=== PATIENT | female | born 1950 | race African-American/Black ===

== ENCOUNTER 2021-03-22 19:12 | Emergency (ER) | payer MEDICARE, OTHER ==
[~2021-03-22] VITALS: Ht 167.6 cm; Wt 95.3 kg
[2021-03-22 20:05] VITALS: BP 152/88
[2021-03-22] MEDS ORDERED: GELATIN SPONGE,ABSORBABLE 1 SPONGE SPONGE TP ONE ×2 (21:03→21:30)
--- NOTE | 2021-03-22 21:13 | NUR ---
[facility] CALLED FOR TRANSPORT. ETA 15 MINUTES.
--- NOTE | 2021-03-22 21:23 | NUR ---
REPORT GIVEN TO ISABELLE FROM [facility]
--- NOTE | 2021-03-22 21:39 | NUR ---
PATIENT BEING TRANSFFERED TO [facility] VIA AMBULANCE IN STABLE CONDITION WITH DISCHARGE PAPERS.
== END 2021-03-22 21:40 ==
LOC: ER 19:14
DX: L76.22 Postprocedural hemorrhage of skin and subcutaneous tissue following other procedure (principal); N18.6 End stage renal disease; E11.22 Type 2 diabetes mellitus with diabetic chronic kidney disease; E11.39 Type 2 diabetes mellitus with other diabetic ophthalmic complication; H42 Glaucoma in diseases classified elsewhere; I50.9 Heart failure, unspecified; Z99.2 Dependence on renal dialysis; Z83.511 Family history of glaucoma; Z86.79 Personal history of other diseases of the circulatory system; Z87.81 Personal history of (healed) traumatic fracture; Z86.2 Personal history of diseases of the blood and blood-forming organs and certain disorders involving the immune mechanism; Z88.0 Allergy status to penicillin; Z91.012 Allergy to eggs
CPT/HCPCS: 99283; A6253 ×2; A6403

== ENCOUNTER 2021-04-20 16:35 | Inpatient (IN) | payer MEDICARE, OTHER ==
[~2021-04-20] VITALS: Ht 167.6 cm; Wt 83.5 kg
[2021-04-20] MEDS ORDERED: LATA2.5D15 EACHEYE (17:22)
[2021-04-20] MEDS ORDERED: APIX2.5T PO (17:22)
[2021-04-20] MEDS ORDERED: METO25TA20 PO (17:22)
[2021-04-20] MEDS ORDERED: ASCO-352 PO (17:22)
[2021-04-20] MEDS ORDERED: LOSA25TA27 PO (17:22)
[2021-04-20] MEDS ORDERED: INSU100V11 SQ (17:22)
[2021-04-20] MEDS ORDERED: MIDO10TA PO (17:22)
[2021-04-20] MEDS ORDERED: ROSU10TA2 PO (17:22)
[2021-04-20] MEDS ORDERED: CHOL100043 PO (17:22)
[2021-04-20] MEDS ORDERED: FOLI0.8T23 PO (17:22)
[2021-04-20] MEDS ORDERED: TRAM50TA2 PO (17:22)
[2021-04-20] MEDS ORDERED: DOCU-141 PO (17:22)
[2021-04-20] MEDS ORDERED: ONDA-97 PO (17:22)
[2021-04-20] MEDS ORDERED: FERR210T PO (17:22)
[2021-04-20] MEDS ORDERED: GABA-532 PO (17:22)
[2021-04-20] MEDS ORDERED: ACET-2605 PO (17:22)
[2021-04-20] MEDS ORDERED: POLY17PO4 PO (17:22)
[2021-04-20] MEDS ORDERED: INSU100V36 SQ (17:22)
[2021-04-20] MEDS ORDERED: SITA50TA PO (17:22)
[2021-04-20] MEDS ORDERED: ASPI-1420 PO (17:22)
[2021-04-20] MEDS ORDERED: BISA10SU11 RC (17:22)
[2021-04-20] MEDS ORDERED: ACET-868 PO (17:22)
[2021-04-20] MEDS ORDERED: NA P133E RC (17:22)
[2021-04-20] MEDS ORDERED: HYDR-3980 PO (17:22)
[2021-04-20] MEDS ORDERED: DORZ10DR10 EACHEYE (17:22)
--- NOTE | 2021-04-20 17:31 | NUR ---
PATIENT ACCESS DIRECTOR AT BEDSIDE.
--- NOTE | 2021-04-20 18:01 | NUR ---
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
--- NOTE | 2021-04-20 19:08 | NUR ---
PT REQUESTED SLING FOR RIGHT ARM TO REST INSIDE, MD APPROVED, FORM SIGNED AND AUTHORIZED, SLING PROVIDED, MIDLINE IN LEFT ARM IS INTACT FLUSHING AND WORKING PROPERLY, PE NOTED EXAM TESTS, ORDERS TO TREAT PT WILL BE PERFORMED BY MD , AWAITING ANY NEW ORDERS AT THIS TIME.
--- NOTE | 2021-04-20 20:00 | NUR ---
COVID TEST SWABBED AND SENT TO LAB
[2021-04-20 20:08] LABS: BASOPHILS % (AUTO) 0.6 % (0.0-2.0); EOSINOPHILS % (AUTO) 1.8 % (0.0-6.0); HEMATOCRIT 31 % (33-45); LYMPHOCYTES # (AUTO) 1.4 K/uL (0.8-4.8); LYMPHOCYTES % (AUTO) 16.9 % (20.0-44.0); MEAN CORPUSCULAR HGB CONC 32 g/dl (31.0-36.0); MEAN CORPUSCULAR VOLUME 109 fL (82-100); MONOCYTES # (AUTO) 0.8 K/uL (0.1-1.30); MONOCYTES % (AUTO) 9.2 % (2.0-12.0); NEUTROPHILS # (AUTO) 5.8 K/uL (1.8-8.9); NEUTROPHILS % (AUTO) 71.5 % (43.0-81.0); PLATELET COUNT (AUTO) 169 K/uL (150-450); RED BLOOD CELL COUNT(AUTO) 2.89 MIL/uL (4.0-5.2); WHITE BLOOD COUNT (AUTO) 8.1 K/uL (4.3-11.0)
[2021-04-20 20:30] LABS: EOSINOPHILS % (MANUAL) 3 % (0-4); LYMPHOCYTES % (MANUAL) 20 % (16-48); MONOCYTES % (MANUAL) 7 % (0-11.0); NEUTROPHILS % (MANUAL) 70 (42-76)
[2021-04-20 20:34] LABS: ALANINE AMINOTRANSFERASE 9 U/L (12-78); ALBUMIN 3.8 g/dL (3.4-5.0); ALKALINE PHOSPHATASE 110 U/L (46-116); ASPARTATE AMINOTRANSFERASE 17 U/L (15-37); BILIRUBIN,TOTAL 0.2 mg/dL (0.2-1.0); CARBON DIOXIDE 23 mmol/L (21-32); CHLORIDE 100 mmol/L (98-107); CREATININE 2.8 mg/dL (0.6-1.3); GLUCOSE 160 mg/dL (74-106); POTASSIUM 3.5 mmol/L (3.5-5.1); SODIUM SERUM 135 mmol/L (136-145); TOTAL PROTEIN, SERUM 8.7 g/dL (6.4-8.2); UREA NITROGEN, BLOOD 13 mg/dL (7-18)
[2021-04-20] MEDS ORDERED: ZOLPIDEM TARTRATE 5 MG TABLET PO PRN (22:00)
[2021-04-20] MEDS ORDERED: GABAPENTIN 100 MG CAPSULE PO SCH (22:00)
[2021-04-20] MEDS ORDERED: VANCOMYCIN 1 GM in IV D5W 250 ML IV SCH (22:00)
[2021-04-20] MEDS ORDERED: MAG HYDROX/AL HYDROX/SIMETH 30 ML UDC PO PRN (22:00)
[2021-04-20] MEDS ORDERED: ACETAMINOPHEN 325 MG TABLET PO PRN (22:00)
[2021-04-20] MEDS ORDERED: DEXTROSE 50%-WATER 50 ML DISP.SYRIN IV PRN (22:00)
[2021-04-20] MEDS ORDERED: Z GUARD REMEDY 4 OZ OINT TP PRN (22:00)
--- NOTE | 2021-04-20 22:00 | NUR ---
PT PROVIDED WITH WARM BLANKET FOR COMFORT.
[2021-04-20] MEDS: BLOOD SUGAR DIAGNOSTIC 1 EACH STRIP IN SCH (22:05)
[2021-04-20] MEDS ORDERED: CEFTRIAXONE 1GM BAG (ER ONLY) 50 ML IV ONE (22:09)
[2021-04-20] MEDS: HYDROCODONE/APAP 10/325MG TABLET PO PRN (22:09)
[2021-04-20] MEDS: CEFTRIAXONE 1 G in IV D5W 50 ML IV SCH (22:10)
[2021-04-20] MEDS: ATORVASTATIN 10 MG TABLET PO SCH (22:15)
[2021-04-20] MEDS ORDERED: ATORVASTATIN 10 MG TABLET ONE (22:20)
[2021-04-20] MEDS ORDERED: VANCOMYCIN 1.75 GM in IV D5W 500 ML IV ONE (22:30)
[2021-04-20] MEDS ORDERED: VANCOMYCIN 500 MG VIAL ONE (23:01)
[2021-04-20] MEDS ORDERED: WATER FOR INJECTION,STERILE 20 ML ONE (23:01)
[2021-04-20] MEDS ORDERED: VANCOMYCIN 1 GM VIAL ONE (23:01)
--- NOTE | 2021-04-21 02:10 | NUR ---
PT SLEEPING COMOFORTABLY. BREATHING EVEN AND UNLABORED ALL V/S STABLE. ALL PT NEEDS MET.
[2021-04-21] MEDS ORDERED: HYDROCODONE/APAP 10/325MG TABLET ONE ×2 (03:29→07:56)
[2021-04-21] MEDS: HYDROCODONE/APAP 10/325MG TABLET PO PRN ×3 (03:32→19:43)
--- NOTE | 2021-04-21 03:33 | NUR ---
PT REPOSITIONED AND PROVIDED PAIN MEDICATION WELL WARM BLANKET PROVIDED FOR COMFORT. ALL NEEDS CURRENTLY MET AND V/S REMAIN STABLE. WILL CONTINUE TO MONITOR.
[2021-04-21] MEDS: IV 1/2NS 1000 ML 1,000 ML IV PRN ×2 (04:27→19:45)
[2021-04-21 04:42] LABS: BASOPHILS # (AUTO) 0.1 K/uL (0.0-0.2); EOSINOPHILS % (AUTO) 2.5 % (0.0-6.0); HEMATOCRIT 30 % (33-45); HEMOGLOBIN 9.3 g/dL (11.5-14.8); LYMPHOCYTES # (AUTO) 1.6 K/uL (0.8-4.8); LYMPHOCYTES % (AUTO) 20.6 % (20.0-44.0); MEAN CORPUSCULAR HGB CONC 32 g/dl (31.0-36.0); MEAN CORPUSCULAR VOLUME 107 fL (82-100); MONOCYTES # (AUTO) 0.9 K/uL (0.1-1.30); MONOCYTES % (AUTO) 11.7 % (2.0-12.0); NEUTROPHILS # (AUTO) 4.9 K/uL (1.8-8.9); NEUTROPHILS % (AUTO) 64.2 % (43.0-81.0); PLATELET COUNT (AUTO) 192 K/uL (150-450); RED BLOOD CELL COUNT(AUTO) 2.78 MIL/uL (4.0-5.2); WHITE BLOOD COUNT (AUTO) 7.6 K/uL (4.3-11.0)
--- NOTE | 2021-04-21 04:43 | NUR ---
bed assignment: 304-2 after shift change
[2021-04-21 04:58] LABS: CALCIUM, SERUM 8.9 mg/dL (8.5-10.1); CREATININE 3.4 mg/dL (0.6-1.3); MAGNESIUM 2.6 mg/dL (1.8-2.4); PHOSPHORUS 4.4 mg/dL (2.5-4.9); POTASSIUM 4.2 mmol/L (3.5-5.1)
[2021-04-21] MEDS ORDERED: PANTOPRAZOLE 40 MG TABLET.DR PO ONE (07:31)
[2021-04-21] MEDS: PANTOPRAZOLE 40 MG TABLET.DR PO SCH (07:32)
[2021-04-21] MEDS: BLOOD SUGAR DIAGNOSTIC 1 EACH STRIP IN SCH ×4 (07:54→22:00)
--- NOTE | 2021-04-21 07:54 | NUR ---
REPORT GIVEN TO ÓSCAR EWING FOR TANMAY
[2021-04-21 09:00] VITALS: BP 113/62
[2021-04-21] MEDS: LINAGLIPTIN 5 MG TABLET PO SCH (09:52)
[2021-04-21] MEDS: ASCORBIC ACID 500 MG TABLET PO SCH (09:52)
[2021-04-21] MEDS: ASPIRIN EC 81 MG TABLET.DR PO SCH (09:53)
[2021-04-21] MEDS: APIXABAN 2.5 MG TABLET PO SCH ×2 (09:54→16:58)
--- NOTE | 2021-04-21 10:00 | NUR ---
RN OPENING NOTES RECEIVED Pt FROM ED. SHE IS A/Ox4. Pt IS ON NC 2L AND TOLERATING WELL AT THIS TIME. NO COMPLAINTS OF PAIN AND NO SIGNS OF DISTRESS. AZAR CONTINUE TO MONITOR.
[2021-04-21] MEDS: LOSARTAN POTASSIUM 25 MG TABLET PO SCH (10:32)
[2021-04-21] MEDS: METOPROLOL TARTRATE 25 MG TABLET PO SCH ×2 (10:32→16:56)
[2021-04-21 12:00] VITALS: BP 109/57
[2021-04-21] MEDS: DORZOLAMIDE OPTH 2% 10 ML BOTTLE EACHEYE SCH ×3 (12:41→16:55)
[2021-04-21 13:18] LABS: EOSINOPHILS % (MANUAL) 2 % (0-4); LYMPHOCYTES % (MANUAL) 22 % (16-48); MONOCYTES % (MANUAL) 10 % (0-11.0); NEUTROPHILS % (MANUAL) 66 (42-76)
[2021-04-21 16:00] VITALS: BP 111/62
--- NOTE | 2021-04-21 18:52 | NUR ---
QUALITY REP OPENING NOTES Pt IS RESTING IN BED, Pt IS AWAKE AND IS A/Ox4. Pt IS ON NC 2L AND TOLERATING WELL AT THIS TIME. NO COMPLAINTS OF PAIN OR SIGNS OF DISTRESS NOTICED. SAFETY MEASURES ARE IN PLACE: BED IS LOCKED AND IN LOWEST POSITION, SIDE RAILS UPx2. CALL LIGHT AND BED SIDE TABLE ARE WITHIN REACH. WILL ENDORSE TO ONCOMING SHIFT. Addendum: 04/21/21 at 1854 by ÓSCAR NGUYỄN RN CLOSING NOTES
--- NOTE | 2021-04-21 19:15 | NUR ---
DEAN OF BOYS OPENING NOTES: RECEIVED PATIENT IN BED, AWAKE, A/O X4. NO S/S OF DISTRESS NOTED. CALL LIGHT WITHIN REACH. BED ALARM ON. BED IN LOWEST AND LOCKED POSITION. HOB ELEVATED. WITH RIGHT ARM SLING ON. ON O2 AT 2L/MIN NASAL CANNULA. WITH LEFT ARM AV FISTULA WITH SIGN ON THE WALL FOR RESTRICTION. PER REPORTS FROM KAYLIN CANTRELL, PATIENT REFUSED TO SIGN THE CONSENT FOR HD.
[2021-04-21 20:00] VITALS: BP 154/61
--- NOTE | 2021-04-21 20:03 | NUR ---
PATIENT ON TELE MONITOR, WITH SINUS 65.
[2021-04-21] MEDS: CEFTRIAXONE 1 G in IV D5W 50 ML IV SCH (21:32)
[2021-04-21] MEDS: ATORVASTATIN 10 MG TABLET PO SCH (21:33)
[2021-04-21] MEDS: LATANOPROST EYE DROP 0.005% 2.5 ML BOTTLE EACHEYE SCH (21:33)
[2021-04-21] MEDS: MAGNESIUM HYDROXIDE 30 ML UDC PO PRN (22:08)
[2021-04-21] MEDS: INSULIN REGULAR, HUMAN 100 UNIT/ML 3 ML VIAL SQ PRN (22:20)
[2021-04-22] MEDS: HYDROCODONE/APAP 10/325MG TABLET PO PRN ×4 (01:24→21:35)
[2021-04-22] MEDS: BLOOD SUGAR DIAGNOSTIC 1 EACH STRIP IN SCH ×4 (06:52→21:22)
[2021-04-22] MEDS: INSULIN REGULAR, HUMAN 100 UNIT/ML 3 ML VIAL SQ PRN ×2 (06:53→11:30)
--- NOTE | 2021-04-22 06:53 | NUR ---
blood sugar checked=91 no insulin needed.
--- NOTE | 2021-04-22 07:10 | NUR ---
BROADCAST PROGRAM DIRECTOR OPENING NOTES RECEIVED PATIENT IN BED, AWAKE, NO SIGNS OF ACUTE DISTRESS NOTED. ON O2 @2LPM VIA N/C, SATURATION @100%, NO SOB NOTED. NO C/O PAIN OR DISCOMFORT AT THIS TIME. IV ACCESS ON BRANDON PICC LINE, INTACT AND PATENT, SL. RIGHT SUBCLAVIAN HD CATHETER INTACT. F/C INTACT. SAFETY MEASURE IN PLACE, BED LOCKED AND IN LOWEST POSITION, SR UP X2, CALL LIGHT PLACED WITHIN EASY REACH. WILL CONTINUE TO MONITOR. Addendum: 04/22/21 at 1102 by ROLANDA BOYKIN RN *WRONG CHART*
--- NOTE | 2021-04-22 07:15 | NUR ---
RN OPENING MNOTES RECEIVED PATIENT IN BED, AWAKW, A/O X4. NO SIGNS OF ACUTE DISTRESS NOTED. ON O2 @2LPM VIA N/C, SATURATION @99%, BREATHING EVEN AND UNLABORED. WITH IV ACCESS ON KATE MIDLINE, INTACT AND PATENT, NS @75 ML/HR RUNNING. WITH RIGHT CHESTWALL PERMACATH INTACT AND BRANDON AV FISTULA WITH (+) BRUITS AND THRILLS. SAFETY MEASURE IN PLACE, BED LOCKED AND IN LOWEST POSITION, SR UP, CALL LIGHT PLACED WITHIN EASY REACH. WILL CONTINUE TO MONITOR.
[2021-04-22 08:00] VITALS: BP 107/46
--- NOTE | 2021-04-22 08:25 | NUR ---
WOUND CARE CONSULT: PT PRESENTS WITH RT ARM SLING, RT BREAST FIRMNESS/SWELLING, LEFT BREAST AND LEFT ABDOMEN PURULENT DRAINAGE AND SACRAL SCARRING WITH SOME BLEEDING NOTED, ALL PRESENT ON ADMISSION. RECOMMEND SURGICAL CONSULT. DEFER TO PMD FOR POSSIBLE SURGICAL CONSULT. RECOMMENDATIONS MADE FOR SKIN PROTRECTION AND WOUND CARE. DISCUSSED WITH NURSING STAFF. PT IS ON ERICA ISOFLEX LOW AIRLOSS BED. MD IN AGREEMENT WITH PLAN OF CARE.
[2021-04-22] MEDS: ASPIRIN EC 81 MG TABLET.DR PO SCH (08:44)
[2021-04-22] MEDS: PANTOPRAZOLE 40 MG TABLET.DR PO SCH (08:44)
[2021-04-22] MEDS: GABAPENTIN 300 MG CAPSULE PO SCH (08:44)
[2021-04-22] MEDS: ASCORBIC ACID 500 MG TABLET PO SCH (08:44)
[2021-04-22] MEDS: LINAGLIPTIN 5 MG TABLET PO SCH (08:44)
[2021-04-22] MEDS: APIXABAN 2.5 MG TABLET PO SCH ×2 (08:45→17:28)
[2021-04-22] MEDS: METOPROLOL TARTRATE 25 MG TABLET PO SCH ×2 (08:46→17:00)
[2021-04-22] MEDS: LOSARTAN POTASSIUM 25 MG TABLET PO SCH (08:47)
[2021-04-22] MEDS: DORZOLAMIDE OPTH 2% 10 ML BOTTLE EACHEYE SCH ×3 (08:54→17:26)
--- NOTE | 2021-04-22 10:08 | NUR ---
RN NOTES PATIENT SPOKE WITH DIETITIAN UMANG, PER PATIENT SHE IS NOT ALLERGIC TO EGGS. ALLERGY PROFILE UPDATED.
--- NOTE | 2021-04-22 10:56 | NUR ---
WOUND CARE: SURGICAL CONSULT CALLED TO DR REINIER SIMMONS. DISCUSSED WITH NURSING STAFF. IN AGREEMENT WITH PLAN OF CARE.
[2021-04-22 16:00] VITALS: BP 112/55
--- NOTE | 2021-04-22 17:50 | NUR ---
RN NOTES HD STARTED BY HD NURSE CON.
[2021-04-22] MEDS: LATANOPROST EYE DROP 0.005% 2.5 ML BOTTLE EACHEYE SCH (18:18)
--- NOTE | 2021-04-22 18:56 | NUR ---
RN CLOSING NOTES PATIENT IN BED, AWAKE, A/O X4, VERBALLY RESPONSIVE. NO SIGNS OF ACUTE DISTRESS NOTED. ON O2 @ 2LPM VIA N/C SATURATION @100%, NO SOB NOTED. HD ONGOING. ALL MEDS GIVEN, TOLERATED WELL. SAFETY PRECAUTIONS OBSERVED AND MAINTAINED. WILL ENDORSE TO NEXT SHIFT.
--- NOTE | 2021-04-22 19:30 | NUR ---
SECOND OPERATOR NOTES RECEIVED ON BED SLEEPING,WITH ON GOING HEMODIALYSIS TREATMENT,HD NURSE AT BEDSIDE.WITH KATE MIDLINE FOR MEDS,RIGHT CHEST WALL PERMA CATH FOR HD TREATMENT.NOTED RIGHT BREAST SWELLING,TENDER TO THE TOUCH.CALL LIGHT IN REACH,NEEDS ANTICIPATED.
[2021-04-22 20:00] VITALS: BP 96/57
[2021-04-22] MEDS: VANCOMYCIN 500 MG in IV D5W 100 ML IV PRN (20:17)
--- NOTE | 2021-04-22 20:17 | NUR ---
MS RN NOTES HEMODIALYSIS TREATMENT COMPLETED,3LITERS OUT,VANCOMYCIN 500MG IVPB HUNG WITH VANCO TROUGH OF 20,PER PHARMACY,OKAY TO GIVE POST HD TREATMENT.
[2021-04-22] MEDS: CEFTRIAXONE 1 G in IV D5W 50 ML IV SCH (21:22)
[2021-04-22] MEDS: ATORVASTATIN 10 MG TABLET PO SCH (21:23)
--- NOTE | 2021-04-22 21:35 | NUR ---
MS RN NOTES PAIN MANAGEMENT C/ PAIN ON BOTH LEGS 8/10 ON PAIN SCALE,NORCO 10/325MG,1 TAB PO GIVEN ORDERED.
--- NOTE | 2021-04-22 21:45 | NUR ---
MS RN NOTES ACCU-CHECK BLOOD SUGAR CHECK 115,NO INSULIN COVERAGE,SNACKS PROVIDED PER PATIENT REQUEST.
--- NOTE | 2021-04-23 05:30 | NUR ---
MS RN NOTES ACCU-CHECK BLOOD SUGAR CHECK 106,NO INSULIN COVERAGE.
--- NOTE | 2021-04-23 06:28 | NUR ---
MS RN NOTES FAIRLY RESTED AT NIGHT,HD TREATMENT TOLERATED WELL,AFEBRILE,RIGHT ARM SLING IN PLACE.IN NO ACUTE DISTRESSCALL LIGHT IN REACH,NEEDS ATTENDED.
[2021-04-23 07:19] LABS: ALBUMIN 3.5 g/dL (3.4-5.0); BILIRUBIN,TOTAL 0.2 mg/dL (0.2-1.0); CALCIUM, SERUM 8.5 mg/dL (8.5-10.1); CREATININE 3.7 mg/dL (0.6-1.3); MAGNESIUM 2.9 mg/dL (1.8-2.4); PHOSPHORUS 4.1 mg/dL (2.5-4.9); POTASSIUM 4.2 mmol/L (3.5-5.1); TOTAL PROTEIN, SERUM 8.3 g/dL (6.4-8.2)
[2021-04-23] MEDS: BLOOD SUGAR DIAGNOSTIC 1 EACH STRIP IN SCH ×4 (07:50→22:01)
[2021-04-23 08:00] VITALS: BP 105/59
[2021-04-23 08:09] LABS: BASOPHILS # (AUTO) 0.1 K/uL (0.0-0.2); BASOPHILS % (AUTO) 0.9 % (0.0-2.0); HEMATOCRIT 30 % (33-45); HEMOGLOBIN 9.2 g/dL (11.5-14.8); LYMPHOCYTES # (AUTO) 1.1 K/uL (0.8-4.8); LYMPHOCYTES % (AUTO) 14.5 % (20.0-44.0); MEAN CORPUSCULAR HGB CONC 31 g/dl (31.0-36.0); MEAN CORPUSCULAR VOLUME 108 fL (82-100); MONOCYTES % (AUTO) 13.3 % (2.0-12.0); NEUTROPHILS # (AUTO) 5.5 K/uL (1.8-8.9); NEUTROPHILS % (AUTO) 69.3 % (43.0-81.0); PLATELET COUNT (AUTO) 175 K/uL (150-450); RED BLOOD CELL COUNT(AUTO) 2.78 MIL/uL (4.0-5.2); WHITE BLOOD COUNT (AUTO) 7.9 K/uL (4.3-11.0)
[2021-04-23] MEDS: PANTOPRAZOLE 40 MG TABLET.DR PO SCH (08:22)
[2021-04-23] MEDS: DORZOLAMIDE OPTH 2% 10 ML BOTTLE EACHEYE SCH ×3 (08:22→17:16)
[2021-04-23] MEDS: ASPIRIN EC 81 MG TABLET.DR PO SCH (08:23)
[2021-04-23] MEDS: LINAGLIPTIN 5 MG TABLET PO SCH (08:23)
[2021-04-23] MEDS: ASCORBIC ACID 500 MG TABLET PO SCH (08:23)
[2021-04-23] MEDS: APIXABAN 2.5 MG TABLET PO SCH (08:24)
[2021-04-23] MEDS: LOSARTAN POTASSIUM 25 MG TABLET PO SCH (08:24)
[2021-04-23] MEDS: METOPROLOL TARTRATE 25 MG TABLET PO SCH ×2 (08:25→17:00)
--- NOTE | 2021-04-23 09:50 | NUR ---
RN Notes: Received pt. awake in bed, with oxygen via nasal cannula at 2L. Pt. on NPO except meds. BS is 107, BP meds not given for low BP and compliant on the rest of meds. Pt. is CT guided Thoracentesis and for body fluids analysis. No distress noted and will continue to monitor.
--- NOTE | 2021-04-23 11:37 | NUR ---
RN Martín miller. Per Radiologist Dr. Montgomery request to have Eliquis on hold for 48 hours starting today 04-23-21 after the morning dose, which was given today at 0824. CT Guided Thoracentesis will take place on Tuesday04-27-21.
--- NOTE | 2021-04-23 12:06 | NUR ---
Received a call from radiology Zaki that they will do the Guided thoracentesis in Tuesday for pt. is on Fausto. Will notify the MD. Addendum: 04/23/21 at 1449 by NAE HERRERA RN Zhen Jalloh NP made aware and ordered to ray Lambert
[2021-04-23] MEDS: HYDROCODONE/APAP 10/325MG TABLET PO PRN (12:40)
[2021-04-23 16:05] VITALS: BP 99/59
[2021-04-23] MEDS: LATANOPROST EYE DROP 0.005% 2.5 ML BOTTLE EACHEYE SCH (18:15)
--- NOTE | 2021-04-23 18:41 | NUR ---
Closing Notes: Pt. is back on her diet as ordered. Guided thoracentesis scheduled on Tuesday and Eliquis discontinued. BS is WNL and no coverage. Pt. is for CT on the breast with contrast and to do it before the hemodialysis. Pt. is complaining on pain and Benavides prn given, dressing done and needs attended.
--- NOTE | 2021-04-23 19:30 | NUR ---
MS RN NOTES RECEIVED ON BED A/O X4,BREATHING REGULAR,NOT IN ANY FORM OF DISTRESS,IV ACCESS INTACT AND PATENT ON RIGHT UPPER ARM MIDLINE,,WITH RIGHT CHEST WALL PERMA CATH FOR HD ACCESS.HAVING PAIN AT THE MOMENT ON ON RIGHT BREAST CELLULITIS,WILL MEDICATE.CALL LIGHT IN REACH,NEEDS ANTICIPATED.
[2021-04-23 20:00] VITALS: BP 111/53
[2021-04-23] MEDS: HYDROCODONE/APAP 5/325MG TABLET PO PRN (20:32)
--- NOTE | 2021-04-23 22:00 | NUR ---
MS RN NOTES ACCU-CHECK BLOOD SUGAR CHECK 101,NO INSULIN COVERAGE.SNACKS PROVIDED AT BEDSIDE.
--- NOTE | 2021-04-23 22:00 | NUR ---
MS RN NOTES DUE PO MEDS GIVEN SCHEDULED.
[2021-04-23] MEDS: ATORVASTATIN 10 MG TABLET PO SCH (22:01)
[2021-04-23] MEDS: CEFTRIAXONE 1 G in IV D5W 50 ML IV SCH (22:01)
[2021-04-24] MEDS: HYDROCODONE/APAP 5/325MG TABLET PO PRN ×3 (03:58→18:10)
--- NOTE | 2021-04-24 03:58 | NUR ---
MS RN NOTES PAIN MANAGEMENT C/O PAIN ON RIGHT ARM,NORCO 5/325MG,1TAB PO GIVEN ORDERED FOR MODERATE PAIN
--- NOTE | 2021-04-24 06:45 | NUR ---
MS RN NOTES FAIRLY RESTED AT NIGHT,NPO EXCEPT MEDS GOING FOR CT CHEST WITH CONTRAST TODAY,CONSENT ON CHART.PAIN MANAGEMENT EFFECTIVE,FOR HD TREATMENT TODAY WITH ORDER,IN NO ACUTE DISTRESS.
--- NOTE | 2021-04-24 07:10 | NUR ---
MS RN NOTES RECEIVED ON BED AWAKE,ALERT A/O X4,BREATHING REGULAR,NOT IN ANY FORM OF DISTRESS,IV ACCESS INTACT AND PATENT ON RIGHT UPPER ARM MIDLINE,,WITH RIGHT CHEST WALL PERMA CATH FOR HD ACCESS.DENIES ANY PAIN AT THIS THIS TIME. ALL NEEDS ATTENDED AND ANTICIPATED.GOOD SHANT CARE RENDERED. ENCOURAGED TO PARTICIPATES WITH REPOSITIONING. ORDERED.
[2021-04-24 07:19] LABS: BASOPHILS # (AUTO) 0.1 K/uL (0.0-0.2); BASOPHILS % (AUTO) 0.8 % (0.0-2.0); EOSINOPHILS % (AUTO) 2.8 % (0.0-6.0); HEMATOCRIT 27 % (33-45); HEMOGLOBIN 8.5 g/dL (11.5-14.8); LYMPHOCYTES # (AUTO) 1.3 K/uL (0.8-4.8); LYMPHOCYTES % (AUTO) 18.7 % (20.0-44.0); MEAN CORPUSCULAR HGB CONC 31 g/dl (31.0-36.0); MEAN CORPUSCULAR VOLUME 107 fL (82-100); MONOCYTES # (AUTO) 0.8 K/uL (0.1-1.30); MONOCYTES % (AUTO) 11.5 % (2.0-12.0); NEUTROPHILS # (AUTO) 4.4 K/uL (1.8-8.9); NEUTROPHILS % (AUTO) 66.2 % (43.0-81.0); PLATELET COUNT (AUTO) 200 K/uL (150-450); RED BLOOD CELL COUNT(AUTO) 2.55 MIL/uL (4.0-5.2); WHITE BLOOD COUNT (AUTO) 6.7 K/uL (4.3-11.0)
[2021-04-24 07:42] LABS: CREATININE 5.3 mg/dL (0.6-1.3); POTASSIUM 4.4 mmol/L (3.5-5.1)
[2021-04-24] MEDS: BLOOD SUGAR DIAGNOSTIC 1 EACH STRIP IN SCH ×4 (07:43→22:00)
[2021-04-24 07:55] LABS: CALCIUM, SERUM 8.9 mg/dL (8.5-10.1)
[2021-04-24] MEDS: PANTOPRAZOLE 40 MG TABLET.DR PO SCH (07:55)
[2021-04-24 08:29] VITALS: BP 91/62
[2021-04-24] MEDS: METOPROLOL TARTRATE 25 MG TABLET PO SCH ×2 (09:00→17:00)
[2021-04-24] MEDS: LOSARTAN POTASSIUM 25 MG TABLET PO SCH (09:00)
[2021-04-24] MEDS ORDERED: IOHEXOL-300 100 ML VIAL IV ONE (09:11)
[2021-04-24] MEDS ORDERED: IV NS 0.9% 250 ML IV ONE (09:12)
[2021-04-24] MEDS: ASPIRIN EC 81 MG TABLET.DR PO SCH (09:50)
[2021-04-24] MEDS: LINAGLIPTIN 5 MG TABLET PO SCH (09:50)
[2021-04-24] MEDS: ASCORBIC ACID 500 MG TABLET PO SCH (09:50)
[2021-04-24] MEDS: GABAPENTIN 300 MG CAPSULE PO SCH (09:52)
[2021-04-24] MEDS: DORZOLAMIDE OPTH 2% 10 ML BOTTLE EACHEYE SCH ×3 (10:16→17:26)
--- NOTE | 2021-04-24 12:05 | NUR ---
RN-NOTES BS WAS 159 MG/DL PATIENT REFUSED 2UNITS OF COVERAGE. STATED" THAT'S IS NOT HIGH AND I JUST ATE MY FOOD".
[2021-04-24 15:58] VITALS: BP 91/57
[2021-04-24] MEDS: INSULIN REGULAR, HUMAN 100 UNIT/ML 3 ML VIAL SQ PRN (18:00)
[2021-04-24] MEDS: LATANOPROST EYE DROP 0.005% 2.5 ML BOTTLE EACHEYE SCH (18:03)
--- NOTE | 2021-04-24 19:08 | NUR ---
RN -NOTES PATIENT ON BED AWAKE,ALERT A/O X4,BREATHING REGULAR,NOT IN ANY FORM OF DISTRESS,IV ACCESS INTACT AND PATENT ON RIGHT UPPER ARM MIDLINE,WITH RIGHT CHEST WALL PERMA CATH FOR HD ACCESS.C/O RIGTH HAND PAIN, PAIN MEDICATION GIVEN PRN ORDER. ALL NEEDS ATTENDED AND ANTICIPATED.GOOD SHANT CARE RENDERED. . ENCOURAGED TO PARTICIPATES WITH REPOSITIONING. ORDERED BUT PATIENT REFUSED TO REPOSITIONED ON HER LEFT SIDE.WILL ENDORSE TO INCOMING NURSE FOR CONTINUITY OF CARE.
--- NOTE | 2021-04-24 19:45 | NUR ---
MS RN OPENING NOTES: RECEIVED PATIENT AWAKE IN BED, BED IN LOW POSITION CALL LIGHTS WITHIN REACH, NO COMPLAIN OF PAIN AND DISCOMFORT AT THIS TIME, PATIENT IS A/O X4 ABLE TO MAKE NEEDS KNOWN, ON O2 INHALATION AT 2 LPM SATURATING WELL, PATIENT WITH BRANDON ML SALINE LOCK, WITH RT CHEST WALL HD DIALYSIS DONE TODAY WITH 3L OUTPUT, PATIENT KEPT CLEAN AND DRY, ALL NEEDS MET WILL CONTINUE TO MONITOR.
[2021-04-24 20:00] VITALS: BP 100/45
[2021-04-24] MEDS: CEFTRIAXONE 2 G in IV D5W 100 ML IV SCH (22:28)
[2021-04-24] MEDS: ATORVASTATIN 10 MG TABLET PO SCH (22:28)
--- NOTE | 2021-04-24 23:41 | NUR ---
RN NOTES: BS-99 NO INSULIN GIVEN,OUT OF PARAMETER PER SLIDING SCALE
[2021-04-25] MEDS: HYDROCODONE/APAP 5/325MG TABLET PO PRN ×2 (01:11→09:48)
--- NOTE | 2021-04-25 06:34 | NUR ---
MS RN CLOSING NOTE: PATIENT SLEEP IN BED COMFORTABLY, AROUSABLE TO VERBAL STIMULI BED IN LOW POSITION, CALL LIGHTS WITHIN REACH, NO COMPLAIN OF PAIN AND DISCOMFORT AT THIS TIME, ON O2 INHALATION AT 2LPM SATURATING WELL, PATIENT WITH KATE ML SL, AND RT CHEST WALL PERMA CATH FOR DIALYSIS, PATIENT HAS BRANDON DIALYSIS PORT CLEAN AND DRY, SKIN ISSUES AT SACRAL BRANDON, LEFT BREAST FOLD WERE CLEAN AND REPLACE WITH BANDAGE, PATIENT KEPT CLEAN AND DRY ALL NEEDS MET, ENDORSE TO INCOMING SHIFT.
[2021-04-25 07:41] LABS: BASOPHILS % (AUTO) 0.7 % (0.0-2.0); EOSINOPHILS % (AUTO) 2.3 % (0.0-6.0); HEMATOCRIT 29 % (33-45); HEMOGLOBIN 9.3 g/dL (11.5-14.8); LYMPHOCYTES % (AUTO) 13.8 % (20.0-44.0); MEAN CORPUSCULAR HGB CONC 32 g/dl (31.0-36.0); MEAN CORPUSCULAR VOLUME 106 fL (82-100); MONOCYTES # (AUTO) 0.8 K/uL (0.1-1.30); MONOCYTES % (AUTO) 10.5 % (2.0-12.0); NEUTROPHILS # (AUTO) 5.4 K/uL (1.8-8.9); NEUTROPHILS % (AUTO) 72.7 % (43.0-81.0); PLATELET COUNT (AUTO) 215 K/uL (150-450); RED BLOOD CELL COUNT(AUTO) 2.77 MIL/uL (4.0-5.2); WHITE BLOOD COUNT (AUTO) 7.4 K/uL (4.3-11.0)
--- NOTE | 2021-04-25 07:45 | NUR ---
MS RN OPENING NOTE Patient in bed, asleep. A/O x 4. On O2 at 2 LPM via NC, breathing evenly and unlabored. No SOB or s/s of distress noted. IV access on KATE midline SL, intact and patent. Safety precautions in place: bed in low, locked position; siderails up x 2; call light within reach. Will continue to monitor.
[2021-04-25 08:00] VITALS: BP 101/50
[2021-04-25 08:20] LABS: CALCIUM, SERUM 8.8 mg/dL (8.5-10.1); CREATININE 4.3 mg/dL (0.6-1.3); MAGNESIUM 2.8 mg/dL (1.8-2.4); PHOSPHORUS 4.3 mg/dL (2.5-4.9); POTASSIUM 4.4 mmol/L (3.5-5.1)
[2021-04-25] MEDS: ASPIRIN EC 81 MG TABLET.DR PO SCH (09:17)
[2021-04-25] MEDS: BLOOD SUGAR DIAGNOSTIC 1 EACH STRIP IN SCH ×4 (09:17→21:57)
[2021-04-25] MEDS: ASCORBIC ACID 500 MG TABLET PO SCH (09:17)
[2021-04-25] MEDS: LINAGLIPTIN 5 MG TABLET PO SCH (09:17)
[2021-04-25] MEDS: PANTOPRAZOLE 40 MG TABLET.DR PO SCH (09:17)
[2021-04-25] MEDS: METOPROLOL TARTRATE 25 MG TABLET PO SCH ×2 (09:18→17:00)
[2021-04-25] MEDS: LOSARTAN POTASSIUM 25 MG TABLET PO SCH (09:18)
[2021-04-25] MEDS: DORZOLAMIDE OPTH 2% 10 ML BOTTLE EACHEYE SCH ×3 (09:20→17:48)
--- NOTE | 2021-04-25 09:48 | NUR ---
RN NOTE Patient complained of pain on her upper extremities 09/20. PRN Gal[place] given. Will continue to monitor.
[2021-04-25] MEDS: INSULIN REGULAR, HUMAN 100 UNIT/ML 3 ML VIAL SQ PRN (12:18)
[2021-04-25] MEDS: HYDROCODONE/APAP 10/325MG TABLET PO PRN (14:23)
--- NOTE | 2021-04-25 14:23 | NUR ---
RN NOTE Patient complained of pain on her upper extremities 10/21. PRN [place]king given. Will continue to monitor.
--- NOTE | 2021-04-25 15:38 | NUR ---
DUE TO DR SAGASTUME'S BUSY SCHEDULE HE WAS NOT ABLE TO DO THORACENTESIS TODAY. HE REQUESTED FOR THE PROCEDURE TO BE DONE TOMORROW. KAYLIN/ JO WAS INFORMED. CONSENT IS SIGNED AND TIME OUT FORM IS PREPARED FOR TOMORROW.
[2021-04-25 16:00] VITALS: BP 90/46
--- NOTE | 2021-04-25 17:30 | NUR ---
RN NOTE Patient's BS is 83, no Insulin coverage needed per sliding scale.
[2021-04-25] MEDS: LATANOPROST EYE DROP 0.005% 2.5 ML BOTTLE EACHEYE SCH (17:48)
--- NOTE | 2021-04-25 18:52 | NUR ---
MS RN CLOSING NOTE Patient in bed, resting A/O x 4. On O2 at 2 LPM via NC, breathing evenly and unlabored. No SOB or s/s of distress noted. IV access on KATE midline SL, intact and patent. All needs attended to. Due meds given. Patient turned and repositioned every 2 hours. Safety precautions maintained: bed in low, locked position; siderails up x 2; call light within reach. Will endorse to night shift manager nurse for TANMAY.
--- NOTE | 2021-04-25 19:30 | NUR ---
RN OPENING NOTE PATIENT IN BED EYES CLOSED, EASILY AWAKENED. ABLE TO MAKE NEEDS KNOWN. PATIENT IS A/O X 4. PATIENT HAS KATE MIDLINE, SALINE LOCKED AT THIS TIME, PATENT AND INTACT. RCW PERMACATH AND BRADNON AV FISTULA PRESENT. PATIENT COMPLAINS OF MILD DISCOMFORT, NO PAIN. SAFETY MEASURES IN PLACE: BED LOCKED AND IN LOWEST POSITION. CALL LIGHT WITHIN REACH, SIDE RAILS UP. SLING PRESENT ON R ARM. WILL MONITOR PATIENT CLOSELY.
[2021-04-25 20:00] VITALS: BP 92/47
[2021-04-25] MEDS: CEFTRIAXONE 2 G in IV D5W 100 ML IV SCH (21:57)
[2021-04-25] MEDS: ATORVASTATIN 10 MG TABLET PO SCH (21:57)
--- NOTE | 2021-04-25 22:08 | NUR ---
RN NOTE BS 107MG/DL, NO COVERAGE GIVEN WILL MONITOR PATIENT FOR HYPO/HYPERGLYCEMIA
--- NOTE | 2021-04-26 06:01 | NUR ---
BS 106 MG/DL, NO COVERAGE GIVEN, WILL CONTINUE TO MONITOR FOR HYPO/HYPERGLYCEMIA
[2021-04-26] MEDS: BLOOD SUGAR DIAGNOSTIC 1 EACH STRIP IN SCH ×4 (06:44→21:25)
[2021-04-26] MEDS: HYDROCODONE/APAP 10/325MG TABLET PO PRN ×3 (06:44→21:05)
--- NOTE | 2021-04-26 06:50 | NUR ---
RN CLOSING NOTE PATIENT IN BED EYES CLOSED, EASILY AWAKENED. ABLE TO MAKE NEEDS KNOWN. PATIENT IS A/O X 4. PATIENT HAS KATE MIDLINE, SALINE LOCKED AT THIS TIME, PATENT AND INTACT. RCW PERMACATH AND BRANDON AV FISTULA PRESENT. PATIENT GIVEN NORCO 10-325 FOR 8/10 PAIN ON R SHOULDER. SAFETY MEASURES IN PLACE: BED LOCKED AND IN LOWEST POSITION. CALL LIGHT WITHIN REACH, SIDE RAILS UP. SLING PRESENT ON R ARM. ALL NEEDS MET AND ATTENDED. ALL ORDERS CARRIED OUT. WILL ENDORSE TO DAY SHIFT NURSE FOR TANMAY.
--- NOTE | 2021-04-26 07:14 | NUR ---
RN OPENING NOTE RECEIVED PATIENT IN BED EYES CLOSED, EASILY AWAKENED. ABLE TO MAKE NEEDS KNOWN. PATIENT IS A/O X 4. PATIENT IS BREATHING EVENLY AND NONLABORED ON ROOM AIR. NO SIGNS OF DISTRESS NOTED. PATIENT HAS KATE MIDLINE, SALINE LOCKED AT THIS TIME, PATENT AND INTACT. RCW PERMACATH AND BRANDON AV FISTULA PRESENT. PATIENT DENIES PAIN OR DISCOMFORT AT THIS TIME. SAFETY MEASURES IN PLACE: BED LOCKED AND IN LOWEST POSITION. CALL LIGHT WITHIN REACH, SIDE RAILS UP. SLING PRESENT ON R ARM. WILL CONTINUE TO MONITOR
[2021-04-26] MEDS: ASPIRIN EC 81 MG TABLET.DR PO SCH (08:03)
[2021-04-26] MEDS: LOSARTAN POTASSIUM 25 MG TABLET PO SCH (08:04)
[2021-04-26] MEDS: ASCORBIC ACID 500 MG TABLET PO SCH (08:04)
[2021-04-26] MEDS: PANTOPRAZOLE 40 MG TABLET.DR PO SCH (08:04)
[2021-04-26] MEDS: METOPROLOL TARTRATE 25 MG TABLET PO SCH ×2 (08:04→16:28)
[2021-04-26] MEDS: LINAGLIPTIN 5 MG TABLET PO SCH (08:04)
[2021-04-26] MEDS: DORZOLAMIDE OPTH 2% 10 ML BOTTLE EACHEYE SCH ×3 (08:05→16:08)
--- NOTE | 2021-04-26 09:41 | NUR ---
SPOKE W RN REGARDING THE PROCEDURE, PER RN PATIENT IS IN NO DISTRESS AT THIS [facility], INFORMED HER THAT THE PROCEDURE IS ROUTINE, AND NOT STAT, AND WILL BE DONE TOMORROW.
[2021-04-26] MEDS: INSULIN REGULAR, HUMAN 100 UNIT/ML 3 ML VIAL SQ PRN ×2 (11:35→16:32)
[2021-04-26 12:38] LABS: BASOPHILS % (AUTO) 0.4 % (0.0-2.0); EOSINOPHILS % (AUTO) 2.5 % (0.0-6.0); HEMATOCRIT 30 % (33-45); HEMOGLOBIN 9.3 g/dL (11.5-14.8); LYMPHOCYTES % (AUTO) 14.2 % (20.0-44.0); MEAN CORPUSCULAR HGB CONC 31 g/dl (31.0-36.0); MEAN CORPUSCULAR VOLUME 109 fL (82-100); MONOCYTES # (AUTO) 0.6 K/uL (0.1-1.30); MONOCYTES % (AUTO) 8.5 % (2.0-12.0); NEUTROPHILS # (AUTO) 5.5 K/uL (1.8-8.9); NEUTROPHILS % (AUTO) 74.4 % (43.0-81.0); PLATELET COUNT (AUTO) 211 K/uL (150-450); RED BLOOD CELL COUNT(AUTO) 2.78 MIL/uL (4.0-5.2); WHITE BLOOD COUNT (AUTO) 7.3 K/uL (4.3-11.0)
[2021-04-26 12:51] LABS: CREATININE 6.3 mg/dL (0.6-1.3); MAGNESIUM 2.9 mg/dL (1.8-2.4); PHOSPHORUS 6.1 mg/dL (2.5-4.9); POTASSIUM 5.6 mmol/L (3.5-5.1)
[2021-04-26] MEDS: LATANOPROST EYE DROP 0.005% 2.5 ML BOTTLE EACHEYE SCH (17:01)
[2021-04-26] MEDS: ONDANSETRON HCL/PF 4 MG/2 ML VIAL IVP PRN (18:20)
--- NOTE | 2021-04-26 18:22 | NUR ---
RN OPENING NOTE PATIENT IN BED AWAKE ABLE TO MAKE NEEDS KNOWN. PATIENT IS A/O X 4. PATIENT IS BREATHING EVENLY AND NONLABORED ON ROOM AIR. NO SIGNS OF DISTRESS NOTED. PATIENT HAS KATE MIDLINE, SALINE LOCKED AT THIS TIME, PATENT AND INTACT. RCW PERMACATH AND BRANDON AV FISTULA PRESENT. PATIENT DENIES PAIN OR DISCOMFORT AT THIS TIME. ALL MEDICATIONS GIVEN. PATIENT KEPT CLEAN AND DRY. SAFETY MEASURES IN PLACE: BED LOCKED AND IN LOWEST POSITION. CALL LIGHT WITHIN REACH, SIDE RAILS UP. SLING PRESENT ON R ARM. WILL ENDORSE TO ONCOMING SHIFT Addendum: 04/26/21 at 1823 by HENRY MAURICE RN CLOSING
[2021-04-26] MEDS ORDERED: SODIUM POLYSTYRENE SULF. PWD 15 GM UDC PO ONE (19:30)
[2021-04-26 20:00] VITALS: BP 92/49
[2021-04-26] MEDS: CEFTRIAXONE 2 G in IV D5W 100 ML IV SCH (21:04)
[2021-04-26] MEDS: ATORVASTATIN 10 MG TABLET PO SCH (21:04)
[2021-04-26] MEDS ORDERED: SODIUM POLYSTYRENE SULFONATE 15 G/60 ML BOTTLE ONE (21:29)
[2021-04-27] MEDS: HYDROCODONE/APAP 10/325MG TABLET PO PRN ×2 (04:25→17:31)
--- NOTE | 2021-04-27 06:19 | NUR ---
RN CLOSING NOTES Patient stable overnight. However, did c/o L arm pain relieved by repositioning and PRN Maramec. VS WNL. BS WNL. KATE midline flushedand patent. No adverse reactions from IV ABX. Currently resting in bed comfortable. no signs of distress. Denies needs at this time.
[2021-04-27] MEDS: BLOOD SUGAR DIAGNOSTIC 1 EACH STRIP IN SCH ×4 (06:44→22:26)
[2021-04-27 06:55] LABS: BASOPHILS % (AUTO) 0.5 % (0.0-2.0); EOSINOPHILS % (AUTO) 1.9 % (0.0-6.0); HEMATOCRIT 31 % (33-45); HEMOGLOBIN 9.4 g/dL (11.5-14.8); LYMPHOCYTES # (AUTO) 1.2 K/uL (0.8-4.8); LYMPHOCYTES % (AUTO) 14.9 % (20.0-44.0); MEAN CORPUSCULAR HGB CONC 30 g/dl (31.0-36.0); MEAN CORPUSCULAR VOLUME 111 fL (82-100); MONOCYTES # (AUTO) 0.6 K/uL (0.1-1.30); MONOCYTES % (AUTO) 7.7 % (2.0-12.0); NEUTROPHILS # (AUTO) 5.8 K/uL (1.8-8.9); PLATELET COUNT (AUTO) 222 K/uL (150-450); WHITE BLOOD COUNT (AUTO) 7.8 K/uL (4.3-11.0)
[2021-04-27] MEDS: PANTOPRAZOLE 40 MG TABLET.DR PO SCH (07:20)
--- NOTE | 2021-04-27 07:30 | NUR ---
MS RN OPENING NOTE RECEIVED PATIENT IN BED AWAKE. ABLE TO MAKE NEEDS KNOWN. PATIENT IS A/O X 4. PATIENT BREATHS EVEN AND NONLABORED ON ROOM AIR. NO SIGNS OF DISTRESS NOTED. PATIENT HAS KATE MIDLINE, SALINE LOCKED AT THIS TIME, PATENT AND INTACT. RCW PERMACATH AND BRANDON AV FISTULA PRESENT. PATIENT DENIES PAIN OR DISCOMFORT AT THIS TIME. SAFETY MEASURES IN PLACE: BED LOCKED AND IN LOWEST POSITION. CALL LIGHT AND TABLE WITHIN REACH, SIDE RAILS UP. SLING PRESENT ON R ARM. WILL CONTINUE TO MONITOR.
[2021-04-27 07:39] LABS: CALCIUM, SERUM 8.7 mg/dL (8.5-10.1); CREATININE 7.2 mg/dL (0.6-1.3); MAGNESIUM 3.2 mg/dL (1.8-2.4); PHOSPHORUS 7.2 mg/dL (2.5-4.9); POTASSIUM 5.9 mmol/L (3.5-5.1)
[2021-04-27 08:00] VITALS: BP 88/53
[2021-04-27] MEDS: LINAGLIPTIN 5 MG TABLET PO SCH (08:17)
[2021-04-27] MEDS: ASCORBIC ACID 500 MG TABLET PO SCH (08:17)
[2021-04-27] MEDS: DORZOLAMIDE OPTH 2% 10 ML BOTTLE EACHEYE SCH ×3 (08:17→17:30)
[2021-04-27] MEDS: HYDROCODONE/APAP 5/325MG TABLET PO PRN (08:24)
[2021-04-27] MEDS: METOPROLOL TARTRATE 25 MG TABLET PO SCH ×2 (09:00→17:32)
[2021-04-27] MEDS: LOSARTAN POTASSIUM 25 MG TABLET PO SCH (09:00)
[2021-04-27] MEDS: ASPIRIN EC 81 MG TABLET.DR PO SCH (09:00)
--- NOTE | 2021-04-27 09:22 | NUR ---
RN NOTES HELD ASPIRIN FOR THORACENTHESIS PER MD. HELD LOSARTAN AND METOPROLOL FOR BP=88/53.
[2021-04-27] MEDS: GABAPENTIN 300 MG CAPSULE PO SCH (09:50)
[2021-04-27] MEDS: ONDANSETRON HCL/PF 4 MG/2 ML VIAL IVP PRN (10:06)
[2021-04-27 16:00] VITALS: BP 134/74
[2021-04-27] MEDS ORDERED: VANCOMYCIN POST DIALYSIS 500MG IV ONE ×2 (16:00)
[2021-04-27] MEDS: LATANOPROST EYE DROP 0.005% 2.5 ML BOTTLE EACHEYE SCH (18:56)
--- NOTE | 2021-04-27 19:30 | NUR ---
MS RN CLOSING NOTE PATIENT IN BED AWAKE. ABLE TO MAKE NEEDS KNOWN. PATIENT IS A/O X 4. PATIENT BREATHS EVEN AND NONLABORED ON ROOM AIR. NO SIGNS OF DISTRESS NOTED. PATIENT HAS KATE MIDLINE, SALINE LOCKED AT THIS TIME, PATENT AND INTACT. RCW PERMACATH AND BRANDON AV FISTULA PRESENT. PATIENT DENIES PAIN OR DISCOMFORT AT THIS TIME. SAFETY MEASURES IN PLACE:ALL DUE MEDS GIVEN ORDERED. HEMODIALYSIS DONE. 2L OUTPUT. BED LOCKED AND IN LOWEST POSITION. CALL LIGHT AND TABLE WITHIN REACH, SIDE RAILS UP. SLING PRESENT ON R ARM. WILL ENDORSE FOR TANMAY.
--- NOTE | 2021-04-27 19:59 | NUR ---
RN OPENING NOTES RECEIVED PT IN BED, AWAKE. AOx4, ABLE TO MAKE NEEDS KNOWN. ON NC 2LPM AND TOLERATING WELL. NO SOB NOTED. NO S/SX OF RESPIRATORY DISTRESS NOTED. IV ACCESS IN KATE MIDLINE, RCW PERMACATH, AND BRANDON AVF. IV IS INTACT, PATENT, AND FLUSHING WELL. SAFETY PRECAUTIONS IN PLACE: BED IN LOWEST, LOCKED POSITION, SIDERAILS UPx2, AND BRAKES ON. TABLE AND CALL LIGHT WITHIN REACH. WILL CONTINUE TO MONITOR.
[2021-04-27 20:00] VITALS: BP 80/32
--- NOTE | 2021-04-27 20:46 | NUR ---
SPOKE TO DR. RUFF REGARDING PATIENT LOW BP OF 80/32 AND PULSE OF 42. PATIENT ORDERED 500 CC BOLUS AND MIDODRINE 10 MG TID.
[2021-04-27] MEDS: ATORVASTATIN 10 MG TABLET PO SCH (22:13)
[2021-04-27] MEDS: CEFTRIAXONE 2 G in IV D5W 100 ML IV SCH (22:13)
[2021-04-27] MEDS: INSULIN REGULAR, HUMAN 100 UNIT/ML 3 ML VIAL SQ PRN (22:26)
[2021-04-27] MEDS ORDERED: IV NS 0.9% 500 ML IV SCH (23:00)
[2021-04-27] MEDS ORDERED: MIDODRINE HCL (5MG) 5 MG TABLET PO ONE (23:30)
[2021-04-28] VITALS (69 sets, daily range): BP systolic 78–124; BP diastolic 28–65
[2021-04-28 00:16] LABS: ALBUMIN 3.2 g/dL (3.4-5.0); BILIRUBIN,DIRECT 0.1 mg/dL (0.0-0.2); BILIRUBIN,TOTAL 0.2 mg/dL (0.2-1.0); TOTAL PROTEIN, SERUM 7.8 g/dL (6.4-8.2)
--- NOTE | 2021-04-28 03:05 | NUR ---
ADMINISTERED MIDODRINE 10 MG ONCE AND 500 CC BOLUS OF NS. BP TAKEN @0245 AND STILL 80/36. DR. RUFF MADE AWARE AND ORDERED PATIENT BE TRANSFERRED VIA PROTOCOL TO [facility] AND STARTED ON DOPAMINE DRIP. AWAITING BED IN [facility]. WILL CONTINUE TO MONITOR.
[2021-04-28] MEDS ORDERED: DOPamine 400 MG in IV D5W 250 ML IV PRN (04:00)
--- NOTE | 2021-04-28 04:24 | NUR ---
PATIENT TRANSFERRED TO [facility] PER PROTOCOL.
--- NOTE | 2021-04-28 04:49 | NUR ---
TRANSFER THE PT FROM [facility] FOR LOW BLOOD PRESSURE. PHOTOGRAPHERS' MODEL MD ORDERED DOPAMINE DRIP. PT IS AWAKE ALERT. FOLLOW COMMANDS. MARITIME PILOT SHOWING NSR. IV RT UPPER ARM MID LINE. SALINE LOCK. OXYGEN 4L VIA NASAL CANNULA. SAT 94%. NO ACUTE DISTRESS NOTED. HOB ELEVATED. AT THIS TIME BLOOD PRESSURE STABLE. WILL CONTINUE TO MONITOR VITALS.
[2021-04-28 05:44] LABS: BASOPHILS % (AUTO) 0.4 % (0.0-2.0); EOSINOPHILS % (AUTO) 2.1 % (0.0-6.0); HEMATOCRIT 31 % (33-45); HEMOGLOBIN 9.7 g/dL (11.5-14.8); LYMPHOCYTES # (AUTO) 0.6 K/uL (0.8-4.8); LYMPHOCYTES % (AUTO) 6.6 % (20.0-44.0); MEAN CORPUSCULAR HGB CONC 31 g/dl (31.0-36.0); MEAN CORPUSCULAR VOLUME 105 fL (82-100); MONOCYTES # (AUTO) 0.6 K/uL (0.1-1.30); MONOCYTES % (AUTO) 6.6 % (2.0-12.0); NEUTROPHILS % (AUTO) 84.3 % (43.0-81.0); PLATELET COUNT (AUTO) 192 K/uL (150-450); RED BLOOD CELL COUNT(AUTO) 2.95 MIL/uL (4.0-5.2); WHITE BLOOD COUNT (AUTO) 9.5 K/uL (4.3-11.0)
[2021-04-28 05:58] LABS: CALCIUM, SERUM 8.3 mg/dL (8.5-10.1); CREATININE 4.7 mg/dL (0.6-1.3); MAGNESIUM 2.4 mg/dL (1.8-2.4); PHOSPHORUS 5.6 mg/dL (2.5-4.9); POTASSIUM 4.3 mmol/L (3.5-5.1)
[2021-04-28] MEDS ORDERED: DOPamine 400MG/D5W 250ML RTU 250 ML ONE (06:06)
[2021-04-28] MEDS: DOPamine 400 MG in IV D5W 250 ML IV PRN ×2 (06:42→20:55)
--- NOTE | 2021-04-28 06:43 | NUR ---
RESIDUE FURNACE OPERATOR. BLOOD PRESSURE 77/45. DOPAMINE STARTED PER PROTOCOL.WILL MONITOR VITALS.
[2021-04-28] MEDS ORDERED: VANCOMYCIN POST DIALYSIS 500MG IV ONE ×2 (07:00)
[2021-04-28] MEDS: BLOOD SUGAR DIAGNOSTIC 1 EACH STRIP IN SCH ×5 (07:41→22:35)
[2021-04-28] MEDS: PANTOPRAZOLE 40 MG TABLET.DR PO SCH (07:41)
--- NOTE | 2021-04-28 08:00 | NUR ---
RN NOTES RECEIVED PATIENT IN THE BED , RESTING IN THE BED , PATIENT ON O2-L 100%, HR 68 ON BEDSIDE MONITOR. PATIENT REFUSING TO EAT OR TAKE MEDICATION AT THIS TIME, PATIENT TOTAL CARE, HAS FX OF RIGHT ARM ON SLING, A/O X1/2 WITH CONFUSION. KEEP HOB ELEVATED, ASSIST TURN AND REPOSTION Q 2 HR. WILL FOLLOW UP.
--- NOTE | 2021-04-28 08:15 | NUR ---
rn notes patient on dopamine drip 5 mcg/kg/hr, bp 91/49, p-78. patient on O2-4l, PermCath on right upper chest intact. 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
[2021-04-28] MEDS: DORZOLAMIDE OPTH 2% 10 ML BOTTLE EACHEYE SCH ×3 (08:30→16:27)
[2021-04-28] MEDS: LINAGLIPTIN 5 MG TABLET PO SCH (08:38)
[2021-04-28] MEDS: ASPIRIN EC 81 MG TABLET.DR PO SCH (08:38)
[2021-04-28] MEDS: MIDODRINE HCL (5MG) 5 MG TABLET PO SCH ×4 (08:39→19:12)
[2021-04-28] MEDS: METOPROLOL TARTRATE 25 MG TABLET PO SCH ×2 (08:40→16:26)
[2021-04-28] MEDS: ASCORBIC ACID 500 MG TABLET PO SCH (08:40)
[2021-04-28] MEDS: LOSARTAN POTASSIUM 25 MG TABLET PO SCH (08:40)
[2021-04-28] MEDS: ONDANSETRON HCL/PF 4 MG/2 ML VIAL IVP PRN (14:09)
--- NOTE | 2021-04-28 14:09 | NUR ---
rn notes administered Zofran 4 mg/ml iv push for nausea per patient request. will follow up.
[2021-04-28] MEDS: LATANOPROST EYE DROP 0.005% 2.5 ML BOTTLE EACHEYE SCH (17:06)
[2021-04-28] MEDS: INSULIN REGULAR, HUMAN 100 UNIT/ML 3 ML VIAL SQ PRN (17:12)
--- NOTE | 2021-04-28 18:30 | NUR ---
RN NOTES PATIENT ASSIST EATING TOLERATED DINNER 20%, BS-156MG/DL COVERAGE GIVEN, DUE MEDICATION ADMINISTERED, INFUSING DOPAMINE 4 MCG/KG/HR BP 95/54, P-68. ASSIST TURN AND REPOSTION Q 2 HR. PATIENT ANURIC, ENDORSED ONCOMING, NURSE FOLLOW PLAN OF CARE.
--- NOTE | 2021-04-28 20:01 | NUR ---
RN OPENING NOTE RECEIVED PATIENT RESTING IN BED COMFORTABLY WITH NO ACUTE DISTRESS OR PAIN. PATIENT IS A/O X 3, ON 2L O2 VIA NC SATURATING 100%, HR 74 ON BEDSIDE MONITOR. HAS FX OF RIGHT ARM ON SLING. IV SITE NOTED ON RIGHT ARM, FLUSHED AND PATENT, INFUSING DOPAMINE 4MCG/KG/MIN.ALL SAFETY MEASURES IN PLACE, BED IN LOW POSITION, LOCKED, CALL LIGHT WITHIN REACH. WILL MONITOR PATIENTS VITALS THROUGHOUT THE SHIFT.
[2021-04-28] MEDS: CEFTRIAXONE 2 G in IV D5W 100 ML IV SCH (21:37)
[2021-04-28] MEDS: ATORVASTATIN 10 MG TABLET PO SCH (21:37)
[2021-04-28] MEDS: HYDROCODONE/APAP 5/325MG TABLET PO PRN (22:21)
--- NOTE | 2021-04-28 23:40 | NUR ---
RN/ICU-SPOKE TO PT. AT LENGTH REGARDING RESPONSIBLE PERSON TO MAKE DECISIONS FOR PT. IN THE EVENT THAT PT. CAN NO LONGER BE ABLE TO MAKE DECISION FOR HERSELF. PT. HAS A SON WHO HAS ESTRANGE RELATIONSHIP TO PT.PT. HAS A NEPHEW SUZI ROQUE JR(ROMAIN) WHO THE PT. TRUST AND WANTS TO MAKE DECISIONS FOR HER IN THE EVENT OF HER UNABLE TO MAKE DECISIONS FOR HER. ROMAIN'S PHONE NO. [phone]. ALSO PT. HAS A BEST FRIEND DAWOOD JIMENEZ WHO CAN BE THE SECOND PARTITION ASSEMBLER.(TEL. NO.[phone]).
[2021-04-29] VITALS (75 sets, daily range): BP systolic 78–142; BP diastolic 32–112
[2021-04-29] MEDS: ONDANSETRON HCL/PF 4 MG/2 ML VIAL IVP PRN ×3 (01:14→08:01)
[2021-04-29 05:10] LABS: ALBUMIN 3.2 g/dL (3.4-5.0); BILIRUBIN,TOTAL 0.3 mg/dL (0.2-1.0); CALCIUM, SERUM 8.6 mg/dL (8.5-10.1); CREATININE 5.9 mg/dL (0.6-1.3); MAGNESIUM 2.4 mg/dL (1.8-2.4); PHOSPHORUS 7.1 mg/dL (2.5-4.9); POTASSIUM 4.1 mmol/L (3.5-5.1)
[2021-04-29 05:22] LABS: BASOPHILS # (AUTO) 0.1 K/uL (0.0-0.2); BASOPHILS % (AUTO) 0.5 % (0.0-2.0); EOSINOPHILS % (AUTO) 2.2 % (0.0-6.0); HEMATOCRIT 29 % (33-45); HEMOGLOBIN 9.3 g/dL (11.5-14.8); LYMPHOCYTES # (AUTO) 1.1 K/uL (0.8-4.8); LYMPHOCYTES % (AUTO) 10.9 % (20.0-44.0); MEAN CORPUSCULAR HGB CONC 32 g/dl (31.0-36.0); MEAN CORPUSCULAR VOLUME 103 fL (82-100); MONOCYTES # (AUTO) 0.8 K/uL (0.1-1.30); MONOCYTES % (AUTO) 7.6 % (2.0-12.0); NEUTROPHILS # (AUTO) 7.8 K/uL (1.8-8.9); NEUTROPHILS % (AUTO) 78.8 % (43.0-81.0); PLATELET COUNT (AUTO) 209 K/uL (150-450); RED BLOOD CELL COUNT(AUTO) 2.85 MIL/uL (4.0-5.2); WHITE BLOOD COUNT (AUTO) 9.8 K/uL (4.3-11.0)
--- NOTE | 2021-04-29 06:18 | NUR ---
RN CLOSING NOTES PATIENT REMAINED STABLE THROUGHOUT THE NIGHT. IS A/O X4 , RESPONSIVE AND COOPERATIVE, PATIENT SATURATING AT 99% ON 02 WITH NC. ALL MEDICATIONS GIVEN ORDERED, KEPT PATIENT DRY AND CLEAN THROUGHOUT THE NIGHT. PATIENT REMAINS ON DOPAMINE DRIP. WILL ENDORSE PLAN OF CARE TO AM NURSE.
--- NOTE | 2021-04-29 07:10 | NUR ---
RN OPENING NOTES RECEIVED PT IN BED, A/O X3-4. ON 1L O2 VIA NC SATURATING @100%. NO SOB OR ANY S/S ACUTE DISTRESS. DENIES PAIN AT THIS TIME. RIGHT ARM ON SLING. IV SITE ON KATE MIDLINE INTACT, PATENT AND FLUSHED. DOPAMINE 5MCG/KG/MIN. SAFETY MEASURES IN PLACE. CALL LIGHT WITHIN REACH. BED LOCKED AND IN LOWEST POSITION WITH SIDE RAILS UP X3. WILL CONTINUE TO MONITOR.
[2021-04-29] MEDS: HYDROCODONE/APAP 5/325MG TABLET PO PRN ×2 (07:55→19:42)
[2021-04-29] MEDS: PANTOPRAZOLE 40 MG TABLET.DR PO SCH (07:55)
[2021-04-29] MEDS: BLOOD SUGAR DIAGNOSTIC 1 EACH STRIP IN SCH ×4 (07:55→21:18)
[2021-04-29] MEDS: INSULIN REGULAR, HUMAN 100 UNIT/ML 3 ML VIAL SQ PRN ×4 (07:56→21:43)
[2021-04-29] MEDS: LINAGLIPTIN 5 MG TABLET PO SCH (08:51)
[2021-04-29] MEDS: MIDODRINE HCL (5MG) 5 MG TABLET PO SCH ×3 (08:51→17:16)
[2021-04-29] MEDS: ASCORBIC ACID 500 MG TABLET PO SCH (08:51)
[2021-04-29] MEDS: DORZOLAMIDE OPTH 2% 10 ML BOTTLE EACHEYE SCH ×3 (08:51→17:12)
[2021-04-29] MEDS: GABAPENTIN 300 MG CAPSULE PO SCH (08:51)
[2021-04-29] MEDS: ASPIRIN EC 81 MG TABLET.DR PO SCH (08:51)
[2021-04-29] MEDS: METOPROLOL TARTRATE 25 MG TABLET PO SCH ×2 (08:52→17:00)
[2021-04-29] MEDS: LOSARTAN POTASSIUM 25 MG TABLET PO SCH (08:52)
[2021-04-29] MEDS: DOPamine 400 MG in IV D5W 250 ML IV PRN (14:15)
[2021-04-29] MEDS: LATANOPROST EYE DROP 0.005% 2.5 ML BOTTLE EACHEYE SCH (18:00)
--- NOTE | 2021-04-29 19:10 | NUR ---
HEMATOLOGIST ONCOLOGIST NOTE RECEIVED PATIENT IN BED RESTING ALERT ORIENTED 3-4 VERBALLY RESPONSIVE ON 1L OXYGEN VIA NASAL CANNULA O2:98% IV SITE IS ON RIGHT UPPER ARM MIDLINE INTACT PATENT,RIGHT ARM IN SLING,ON DOPAMINE DRIP 4MCG/KG/MIN,PATIENT IS ON DIALYSIS NOW.RIGHT UPPER CHEST PERM-CATH INTACT,SAFETY MEASURE IMPLEMENT, HEAD OF THE BED ELEVATED,CALL LIGHT WITHIN REACH CONTINUE TO MONITOR.
--- NOTE | 2021-04-29 20:07 | NUR ---
RN NOTES NO SIGNIFICANT CHANGES THROUGHOUT THE SHIFT. NO SOB. DENIES PAIN. ALL DUE MEDS GIVEN. NEEDS ATTENDED. KEPT CLEAN AND COMFORTABLE. SAFETY MEASURES IMPLEMENTED. ENDORSED TO NIGHT RN FOR TANMAY.
--- NOTE | 2021-04-29 20:37 | NUR ---
RN NOTE DIALYSIS DONE ONE LITER FLUID OUT CONTINUE TO MONITOR.
[2021-04-29] MEDS: CEFTRIAXONE 2 G in IV D5W 100 ML IV SCH (21:20)
[2021-04-29] MEDS: ATORVASTATIN 10 MG TABLET PO SCH (21:20)
[2021-04-30] VITALS (79 sets, daily range): BP systolic 80–126; BP diastolic 35–90
--- NOTE | 2021-04-30 02:00 | NUR ---
DENTAL OFFICE ASSISTANT NOTE INCREASE DOPAMINE TO 5MCG/KG/MIN BP 87/48 HR 72 CONTINUE TO MONITOR.
[2021-04-30 04:29] LABS: BASOPHILS % (AUTO) 0.6 % (0.0-2.0); EOSINOPHILS % (AUTO) 2.8 % (0.0-6.0); HEMATOCRIT 28 % (33-45); HEMOGLOBIN 9.3 g/dL (11.5-14.8); LYMPHOCYTES # (AUTO) 0.8 K/uL (0.8-4.8); LYMPHOCYTES % (AUTO) 11.1 % (20.0-44.0); MEAN CORPUSCULAR HGB CONC 33 g/dl (31.0-36.0); MEAN CORPUSCULAR VOLUME 102 fL (82-100); MONOCYTES # (AUTO) 0.7 K/uL (0.1-1.30); MONOCYTES % (AUTO) 9.5 % (2.0-12.0); NEUTROPHILS # (AUTO) 5.3 K/uL (1.8-8.9); PLATELET COUNT (AUTO) 194 K/uL (150-450); RED BLOOD CELL COUNT(AUTO) 2.76 MIL/uL (4.0-5.2)
[2021-04-30 04:52] LABS: ALBUMIN 3.1 g/dL (3.4-5.0); BILIRUBIN,TOTAL 0.2 mg/dL (0.2-1.0); CALCIUM, SERUM 8.2 mg/dL (8.5-10.1); CREATININE 4.5 mg/dL (0.6-1.3); MAGNESIUM 2.2 mg/dL (1.8-2.4); PHOSPHORUS 4.8 mg/dL (2.5-4.9); POTASSIUM 3.9 mmol/L (3.5-5.1); TOTAL PROTEIN, SERUM 7.7 g/dL (6.4-8.2)
[2021-04-30] MEDS: VANCOMYCIN 500 MG in IV D5W 100 ML IV PRN (05:37)
--- NOTE | 2021-04-30 05:50 | NUR ---
RN NOTE DECREASE DOPAMINE TO 4MCG/KG/MIN BP 138/72 HR 78
--- NOTE | 2021-04-30 05:59 | NUR ---
RN NOTE PATIENT REFUSED TO BE CHANGED CONTINUE TO MONITOR.
--- NOTE | 2021-04-30 06:52 | NUR ---
RN NOTE PATIENT REMAINS ON ALERT ORIENTED X3-4 VERBALLY RESPONSIVE ON 1L OXYGEN VIA NASAL CANNULA O2:98%,ON DOPAMINE DRIP 4MCG/KG/MIN,IV SITE IS ON RIGHT UPPER ARM MIDLINE INTACT PATENT,ALL DUE MEDS GIVEN MD ORDERED,NO SOB NOT ACUTE DISTRESS NOTED,KEPT CALL LIGHT WITHIN REACH,ENDORSE NEXT COMING SHIFT FOR CONTINUATION OF CARE.
[2021-04-30] MEDS: BLOOD SUGAR DIAGNOSTIC 1 EACH STRIP IN SCH ×4 (07:33→21:37)
[2021-04-30] MEDS: PANTOPRAZOLE 40 MG TABLET.DR PO SCH (07:39)
[2021-04-30] MEDS: HYDROCODONE/APAP 5/325MG TABLET PO PRN ×2 (07:40→22:45)
--- NOTE | 2021-04-30 07:40 | NUR ---
rn notes received patient in the bed on pain right Fx shoulder 09/20 per patient request, patient has sling on it, reposition, applied pillow under, administered narco 5/325 mg po prn per pain. bp 105/52, p-72. assist turn and reposition. patient total care, needs attended and anticipated, assist eating breakfast tolerated 35%, keep hob elevated, patient a/o x4 . call light within to reach. will follow up.
[2021-04-30] MEDS: MIDODRINE HCL (5MG) 5 MG TABLET PO SCH ×3 (08:55→16:45)
[2021-04-30] MEDS: LOSARTAN POTASSIUM 25 MG TABLET PO SCH (08:55)
[2021-04-30] MEDS: ASCORBIC ACID 500 MG TABLET PO SCH (08:55)
[2021-04-30] MEDS: ASPIRIN EC 81 MG TABLET.DR PO SCH (08:55)
[2021-04-30] MEDS: LINAGLIPTIN 5 MG TABLET PO SCH (08:55)
[2021-04-30] MEDS: METOPROLOL TARTRATE 25 MG TABLET PO SCH ×2 (08:56→16:27)
[2021-04-30] MEDS: INSULIN REGULAR, HUMAN 100 UNIT/ML 3 ML VIAL SQ PRN ×2 (09:03→16:59)
[2021-04-30] MEDS: ONDANSETRON HCL/PF 4 MG/2 ML VIAL IVP PRN ×3 (09:35→18:37)
[2021-04-30] MEDS: DORZOLAMIDE OPTH 2% 10 ML BOTTLE EACHEYE SCH ×3 (09:36→16:52)
--- NOTE | 2021-04-30 09:37 | NUR ---
rn notes administered zofran 4 mg/ml iv push for nausea per patient request.
[2021-04-30] MEDS: DOPamine 400 MG in IV D5W 250 ML IV PRN (11:35)
--- NOTE | 2021-04-30 12:21 | NUR ---
rn notes bs-108 mg/dl, assist eating, patyient still complaining of nausea after eating, notified hospitalist Dr Coburn, and get TO order change frequency of Zofran q 4 hr insted of 6hr. order taken and carried out.
[2021-04-30] MEDS: HYDROCODONE/APAP 10/325MG TABLET PO PRN ×2 (13:58→19:47)
--- NOTE | 2021-04-30 13:59 | NUR ---
rn notes administered narco 10/325 mg/ml po prn for pain 10/21 per patient request 10/21, bp-95/47, p-67 ,and Zofran 4 mg/ml iv push for nausea. offered sone water,
[2021-04-30] MEDS: LATANOPROST EYE DROP 0.005% 2.5 ML BOTTLE EACHEYE SCH (16:53)
--- NOTE | 2021-04-30 18:39 | NUR ---
rn notes pm care done, due medication administered. patient was c/o nausea, administered zofran 4 mg/ml iv push. bs-134 mg/dl coverage given. needs attended and anticipated, infusing dopamine 1mcg/kg/hr on right UA midline intact. call light within to reach, bp 102/48, p-62 . endorsed oncoming nurse follow plan of care.
[2021-04-30] MEDS: MAGNESIUM HYDROXIDE 30 ML UDC PO PRN (18:47)
--- NOTE | 2021-04-30 18:47 | NUR ---
rn notes administered milk of magnesia for constipation.
--- NOTE | 2021-04-30 19:00 | NUR ---
RN NOTE RECEIVED PATIENT IN BED, AO X 4, NO S/SX OF ACUTE DISTRESS AT THIS TIME, BREATHING EVEN AND UNLABORED, SATURATION AT 98 AT % ON 1L VIA NC, SR ON THE MONITOR, HR IS 64. NOTED KATE MIDLINE, PATENT AND FLUSHING WELL, RCW PERMACATH, AND BRANDON AV SHUNT, NO S/S OF INFECTION. PATIENT ON R AM SLING, WITH COMPLAINTS OF PAIN AT R UPPER ARM. PRN NORCO 10-325 MG ADMINISTERED ORDERED. SAFETY MEASURES IMPLEMENTED. PATIENT BED ALARM IS ON. HEAD OF BED ELEVATED. BED IS LOCKED, IN LOWEST POSITION AND SIDE RAILS UP. CALL LIGHT WITHIN REACH OF THE PATIENT. WILL CONTINUE TO MONITOR AND REASSESS FOR ANY CHANGES. Addendum: 04/30/21 at 2334 by LORENZO SALAZAR RN DOPAMINE INFUSING AT 1 MCG/KG/MIN
[2021-04-30] MEDS: ATORVASTATIN 10 MG TABLET PO SCH (21:08)
[2021-04-30] MEDS: CEFTRIAXONE 2 G in IV D5W 100 ML IV SCH (21:08)
[2021-05-01] VITALS (83 sets, daily range): BP systolic 83–130; BP diastolic 39–66
[2021-05-01] MEDS: HYDROCODONE/APAP 10/325MG TABLET PO PRN (04:25)
[2021-05-01 06:53] LABS: ALBUMIN 3.1 g/dL (3.4-5.0); BILIRUBIN,TOTAL 0.2 mg/dL (0.2-1.0); CALCIUM, SERUM 8.3 mg/dL (8.5-10.1); CREATININE 5.8 mg/dL (0.6-1.3); MAGNESIUM 2.4 mg/dL (1.8-2.4); PHOSPHORUS 5.9 mg/dL (2.5-4.9); POTASSIUM 4.1 mmol/L (3.5-5.1); TOTAL PROTEIN, SERUM 7.5 g/dL (6.4-8.2)
[2021-05-01 07:06] LABS: BASOPHILS % (AUTO) 0.7 % (0.0-2.0); HEMATOCRIT 27 % (33-45); HEMOGLOBIN 8.9 g/dL (11.5-14.8); LYMPHOCYTES # (AUTO) 0.9 K/uL (0.8-4.8); LYMPHOCYTES % (AUTO) 13.6 % (20.0-44.0); MEAN CORPUSCULAR HGB CONC 33 g/dl (31.0-36.0); MEAN CORPUSCULAR VOLUME 102 fL (82-100); MONOCYTES # (AUTO) 0.6 K/uL (0.1-1.30); MONOCYTES % (AUTO) 8.3 % (2.0-12.0); NEUTROPHILS % (AUTO) 74.4 % (43.0-81.0); PLATELET COUNT (AUTO) 187 K/uL (150-450); RED BLOOD CELL COUNT(AUTO) 2.68 MIL/uL (4.0-5.2); WHITE BLOOD COUNT (AUTO) 6.7 K/uL (4.3-11.0)
--- NOTE | 2021-05-01 07:20 | NUR ---
ICU/RN PT IS RESTING ON THE BED ON 1L N/C SAT O2-100%.AWAKE,ALERT.ON DOPAMINE DRIP. AFEBRILE.NO PAIN REPORTED AT THIS TIME.PT C/O OF NAUSEA ZOFRAN IV GIVEN ORDERED.RIGHT ARM BROKEN WITH SLING ON.PT IS ESRD ON HD LEFT ARM HD FISTULA.AND RIGHT SC HD CATH.RIGHT UPPER ARM MID LINE.REPOSITION FOR COMFORT.CONTINUE MONITORING.
[2021-05-01] MEDS: BLOOD SUGAR DIAGNOSTIC 1 EACH STRIP IN SCH ×4 (07:29→22:00)
[2021-05-01] MEDS: PANTOPRAZOLE 40 MG TABLET.DR PO SCH (07:29)
[2021-05-01] MEDS: ONDANSETRON HCL/PF 4 MG/2 ML VIAL IVP PRN ×2 (07:29→11:54)
[2021-05-01] MEDS: LOSARTAN POTASSIUM 25 MG TABLET PO SCH (07:48)
[2021-05-01] MEDS: METOPROLOL TARTRATE 25 MG TABLET PO SCH ×2 (07:49→16:23)
[2021-05-01] MEDS: ASPIRIN EC 81 MG TABLET.DR PO SCH (08:12)
[2021-05-01] MEDS: MIDODRINE HCL (5MG) 5 MG TABLET PO SCH ×3 (08:12→16:22)
[2021-05-01] MEDS: ASCORBIC ACID 500 MG TABLET PO SCH (08:12)
[2021-05-01] MEDS: LINAGLIPTIN 5 MG TABLET PO SCH (08:13)
[2021-05-01] MEDS: DORZOLAMIDE OPTH 2% 10 ML BOTTLE EACHEYE SCH ×3 (08:15→16:23)
[2021-05-01] MEDS: GABAPENTIN 300 MG CAPSULE PO SCH (08:16)
--- NOTE | 2021-05-01 09:00 | NUR ---
ICU/RN DUE MEDS ARE GIVEN ORDERED.PT EATS 50 % FROM HER MEAL TRAY ,NEED ASSISTANCE. CONTINUE MONITORING.
[2021-05-01] MEDS: DOPamine 400 MG in IV D5W 250 ML IV PRN (10:46)
[2021-05-01] MEDS: INSULIN REGULAR, HUMAN 100 UNIT/ML 3 ML VIAL SQ PRN (11:17)
[2021-05-01] MEDS ORDERED: NEPRO VAN 237 ML CAN PO PRN (13:00)
--- NOTE | 2021-05-01 16:29 | NUR ---
icu/rn pm care provided.wound dressing done as ordered.due meds are given . unable to titrate dopamine drip off bp decreased. reposition for comfort.continue monitoring.
--- NOTE | 2021-05-01 17:35 | NUR ---
ICU/RN DOPAMINE DRIP OFF .BP STABLE WILL CONTINUE TO MONITOR.
[2021-05-01] MEDS: LATANOPROST EYE DROP 0.005% 2.5 ML BOTTLE EACHEYE SCH (18:04)
[2021-05-01] MEDS: CEFTRIAXONE 2 G in IV D5W 100 ML IV SCH (22:00)
[2021-05-01] MEDS: ATORVASTATIN 10 MG TABLET PO SCH (22:00)
[2021-05-02] VITALS (32 sets, daily range): BP systolic 91–131; BP diastolic 39–72
[2021-05-02 04:52] LABS: BASOPHILS # (AUTO) 0.1 K/uL (0.0-0.2); BASOPHILS % (AUTO) 0.7 % (0.0-2.0); EOSINOPHILS % (AUTO) 2.1 % (0.0-6.0); HEMATOCRIT 26 % (33-45); HEMOGLOBIN 8.5 g/dL (11.5-14.8); LYMPHOCYTES % (AUTO) 13.9 % (20.0-44.0); MEAN CORPUSCULAR HGB CONC 32 g/dl (31.0-36.0); MEAN CORPUSCULAR VOLUME 102 fL (82-100); MONOCYTES # (AUTO) 0.6 K/uL (0.1-1.30); MONOCYTES % (AUTO) 8.2 % (2.0-12.0); NEUTROPHILS # (AUTO) 5.6 K/uL (1.8-8.9); NEUTROPHILS % (AUTO) 75.1 % (43.0-81.0); PLATELET COUNT (AUTO) 184 K/uL (150-450); RED BLOOD CELL COUNT(AUTO) 2.56 MIL/uL (4.0-5.2); WHITE BLOOD COUNT (AUTO) 7.4 K/uL (4.3-11.0)
[2021-05-02] MEDS: ONDANSETRON HCL/PF 4 MG/2 ML VIAL IVP PRN ×3 (05:01→17:43)
[2021-05-02] MEDS: HYDROCODONE/APAP 5/325MG TABLET PO PRN (05:09)
[2021-05-02 05:23] LABS: ALBUMIN 3.1 g/dL (3.4-5.0); BILIRUBIN,TOTAL 0.2 mg/dL (0.2-1.0); CALCIUM, SERUM 8.4 mg/dL (8.5-10.1); CREATININE 6.6 mg/dL (0.6-1.3); MAGNESIUM 2.6 mg/dL (1.8-2.4); PHOSPHORUS 6.2 mg/dL (2.5-4.9); POTASSIUM 4.5 mmol/L (3.5-5.1); TOTAL PROTEIN, SERUM 7.2 g/dL (6.4-8.2)
--- NOTE | 2021-05-02 07:24 | NUR ---
ICU/RN PT IS RESTING ON THE BED ON 1L N/C SAT O2-100%.AWAKE,ALERT.OFF DOPAMINE DRIP. AFEBRILE.NO PAIN REPORTED AT THIS TIME.RIGHT ARM BROKEN WITH SLING ON.PT IS ESRD ON HD LEFT ARM HD FISTULA.AND RIGHT SC HD CATH.RIGHT UPPER ARM MID LINE.REPOSITION FOR COMFORT.CONTINUE MONITORING.LABS REVIEW.WAITING FOR HD TODAY.
[2021-05-02] MEDS: PANTOPRAZOLE 40 MG TABLET.DR PO SCH (07:54)
[2021-05-02] MEDS: BLOOD SUGAR DIAGNOSTIC 1 EACH STRIP IN SCH ×4 (07:54→21:43)
[2021-05-02] MEDS: LINAGLIPTIN 5 MG TABLET PO SCH (08:43)
[2021-05-02] MEDS: ASCORBIC ACID 500 MG TABLET PO SCH (08:43)
[2021-05-02] MEDS: MIDODRINE HCL (5MG) 5 MG TABLET PO SCH ×3 (08:44→17:09)
[2021-05-02] MEDS: ASPIRIN EC 81 MG TABLET.DR PO SCH (08:44)
[2021-05-02] MEDS: LOSARTAN POTASSIUM 25 MG TABLET PO SCH (08:44)
[2021-05-02] MEDS: METOPROLOL TARTRATE 25 MG TABLET PO SCH ×2 (08:44→17:10)
[2021-05-02] MEDS: DORZOLAMIDE OPTH 2% 10 ML BOTTLE EACHEYE SCH ×3 (08:45→17:10)
--- NOTE | 2021-05-02 08:45 | NUR ---
ICU/RN PT C/O OF NAUSEA AFTER BREAKFAST.ZOFRAN IV GIVEN ORDERED.REPOSITION FOR COMFORT.PT IS HAVING HD.HD NURSE AT BEDSIDE.CONTINUE MONITORING.
--- NOTE | 2021-05-02 11:14 | NUR ---
ICU/RN HD IS OVER .1 L OUTPUT.V/S STABLE,AFEBRILE.NO PAIN REPORTED ATN THIS TIME.REPOSITION FOR COMFORT.CONTINUE MONITORING.
[2021-05-02] MEDS ORDERED: METOCLOPRAMIDE HCL 10 MG/2 ML VIAL IV PRN (12:00)
[2021-05-02] MEDS: LATANOPROST EYE DROP 0.005% 2.5 ML BOTTLE EACHEYE SCH (17:12)
[2021-05-02] MEDS: INSULIN REGULAR, HUMAN 100 UNIT/ML 3 ML VIAL SQ PRN ×2 (17:37→21:46)
--- NOTE | 2021-05-02 18:06 | NUR ---
ICU/RN PT C/O OF NAUSEA AFTER DINNER.ZOFRAN IV GIVEN ORDERED.DUE MEDS ARE GIVEN ORDERED.PT REFUSED TO DO PM CARE.V/S STABLE,AFEBRILE.NO PAIN REPORTED AT THIS TIME.OK TO TRANSFER TO TELE UNIT.WAITING FOR THE BED.
[2021-05-02] MEDS: HYDROCODONE/APAP 10/325MG TABLET PO PRN (18:23)
--- NOTE | 2021-05-02 18:25 | NUR ---
ICU/RN PT C/O OF ABDOMINAL PAIN NORCO 1 TAB PO GIVEN.CONTINUE MONITORING.
[2021-05-02] MEDS: ATORVASTATIN 10 MG TABLET PO SCH (21:31)
[2021-05-02] MEDS: CEFTRIAXONE 2 G in IV D5W 100 ML IV SCH (21:31)
[2021-05-03] VITALS (10 sets, daily range): BP systolic 98–133; BP diastolic 49–97
[2021-05-03 04:59] LABS: BASOPHILS % (AUTO) 0.2 % (0.0-2.0); EOSINOPHILS % (AUTO) 2.6 % (0.0-6.0); HEMATOCRIT 29 % (33-45); HEMOGLOBIN 9.1 g/dL (11.5-14.8); LYMPHOCYTES % (AUTO) 12.6 % (20.0-44.0); MEAN CORPUSCULAR HGB CONC 31 g/dl (31.0-36.0); MEAN CORPUSCULAR VOLUME 103 fL (82-100); MONOCYTES % (AUTO) 12.8 % (2.0-12.0); NEUTROPHILS # (AUTO) 5.6 K/uL (1.8-8.9); NEUTROPHILS % (AUTO) 71.8 % (43.0-81.0); PLATELET COUNT (AUTO) 181 K/uL (150-450); RED BLOOD CELL COUNT(AUTO) 2.81 MIL/uL (4.0-5.2); WHITE BLOOD COUNT (AUTO) 7.8 K/uL (4.3-11.0)
--- NOTE | 2021-05-03 05:11 | NUR ---
ELECTRICAL ENGINEERING DRAFTSPERSON PT TRANSFERRED TO [facility] 114-1 FOR CONTINUITY OF CARE.
[2021-05-03 05:31] LABS: ALBUMIN 3.2 g/dL (3.4-5.0); BILIRUBIN,TOTAL 0.2 mg/dL (0.2-1.0); CALCIUM, SERUM 8.6 mg/dL (8.5-10.1); CREATININE 4.6 mg/dL (0.6-1.3); MAGNESIUM 2.7 mg/dL (1.8-2.4); PHOSPHORUS 4.4 mg/dL (2.5-4.9); POTASSIUM 4.1 mmol/L (3.5-5.1); TOTAL PROTEIN, SERUM 7.8 g/dL (6.4-8.2)
--- NOTE | 2021-05-03 06:57 | NUR ---
RN notes Received patient from ICU nurse via bed with no distress noted. Breathing even and unlabored. On 1lpm O2 via nasal cannula tolerating well. Alert and oriented, verbally able to communicate needs, non ambulatory. No complaint of pain or discomfort. Vital signs wnl. Kept clean and dry. Will endorse to next shift for continuity of care
--- NOTE | 2021-05-03 07:27 | NUR ---
RN OPENING NOTES RECEIVED PT IN BED A/O X 4, PT IS ON 1L NC SATING AT 98%. TELE MONITOR READS SR. PT IV ACCESS AT LA AV FISTULA AND KATE MIDLINE. ALL SAFETY MEASURES IN PLACE, BED IN LOWEST LOCKED POSITION, SR UP X3, CALL LIGHT WITHIN REACH, WILL CONTINUE TO MONITOR THROUGHOUT SHIFT.
[2021-05-03] MEDS: BLOOD SUGAR DIAGNOSTIC 1 EACH STRIP IN SCH ×4 (07:38→22:43)
[2021-05-03] MEDS: PANTOPRAZOLE 40 MG TABLET.DR PO SCH (07:38)
[2021-05-03] MEDS: HYDROCODONE/APAP 10/325MG TABLET PO PRN ×2 (08:53→23:44)
[2021-05-03] MEDS: LINAGLIPTIN 5 MG TABLET PO SCH (08:54)
[2021-05-03] MEDS: MIDODRINE HCL (5MG) 5 MG TABLET PO SCH ×3 (08:54→17:16)
[2021-05-03] MEDS: METOPROLOL TARTRATE 25 MG TABLET PO SCH ×2 (08:54→17:16)
[2021-05-03] MEDS: LOSARTAN POTASSIUM 25 MG TABLET PO SCH (08:55)
[2021-05-03] MEDS: ONDANSETRON HCL/PF 4 MG/2 ML VIAL IVP PRN ×2 (08:55→23:43)
[2021-05-03] MEDS: ASPIRIN EC 81 MG TABLET.DR PO SCH (08:55)
[2021-05-03] MEDS: DORZOLAMIDE OPTH 2% 10 ML BOTTLE EACHEYE SCH ×3 (08:55→17:16)
[2021-05-03] MEDS: ASCORBIC ACID 500 MG TABLET PO SCH (08:55)
[2021-05-03] MEDS: INSULIN REGULAR, HUMAN 100 UNIT/ML 3 ML VIAL SQ PRN (12:26)
[2021-05-03] MEDS: LATANOPROST EYE DROP 0.005% 2.5 ML BOTTLE EACHEYE SCH (17:17)
--- NOTE | 2021-05-03 19:04 | NUR ---
RN CLOSING NOTES PT IS RESTING IN BED A/O X4. IV ACCESS AT KATE MIDLINE. PT ON 1L NC SATING AT 98%. PT HANDLED ALL TREATMENTS WELL. ALL SAFETY MEASURES IN PLACE, BED IN LOWEST LOCKED POSITION, SR UP X 3, CALL LIGHT WITHIN REACH, WILL ENDORSE TO HOME CARE COORDINATOR NURSE FOR TANMAY.
--- NOTE | 2021-05-03 19:20 | NUR ---
RN OPENING NOTES RECEIVED CARE OF PATIENT WHILE PATIENT IN BED, A/O X4, ABLE TO VERBALIZE NEEDS. PATIENT ON O2 THERAPY VIA NC AT 1LPM, NO SOB NOTED, BREATHING EVEN AND UNLABORED, O2 SAT 95%. PATIENT ON TELE MONITOR SHOWING NSR WITH HR OF 71, NO DISTRESS NOTED. NO SIGNIFICANT FINDINGS UPON INITIAL NURSING ASSESSMENTS. PATIENT NOTED WITH L AV FISTULA, KATE MIDLINE, RCW PERMACATH, ALL IV ACCESS PATENT WITH NO SIGNS OF COMPROMISE. ALL SAFETY MEASURES IN PLACE, BED IN LOWEST LOCKED POSITION, SR UP X2, CALL LIGHT WITHIN REACH, WILL CONTINUE TO MONITOR PATIENT THROUGHOUT SHIFT.
[2021-05-03] MEDS: CEFTRIAXONE 2 G in IV D5W 100 ML IV SCH (22:30)
[2021-05-03] MEDS: ATORVASTATIN 10 MG TABLET PO SCH (22:30)
[2021-05-04] VITALS: BP 150/80
[2021-05-04 04:00] VITALS: BP 109/41
--- NOTE | 2021-05-04 07:24 | NUR ---
RN NOTES ENDORSED PATIENT TO AM NURSE FOR TANMAY WHILE PATIENT IN BED, A/O X4, ABLE TO VERBALIZE NEEDS. PATIENT ON O2 THERAPY VIA NC AT 1LPM, NO SOB NOTED, BREATHING EVEN AND UNLABORED, O2 SAT 97%. PATIENT ON TELE MONITOR SHOWING NSR WITH HR OF 84, NO DISTRESS NOTED. NO SIGNIFICANT FINDINGS UPON ALL NURSING ASSESSMENTS. PATIENT NOTED WITH L AV FISTULA, KATE MIDLINE, RCW PERMACATH, ALL IV ACCESS PATENT WITH NO SIGNS OF COMPROMISE. ALL SAFETY MEASURES IN PLACE, BED IN LOWEST LOCKED POSITION, SR UP X2, CALL LIGHT WITHIN REACH. ALL DUE MEDS GIVEN AND ALL PATIENT NEEDS ATTENDED TO.
[2021-05-04 07:35] LABS: ALBUMIN 3.3 g/dL (3.4-5.0); BILIRUBIN,TOTAL 0.2 mg/dL (0.2-1.0); CREATININE 5.7 mg/dL (0.6-1.3); MAGNESIUM 2.9 mg/dL (1.8-2.4); PHOSPHORUS 4.3 mg/dL (2.5-4.9); POTASSIUM 4.2 mmol/L (3.5-5.1)
[2021-05-04 08:00] VITALS: BP 148/68
[2021-05-04 08:10] LABS: CALCIUM, SERUM 8.9 mg/dL (8.5-10.1)
[2021-05-04] MEDS: ASPIRIN EC 81 MG TABLET.DR PO SCH (08:12)
[2021-05-04] MEDS: MIDODRINE HCL (5MG) 5 MG TABLET PO SCH ×2 (08:13→13:06)
[2021-05-04] MEDS: PANTOPRAZOLE 40 MG TABLET.DR PO SCH (08:13)
[2021-05-04] MEDS: LINAGLIPTIN 5 MG TABLET PO SCH (08:13)
[2021-05-04] MEDS: DORZOLAMIDE OPTH 2% 10 ML BOTTLE EACHEYE SCH ×2 (08:14→13:06)
[2021-05-04] MEDS: BLOOD SUGAR DIAGNOSTIC 1 EACH STRIP IN SCH ×2 (08:14→12:08)
[2021-05-04 08:59] LABS: BASOPHILS # (AUTO) 0.1 K/uL (0.0-0.2); EOSINOPHILS % (AUTO) 2.8 % (0.0-6.0); HEMATOCRIT 31 % (33-45); HEMOGLOBIN 9.5 g/dL (11.5-14.8); LYMPHOCYTES # (AUTO) 1.8 K/uL (0.8-4.8); LYMPHOCYTES % (AUTO) 14.8 % (20.0-44.0); MEAN CORPUSCULAR HGB CONC 31 g/dl (31.0-36.0); MEAN CORPUSCULAR VOLUME 104 fL (82-100); MONOCYTES % (AUTO) 8.6 % (2.0-12.0); NEUTROPHILS # (AUTO) 8.7 K/uL (1.8-8.9); NEUTROPHILS % (AUTO) 72.8 % (43.0-81.0); RED BLOOD CELL COUNT(AUTO) 2.94 MIL/uL (4.0-5.2)
[2021-05-04] MEDS: METOPROLOL TARTRATE 25 MG TABLET PO SCH (09:00)
[2021-05-04] MEDS: LOSARTAN POTASSIUM 25 MG TABLET PO SCH (09:00)
--- NOTE | 2021-05-04 09:07 | NUR ---
TELE/RN NOTES- WITHHELD BP MEDS WITHHELD BP MEDS FOR NOW PER DIALYSIS NURSE,PATIENT IS HAVING DIALYSIS PROCEDURE RIGHT NOW AND WILL HAVE HE TENDENCY TO DROP HIS BP. WILL MONITOR.
[2021-05-04] MEDS: GABAPENTIN 300 MG CAPSULE PO SCH (09:11)
[2021-05-04] MEDS: ONDANSETRON HCL/PF 4 MG/2 ML VIAL IVP PRN (09:12)
[2021-05-04] MEDS: HYDROCODONE/APAP 10/325MG TABLET PO PRN (09:12)
[2021-05-04] MEDS: ASCORBIC ACID 500 MG TABLET PO SCH (09:12)
[2021-05-04 09:57] LABS: PLATELET COUNT (AUTO) 213 K/uL (150-450)
[2021-05-04 12:40] VITALS: BP 148/68
[2021-05-04 13:06] VITALS: BP 106/59
--- NOTE | 2021-05-04 14:15 | NUR ---
TELE/TILT TRAY DRIVER NOTES PATIENT IS ALERT AND ORIENTED X4, ABLE TO MAKE NEEDS KNOWN. HEMODIALYSIS TODAY AND WAS ABLE TO TAKE OUT 2L OF FLUIDS OUT. PATIENT IS MEDICALLY STABLE AND DR. HILLS ORDERED DC BACK TO ASSISTED LIVING FOR THE PATIENT. DC INSTRUCTIONS GIVEN TO THE PATIENT. ALL BELONGINGS ACCOUNTED FOR. IV ACCESS DISCONTINUED. PATIENT WAS PICKED UP BY EMT FOR TRANSFER.
== END 2021-05-04 14:17 | DRG 698 ==
LOC: ER 16:46 → TRANSITION 19:40 → TELE 04-21 05:09 → MED 04-21 20:53 → ICU 04-28 03:47 → TELE1 05-03 04:58
PROVIDERS: ADMIT Hospitalist
PROC: B546ZZA Ultrasonography of Right Subclavian Vein, Guidance (ICD-10-PCS; 2021-04-20)
PROC: 05H533Z Insertion of Infusion Device into Right Subclavian Vein, Percutaneous Approach (ICD-10-PCS; 2021-04-20)
PROC: 5A1D70Z Performance of Urinary Filtration, Intermittent, Less than 6 Hours Per Day (ICD-10-PCS; 2021-04-22)
PROC: 0W993ZZ Drainage of Right Pleural Cavity, Percutaneous Approach (ICD-10-PCS; principal; 2021-04-27)
DX: T82.49XA Other complication of vascular dialysis catheter, initial encounter (principal); N18.6 End stage renal disease; I50.33 Acute on chronic diastolic (congestive) heart failure; I13.2 Hypertensive heart and chronic kidney disease with heart failure and with stage 5 chronic kidney disease, or end stage renal disease; J91.8 Pleural effusion in other conditions classified elsewhere; J98.11 Atelectasis; J98.19 Other pulmonary collapse; I87.1 Compression of vein; E11.22 Type 2 diabetes mellitus with diabetic chronic kidney disease; D53.9 Nutritional anemia, unspecified; D63.1 Anemia in chronic kidney disease; E66.01 Morbid (severe) obesity due to excess calories; E78.5 Hyperlipidemia, unspecified; H40.9 Unspecified glaucoma; Z87.891 Personal history of nicotine dependence; Z99.2 Dependence on renal dialysis; Z79.4 Long term (current) use of insulin; Z79.01 Long term (current) use of anticoagulants; N61.0 Mastitis without abscess; Z20.822 Contact with and (suspected) exposure to COVID-19; I95.9 Hypotension, unspecified; Y84.8 Other medical procedures as the cause of abnormal reaction of the patient, or of later complication, without mention of misadventure at the time of the procedure; Y92.89 Other specified places as the place of occurrence of the external cause; E83.9 Disorder of mineral metabolism, unspecified; Z68.29 Body mass index [BMI] 29.0-29.9, adult; Z88.0 Allergy status to penicillin; L90.5 Scar conditions and fibrosis of skin; S21.002A Unspecified open wound of left breast, initial encounter; G47.33 Obstructive sleep apnea (adult) (pediatric); N64.89 Other specified disorders of breast
CPT/HCPCS: 36410; 36415; 71045-TC; 71260-TC; 76642-RT-TC; 80048-TC; 80053-TC; 80076-TC; 80202-TC; 82962-TC; 83605-TC; 83735-TC; 84100-TC; 84484-TC; 85025-TC; 85610-TC; 85730-TC; 86706; 87040-TC; 87070-TC; 87075-TC; 87081-TC; 87102-TC; 87186-TC; 87340; 88108-TC; 88305-TC; 90935-TC; 93971-TC; A6403; G0378; J0696; J1265; J1815; J2405; J2765; J3370; J3490; J7030; J7050; J7060; Q9967

== ENCOUNTER 2021-06-03 09:25 | Inpatient (IN) | payer MEDICARE, OTHER ==
[~2021-06-03] VITALS: Ht 167.6 cm; Wt 73.9 kg
[~2021-06-03 09:25] MED LIST: ACET-2605 PO; ACET-868 PO; APIX2.5T PO; ASCO-352 PO; ASPI-1420 PO; BISA10SU11 RC; CHOL100043 PO; DOCU-141 PO; DORZ10DR10 EACHEYE; FERR210T PO; FOLI0.8T23 PO; GABA-532 PO; HYDR-3980 PO; INSU100V11 SQ; INSU100V36 SQ; LATA2.5D15 EACHEYE; LOSA25TA27 PO; METO25TA20 PO; MIDO10TA PO; NA P133E RC; ONDA-97 PO; POLY17PO4 PO; ROSU10TA2 PO; SITA50TA PO; TRAM50TA2 PO
--- NOTE | 2021-06-03 09:25 | NUR ---
PT BIB RA [facility]. PT IS AAOX3, NOT IN RESPIRATORY DISTRESS, ON OP2 VIA NC AT 2LPM. HOOKED TO V/S MONITOR, KEPT RESTED AND COMFORTABLE. WILL CONTINUE TO MONITOR.
--- NOTE | 2021-06-03 09:45 | NUR ---
ER PHLEB AT BEDSIDE FOR BLOOD DRAW.
--- NOTE | 2021-06-03 09:48 | NUR ---
IV LINE ESTABLISHED G22 L WRIST.
--- NOTE | 2021-06-03 09:50 | NUR ---
ELEMENTARY SCHOOL DIRECTOR AT BEDSIDE FOR XRAY.
[2021-06-03 10:17] LABS: BASOPHILS # (AUTO) 0.1 K/uL (0.0-0.2); BASOPHILS % (AUTO) 0.5 % (0.0-2.0); EOSINOPHILS % (AUTO) 0.2 % (0.0-6.0); HEMATOCRIT 39 % (33-45); HEMOGLOBIN 11.5 g/dL (11.5-14.8); LYMPHOCYTES # (AUTO) 0.8 K/uL (0.8-4.8); LYMPHOCYTES % (AUTO) 7.3 % (20.0-44.0); MEAN CORPUSCULAR HGB CONC 29 g/dl (31.0-36.0); MEAN CORPUSCULAR VOLUME 111 fL (82-100); MONOCYTES # (AUTO) 0.9 K/uL (0.1-1.30); MONOCYTES % (AUTO) 8.4 % (2.0-12.0); NEUTROPHILS % (AUTO) 83.6 % (43.0-81.0); PLATELET COUNT (AUTO) 196 K/uL (150-450); RED BLOOD CELL COUNT(AUTO) 3.56 MIL/uL (4.0-5.2); WHITE BLOOD COUNT (AUTO) 10.8 K/uL (4.3-11.0)
--- NOTE | 2021-06-03 10:27 | NUR ---
CALLED DG AT [facility] [address] [place] [address] CHAIR TIME WAS 0900 NEW CHAIR TIME WILL BE 1631
[2021-06-03 10:30] LABS: CALCIUM, SERUM 8.9 mg/dL (8.5-10.1); CARBON DIOXIDE 26 mmol/L (21-32); CHLORIDE 102 mmol/L (98-107); CREATININE 5.2 mg/dL (0.6-1.3); GLUCOSE 144 mg/dL (74-106); POTASSIUM 5.5 mmol/L (3.5-5.1); SODIUM SERUM 137 mmol/L (136-145); UREA NITROGEN, BLOOD 25 mg/dL (7-18)
[2021-06-03 10:35] LABS: ALANINE AMINOTRANSFERASE 13 U/L (12-78); ALBUMIN 3.7 g/dL (3.4-5.0); ALKALINE PHOSPHATASE 112 U/L (46-116); ASPARTATE AMINOTRANSFERASE 13 U/L (15-37); BILIRUBIN,DIRECT 0.1 mg/dL (0.0-0.2); BILIRUBIN,TOTAL 0.3 mg/dL (0.2-1.0); LIPASE 242 U/L (73-393); TOTAL PROTEIN, SERUM 8.2 g/dL (6.4-8.2)
--- NOTE | 2021-06-03 10:53 | NUR ---
COVID SPECIMEN COLLECTED AND SENT TO LAB.
--- NOTE | 2021-06-03 11:03 | NUR ---
MOVE SHEET SUBMITTED AND CALLED FOR MS BED.
--- NOTE | 2021-06-03 12:25 | NUR ---
[facility] CALLED BUFFER CHROME PAGED.
--- NOTE | 2021-06-03 12:48 | NUR ---
PT IS WHEELED TO CT SCAN VIA [facility].
[2021-06-03] MEDS ORDERED: Z GUARD REMEDY 4 OZ OINT TP PRN (13:00)
[2021-06-03] MEDS ORDERED: NA PHOS,M-B/NA PHOS,DI-BA 1 EA ENEMA RC PRN (13:00)
[2021-06-03] MEDS ORDERED: ONDANSETRON HCL/PF 4 MG/2 ML VIAL IVP PRN (13:00)
[2021-06-03] MEDS ORDERED: *INSULIN REGULAR(HUMULIN R)HUM 100 UNIT/ML VIAL SQ PRN (13:00)
[2021-06-03] MEDS ORDERED: BISACODYL SUPP (10 MG) 10 MG/SUPP.RECT SUPP.RECT RC PRN (13:00)
[2021-06-03] MEDS ORDERED: DEXTROSE 50%-WATER 50 ML DISP.SYRIN IV PRN (13:00)
--- NOTE | 2021-06-03 13:20 | NUR ---
REPORT GIVEN TO KAYLIN BUSTILLO FOR TANMAY.
--- NOTE | 2021-06-03 13:50 | NUR ---
RN ADMITTING NOTES ADMITTED THIS 70 Y/O PATIENT FROM ER @1330, TRANSPORTED VIA GURNEY. PATIENT IS AWAKE, A/O X3. VERBALLY RESPONSIVE. NO SIGNS OF ACUTE DISTRESS NOTED. WITH ADMITTING DIAGNOSIS OF PLEURAL EFFUSION, GENERALIZED WEAKNESS, MISSED DIALYSIS. WITH O2 @ 2LPM VIA N/C SATTING @94%. NOTED WITH IV ACCESS ON LEFT WRIST #22G, INTACT AND PATENT. WITH RIGHT CHEST WALL HD CATH, INTACT, AND RIGHT UPPER ARM AV FISTULA. BODY ASSESSMENT DONE. PHOTOS OF SKIN ISSUES TAKEN, PLACED IN CHART. ROUTINE ADMISSION CARE RENDERED. ORIENTED TO ROOM AND ROOMMATE. SAFETY MEASURES IN PLACE, BED IN LOWEST LOCKED POSITION, SR UP X2, CALL LIGHT PLACED WITHIN EASY REACH. WILL CONTINUE TO MONITOR PATIENT.
[2021-06-03 14:15] VITALS: BP 104/64
--- NOTE | 2021-06-03 14:23 | NUR ---
SPOKE WITH KAYLIN LO AT 1300 HE WILL ORDER INR IN ORDER TO PERFORM THORACENTESIS
[2021-06-03] MEDS: BLOOD SUGAR DIAGNOSTIC 1 EACH STRIP VI SCH ×3 (15:58→22:42)
[2021-06-03] MEDS: DORZOLAMIDE OPTH 2% 10 ML BOTTLE EACHEYE SCH ×2 (15:58→17:47)
[2021-06-03 16:00] VITALS: BP 109/55
[2021-06-03] MEDS: POLYETHYLENE GLYCOL 3350 17 GM POWD.PACK PO SCH (16:00)
[2021-06-03] MEDS: GABAPENTIN 100 MG CAPSULE PO SCH (16:00)
[2021-06-03] MEDS: MORPHINE SULFATE INJ 2 MG/ML DISP.SYRIN IV PRN ×2 (16:26→23:15)
[2021-06-03] MEDS: METOPROLOL TARTRATE 25 MG TABLET PO SCH (17:00)
[2021-06-03] MEDS: FERROUS SULFATE (325 MG) 325 MG/TAB TABLET PO SCH (17:47)
[2021-06-03] MEDS: APIXABAN 2.5 MG TABLET PO SCH (17:49)
[2021-06-03] MEDS: LATANOPROST EYE DROP 0.005% 2.5 ML BOTTLE EACHEYE SCH (18:17)
--- NOTE | 2021-06-03 19:00 | NUR ---
MS RN CLOSING NOTES PATIENT RESTING IN BED. NO SIGNS OF ACUTE DISTRESS NOTED. REMAINS ON O2 @ 2LPM VIA N/C, NO SOB NOTED. REPOSITIONED FOR COMFORT. SAFETY MEASURES MAINTAINED. WILL ENDORSE TO NEXT SHIFT FOR CONTINUITY OF CARE.
--- NOTE | 2021-06-03 19:25 | NUR ---
MS RN OPENING NOTES RECEIVED PATIENT LAYING AWAKE IN BED. A/O X 3. PATIENT WITH REGULAR AND UNLABORED BREATHING ON 2 LPM VIA NASAL CANULA TOLERATED WELL. NO SIGNS OR SYMPTOMS OF DISTRESS NOTED AT THIS TIME. NO COMPLAINS OF PAIN OR DISCOMFORT AT THIS TIME. IV ACCESS L WRIST G #22 SL. IV ACCESS PATENT AND INTACT. SAFETY PRECAUTIONS ENFORCED WITH BED LOCKED AND AT LOWEST POSITION. CALL LIGHT WITHIN REACH AT ALL TIMES. WILL CONTINUE TO MONITOR PATIENT.
[2021-06-03 20:00] VITALS: BP 106/44
[2021-06-04] MEDS: BLOOD SUGAR DIAGNOSTIC 1 EACH STRIP VI SCH ×4 (06:32→22:50)
--- NOTE | 2021-06-04 06:45 | NUR ---
MS RN CLOSING NOTES PATIENT STILL LAYING AWAKE IN BED. A/O X 3. PATIENT WITH REGULAR AND UNLABORED BREATHING ON 2 LPM VIA NASAL CANULA TOLERATED WELL. NO SIGNS OR SYMPTOMS OF DISTRESS NOTED AT THIS TIME. NO COMPLAINS OF PAIN OR DISCOMFORT AT THIS TIME. IV ACCESS L WRIST G #22 SL. IV ACCESS PATENT AND INTACT. SAFETY PRECAUTIONS ENFORCED WITH BED LOCKED AND AT LOWEST POSITION. CALL LIGHT WITHIN REACH AT ALL TIMES. WILL ENDORSE CONTINUITY OF CARE TO DAY SHIFT NURSE.
[2021-06-04 08:00] VITALS: BP 90/52
--- NOTE | 2021-06-04 08:08 | NUR ---
WOUND CARE CONSULT: PT PRESENTS WITH SACRAL SCAR WHICH HAS SOME BLEEDING, LEFT BREASTFOLD PURULENT WOUND AND LEFT ABDOMEN PURULENT WOUND, PRESENT ON ADMISSION.DR REINIER SIMMONS CALLED TO SURGICAL CONSULT. RECOMMENDATIONS MADE FOR SKIN PROTECTION AND WOUND CARE. DISCUSSED WITH NURSING STAFF. PT TO BE PLACED ON ISOFLEX LOW AIRLOSS BED. PT HAS SLING TO RT UPPER EXTREMITY. MD IN AGREEMENT WITH PLAN OF CARE.
[2021-06-04] MEDS: ASPIRIN EC 81 MG TABLET.DR PO SCH (08:24)
[2021-06-04] MEDS: CHOLECALCIFEROL 1,000 UNIT TABLET (VIT D3) PO SCH (08:24)
[2021-06-04] MEDS: VIT B CMPLX 3/FA/VIT C/BIOTIN 1 TAB TABLET PO SCH (08:25)
[2021-06-04] MEDS: ATORVASTATIN 10 MG TABLET PO SCH (08:25)
[2021-06-04] MEDS: FERROUS SULFATE (325 MG) 325 MG/TAB TABLET PO SCH ×2 (08:25→16:31)
[2021-06-04] MEDS: DOCUSATE SODIUM 100 MG CAPSULE PO SCH (08:25)
[2021-06-04] MEDS: ASCORBIC ACID 500 MG TABLET PO SCH (08:25)
[2021-06-04] MEDS: LOSARTAN POTASSIUM 25 MG TABLET PO SCH (08:25)
[2021-06-04] MEDS: METOPROLOL TARTRATE 25 MG TABLET PO SCH ×2 (08:26→16:24)
[2021-06-04] MEDS: DORZOLAMIDE OPTH 2% 10 ML BOTTLE EACHEYE SCH ×3 (08:26→16:25)
[2021-06-04] MEDS: APIXABAN 2.5 MG TABLET PO SCH ×2 (08:26→16:31)
[2021-06-04] MEDS: MIDODRINE HCL (5MG) 5 MG TABLET PO PRN (09:44)
[2021-06-04] MEDS: ALBUMIN 25% 25 GM in PREMIX 1 EA IV PRN (09:54)
[2021-06-04] MEDS ORDERED: ALBUMIN 25% 12.5 GM/50 ML BOTTLE IV ONE (10:00)
[2021-06-04] MEDS ORDERED: MIDODRINE HCL (5MG) 5 MG TABLET PO ONE (10:00)
[2021-06-04] MEDS: INSULIN REGULAR, HUMAN 100 UNIT/ML 3 ML VIAL SQ PRN (11:09)
[2021-06-04] MEDS ORDERED: NEPRO VAN 237 ML CAN PO PRN (12:30)
[2021-06-04 12:48] LABS: BASOPHILS # (AUTO) 0.1 K/uL (0.0-0.2); BASOPHILS % (AUTO) 0.6 % (0.0-2.0); EOSINOPHILS % (AUTO) 1.9 % (0.0-6.0); HEMATOCRIT 36 % (33-45); HEMOGLOBIN 10.5 g/dL (11.5-14.8); LYMPHOCYTES # (AUTO) 0.7 K/uL (0.8-4.8); LYMPHOCYTES % (AUTO) 7.4 % (20.0-44.0); MEAN CORPUSCULAR HGB CONC 29 g/dl (31.0-36.0); MEAN CORPUSCULAR VOLUME 109 fL (82-100); MONOCYTES # (AUTO) 0.8 K/uL (0.1-1.30); MONOCYTES % (AUTO) 7.7 % (2.0-12.0); NEUTROPHILS % (AUTO) 82.4 % (43.0-81.0); PLATELET COUNT (AUTO) 180 K/uL (150-450); RED BLOOD CELL COUNT(AUTO) 3.26 MIL/uL (4.0-5.2); WHITE BLOOD COUNT (AUTO) 9.8 K/uL (4.3-11.0)
[2021-06-04 12:56] LABS: ALBUMIN 4.2 g/dL (3.4-5.0); BILIRUBIN,TOTAL 0.3 mg/dL (0.2-1.0); CALCIUM, SERUM 8.7 mg/dL (8.5-10.1); CREATININE 4.4 mg/dL (0.6-1.3); PHOSPHORUS 3.4 mg/dL (2.5-4.9); TOTAL PROTEIN, SERUM 8.4 g/dL (6.4-8.2)
[2021-06-04 16:00] VITALS: BP 101/55
--- NOTE | 2021-06-04 16:25 | NUR ---
RN NOTE GAVE NEW ORDER FOR MIDLINE, AND OKAY TO HOLD BLOOD PRESSURE MEDICATIONS DUE TO LOW BLOOD PRESSURE. NO OTHER ORDERS AT THIS TIME
[2021-06-04] MEDS: LATANOPROST EYE DROP 0.005% 2.5 ML BOTTLE EACHEYE SCH (17:24)
--- NOTE | 2021-06-04 18:35 | NUR ---
MS RN CLOSING NOTES PATIENT STILL LAYING AWAKE IN BED. A/O X 3. PATIENT WITH REGULAR AND UNLABORED BREATHING ON 2 LPM VIA NASAL CANULA TOLERATED WELL. NO SIGNS OR SYMPTOMS OF DISTRESS NOTED AT THIS TIME. NO COMPLAINS OF PAIN OR DISCOMFORT AT THIS TIME. IV ACCESS R FA # 20 G. IV ACCESS PATENT AND INTACT. PATIENT IS S/P THORACENTESIS 1.5 L OUT, TOLERATED WELL, ALL MEDICATIONS GIVEN ORDERED. SAFETY PRECAUTIONS ENFORCED WITH BED LOCKED AND AT LOWEST POSITION. CALL LIGHT WITHIN REACH AT ALL TIMES. WILL ENDORSE TO ONCOMING SHIFT
[2021-06-04 19:58] LABS: POTASSIUM 4.7 mmol/L (3.5-5.1)
[2021-06-04 20:00] VITALS: BP 98/51
--- NOTE | 2021-06-05 00:12 | NUR ---
MS/TELE/RN ON INITIAL SHIFT ROUND, PATIENT WAS AWAKE, ALERT, ORIENTED, COMFORTABLE, NO C/O PAIN, NO DISTRESS NOTE, CALL LIGHT IN REACH. FALL PRECAUTIONS PER PROTOCOL IMPLEMENTED, WILL MONITOR.
--- NOTE | 2021-06-05 02:05 | NUR ---
MS/TELE/RN PATIENT IS SLEEPING AT THIS TIME, APPEAR COMFORTABLE, NO DISTRESS NOTED, CALL LIGHT IN REACH, WILL CONTINUE TO MONITOR.
[2021-06-05 04:00] VITALS: BP 93/50
[2021-06-05] MEDS: BLOOD SUGAR DIAGNOSTIC 1 EACH STRIP VI SCH ×4 (06:38→22:22)
--- NOTE | 2021-06-05 06:38 | NUR ---
MS/TELE/RN PATIENT IS AWAKE, ALERT, ORIENTED, COMFORTABLE, NO DISTRESS NOTED, NO S/S OF HYPOGLYCEMIA, ALL NEEDS ATTENDED AT THIS TIME, WILL CONTINUE TO MONITOR.
--- NOTE | 2021-06-05 07:43 | NUR ---
ZINC SKIMMER OPENING NOTE RECEIVED PATIENT IN BED AROUSABLE BY NAME TO A/O X 4, TOLERATING WELL ON 2 LPM VIA NASAL CANNULA WITH NO S/S OF RESPIRATORY DISTRESS AT THIS TIME. NO COMPLAINTS OF PAIN OR DISCOMFORT. IV ACCESSS R FA 20 G CLEAN, INTACT, FLUSHING WELL. SAFETY MEASURES IN PLACE: BED IN LOWEST LOCKED POSITION, SIDE RAILS UP X 2, CALL LIGHT WITHIN REACH. EXTERNAL CARIDAC MONITOR READING SINUS 90. WILL CONTINUE TO MONITOR.
[2021-06-05 08:12] VITALS: BP 106/51
[2021-06-05] MEDS: LOSARTAN POTASSIUM 25 MG TABLET PO SCH (09:00)
[2021-06-05] MEDS: METOPROLOL TARTRATE 25 MG TABLET PO SCH ×2 (09:00→16:36)
[2021-06-05] MEDS: ACETAMINOPHEN 325 MG TABLET PO PRN (09:28)
[2021-06-05] MEDS: DORZOLAMIDE OPTH 2% 10 ML BOTTLE EACHEYE SCH ×3 (09:28→16:36)
[2021-06-05] MEDS: CHOLECALCIFEROL 1,000 UNIT TABLET (VIT D3) PO SCH (09:30)
[2021-06-05] MEDS: ASPIRIN EC 81 MG TABLET.DR PO SCH (09:33)
[2021-06-05] MEDS: FERROUS SULFATE (325 MG) 325 MG/TAB TABLET PO SCH ×2 (09:34→16:12)
[2021-06-05] MEDS: DOCUSATE SODIUM 100 MG CAPSULE PO SCH (09:36)
[2021-06-05] MEDS: ATORVASTATIN 10 MG TABLET PO SCH (09:36)
[2021-06-05] MEDS: APIXABAN 2.5 MG TABLET PO SCH ×2 (09:37→16:16)
[2021-06-05] MEDS: ASCORBIC ACID 500 MG TABLET PO SCH (09:42)
[2021-06-05] MEDS: VIT B CMPLX 3/FA/VIT C/BIOTIN 1 TAB TABLET PO SCH (09:42)
[2021-06-05] MEDS: MORPHINE SULFATE INJ 2 MG/ML DISP.SYRIN IV PRN ×2 (09:49→18:34)
--- NOTE | 2021-06-05 09:49 | NUR ---
RAILROAD BRAKEMAN NOTE PATIENT COMPLAINT OF 10/10 GENERALIZED PAIN AND REQUESTING MEDICATION. PRN MORPHINE 1 MG IVP ADMINISTERED ORDERED. WILL CONTINUE TO MONITOR FOR S/S OF PAIN.
[2021-06-05] MEDS: INSULIN REGULAR, HUMAN 100 UNIT/ML 3 ML VIAL SQ PRN ×2 (11:15→17:29)
[2021-06-05 12:03] VITALS: BP 107/60
[2021-06-05] MEDS: POLYETHYLENE GLYCOL 3350 17 GM POWD.PACK PO SCH (12:38)
[2021-06-05] MEDS: GABAPENTIN 100 MG CAPSULE PO SCH (12:38)
[2021-06-05 15:50] VITALS: BP 108/54
[2021-06-05] MEDS: LATANOPROST EYE DROP 0.005% 2.5 ML BOTTLE EACHEYE SCH (17:29)
--- NOTE | 2021-06-05 18:37 | NUR ---
MS RN NOTE PATIENT COMPLAINT OF 10/10 R CALF PAIN AND REQUESTING MEDICATION. PRN MORPHINE 2 MG IVP ADMINISTERED ORDERED. WILL CONTINUE TO MONITOR FOR S/S OF PAIN.
--- NOTE | 2021-06-05 19:06 | NUR ---
MASTER YACHT CLOSING NOTES PATIENT LAYING IN BED A/O X 4, TOLERATING WELL ON 2 L 02 VIA NASAL CANNULA. NO S/S OF RESPIRATORY DISTRESS, PAIN, OR DISCOMFORT AT THIS TIME. R FA # 20 G SALINE LOCK CLEAN, INTACT, AND FLUSHING WELL. WOUND CARE RENDERED DURING SHIFT AND PATIENT TURNED Q2H. SAFETY MEASURES IN PLACE: BED IN LOWEST LOCKED POSITION, SIDE RAILS UP X 2, CALL LIGHT WITHIN REACH. EXTERNAL CONSTRUCTION CHECKER READING NSR 94. WILL ENDORSE TO DOG BEAUTICIAN FOR TANMAY.
--- NOTE | 2021-06-05 19:30 | NUR ---
RN opening notes Received Pt from morning nurse. Pt is resting in bed comfortably. Pt is alert and orientedX3. On 2 L NC. No SOB. No S/S of distress noted. IV site at RFA#20 is clean, intact and SL. R upper chest HD cath is in placed. L upper arm fistula is thrill and bruit. tele monitor showed SR hr at 96. Safety precautions is maintained. bed at low position, brakes locked, side rails upX3, hob elevated and call light is within reach. will continue to monitor.
[2021-06-05 20:00] VITALS: BP_SYST 102; BP_SYST 120; BP_DIAS 60
--- NOTE | 2021-06-05 22:23 | NUR ---
RN notes Pt blood sugar HS is 127. Held coverage per level ordered. Will continue to monitor.
[2021-06-06] VITALS: BP 84/40
[2021-06-06] MEDS: MIDODRINE HCL (5MG) 5 MG TABLET PO PRN ×2 (00:46→09:55)
--- NOTE | 2021-06-06 00:52 | NUR ---
RN notes Pt's BP 84/40. administered midodrine/10mg/po as ordered for low BP.
[2021-06-06 04:00] VITALS: BP 102/49
--- NOTE | 2021-06-06 04:21 | NUR ---
RN notes Pt is complaining of pain on sacrum and requesting norco. Informed and notified Dr. Ross that Pt is requesting norco and also informed MD turning and repositioning for comfort but not relieved the pain. MD ordered norco 5-325 mg/Q 4hr/po/prn. order carried out.
[2021-06-06] MEDS: HYDROCODONE/APAP 5/325MG TABLET PO PRN ×2 (04:33→11:24)
--- NOTE | 2021-06-06 04:33 | NUR ---
RN notes Administered norco 5/1 tab/po/prn as ordered for pain on sacrum area per Pt's request. VS is stable. safety precautions is maintained. will continue to monitor.
--- NOTE | 2021-06-06 05:00 | NUR ---
RN notes Pt keep refusing to be cleaned. Explained risks and benefits. Pt stated "No!!" Offered several times. Will continue to monitor.
[2021-06-06] MEDS: BLOOD SUGAR DIAGNOSTIC 1 EACH STRIP VI SCH ×4 (06:30→21:50)
--- NOTE | 2021-06-06 06:30 | NUR ---
RN closing notes Pt is resting in bed comfortably. Pt is alert and orientedX3. On 2 L NC. No SOB. No S/S of distress noted. IV site at RFA#20 is clean, intact and SL. R upper chest HD cath is in placed. L upper arm fistula is thrill and bruit. tele monitor showed SR hr at 74. routine meds were given as ordered. kept pt comfortable. Pt refused to be cleaned and wound care despites explanation risks and benefits. Safety precautions is maintained. bed at low position, brakes locked, side rails upX3, hob elevated and call light is within reach. will endorse to am nurse for TANMAY.
--- NOTE | 2021-06-06 06:35 | NUR ---
RN notes Pt keep refusing to be cleaned. Charge nurse at the bedside. offered several times. Pt stated "I'm okay. no pee!" explained risks and benefits. Will continue to monitor.
[2021-06-06] MEDS: INSULIN REGULAR, HUMAN 100 UNIT/ML 3 ML VIAL SQ PRN (06:40)
--- NOTE | 2021-06-06 07:22 | NUR ---
RN OPENING NOTES Patient seen comfortably lying in bed, breathing even and unlabored, no SOB, no apparent distress noted, denies any pain or discomfort at this time, no grimacing. Call light left within reach, safety precautions in place, brakes locked, side rails up X 2, will monitor closely for any changes.
[2021-06-06 08:47] VITALS: BP 91/52
[2021-06-06] MEDS: METOPROLOL TARTRATE 25 MG TABLET PO SCH ×2 (09:00→16:53)
[2021-06-06] MEDS: LOSARTAN POTASSIUM 25 MG TABLET PO SCH (09:00)
--- NOTE | 2021-06-06 09:32 | NUR ---
PER RN, JUSTYN ELENA WAS GIVEN APIXABAN ON 06/05/21 AT 16:16. RN WAS INFORMED THAT BLOOD THINNER NEEDS TO BE ON HOLD FOR 48 HOURS PRIOR TO THORACENTESIS. PROCEDURE WILL BE DONE ON TUESDAY
[2021-06-06] MEDS: DOCUSATE SODIUM 100 MG CAPSULE PO SCH (09:54)
[2021-06-06] MEDS: ASCORBIC ACID 500 MG TABLET PO SCH (09:54)
[2021-06-06] MEDS: CHOLECALCIFEROL 1,000 UNIT TABLET (VIT D3) PO SCH (09:54)
[2021-06-06] MEDS: FERROUS SULFATE (325 MG) 325 MG/TAB TABLET PO SCH ×2 (09:54→16:52)
[2021-06-06] MEDS: ASPIRIN EC 81 MG TABLET.DR PO SCH (09:54)
[2021-06-06] MEDS: ATORVASTATIN 10 MG TABLET PO SCH (09:55)
[2021-06-06] MEDS: VIT B CMPLX 3/FA/VIT C/BIOTIN 1 TAB TABLET PO SCH (09:55)
--- NOTE | 2021-06-06 10:21 | NUR ---
Patient has an order for thoracentesis, received a call from [facility] ([facility] and stated that patient's blood thinner needs to be held 48 hours prior to procedure, hospitalist made aware of the situation and PER Chantell HERNANDEZ HOLD APIXABAN 2.5MG PO BID X 48 HOURS FOR THORACENTESIS. OKAY TO RESUME ON Tuesday06/08/21 AFTER THORACENTESIS, orders noted and carried out, charge nurse and patient made aware of the situation. No apparent distress noted with patient at this time, will monitor closely for any changes.
[2021-06-06 10:47] LABS: BASOPHILS # (AUTO) 0.1 K/uL (0.0-0.2); BASOPHILS % (AUTO) 0.6 % (0.0-2.0); EOSINOPHILS % (AUTO) 1.7 % (0.0-6.0); HEMATOCRIT 40 % (33-45); HEMOGLOBIN 11.5 g/dL (11.5-14.8); LYMPHOCYTES # (AUTO) 1.3 K/uL (0.8-4.8); LYMPHOCYTES % (AUTO) 12.5 % (20.0-44.0); MEAN CORPUSCULAR HGB CONC 29 g/dl (31.0-36.0); MEAN CORPUSCULAR VOLUME 109 fL (82-100); MONOCYTES # (AUTO) 1.4 K/uL (0.1-1.30); MONOCYTES % (AUTO) 12.9 % (2.0-12.0); NEUTROPHILS # (AUTO) 7.7 K/uL (1.8-8.9); NEUTROPHILS % (AUTO) 72.3 % (43.0-81.0); PLATELET COUNT (AUTO) 167 K/uL (150-450); RED BLOOD CELL COUNT(AUTO) 3.64 MIL/uL (4.0-5.2); WHITE BLOOD COUNT (AUTO) 10.6 K/uL (4.3-11.0)
[2021-06-06 11:16] LABS: CALCIUM, SERUM 9.5 mg/dL (8.5-10.1); CREATININE 6.8 mg/dL (0.6-1.3); POTASSIUM 4.9 mmol/L (3.5-5.1)
[2021-06-06 11:27] LABS: ALBUMIN 3.4 g/dL (3.4-5.0); BILIRUBIN,TOTAL 0.3 mg/dL (0.2-1.0); TOTAL PROTEIN, SERUM 7.5 g/dL (6.4-8.2)
[2021-06-06] MEDS: DORZOLAMIDE OPTH 2% 10 ML BOTTLE EACHEYE SCH ×3 (11:36→16:53)
[2021-06-06] MEDS: ALBUMIN 25% 25 GM in PREMIX 1 EA IV PRN (12:03)
[2021-06-06] MEDS: POLYETHYLENE GLYCOL 3350 17 GM POWD.PACK PO SCH (12:15)
[2021-06-06 13:05] VITALS: BP 96/41
[2021-06-06 16:29] VITALS: BP 95/51
[2021-06-06] MEDS: LATANOPROST EYE DROP 0.005% 2.5 ML BOTTLE EACHEYE SCH (17:18)
--- NOTE | 2021-06-06 18:26 | NUR ---
RN CLOSING NOTES Patient in bed, no apparent distress noted, no shortness of breath, breathing even and unlabored, remained afebrile, denies any pain or discomfort, no grimacing. All due medications given per MD order, tolerating well. No s/s of hypo or hyperglycemia, no tremors, no change in level of consciousness. Patient has an order for hemodialysis today, hemodialysis not done due systolic blood pressure <100, hospitalist made aware and acknowledged. No s/s of fluid overload, remained afebrile, no chills. Dialysis site patent, intact, covered with dry dressings, no bleeding noted, no s/s of infection. All needs attended, kept clean and dry, safety precautions in place, brakes locked, side rails up X 2, call light left within reach, will endorse to next shift for continuity of care.
--- NOTE | 2021-06-06 19:40 | NUR ---
STATISTICAL PROGRAMMER ANALYST NOTES RECEIVED LYING COMFORTABLY ON BED,ASLEEP,AROUSABLE TO VERBAL STIMULI,BREATHING NON LABORED,O2 2L/NC IN USED,O2 SAT 96%.WITH SALINE LOCK RIGHT FOREARM #20 INTACT AND PATENT.RIGHT UPPER CHEST CATHETER FOR HD TREATMENT..DENIES DISCOMFORTS AT THE MOMENT,S/P RIGHT ULTRASOUND GUIDED THORACENTESIS ON 06/04,TOOK OUT 1560 ML OF PLEURAL FLUID,AWAITING SECOND THORACENTESIS ON TUESDAY,ELIQUIS TO BE HOLD X 2 DAYS,RESUME TUESDAY POST THORACENTESIS.IN NO ACUTE DISTRESS.CALL LIGHT IN REACH,NEEDS ANTICIPATED.
[2021-06-06 20:00] VITALS: BP_SYST 114; BP_SYST 98; BP_DIAS 50; BP_DIAS 53
[2021-06-06] MEDS: MORPHINE SULFATE INJ 2 MG/ML DISP.SYRIN IV PRN (21:53)
--- NOTE | 2021-06-06 21:53 | NUR ---
COIL CUTTER NOTES PAIN MANAGEMENT C/O BACK AND LOWER LEG PAIN 9/10 ON PAIN SCALE,MEDICATED WITH MORPHINE 2MG IV ORDERED AND PER PATIENT REQUEST.
--- NOTE | 2021-06-06 22:00 | NUR ---
CLAIM REVIEW MEDICAL DIRECTOR NOTES ACCU-CHECK BLOOD SUGAR CHECK 88MG/DL,NO INSULIN COVERAGE.ALERT/ORIENTED ABLE TO MAKE NEEDS KNOWN.
[2021-06-07] VITALS (23 sets, daily range): BP systolic 71–116; BP diastolic 30–79
--- NOTE | 2021-06-07 02:00 | NUR ---
NOTARY PUBLIC NOTES SOUND ASLEEP,KEPT WARM AND COMFORTABLE.
--- NOTE | 2021-06-07 04:00 | NUR ---
CUSTODIAL MANAGER NOTES OFFERED TO BE REPOSITIONED BUT REFUSED.
--- NOTE | 2021-06-07 05:30 | NUR ---
HOT PIPE GAUGER NOTES ACCU-CHECK BLOOD SUGAR CHECK 81.NO INSULIN COVERAGE.AROUSABLE TO VERBAL STIMULI,ABLE TO MAKE NEEDS KNOWN
--- NOTE | 2021-06-07 06:00 | NUR ---
SOLE LEVELER NOTES OFFERED MORNING CARE AGAIN AND BODY CHECKED BUT REFUSED.
--- NOTE | 2021-06-07 06:41 | NUR ---
PRESSURE WASHER NOTES PAIN ON BACK AND LEGS IMPROVED WITH MORPHINE.REFUSED MORNING CARE AND REPOSITIONING.FOR RIGHT ULTRASOUND GUIDED THORACENTESIS BY TUESDAY,ELIQUIS DOSE HOLD FOR 48 HOURS AND WILL RESUME POST PROCEDURE..IN NO ACUTE DISTRESS,CALL LIGHT IN REACH,NEEDS ATTENDED..
[2021-06-07 07:07] LABS: BASOPHILS # (AUTO) 0.1 K/uL (0.0-0.2); BASOPHILS % (AUTO) 1.1 % (0.0-2.0); EOSINOPHILS % (AUTO) 1.2 % (0.0-6.0); HEMATOCRIT 40 % (33-45); HEMOGLOBIN 11.7 g/dL (11.5-14.8); LYMPHOCYTES # (AUTO) 1.3 K/uL (0.8-4.8); LYMPHOCYTES % (AUTO) 10.9 % (20.0-44.0); MEAN CORPUSCULAR HGB CONC 29 g/dl (31.0-36.0); MEAN CORPUSCULAR VOLUME 111 fL (82-100); MONOCYTES # (AUTO) 1.2 K/uL (0.1-1.30); MONOCYTES % (AUTO) 9.7 % (2.0-12.0); NEUTROPHILS # (AUTO) 9.4 K/uL (1.8-8.9); NEUTROPHILS % (AUTO) 77.1 % (43.0-81.0); PLATELET COUNT (AUTO) 177 K/uL (150-450); RED BLOOD CELL COUNT(AUTO) 3.63 MIL/uL (4.0-5.2); WHITE BLOOD COUNT (AUTO) 12.2 K/uL (4.3-11.0)
[2021-06-07] MEDS: BLOOD SUGAR DIAGNOSTIC 1 EACH STRIP VI SCH ×4 (07:23→22:58)
--- NOTE | 2021-06-07 07:25 | NUR ---
RN OPENING NOTE. RECEIVED PATIENT LAYING AWAKE IN BED. A/O X 3. PATIENT WITH REGULAR AND UNLABORED BREATHING ON 2 LPM VIA NASAL CANULA TOLERATED WELL. NO SIGNS OR SYMPTOMS OF DISTRESS NOTED AT THIS TIME. NO COMPLAINS OF PAIN OR DISCOMFORT AT THIS TIME. IV ACCESS RFA G #22 SL. IV ACCESS PATENT AND INTACT. SAFETY PRECAUTIONS ENFORCED WITH BED LOCKED AND AT LOWEST POSITION. CALL LIGHT WITHIN REACH AT ALL TIMES. WILL CONTINUE TO MONITOR PATIENT
[2021-06-07 07:31] LABS: ALBUMIN 3.4 g/dL (3.4-5.0); BILIRUBIN,TOTAL 0.3 mg/dL (0.2-1.0); CALCIUM, SERUM 9.2 mg/dL (8.5-10.1); POTASSIUM 5.8 mmol/L (3.5-5.1); TOTAL PROTEIN, SERUM 7.7 g/dL (6.4-8.2)
[2021-06-07 07:34] LABS: CREATININE 7.9 mg/dL (0.6-1.3)
--- NOTE | 2021-06-07 07:45 | NUR ---
RN NOTE MD NOTIFIED OF CRITICAL LAB CREATININE 7.9 AND HIGH POTASSIUM 5.8. BP NOTED LOW, OKAY TO HOLD MORNING BLOOD PRESSURE MEDICATIONS
[2021-06-07] MEDS: DOCUSATE SODIUM 100 MG CAPSULE PO SCH (08:11)
[2021-06-07] MEDS: VIT B CMPLX 3/FA/VIT C/BIOTIN 1 TAB TABLET PO SCH (08:11)
[2021-06-07] MEDS: CHOLECALCIFEROL 1,000 UNIT TABLET (VIT D3) PO SCH (08:11)
[2021-06-07] MEDS: ATORVASTATIN 10 MG TABLET PO SCH (08:11)
[2021-06-07] MEDS: ASPIRIN EC 81 MG TABLET.DR PO SCH (08:12)
[2021-06-07] MEDS: ASCORBIC ACID 500 MG TABLET PO SCH (08:12)
[2021-06-07] MEDS: FERROUS SULFATE (325 MG) 325 MG/TAB TABLET PO SCH ×2 (08:12→16:12)
[2021-06-07] MEDS: METOPROLOL TARTRATE 25 MG TABLET PO SCH ×2 (08:41→16:00)
[2021-06-07] MEDS: LOSARTAN POTASSIUM 25 MG TABLET PO SCH (08:41)
[2021-06-07] MEDS: DORZOLAMIDE OPTH 2% 10 ML BOTTLE EACHEYE SCH ×3 (09:01→16:12)
[2021-06-07] MEDS ORDERED: VANCOMYCIN HCL 1.25 GM in IV D5W 260 ML IV SCH (09:30)
[2021-06-07] MEDS ORDERED: MEROPENEM 1 G in IV NS 0.9% 100 ML IV SCH (09:30)
[2021-06-07] MEDS: INSULIN REGULAR, HUMAN 100 UNIT/ML 3 ML VIAL SQ PRN (11:41)
--- NOTE | 2021-06-07 12:31 | NUR ---
RN NOTE SYSTOLIC LESS THAN 90 MIDODRINE 10MG PRN GIVEN PER MD.ORDER.
[2021-06-07] MEDS: HYDROCODONE/APAP 5/325MG TABLET PO PRN (12:52)
[2021-06-07] MEDS: MIDODRINE HCL (5MG) 5 MG TABLET PO PRN (15:40)
--- NOTE | 2021-06-07 15:56 | NUR ---
RN NOTE BLOOD PRESSURE 86/46, MD NOTIFIED GAVE NEW ORDER TO TRANSFER TO ICU FOR LEVOPHED DRIP TO KEEP MAP >65
[2021-06-07] MEDS ORDERED: VANCOMYCIN 1 GM in IV D5W 250ml IV ONE ×2 (16:00→20:00)
[2021-06-07] MEDS: MEROPENEM 500 MG in IV NS 0.9% 50 ML IV SCH (16:11)
--- NOTE | 2021-06-07 16:54 | NUR ---
RN NOTE TRANSFERRED PATIENT TO ICU FOR DECREASED BLOOD PRESSURE WITH ACLS PROTOCOLS. BEDSIDE REPORT GIVEN.
--- NOTE | 2021-06-07 17:30 | NUR ---
WET INSPECTOR OPTICAL GLASS RECEIVED PT FROM 3RD FLOOR TELE. REPORT RECEIVED. PT AWAKE AND ALERT, FOLLOWING COMMANDS, VERBAL DESPITE LOWER BP READINGS FROM THE FLOOR. BLOOD PRESSURE RECHECKED USING BOTH LEFT AND RIGHT THIGHS. VARIABLE READINGS OBTAINED WITH SBP IN 80'S. UNABLE TO START PERIPHERAL IV'S DUE TO PTS CONDITION. WILL ASK FOR CENTRAL LINE PLACEMENT FROM DR ROBLES. RIGHT SUBCLAVIAN DIALYSIS CATH INTACT AND CAPPED.
[2021-06-07] MEDS ORDERED: NOREPINEPHRINE 4 MG/4 ML AMPUL IV ONE (19:12)
[2021-06-07] MEDS ORDERED: NOREPINEPHRINE 32 MG in IV NS 0.9% 218 ML IV PRN (19:30)
--- NOTE | 2021-06-07 19:30 | NUR ---
POWER LINE LINEMAN ORDER FOR CENTRAL LINE RECEIVED FROM DR ROBLES. PT GAVE VERBAL CONSENT WITNESSED BY 2 RN'S. PT UNABLE TO SIGN FORM DUE TO CONDITION. FEMORAL CENTRAL LINE PLACED BY PICC LINE RN. AMY OBTAINED FOR PLACEMENT. NOW OK TO USE. ORDER FOR LEVOPHED RECEIVED FROM DR ROBLES. WILL START WHEN AVAILABLE. ACCU CHECK 69. JUICE GIVEN PO. WILL RECHECK. PT DECLINED FOOD. ENCOURAGED PT TO EAT. CARE ENDORSED TO OIL OPERATOR KAYLIN FISHER FOR TANMAY.
[2021-06-07] MEDS: LATANOPROST EYE DROP 0.005% 2.5 ML BOTTLE EACHEYE SCH (19:44)
--- NOTE | 2021-06-07 22:16 | NUR ---
HANDLE BENDER. INITIAL ASSESSMENT. RECEIVED THE PT REST IN BED. AWAKE, ALERT. FOLLOW COMMANDS. LOW BP. LEVOPHED STARTED PER PROTOCOL. OXYGEN 3L VIA NASAL CANNULA. SAT 98%. NO ACUTE DISTRESS NOTED, LIVESTOCK TRUCKER SHOWING NSR, IV RT FEM TLC, LEVOPHED 0.1 MCG/KG/MIN, WILL CONTINUE TO MONITOR VITALS,
[2021-06-08] VITALS (91 sets, daily range): BP systolic 60–160; BP diastolic 30–83
[2021-06-08] MEDS: MORPHINE SULFATE INJ 2 MG/ML DISP.SYRIN IV PRN ×2 (00:06→16:29)
--- NOTE | 2021-06-08 03:00 | NUR ---
senior agricultural assistant. radiologest at called for abnormal result. notified dav alex. ordered ct abdomen,
[2021-06-08 05:43] LABS: ALBUMIN 3.5 g/dL (3.4-5.0); BILIRUBIN,TOTAL 0.4 mg/dL (0.2-1.0); CALCIUM, SERUM 9.5 mg/dL (8.5-10.1); POTASSIUM 5.9 mmol/L (3.5-5.1); TOTAL PROTEIN, SERUM 8.1 g/dL (6.4-8.2)
[2021-06-08 05:46] LABS: CREATININE 8.9 mg/dL (0.6-1.3)
--- NOTE | 2021-06-08 07:30 | NUR ---
DIETITIAN TEACHER OPENING NOTE. RECEIVED PATIENT IN BED, A/O X 2-3. DROWSY, REGULAR AND UNLABORED BREATHING ON 2 LPM VIA NASAL CANULA TOLERATED WELL. NO SIGNS OR SYMPTOMS OF DISTRESS NOTED AT THIS TIME. NO COMPLAINS OF PAIN OR DISCOMFORT AT THIS TIME. IV ACCESS RFA G #22 SL. FLUSHES WELL, SITE CLEAR, RT FEMORAL TLC WITH LEVO RUNNING AT 0.2 MCG, SITE CLEAR. RUCHEST WALL HD CATH, CDI DRESSING, BRANDON AV SHUNT IMMATURE,THRILL PRESENT. RENAL HIGH STD DIET. SEE NURSING FLOWSHEET FOR SKIN ISSUES, WILL DO HYGIENE AND PRESCRIBED WOUND TREATMENT LATER. SAFETY PRECAUTIONS ENFORCED WITH BED LOCKED AND AT LOWEST POSITION. CALL LIGHT WITHIN REACH AT ALL TIMES. WILL CONTINUE TO MONITOR PATIENT. PATIENT FOR HD, MRI LUMBAR SPINE WO AND THORACENTESIS RIGHT.
[2021-06-08] MEDS: BLOOD SUGAR DIAGNOSTIC 1 EACH STRIP VI SCH ×2 (08:10→11:44)
[2021-06-08 08:23] LABS: HEMATOCRIT 41 % (33-45); HEMOGLOBIN 12.2 g/dL (11.5-14.8); MEAN CORPUSCULAR HGB CONC 29 g/dl (31.0-36.0); MEAN CORPUSCULAR VOLUME 109 fL (82-100); PLATELET COUNT (AUTO) 231 K/uL (150-450); RED BLOOD CELL COUNT(AUTO) 3.81 MIL/uL (4.0-5.2); WHITE BLOOD COUNT (AUTO) 13.4 K/uL (4.3-11.0)
[2021-06-08] MEDS: ASPIRIN EC 81 MG TABLET.DR PO SCH (09:00)
[2021-06-08] MEDS: LOSARTAN POTASSIUM 25 MG TABLET PO SCH (09:00)
[2021-06-08] MEDS: METOPROLOL TARTRATE 25 MG TABLET PO SCH ×2 (09:00→17:40)
[2021-06-08] MEDS: APIXABAN 2.5 MG TABLET PO SCH ×2 (09:00→17:00)
--- NOTE | 2021-06-08 09:26 | NUR ---
TEXT DR. GUZMAN FOR MRI APPROVAL.
[2021-06-08] MEDS: DORZOLAMIDE OPTH 2% 10 ML BOTTLE EACHEYE SCH ×3 (09:29→17:41)
[2021-06-08] MEDS: DOCUSATE SODIUM 100 MG CAPSULE PO SCH (09:29)
[2021-06-08] MEDS: VIT B CMPLX 3/FA/VIT C/BIOTIN 1 TAB TABLET PO SCH (09:30)
[2021-06-08] MEDS: MIDODRINE HCL (5MG) 5 MG TABLET PO PRN ×2 (09:30→19:04)
[2021-06-08] MEDS: CHOLECALCIFEROL 1,000 UNIT TABLET (VIT D3) PO SCH (09:30)
[2021-06-08] MEDS: ATORVASTATIN 10 MG TABLET PO SCH (09:30)
[2021-06-08] MEDS: FERROUS SULFATE (325 MG) 325 MG/TAB TABLET PO SCH ×2 (09:30→17:39)
[2021-06-08] MEDS: ASCORBIC ACID 500 MG TABLET PO SCH (09:30)
--- NOTE | 2021-06-08 09:30 | NUR ---
RN NOTES DUE MEDS GIVEN EXCEPT BLOOD PRESSURE MEDS AND ASA AND ELIQUIS. PATIENT FOR THORACENTESIS.
[2021-06-08] MEDS: ALBUMIN 25% 25 GM in PREMIX 1 EA IV PRN (10:32)
[2021-06-08 11:03] LABS: BAND % (MANUAL) 4 % (0.0-5.0); LYMPHOCYTES % (MANUAL) 7 % (16-48); METAMYELOCYTES % 1 % (0-0); MONOCYTES % (MANUAL) 4 % (0-11.0); MYELOCYTES % 1 % (0-0); NEUTROPHILS % (MANUAL) 83 (42-76)
--- NOTE | 2021-06-08 11:30 | NUR ---
RN NOTES PATIENT PLACED ON SLIDING SCALE NPO, PT IS ESSENTIALLY NOT EATING WELL. DR. ROBLES AWARE AND SAID OK
[2021-06-08] MEDS ORDERED: DEXTROSE 50%-WATER 50 ML DISP.SYRIN IV PRN (12:00)
[2021-06-08] MEDS: BLOOD SUGAR DIAGNOSTIC 1 EACH STRIP IN SCH ×2 (12:06→17:36)
[2021-06-08] MEDS: INSULIN REGULAR, HUMAN 100 UNIT/ML 3 ML VIAL SQ PRN ×2 (12:09→17:57)
--- NOTE | 2021-06-08 12:30 | NUR ---
RN NOTES HD DONE 2.5 HOURS ONLY DUE TO BLOOD PRESSURE GOING DOWN. 430 ML REMOVED.
--- NOTE | 2021-06-08 13:00 | NUR ---
RN NOTES THORACENTESIS MOVED TO TOMORROW DUE TO LOW BP. DR. TRINIDAD AWARE. MRI TO BE DONE TOMORROW.
--- NOTE | 2021-06-08 13:28 | NUR ---
Per radiologist, U/S Guided Thoracentesis post-poned until tomorrow due to patient's low BP. KAYLIN Goodson is aware.
[2021-06-08] MEDS: POLYETHYLENE GLYCOL 3350 17 GM POWD.PACK PO SCH (14:12)
[2021-06-08] MEDS: GABAPENTIN 100 MG CAPSULE PO SCH (14:12)
[2021-06-08 17:06] LABS: CALCIUM, SERUM 9.2 mg/dL (8.5-10.1); CREATININE 6.8 mg/dL (0.6-1.3); POTASSIUM 4.4 mmol/L (3.5-5.1)
[2021-06-08] MEDS: MEROPENEM 500 MG in IV NS 0.9% 50 ML IV SCH (17:40)
[2021-06-08] MEDS: LATANOPROST EYE DROP 0.005% 2.5 ML BOTTLE EACHEYE SCH (17:41)
[2021-06-08] MEDS: PHENYLEPHRINE 100 MG in IV NS 0.9% 240 ML IV PRN (18:43)
--- NOTE | 2021-06-08 19:08 | NUR ---
RN NOTES ALL NEEDS MET AT THIS TIME. TURNED AND REPOSITION. PM CARE DONE. RENAY RUNNING AT 1 MCG BP 63/42. ENDORSED TO NEXT SHIFT FOR TANMAY.
--- NOTE | 2021-06-08 19:58 | NUR ---
RN NOTES PATIENT FOR MRI L SPINE WO TOMORROW FOR THORACENTESIS RIGHT USG TOMORROW. NO ELIQUIS 48HOURS PRIOR TO PROCEDURE. RESUME POST THORACENTESIS.
[2021-06-08] MEDS: VANCOMYCIN POST DIALYSIS 500MG IV PRN ×2 (20:37)
[2021-06-08] MEDS ORDERED: ALBUMIN 25% 100 ML IV ONE (21:22)
[2021-06-08] MEDS ORDERED: ALBUMIN 25% 25 GM in PREMIX 1 EA IV ONE (21:30)
--- NOTE | 2021-06-08 21:30 | NUR ---
ICU NOTES Patient hemodynamically unstable.Kalyan Synephrine gtt infusing and titrated accordingly. RAYMUNDO Kelly notified with order to give Albumin 25% 25 GM.
--- NOTE | 2021-06-08 22:00 | NUR ---
ICU NOTES Patient resting verbalize no complaints.BP remains low 80's.C.RAYMUNDO Ross notified with order to give NS 500 ml bolus x1.
[2021-06-08] MEDS ORDERED: IV NS 0.9% 500 ML IV ONE (23:00)
[2021-06-09] VITALS (95 sets, daily range): BP systolic 63–135; BP diastolic 28–62
[2021-06-09] MEDS: BLOOD SUGAR DIAGNOSTIC 1 EACH STRIP IN SCH ×5 (00:21→23:46)
--- NOTE | 2021-06-09 00:25 | NUR ---
ICU NOTES Patient remains hemodynamically unstable after NS bolus 500ml.Tiny Ross Notified with order to start Vasopressin.
[2021-06-09] MEDS ORDERED: VASOPRESSIN INJ 20 UNIT/ML VIAL ONE (00:29)
[2021-06-09] MEDS: VASOPRESSIN INJ 40 UNIT in IV NS 0.9% 38 ML IV PRN ×2 (00:44→09:30)
[2021-06-09] MEDS: PHENYLEPHRINE 100 MG in IV NS 0.9% 240 ML IV PRN ×3 (02:42→16:30)
--- NOTE | 2021-06-09 04:00 | NUR ---
ICU NOTES Patient hypothermic temp 95.9 rectally.Kept warm with Tal hugger. A-line BP wnl. Vasopressors continued.No distress noted.
[2021-06-09 05:30] LABS: BASOPHILS % (AUTO) 0.3 % (0.0-2.0); EOSINOPHILS % (AUTO) 0.6 % (0.0-6.0); HEMATOCRIT 38 % (33-45); HEMOGLOBIN 11.3 g/dL (11.5-14.8); LYMPHOCYTES # (AUTO) 0.4 K/uL (0.8-4.8); LYMPHOCYTES % (AUTO) 4.2 % (20.0-44.0); MEAN CORPUSCULAR HGB CONC 30 g/dl (31.0-36.0); MEAN CORPUSCULAR VOLUME 108 fL (82-100); MONOCYTES # (AUTO) 0.7 K/uL (0.1-1.30); MONOCYTES % (AUTO) 6.8 % (2.0-12.0); NEUTROPHILS # (AUTO) 9.4 K/uL (1.8-8.9); NEUTROPHILS % (AUTO) 88.1 % (43.0-81.0); PLATELET COUNT (AUTO) 183 K/uL (150-450); WHITE BLOOD COUNT (AUTO) 10.6 K/uL (4.3-11.0)
--- NOTE | 2021-06-09 07:05 | NUR ---
RN NOTES RECEIVED PATIENT IN BED, A/O X 1-2, DOES NOT FOLLOW COMMAND , DROWSY, ON 5L O2 N/C , O2 SAT WNL, NO SOB NOTED, ON TELE SR HR IN 80'S , IV ACCESS RFA G #22 SL. FLUSHES WELL, SITE CLEAR, RT FEMORAL TLC WITH VASO DRIP AT .04 AND RENAY AT 3 MCG/KG/MIN RUNNING FOR BP SUPPORT, RIGHT UPPER CHEST WALL HD CATH, CDI DRESSING, SR UP x3, CALL LIGHT WITHIN EASY REACH, BED LOCKED AND IN LOWEST POSITION, CONTINUE TO MONITOR.
[2021-06-09 07:08] LABS: BILIRUBIN,TOTAL 0.3 mg/dL (0.2-1.0); CALCIUM, SERUM 8.9 mg/dL (8.5-10.1); POTASSIUM 4.4 mmol/L (3.5-5.1); TOTAL PROTEIN, SERUM 7.9 g/dL (6.4-8.2)
[2021-06-09] MEDS: ASCORBIC ACID 500 MG TABLET PO SCH (08:24)
[2021-06-09] MEDS: ASPIRIN EC 81 MG TABLET.DR PO SCH (08:24)
[2021-06-09] MEDS: CHOLECALCIFEROL 1,000 UNIT TABLET (VIT D3) PO SCH (08:24)
[2021-06-09] MEDS: DOCUSATE SODIUM 100 MG CAPSULE PO SCH (08:24)
[2021-06-09] MEDS: METOPROLOL TARTRATE 25 MG TABLET PO SCH ×2 (08:25→16:20)
[2021-06-09] MEDS: VIT B CMPLX 3/FA/VIT C/BIOTIN 1 TAB TABLET PO SCH (08:25)
[2021-06-09] MEDS: LOSARTAN POTASSIUM 25 MG TABLET PO SCH (08:26)
[2021-06-09] MEDS: APIXABAN 2.5 MG TABLET PO SCH ×2 (08:26→16:20)
[2021-06-09] MEDS: ATORVASTATIN 10 MG TABLET PO SCH (08:27)
[2021-06-09] MEDS: FERROUS SULFATE (325 MG) 325 MG/TAB TABLET PO SCH ×2 (08:27→16:18)
[2021-06-09] MEDS: DORZOLAMIDE OPTH 2% 10 ML BOTTLE EACHEYE SCH ×3 (08:27→16:18)
[2021-06-09 09:52] LABS: CREATININE 7.1 mg/dL (0.6-1.3)
[2021-06-09] MEDS: HYDROCORTISONE SOD SUCCINATE 100 MG/2 ML VIAL IV SCH ×3 (11:39→21:15)
--- NOTE | 2021-06-09 12:00 | NUR ---
RN NOTES ORAL AND MOUTH CARE DONE, PT IS LETHARGIC, PO INTAKE HELD .
[2021-06-09] MEDS: MEROPENEM 500 MG in IV NS 0.9% 50 ML IV SCH (16:18)
[2021-06-09 16:30] LABS: BAND % (MANUAL) 3 % (0.0-5.0); LYMPHOCYTES % (MANUAL) 8 % (16-48); MONOCYTES % (MANUAL) 11 % (0-11.0); NEUTROPHILS % (MANUAL) 78 (42-76)
[2021-06-09] MEDS: LATANOPROST EYE DROP 0.005% 2.5 ML BOTTLE EACHEYE SCH (17:41)
[2021-06-09] MEDS: INSULIN REGULAR, HUMAN 100 UNIT/ML 3 ML VIAL SQ PRN ×2 (17:54→23:44)
--- NOTE | 2021-06-09 18:00 | NUR ---
RN NOTES PT REMAINS ON VESO AT .02 , RENAY AT 3 MCG/KG/MIN FOR BP SUPPORT .ON 5L O2 N/C , O2 SAT WNL, IV SITES CLEAN,DRY AND INTACT , SR UP x3, CALL LIGHT WITHIN EASY REACH, BED LOCKED AND IN LOWEST POSITION, WILL ENDORSE TO SUMMER CLERK NURSE FOR CONTINUITY OF CARE.
--- NOTE | 2021-06-09 20:00 | NUR ---
ICU NOTES Patient lethargic open eyes to name.Respiration even and unlabored with O2 4LNC saturation low 90's.No acute respiratory distress noted.SR with Kalyan Synephrine gtt infusing max at 3 mcg and Vasopressin ggt at 0.02 units infusing to R femoral TLC for BP support.Site intact.Anuric with R upper chest HD cath.Left femoral A-line in placed.Turned and repositioned off loading pressure points.Patient hypothermic 95.5 Kept warm with Tal Hugger .Continue monitoring.
--- NOTE | 2021-06-09 23:54 | NUR ---
ICU NOTES Patient become obtunded responsive only to painful stimuli.ABG done with the following results pH=6.811,rLP7=939.2,pO2=94.8,HCO3=29.0,BE=-9.0 called to with order to intubate patient.Per to call ER MD to intubate patient.ER MD notified.
[2021-06-10] VITALS (98 sets, daily range): BP systolic 40–149; BP diastolic 26–83
[2021-06-10] MEDS: PHENYLEPHRINE 100 MG in IV NS 0.9% 240 ML IV PRN ×2 (00:04→10:05)
--- NOTE | 2021-06-10 00:10 | NUR ---
RT NOTE PT NOTED TO BE LETHARGIC. ABG DONE, RESULTS REPORTED TO MD HOPKINS. PT ORALLY INTUBATED WITH 7.5 ET TUBE @ 23 CM AT LIP. CUFF INFLATED. BILATERAL CHEST RISE NOTED. CRACKLES B/S NOTED. SMALL THICK RED BLOODY SECRETIONS NOTED. ALARMS ON AND AUDIBLE. VENT PLUGGED TO RED OUTLET. WILL CONTINUE TO MONITOR CLOSELY AND AWAIT FURTHER ORDERS.
--- NOTE | 2021-06-10 00:30 | NUR ---
ICU NOTES 0007 Patient premedicated with Etomidate and Rocuronium. 0009 Patient intubated by ER MD Castellanos.Connected to mechanical vent by RT MAHAJAN.Vent settings AC=20,AI=495,FIO2= 60%,P= 0.02 Saturation 98%.No distress noted. 0010 Patient BP dropped to 40/26 Vasopressin and Kalyan Synephrine max out. 0025 PCXR to evaluate tube placement done. 0030 called and inquire about patient.Updates given. No new orders received. Continue monitoring.
[2021-06-10 01:01] LABS: ABG PCO2 186.2 mmHg (35.0-45.0); ABG PH 6.811 (7.350-7.450); ABG PO2 94.8 mmHg (75.0-100.0); COHb 0.8 % (0.5-1.5); MetHb 0.5 % (0.0-1.5); O2Hb 93.8 % (94.0-97.0); SITE, ABG Right Radial; VENT MODE, BG N/C 36%
[2021-06-10 01:17] LABS: ABG BASE EXCESS -7.6 mmol/L; ABG OXYGEN SATURATION 97.7 % (92.0-98.5); ABG PH 7.196 (7.350-7.450); ABG PO2 91.2 mmHg (75.0-100.0); AaDO2 276.1 mmHg; COHb 0.8 % (0.5-1.5); MetHb 0.2 % (0.0-1.5); O2Hb 96.7 % (94.0-97.0); SITE, ABG Right Radial
--- NOTE | 2021-06-10 01:25 | NUR ---
ICU NOTES Patient ABG'S post intubation pH= 7.196,pCO2=55.0,pO2=91.2,HCO3=20.8,BE=-7.6 called to and spoke with MAHAJAN,RT orders received and carried out.
[2021-06-10 04:25] LABS: BASOPHILS # (AUTO) 0.1 K/uL (0.0-0.2); BASOPHILS % (AUTO) 0.4 % (0.0-2.0); EOSINOPHILS % (AUTO) 0.1 % (0.0-6.0); HEMATOCRIT 37 % (33-45); HEMOGLOBIN 11.1 g/dL (11.5-14.8); LYMPHOCYTES # (AUTO) 0.2 K/uL (0.8-4.8); LYMPHOCYTES % (AUTO) 1.6 % (20.0-44.0); MEAN CORPUSCULAR HGB CONC 30 g/dl (31.0-36.0); MEAN CORPUSCULAR VOLUME 107 fL (82-100); MONOCYTES # (AUTO) 0.4 K/uL (0.1-1.30); MONOCYTES % (AUTO) 2.8 % (2.0-12.0); NEUTROPHILS # (AUTO) 12.3 K/uL (1.8-8.9); NEUTROPHILS % (AUTO) 95.1 % (43.0-81.0); PLATELET COUNT (AUTO) 166 K/uL (150-450); RED BLOOD CELL COUNT(AUTO) 3.45 MIL/uL (4.0-5.2); WHITE BLOOD COUNT (AUTO) 12.9 K/uL (4.3-11.0)
[2021-06-10 04:36] LABS: ALBUMIN 3.8 g/dL (3.4-5.0); BILIRUBIN,TOTAL 0.5 mg/dL (0.2-1.0); CALCIUM, SERUM 9.3 mg/dL (8.5-10.1); PHOSPHORUS 5.1 mg/dL (2.5-4.9); POTASSIUM 5.2 mmol/L (3.5-5.1); TOTAL PROTEIN, SERUM 7.8 g/dL (6.4-8.2)
[2021-06-10 04:48] LABS: CREATININE 7.9 mg/dL (0.6-1.3)
[2021-06-10] MEDS: HYDROCORTISONE SOD SUCCINATE 100 MG/2 ML VIAL IV SCH ×3 (05:18→20:30)
[2021-06-10] MEDS: BLOOD SUGAR DIAGNOSTIC 1 EACH STRIP IN SCH ×4 (05:19→23:35)
--- NOTE | 2021-06-10 06:30 | NUR ---
END NOTE Patient awake in no acute distress.Not sedated.Remains on same vent settings saturation 95%-96%.Secretions suction and oral care done.Bed bath rendered and linens changed.Turned and repositioned.Feverish 100.1 cooling measures done. Continue on Kalyan Synephrine gtt infusing at 1.4 mcg. Will endorse to day shift for TANMAY.
[2021-06-10 09:00] LABS: ABG BASE EXCESS -5.4 mmol/L; ABG OXYGEN SATURATION 99.4 % (92.0-98.5); ABG PCO2 23.8 mmHg (35.0-45.0); ABG PH 7.464 (7.350-7.450); ABG PO2 158.6 mmHg (75.0-100.0); COHb 0.4 % (0.5-1.5); MetHb 0.3 % (0.0-1.5); O2Hb 98.7 % (94.0-97.0); PEEP,BG 5 cm H2O; SITE, ABG Right Radial; VT, ABG 500 mL
[2021-06-10] MEDS: LOSARTAN POTASSIUM 25 MG TABLET NG SCH (09:00)
[2021-06-10] MEDS: METOPROLOL TARTRATE 25 MG TABLET NG SCH ×2 (09:00→17:00)
[2021-06-10] MEDS ORDERED: PHARMACY TO CHANGE PO MEDS TO GT/NG XX PRN (09:00)
--- NOTE | 2021-06-10 09:00 | NUR ---
RN NOTES NGT ON R NARES INSERTED. POSITIVE PLACEMENT CHECKED THRU AUSCULTATION. GASTRIC CONTENT ASPIRATED TO CONFIRM PLACEMENT.
--- NOTE | 2021-06-10 09:09 | NUR ---
vent changes below per Dr. lujan: KATEY 18 450 45% NO PEEP Addendum: 06/10/21 at 0910 by TAMY MARK RT Amended: Links added.
[2021-06-10] MEDS ORDERED: NEPRO VAN 237 ML CAN NG PRN (09:30)
[2021-06-10] MEDS: ASCORBIC ACID 500 MG TABLET NG SCH (09:53)
[2021-06-10] MEDS: VIT B CMPLX 3/FA/VIT C/BIOTIN 1 TAB TABLET NG SCH (09:53)
[2021-06-10] MEDS: ATORVASTATIN 10 MG TABLET NG SCH (09:54)
[2021-06-10] MEDS: CHOLECALCIFEROL 1,000 UNIT TABLET (VIT D3) NG SCH (09:54)
[2021-06-10] MEDS: FERROUS SULFATE (325 MG) 325 MG/TAB TABLET NG SCH ×2 (09:54→17:47)
[2021-06-10] MEDS: DORZOLAMIDE OPTH 2% 10 ML BOTTLE EACHEYE SCH ×3 (09:55→17:49)
[2021-06-10] MEDS: APIXABAN 2.5 MG TABLET NG SCH ×2 (09:56→17:50)
[2021-06-10] MEDS: POLYETHYLENE GLYCOL 3350 17 GM POWD.PACK NG SCH (10:03)
[2021-06-10] MEDS: ASPIRIN 81 MG TAB.CHEW NG SCH (10:04)
[2021-06-10] MEDS: DOCUSATE SODIUM LIQ 100 MG/10 ML UDC NG SCH (10:04)
[2021-06-10] MEDS: GABAPENTIN 100 MG CAPSULE NG SCH (10:04)
--- NOTE | 2021-06-10 12:00 | NUR ---
RN NOTES HD DONE. 700ML OUTPUT. BP 126/58. NOT IN DISTRESS.
[2021-06-10] MEDS: INSULIN REGULAR, HUMAN 100 UNIT/ML 3 ML VIAL SQ PRN ×2 (12:02→18:14)
[2021-06-10] MEDS ORDERED: ETOMIDATE 2 MG/ML VIAL IV ONE (12:26)
[2021-06-10] MEDS ORDERED: ROCURONIUM BROMIDE 50 MG/5 ML IV ONE (12:27)
--- NOTE | 2021-06-10 13:13 | NUR ---
SPOKE TO KAYLIN BELLO AT 1308 PATIENT IS INTUBATED AND WANTS TO HOLD OFF ON THORACENTESIS
[2021-06-10] MEDS: VANCOMYCIN POST DIALYSIS 500MG IV PRN ×2 (14:09)
[2021-06-10 15:42] LABS: BAND % (MANUAL) 13 % (0.0-5.0); LYMPHOCYTES % (MANUAL) 1 % (16-48); MONOCYTES % (MANUAL) 3 % (0-11.0); NEUTROPHILS % (MANUAL) 83 (42-76)
[2021-06-10] MEDS: MEROPENEM 500 MG in IV NS 0.9% 50 ML IV SCH (17:47)
[2021-06-10] MEDS: ACETAMINOPHEN 325 MG TABLET PO PRN ×2 (17:48→20:30)
[2021-06-10] MEDS: LATANOPROST EYE DROP 0.005% 2.5 ML BOTTLE EACHEYE SCH (17:49)
--- NOTE | 2021-06-10 20:00 | NUR ---
ICU NOTES Patient awake non verbal orally intubated to mechanical vent in no acute distress.Continue on same vent settings well tolerated.SR.Continue Kalyan Synephrine gtt for BP support & will titrate accordingly.R NGT in place and patent and clamped.Anuric.HD patient .Turned and repositioned.
[2021-06-11] VITALS (75 sets, daily range): BP systolic 86–147; BP diastolic 43–105
[2021-06-11 04:00] LABS: BASOPHILS % (AUTO) 0.2 % (0.0-2.0); EOSINOPHILS % (AUTO) 0.1 % (0.0-6.0); HEMATOCRIT 33 % (33-45); HEMOGLOBIN 10.2 g/dL (11.5-14.8); LYMPHOCYTES # (AUTO) 0.5 K/uL (0.8-4.8); LYMPHOCYTES % (AUTO) 4.4 % (20.0-44.0); MEAN CORPUSCULAR HGB CONC 31 g/dl (31.0-36.0); MEAN CORPUSCULAR VOLUME 103 fL (82-100); MONOCYTES # (AUTO) 0.4 K/uL (0.1-1.30); MONOCYTES % (AUTO) 3.7 % (2.0-12.0); NEUTROPHILS # (AUTO) 10.1 K/uL (1.8-8.9); NEUTROPHILS % (AUTO) 91.6 % (43.0-81.0); PLATELET COUNT (AUTO) 153 K/uL (150-450); RED BLOOD CELL COUNT(AUTO) 3.18 MIL/uL (4.0-5.2)
[2021-06-11 04:17] LABS: ALBUMIN 3.3 g/dL (3.4-5.0); BILIRUBIN,TOTAL 0.5 mg/dL (0.2-1.0); CALCIUM, SERUM 9.1 mg/dL (8.5-10.1); MAGNESIUM 2.3 mg/dL (1.8-2.4); PHOSPHORUS 2.8 mg/dL (2.5-4.9); POTASSIUM 3.7 mmol/L (3.5-5.1); TOTAL PROTEIN, SERUM 7.2 g/dL (6.4-8.2)
[2021-06-11] MEDS ORDERED: IV NS 0.9% 500 ML IV ONE (05:00)
[2021-06-11 05:02] LABS: CREATININE 5.1 mg/dL (0.6-1.3)
[2021-06-11] MEDS: HYDROCORTISONE SOD SUCCINATE 100 MG/2 ML VIAL IV SCH (05:03)
[2021-06-11] MEDS: BLOOD SUGAR DIAGNOSTIC 1 EACH STRIP IN SCH ×4 (05:30→23:38)
--- NOTE | 2021-06-11 06:00 | NUR ---
END NOTES Patient resting in no acute distress.SR with Kalyan Synephrine gtt infusing at low dose. Tolerating vent settings without sedations saturation hi 90's-100%.Secretions suctioned. Oral care done.Bed bath done.Wound care done.Turned and repositioned Q 2 hrs off loading pressure points.Kept comfortable.
--- NOTE | 2021-06-11 07:52 | NUR ---
FIO2 TITRATE DOWN TO 30% DUE TO 100% SPO2. Addendum: 06/11/21 at 0752 by TAMY MARK RT Amended: Links added.
--- NOTE | 2021-06-11 08:00 | NUR ---
rn notes received patient in the bed intubated tolerating ETT setting well FIO2- 45%, no sedation. patient a/o, cooperative, tolerating ETT setting well. infusing norsynephrine 0.1 mcg/kg/hr. patient has no sedation, anuria, assist turn and reposition q 2 hr. seen laundry or dry cleaners counter clerk, patient will be SIMV mode. infusing maryam 0.1 mcg/kg/hr. no acute respiratory distress. administered scheduled medicator. will follow up.
[2021-06-11] MEDS: METOPROLOL TARTRATE 25 MG TABLET NG SCH ×2 (08:12→16:57)
[2021-06-11] MEDS: LOSARTAN POTASSIUM 25 MG TABLET NG SCH (08:12)
--- NOTE | 2021-06-11 08:36 | NUR ---
vent changes below for weaning trial per DR. TRINIDAD: SIMV 4 PS 15 FIO2 40% PEEP +5 Addendum: 06/11/21 at 0838 by TAMY MARK RT Amended: Links added.
--- NOTE | 2021-06-11 08:40 | NUR ---
rn notes' patient on simv mode at this time, rt with the patient, PS--15, fio2-40%, peep-5. patient awake, cooperative, explained patient trying to remove tube as tolerated.
[2021-06-11] MEDS: DOCUSATE SODIUM LIQ 100 MG/10 ML UDC NG SCH (09:35)
[2021-06-11] MEDS: APIXABAN 2.5 MG TABLET NG SCH ×2 (09:37→17:00)
[2021-06-11] MEDS: CHOLECALCIFEROL 1,000 UNIT TABLET (VIT D3) NG SCH (09:39)
[2021-06-11] MEDS: FERROUS SULFATE (325 MG) 325 MG/TAB TABLET NG SCH ×2 (09:40→16:58)
[2021-06-11] MEDS: ASCORBIC ACID 500 MG TABLET NG SCH (09:40)
[2021-06-11] MEDS: VIT B CMPLX 3/FA/VIT C/BIOTIN 1 TAB TABLET NG SCH (09:40)
[2021-06-11] MEDS: ASPIRIN 81 MG TAB.CHEW NG SCH (09:40)
[2021-06-11] MEDS: ATORVASTATIN 10 MG TABLET NG SCH (09:41)
[2021-06-11] MEDS: DORZOLAMIDE OPTH 2% 10 ML BOTTLE EACHEYE SCH ×3 (09:42→17:04)
[2021-06-11] MEDS ORDERED: DC PROPOFOL WHEN EXTUBATED XX PRN (10:00)
--- NOTE | 2021-06-11 10:00 | NUR ---
rn notes RT with the patient drawing blood for ABG at this time, patient stable bp 136/ 64, p-79, held Norsynephrine at this time. will follow up.
[2021-06-11 10:03] LABS: ABG BASE EXCESS -5.8 mmol/L; ABG OXYGEN SATURATION 92.6 % (92.0-98.5); ABG PCO2 34.8 mmHg (35.0-45.0); ABG PH 7.355 (7.350-7.450); ABG PO2 64.3 mmHg (75.0-100.0); AaDO2 108.7 mmHg; COHb 0.3 % (0.5-1.5); MetHb 0.3 % (0.0-1.5); PEEP,BG 5 cm H2O; SITE, ABG Right Radial; VENT MODE, BG SIMV 4 / PS 15; VT, ABG 450 mL
--- NOTE | 2021-06-11 10:25 | NUR ---
RN Note patient get extubated at this time , awake, on o2-3l NC, patient was complaining of right arm pain /, refused Tylenol to be taken, make patient more comfortable, assist turn and reposition q 2 hr. will follow up.
--- NOTE | 2021-06-11 10:34 | NUR ---
pt. is awake and follow commands extubated @ 1025 and placed into nasal cannula @ 3 lpm o2 flow. spo2 100% Addendum: 06/11/21 at 1036 by TAMY MARK RT Amended: Links added.
[2021-06-11] MEDS: ACETAMINOPHEN 325 MG TABLET PO PRN ×2 (11:55→17:34)
[2021-06-11] MEDS: INSULIN REGULAR, HUMAN 100 UNIT/ML 3 ML VIAL SQ PRN ×3 (11:59→23:40)
--- NOTE | 2021-06-11 13:07 | NUR ---
PATIENT RECEIVED ELIQUIS TODAY, 06/11/21 AT 0937. MUST HOLD 12 HOURS PRIOR TO PROCEDURE
[2021-06-11] MEDS: NEPRO VAN 237 ML CAN PO SCH ×2 (14:49→17:05)
[2021-06-11] MEDS: MEROPENEM 500 MG in IV NS 0.9% 50 ML IV SCH (17:04)
[2021-06-11] MEDS: LATANOPROST EYE DROP 0.005% 2.5 ML BOTTLE EACHEYE SCH (17:05)
--- NOTE | 2021-06-11 17:34 | NUR ---
rn notes administered Tylenol 650 mg po prn for generalized pain 5/10 per patient request .
--- NOTE | 2021-06-11 18:30 | NUR ---
RN NOTES MEDICATION WERE ADMINISTERED FOR PAIN EFFECTIVE, VSS, BS-148MG/DL COVERAGE GIVEN, ASSIST EATING, TOLERATED DINNER 10%. ASSIST TURN AND REPOSTION Q 2 HR. ENDORSED ONCOMING NURSE FOLLOW PLAN OF CARE.
--- NOTE | 2021-06-11 19:10 | NUR ---
NET WEB APPLICATION DEVELOPER NOTE RECEIVED PATINET IN BED RESTING ALERT ORIENTED 2-3 VERBALLY RESPONSIVE ON 1L OXYGEN VIA NASAL CANNULA O2:93% IV SITE IS ON RIGHT FEMORAL TLC AND RCW HD CATH BRANDON AV SHUNT,SAFETY MEASURE IMPLEMENT HEAD OF THE BED ELEVATED,BED IN LOW POSITION AND LOCKED CALL LIGHT WITHIN REACH CONTINUE TO MONITOR.
[2021-06-11] MEDS: HYDROCODONE/APAP 5/325MG TABLET NG PRN (21:00)
--- NOTE | 2021-06-11 21:00 | NUR ---
RN NOTE NORCO 5-325 MG GIVEN FOR PAIN 10/21 CONTINUE TO MONITOR.
[2021-06-12] VITALS (29 sets, daily range): BP systolic 90–120; BP diastolic 44–62
[2021-06-12 04:18] LABS: BASOPHILS % (AUTO) 0.2 % (0.0-2.0); EOSINOPHILS % (AUTO) 0.3 % (0.0-6.0); HEMATOCRIT 31 % (33-45); HEMOGLOBIN 9.8 g/dL (11.5-14.8); LYMPHOCYTES # (AUTO) 0.4 K/uL (0.8-4.8); LYMPHOCYTES % (AUTO) 4.5 % (20.0-44.0); MEAN CORPUSCULAR HGB CONC 31 g/dl (31.0-36.0); MEAN CORPUSCULAR VOLUME 104 fL (82-100); MONOCYTES % (AUTO) 10.6 % (2.0-12.0); NEUTROPHILS # (AUTO) 8.3 K/uL (1.8-8.9); NEUTROPHILS % (AUTO) 84.4 % (43.0-81.0); PLATELET COUNT (AUTO) 161 K/uL (150-450); RED BLOOD CELL COUNT(AUTO) 3.02 MIL/uL (4.0-5.2); WHITE BLOOD COUNT (AUTO) 9.8 K/uL (4.3-11.0)
--- NOTE | 2021-06-12 04:29 | NUR ---
RN NOTE PATIENT REFUSED TO HAVE BED BATH CONTINUE TO MONITOR.
[2021-06-12 04:40] LABS: CALCIUM, SERUM 9.2 mg/dL (8.5-10.1); CREATININE 5.9 mg/dL (0.6-1.3); MAGNESIUM 2.6 mg/dL (1.8-2.4); PHOSPHORUS 4.4 mg/dL (2.5-4.9); POTASSIUM 3.8 mmol/L (3.5-5.1)
[2021-06-12] MEDS: BLOOD SUGAR DIAGNOSTIC 1 EACH STRIP IN SCH ×4 (06:20→23:04)
[2021-06-12] MEDS: INSULIN REGULAR, HUMAN 100 UNIT/ML 3 ML VIAL SQ PRN ×2 (06:23→23:08)
--- NOTE | 2021-06-12 06:24 | NUR ---
RN NOTE BLOOD SUGAR IS 129 NOT REQUIRES INSULIN AT THIS TIME
--- NOTE | 2021-06-12 06:49 | NUR ---
RN NOTE PATIENT REMAINS ON ALERT ORIENTED X2-3 VERBALLY RESPONSIVE NO SOB NOT ACUTE DISTRESS NOTED,REPOSITIONED EVERY 2 HOURS KEPT CLEAN AND DRY ALL THE TIME,KEPT COMFORTABLE,HEAD OF BED ELEVATED ALL THE TIME ALL NEEDS MET ENDORSE NEXT COMING SHIFT FOR CONTINUATION OF CARE.
--- NOTE | 2021-06-12 07:10 | NUR ---
RN NOTES RECEIVED PT IN BED, RESTING. ON 2L O2 VIA NASAL CANNULA. O2 SAT @97%. IV SITE ACCESS ON R FEMORAL TLC INTACT, PATENT AND FLUSHED. RCW HD CATH AND BRANDON AV SHUNT NOTED. SAFETY MEASURES IMPLEMENTED. CALL LIGHT WITHIN REACH. HOB ELEVATED. BED LOCKED AND IN LOWEST POSITION WITH SIDE RAILS UP X2. WILL CONTINUE TO MONITOR.
[2021-06-12] MEDS: NEPRO VAN 237 ML CAN PO SCH ×2 (08:15→17:01)
[2021-06-12] MEDS: DOCUSATE SODIUM LIQ 100 MG/10 ML UDC NG SCH (08:29)
[2021-06-12] MEDS: DORZOLAMIDE OPTH 2% 10 ML BOTTLE EACHEYE SCH ×3 (08:29→17:00)
[2021-06-12] MEDS: ASPIRIN 81 MG TAB.CHEW NG SCH (08:29)
[2021-06-12] MEDS: ASCORBIC ACID 500 MG TABLET NG SCH (08:29)
[2021-06-12] MEDS: FERROUS SULFATE (325 MG) 325 MG/TAB TABLET NG SCH ×2 (08:30→17:00)
[2021-06-12] MEDS: POLYETHYLENE GLYCOL 3350 17 GM POWD.PACK NG SCH (08:30)
[2021-06-12] MEDS: VIT B CMPLX 3/FA/VIT C/BIOTIN 1 TAB TABLET NG SCH (08:30)
[2021-06-12] MEDS: CHOLECALCIFEROL 1,000 UNIT TABLET (VIT D3) NG SCH (08:30)
[2021-06-12] MEDS: ATORVASTATIN 10 MG TABLET NG SCH (08:30)
[2021-06-12] MEDS: GABAPENTIN 100 MG CAPSULE NG SCH (08:31)
[2021-06-12] MEDS: APIXABAN 2.5 MG TABLET NG SCH ×2 (08:33→17:05)
[2021-06-12] MEDS: METOPROLOL TARTRATE 25 MG TABLET NG SCH ×2 (09:00→17:00)
[2021-06-12] MEDS: LOSARTAN POTASSIUM 25 MG TABLET NG SCH (09:00)
[2021-06-12] MEDS: HYDROCODONE/APAP 5/325MG TABLET NG PRN ×3 (09:02→21:54)
[2021-06-12] MEDS: GUAIFENESIN LA 600 MG TABLET.SA PO SCH ×2 (11:11→20:56)
[2021-06-12] MEDS: ALBUMIN 25% 25 GM in PREMIX 1 EA IV PRN (13:59)
--- NOTE | 2021-06-12 16:00 | NUR ---
RN NOTES HD DONE. VS STABLE. 1000ML OUTPUT
[2021-06-12] MEDS: MEROPENEM 500 MG in IV NS 0.9% 50 ML IV SCH (16:59)
[2021-06-12] MEDS: VANCOMYCIN POST DIALYSIS 500MG IV PRN ×2 (18:02)
[2021-06-12] MEDS: LATANOPROST EYE DROP 0.005% 2.5 ML BOTTLE EACHEYE SCH (18:02)
--- NOTE | 2021-06-12 18:30 | NUR ---
RN NOTES TRANSFERRED PT TO 3W ROOM 328-1 PER PROTOCOL. REPORT GIVEN TO RN AT BEDSIDE FOR TANMAY. VS STABLE. NOT IN DISTRESS. DENIES PAIN.
--- NOTE | 2021-06-12 18:40 | NUR ---
DIRECTOR OF COMMUNITY CENTERCENTER REP NOTES PATIENT ARRIVED ON UNIT VIA PATIENT BED WITH ICU NURSE. RECEIVED PATIENT LAYING AWAKE IN BED. A/O X 2-3. PATIENT WITH REGULAR AND UNLABORED BREATHING ON 2 LPM VIA NASAL CANULA, TOLERATED WELL. NO SIGNS AND SYMPTOMS OF DISTRESS NOTED. NO COMPLAINS OF PAIN OR DISCOMFORT AT THIS TIME. PATIENT ON TELE MONITOR READING SR @ 76 BPM. IV ACCESS RFA G # 20 SL R FEMORAL TRIPLE LUMEN CATH INFUSING NS @ 10 ML/HR. IV ACCESSES PATENT AND INTACT. SAFETY PRECAUTIONS ENFORCED WITH BED LOCKED AND AT LOWEST POSITION. CALL LIGHT WITHIN REACH AT ALL TIMES. WILL CONTINUE TO MONITOR PATIENT.
[2021-06-13] VITALS: BP 105/54
[2021-06-13 04:00] VITALS: BP 106/43
[2021-06-13] MEDS: BLOOD SUGAR DIAGNOSTIC 1 EACH STRIP IN SCH ×4 (05:58→23:27)
--- NOTE | 2021-06-13 07:03 | NUR ---
QUALITY IMPROVEMENT COORDINATOR CLOSING NOTES PATIENT STILL LAYING AWAKE IN BED. A/O X 2-3. PATIENT WITH REGULAR AND UNLABORED BREATHING ON 2 LPM VIA NASAL CANULA, TOLERATED WELL. NO SIGNS AND SYMPTOMS OF DISTRESS NOTED. NO COMPLAINS OF PAIN OR DISCOMFORT AT THIS TIME. PATIENT ON TELE MONITOR READING SR @ 69 BPM. IV ACCESS RFA G # 20 SL R FEMORAL TRIPLE LUMEN CATH INFUSING NS @ 10 ML/HR. IV ACCESSES PATENT AND INTACT. SAFETY PRECAUTIONS ENFORCED WITH BED LOCKED AND AT LOWEST POSITION. CALL LIGHT WITHIN REACH AT ALL TIMES. WILL ENDORSE CONTINUITY OF CARE TO DAY SHIFT NURSE.
[2021-06-13 07:22] LABS: BASOPHILS % (AUTO) 0.2 % (0.0-2.0); HEMATOCRIT 31 % (33-45); HEMOGLOBIN 9.8 g/dL (11.5-14.8); LYMPHOCYTES # (AUTO) 0.4 K/uL (0.8-4.8); LYMPHOCYTES % (AUTO) 4.8 % (20.0-44.0); MEAN CORPUSCULAR HGB CONC 31 g/dl (31.0-36.0); MEAN CORPUSCULAR VOLUME 105 fL (82-100); MONOCYTES # (AUTO) 1.1 K/uL (0.1-1.30); NEUTROPHILS # (AUTO) 7.3 K/uL (1.8-8.9); PLATELET COUNT (AUTO) 150 K/uL (150-450); RED BLOOD CELL COUNT(AUTO) 2.98 MIL/uL (4.0-5.2); WHITE BLOOD COUNT (AUTO) 9.1 K/uL (4.3-11.0)
[2021-06-13 07:52] LABS: CALCIUM, SERUM 8.7 mg/dL (8.5-10.1); CREATININE 3.7 mg/dL (0.6-1.3); MAGNESIUM 2.6 mg/dL (1.8-2.4); PHOSPHORUS 3.7 mg/dL (2.5-4.9); POTASSIUM 4.1 mmol/L (3.5-5.1)
[2021-06-13 08:00] VITALS: BP 100/50
[2021-06-13] MEDS: LOSARTAN POTASSIUM 25 MG TABLET NG SCH (08:28)
[2021-06-13] MEDS: METOPROLOL TARTRATE 25 MG TABLET NG SCH ×2 (08:29→17:00)
[2021-06-13] MEDS: DOCUSATE SODIUM LIQ 100 MG/10 ML UDC NG SCH (08:34)
[2021-06-13] MEDS: CHOLECALCIFEROL 1,000 UNIT TABLET (VIT D3) NG SCH (08:34)
[2021-06-13] MEDS: VIT B CMPLX 3/FA/VIT C/BIOTIN 1 TAB TABLET NG SCH (08:34)
[2021-06-13] MEDS: ASCORBIC ACID 500 MG TABLET NG SCH (08:35)
[2021-06-13] MEDS: ATORVASTATIN 10 MG TABLET NG SCH (08:35)
[2021-06-13] MEDS: GUAIFENESIN LA 600 MG TABLET.SA PO SCH ×2 (08:35→20:27)
[2021-06-13] MEDS: ASPIRIN 81 MG TAB.CHEW NG SCH (08:35)
[2021-06-13] MEDS: FERROUS SULFATE (325 MG) 325 MG/TAB TABLET NG SCH ×2 (08:36→17:41)
[2021-06-13] MEDS: APIXABAN 2.5 MG TABLET NG SCH ×3 (08:39→17:00)
[2021-06-13] MEDS: NEPRO VAN 237 ML CAN PO SCH ×2 (08:39→17:41)
[2021-06-13] MEDS: DORZOLAMIDE OPTH 2% 10 ML BOTTLE EACHEYE SCH ×3 (09:00→17:32)
--- NOTE | 2021-06-13 09:00 | NUR ---
ms rn due meds given,tolerated well. held b/p meds, hcx of low b/p from previous shift and pt for hd today.
[2021-06-13] MEDS: POLYETHYLENE GLYCOL 3350 17 GM POWD.PACK NG SCH (09:04)
[2021-06-13 09:40] LABS: ABG BASE EXCESS -1.6 mmol/L; ABG OXYGEN SATURATION 96.3 % (92.0-98.5); ABG PCO2 60.1 mmHg (35.0-45.0); ABG PH 7.257 (7.350-7.450); ABG PO2 83.5 mmHg (75.0-100.0); AaDO2 74.3 mmHg; COHb 0.5 % (0.5-1.5); MetHb 0.1 % (0.0-1.5); O2Hb 95.7 % (94.0-97.0); SITE, ABG Right Radial; VENT MODE, BG 3 L NC
--- NOTE | 2021-06-13 10:00 | NUR ---
ms rn hd started, abg look not ok, dr. costa aware, patient put on bipap.
[2021-06-13] MEDS: MIDODRINE HCL (5MG) 5 MG TABLET PO PRN (10:16)
[2021-06-13] MEDS: ALBUMIN 25% 25 GM in PREMIX 1 EA IV PRN (10:37)
[2021-06-13 12:00] VITALS: BP 110/51
--- NOTE | 2021-06-13 13:00 | NUR ---
ms guillen b/s -87 - no coverage given, apple juice given, hd terminated one hour earlier for hd time due to low b/p.
[2021-06-13] MEDS: HYDROCODONE/APAP 5/325MG TABLET NG PRN (14:04)
--- NOTE | 2021-06-13 14:20 | NUR ---
ms rn patient refused mri,texted mercedes, to ask id if still needed, ten id primer inserting machine adjuster aware.
--- NOTE | 2021-06-13 15:01 | NUR ---
pt. placed on bipap per md order post abg. pt. in medsur unit scott with cue worker. Addendum: 06/13/21 at 1504 by MADDY JIN RT Amended: Links added.
[2021-06-13 16:00] VITALS: BP 107/60
--- NOTE | 2021-06-13 17:00 | NUR ---
ms rn still refusing mri at this time.
[2021-06-13] MEDS: LATANOPROST EYE DROP 0.005% 2.5 ML BOTTLE EACHEYE SCH (17:32)
[2021-06-13] MEDS: MEROPENEM 500 MG in IV NS 0.9% 50 ML IV SCH (17:33)
--- NOTE | 2021-06-13 18:10 | NUR ---
ms rn patient refused bs check will do it tonight, patient eating breakfast at this time.
--- NOTE | 2021-06-13 18:13 | NUR ---
ms rn on bed,all needs attended, no distress noted.
[2021-06-13] MEDS: VANCOMYCIN POST DIALYSIS 500MG IV PRN ×2 (18:15)
[2021-06-13 20:00] VITALS: BP 110/71
--- NOTE | 2021-06-13 20:00 | NUR ---
SUPERVISOR VACUUM METALIZING OPENING NOTES RECEIVED PATIENT LYING IN BED AWAKE, HOB ELEVATED @ 60 DEGREES. A/O X3 WITH PERIODS OF FORGETFULNESS. NOTED AFTER CHANGING POSITION. ON O2 @ 2 LPM VIA NC WITH SPO2 AT 87%, INCREASED TO 5 LPM. REASSESSED SPO2 SHOWS IMPROVEMENT AT 97-99%. ON TELE MONITOR SHOWING SINUS RHYTHM 85. HAS RIGHT FOREARM IV ACCESS #20G AND SALINE LOCKED. HAS RIGHT CHEST HD CATHETER, DRESSING INTACT, AND RIGHT UPPER ARM AV FISTULA. SAFETY MEASURES IN PLACE. WILL CONTINUE PLAN OF CARE. Addendum: 06/13/21 at 1789 by August VAL EWING LEFT UPPER ARM AV FISTULA
[2021-06-13] MEDS: MORPHINE SULFATE INJ 2 MG/ML DISP.SYRIN IV PRN (20:35)
[2021-06-14] VITALS: BP 128/61
[2021-06-14 04:00] VITALS: BP 106/47
[2021-06-14] MEDS: BLOOD SUGAR DIAGNOSTIC 1 EACH STRIP IN SCH ×4 (05:47→23:52)
[2021-06-14 06:27] LABS: CALCIUM, SERUM 8.6 mg/dL (8.5-10.1); CREATININE 3.9 mg/dL (0.6-1.3); MAGNESIUM 2.4 mg/dL (1.8-2.4); PHOSPHORUS 2.7 mg/dL (2.5-4.9); POTASSIUM 3.6 mmol/L (3.5-5.1)
--- NOTE | 2021-06-14 06:30 | NUR ---
CERTIFIED REHABILITATION COUNSELOR CLOSING NOTES PATIENT LYING IN BED, SLEEPING INTERMITTENTLY. HOB ELEVATED @ 45 DEGREES. A/O X3. NO APPARENT DISTRESS NOTED. ON O2 @ 2 LPM VIA NC WITH SPO2 AT 97%. ON TELE MONITOR READING SINUS RHYTHM AT 79 BPM. HAS RIGHT FOREARM IV ACCESS #20G AND SALINE LOCKED. INTACT, PATENT AND FLUSHING. HAS RIGHT CHEST PERMACATH AND RIGHT FEMORAL TRIPLE LUMEN CATHETER, DRESSING INTACT. HAS LEFT UPPER ARM AV FISTULA, THRILLS AND BRUITS PRESENT. ALL NEEDS ATTENDED. KEPT DRY AND COMFORTABLE. REPOSITIONED EVERY 2 HOURS. SAFETY PRECAUTIONS IN PLACE: BED LOW AND LOCKED, SIDE RAILS UP X3, CALL LIGHT WITHIN REACH.
[2021-06-14 06:33] LABS: BASOPHILS % (AUTO) 0.2 % (0.0-2.0); EOSINOPHILS % (AUTO) 2.7 % (0.0-6.0); HEMATOCRIT 29 % (33-45); HEMOGLOBIN 9.1 g/dL (11.5-14.8); LYMPHOCYTES # (AUTO) 0.6 K/uL (0.8-4.8); LYMPHOCYTES % (AUTO) 7.5 % (20.0-44.0); MEAN CORPUSCULAR HGB CONC 31 g/dl (31.0-36.0); MEAN CORPUSCULAR VOLUME 105 fL (82-100); MONOCYTES % (AUTO) 11.9 % (2.0-12.0); NEUTROPHILS # (AUTO) 6.4 K/uL (1.8-8.9); NEUTROPHILS % (AUTO) 77.7 % (43.0-81.0); PLATELET COUNT (AUTO) 145 K/uL (150-450); RED BLOOD CELL COUNT(AUTO) 2.79 MIL/uL (4.0-5.2); WHITE BLOOD COUNT (AUTO) 8.2 K/uL (4.3-11.0)
--- NOTE | 2021-06-14 07:26 | NUR ---
RN OPENING NOTE PATIENT IN BED ASLEEP, HOB ELEVATED @ 60 DEGREES. A/O X3 WITH PERIODS OF FORGETFULNESS. . ON O2 @ 3 LPM VIA NC WITH SPO2 AT 95% ON TELE MONITOR SHOWING SINUS RHYTHM 81 HAS RIGHT FOREARM IV ACCESS #20G . HAS RIGHT CHEST HD CATHETER, DRESSING INTACT, AND RIGHT UPPER ARM AV FISTULA. SAFETY MEASURES IN PLACE. WILL CONTINUE PLAN OF CARE. MONITOR / ASSIST
[2021-06-14 08:09] LABS: ABG BASE EXCESS 1.4 mmol/L; ABG OXYGEN SATURATION 96.1 % (92.0-98.5); ABG PH 7.277 (7.350-7.450); ABG PO2 82.5 mmHg (75.0-100.0); AaDO2 70.8 mmHg; COHb 0.2 % (0.5-1.5); MetHb 0.3 % (0.0-1.5); O2Hb 95.6 % (94.0-97.0); SITE, ABG Right Radial; VENT MODE, BG 3LPM NASAL CANNULA
[2021-06-14] MEDS: FERROUS SULFATE (325 MG) 325 MG/TAB TABLET NG SCH ×2 (08:49→16:53)
[2021-06-14] MEDS: ASCORBIC ACID 500 MG TABLET NG SCH (08:49)
[2021-06-14] MEDS: NEPRO VAN 237 ML CAN PO SCH ×2 (08:49→16:54)
[2021-06-14] MEDS: DOCUSATE SODIUM LIQ 100 MG/10 ML UDC NG SCH (08:49)
[2021-06-14] MEDS: CHOLECALCIFEROL 1,000 UNIT TABLET (VIT D3) NG SCH (08:50)
[2021-06-14] MEDS: ATORVASTATIN 10 MG TABLET NG SCH (08:50)
[2021-06-14] MEDS: VIT B CMPLX 3/FA/VIT C/BIOTIN 1 TAB TABLET NG SCH (08:50)
[2021-06-14] MEDS: GUAIFENESIN LA 600 MG TABLET.SA PO SCH ×2 (08:50→21:26)
[2021-06-14] MEDS: MORPHINE SULFATE INJ 2 MG/ML DISP.SYRIN IV PRN ×4 (08:56→23:52)
[2021-06-14] MEDS: ASPIRIN 81 MG TAB.CHEW NG SCH (09:00)
[2021-06-14] MEDS: METOPROLOL TARTRATE 25 MG TABLET NG SCH ×2 (09:00→16:54)
[2021-06-14] MEDS: LOSARTAN POTASSIUM 25 MG TABLET NG SCH (09:00)
[2021-06-14] MEDS: APIXABAN 2.5 MG TABLET NG SCH ×2 (09:00→16:50)
[2021-06-14] MEDS: DORZOLAMIDE OPTH 2% 10 ML BOTTLE EACHEYE SCH ×3 (09:10→16:53)
[2021-06-14] MEDS: HYDROCODONE/APAP 5/325MG TABLET NG PRN ×3 (11:12→21:27)
[2021-06-14] MEDS: INSULIN REGULAR, HUMAN 100 UNIT/ML 3 ML VIAL SQ PRN ×3 (11:58→23:57)
[2021-06-14] MEDS: ACETYLCYSTEINE 10% SOLN 400 MG/4 ML VIAL NEB SCH ×2 (15:30→22:42)
[2021-06-14] MEDS: LATANOPROST EYE DROP 0.005% 2.5 ML BOTTLE EACHEYE SCH (17:31)
--- NOTE | 2021-06-14 18:59 | NUR ---
RN CLOSING NOTE PATIENT IN BED AOX4 HOB ELEVATED @ 45 DEGREES.. ON O2 @ 3 LPM VIA NC WITH SPO2 AT 95% ON TELE MONITOR SHOWING SINUS RHYTHM 78 HAS RIGHT FOREARM IV ACCESS #20G . HAS RIGHT CHEST HD CATHETER, DRESSING INTACT, AND RIGHT UPPER ARM AV FISTULA. SAFETY MEASURES IN PLACE. WILL CONTINUE PLAN OF CARE. MONITOR / ASSIST. COMFORTABLE W ALTERNATING MORPHINE IVP AND NORCO. DRESSING TO SACRUM CHANGED. WOUND CARE TUESDAY TO /
[2021-06-14 20:00] VITALS: BP 111/59
--- NOTE | 2021-06-14 20:00 | NUR ---
CADDY PACKER OPENING NOTES RECEIVED PATIENT LYING IN BED, AWAKE. HOB ELEVATED AT 45 DEGREES. A/O X3. ON O2 AT 3 LPM VIA NC. NO APPARENT DISTRESS NOTED. ON TELE MONITOR READING SINUS RHYTHM AT 77 BPM. HAS RIGHT FOREARM IV ACCESS #20G AND SALINE LOCKED. HAS RIGHT CHEST PERMACATH AND RIGHT FEMORAL TRIPLE LUMEN CATHETER, DRESSING INTACT. HAS LEFT UPPER ARM AV FISTULA. SAFETY PRECAUTIONS IN PLACE. WILL CONTINUE PLAN OF CARE.
--- NOTE | 2021-06-14 22:50 | NUR ---
RT NOTE MUCOMYST TX GIVEN. NO SOB OR INCREASED WOB NOTED. NO S/S OF RESPIRAOTRY DISTRESS NOTED. WILL CONTINUE TO MONITOR T/O SHIFT. PLACED BACK ON 3LPM NC.
[2021-06-14 23:58] VITALS: BP 123/63
[2021-06-15] VITALS (7 sets, daily range): BP systolic 90–128; BP diastolic 47–63
--- NOTE | 2021-06-15 | NUR ---
REGISTERED NURSE OBSTETRICS NOTES PATIENT C/O PAIN 11/21. BP WNL. ADMINISTERED MORPHINE SO4 IV, TOLERATED WELL.
[2021-06-15] MEDS: HYDROCODONE/APAP 5/325MG TABLET NG PRN ×3 (01:27→16:42)
--- NOTE | 2021-06-15 01:30 | NUR ---
SUPERVISOR DRILLING AND SHOOTING NOTES PATIENT C/O PAIN 09/20. BP WNL. ADMINISTERED NORCO, TOLERATED WELL.
[2021-06-15] MEDS: BLOOD SUGAR DIAGNOSTIC 1 EACH STRIP IN SCH ×4 (05:44→23:24)
--- NOTE | 2021-06-15 07:09 | NUR ---
INSPECTOR INTEGRATED CIRCUITS CLOSING NOTES PATIENT LYING IN BED, SLEEPING INTERMITTENTLY. EASY TO AROUSE. HOB ELEVATED AT 45 DEGREES. A/O X3. ON O2 AT 2 LPM VIA NC WITH SPO2 OF 97-99%. NO C/O PAIN AT THIS TIME. NO SOB OR NOTED. SKIN WARM AND DRY. ON TELE MONITOR READING SINUS RHYTHM AT 74 BPM. HAS RIGHT FOREARM IV ACCESS #20G AND SALINE LOCKED. HAS RIGHT CHEST PERMACATH AND RIGHT FEMORAL TRIPLE LUMEN CATHETER, DRESSING INTACT. HAS LEFT UPPER ARM AV FISTULA, THRILLS AND BRUITS PRESENT. ALL NEEDS ATTENDED. KEPT DRY AND COMFORTABLE. PERICARE RENDERED. WEEKLY SKIN ASSESSMENT DONE AND PHOTOS TAKEN. SAFETY PRECAUTIONS IN PLACE: BED LOW AND LOCKED, SIDE RAILS UP X3, CALL LIGHT WITHIN REACH.
--- NOTE | 2021-06-15 07:22 | NUR ---
RN OPENING NOTE- PATIENT IN BED AOX4 HOB ELEVATED @ 45 DEGREES.. ON O2 @ 2 LPM VIA NC WITH SPO2 AT 98% ON TELE MONITOR SHOWING SINUS RHYTHM 74 HAS RIGHT FOREARM IV ACCESS #20G . HAS RIGHT CHEST HD CATHETER, DRESSING INTACT, AND RIGHT UPPER ARM AV FISTULA. SAFETY MEASURES IN PLACE. WILL CONTINUE PLAN OF CARE. . COMFORTABLE W ALTERNATING MORPHINE IVP AND NORCO WHICH IS CONTINUING. MONITOR / ASSIST
[2021-06-15] MEDS: ACETYLCYSTEINE 10% SOLN 400 MG/4 ML VIAL NEB SCH ×3 (07:31→23:12)
[2021-06-15 07:45] LABS: BASOPHILS % (AUTO) 0.4 % (0.0-2.0); EOSINOPHILS % (AUTO) 2.7 % (0.0-6.0); HEMATOCRIT 31 % (33-45); HEMOGLOBIN 9.4 g/dL (11.5-14.8); LYMPHOCYTES % (AUTO) 10.9 % (20.0-44.0); MEAN CORPUSCULAR HGB CONC 30 g/dl (31.0-36.0); MEAN CORPUSCULAR VOLUME 107 fL (82-100); MONOCYTES # (AUTO) 1.3 K/uL (0.1-1.30); MONOCYTES % (AUTO) 13.5 % (2.0-12.0); NEUTROPHILS # (AUTO) 6.7 K/uL (1.8-8.9); NEUTROPHILS % (AUTO) 72.5 % (43.0-81.0); PLATELET COUNT (AUTO) 141 K/uL (150-450); RED BLOOD CELL COUNT(AUTO) 2.89 MIL/uL (4.0-5.2); WHITE BLOOD COUNT (AUTO) 9.3 K/uL (4.3-11.0)
[2021-06-15] MEDS: NEPRO VAN 237 ML CAN PO SCH ×3 (08:06→16:50)
[2021-06-15] MEDS: GUAIFENESIN LA 600 MG TABLET.SA PO SCH ×2 (08:27→21:00)
[2021-06-15] MEDS: CHOLECALCIFEROL 1,000 UNIT TABLET (VIT D3) NG SCH (08:27)
[2021-06-15] MEDS: DOCUSATE SODIUM LIQ 100 MG/10 ML UDC NG SCH (08:27)
[2021-06-15] MEDS: DORZOLAMIDE OPTH 2% 10 ML BOTTLE EACHEYE SCH ×3 (08:27→16:39)
[2021-06-15] MEDS: ASCORBIC ACID 500 MG TABLET NG SCH (08:27)
[2021-06-15] MEDS: FERROUS SULFATE (325 MG) 325 MG/TAB TABLET NG SCH ×2 (08:27→16:42)
[2021-06-15] MEDS: ASPIRIN 81 MG TAB.CHEW NG SCH (08:27)
[2021-06-15] MEDS: ATORVASTATIN 10 MG TABLET NG SCH (08:28)
[2021-06-15] MEDS: MORPHINE SULFATE INJ 2 MG/ML DISP.SYRIN IV PRN ×2 (08:28→12:36)
[2021-06-15] MEDS: VIT B CMPLX 3/FA/VIT C/BIOTIN 1 TAB TABLET NG SCH (08:28)
[2021-06-15] MEDS: APIXABAN 2.5 MG TABLET NG SCH ×2 (08:31→16:42)
[2021-06-15] MEDS: GABAPENTIN 100 MG CAPSULE NG SCH (08:35)
[2021-06-15] MEDS: LOSARTAN POTASSIUM 25 MG TABLET NG SCH (08:35)
[2021-06-15] MEDS: POLYETHYLENE GLYCOL 3350 17 GM POWD.PACK NG SCH (08:35)
[2021-06-15] MEDS: METOPROLOL TARTRATE 25 MG TABLET NG SCH ×2 (08:36→16:39)
[2021-06-15 08:54] LABS: CALCIUM, SERUM 8.9 mg/dL (8.5-10.1); CREATININE 4.9 mg/dL (0.6-1.3); MAGNESIUM 2.4 mg/dL (1.8-2.4); PHOSPHORUS 4.2 mg/dL (2.5-4.9); POTASSIUM 4.4 mmol/L (3.5-5.1)
--- NOTE | 2021-06-15 09:02 | NUR ---
RN NOTE- HD RN AT BEDSIDE . INITIATING HD
[2021-06-15] MEDS ORDERED: ALTEPLASE CATHFLO 2 MG/VIAL XX ONE (11:00)
[2021-06-15] MEDS: INSULIN REGULAR, HUMAN 100 UNIT/ML 3 ML VIAL SQ PRN ×2 (11:40→17:35)
--- NOTE | 2021-06-15 11:50 | NUR ---
RN NOTE- HD COMPLETED. 1 LITRE REMOVED. BP- 91/52, HR- 78
[2021-06-15] MEDS: LATANOPROST EYE DROP 0.005% 2.5 ML BOTTLE EACHEYE SCH (17:47)
--- NOTE | 2021-06-15 19:05 | NUR ---
RN CLOSING NOTE- PATIENT IN BED AOX4 HOB ELEVATED @ 45 DEGREES.. ON O2 @ 2 LPM VIA NC WITH SPO2 AT 97% ON TELE MONITOR SHOWING SINUS RHYTHM 70 HAS RIGHT FOREARM IV ACCESS #20G . HAS RIGHT CHEST HD CATHETER, DRESSING INTACT, AND RIGHT UPPER ARM AV FISTULA. SAFETY MEASURES IN PLACE. WILL CONTINUE PLAN OF CARE. . COMFORTABLE W ALTERNATING MORPHINE IVP AND NORCO WHICH IS CONTINUING.. HD REMOVED 1 LITRE TODAY. PT COMFORTABLE. MONITOR / ASSIST
--- NOTE | 2021-06-15 19:25 | NUR ---
RN OPENING NOTES PATIENT IN BED AOX4 HOB ELEVATED @ 45 DEGREES.. ON O2 @ 2 LPM VIA NC WITH SPO2 AT 97% ON TELE MONITOR SHOWING SINUS RHYTHM 70 HAS RIGHT FOREARM IV ACCESS #20G . HAS RIGHT CHEST HD CATHETER, DRESSING INTACT, AND RIGHT UPPER ARM AV FISTULA. SAFETY MEASURES IN PLACE. WILL CONTINUE PLAN OF CARE. HD REMOVED 1 LITER TODAY. PT COMFORTABLE. WILL CONTINUE TO MONITOR.
[2021-06-16] VITALS: BP 121/50
[2021-06-16 04:00] VITALS: BP 102/49
--- NOTE | 2021-06-16 05:20 | NUR ---
BUS SYSTEM OPERATOR NOTES PT REFUSING TO BE CHANGED OR HAVE LINEN CHANGED AT THIS TIME. PT STATED ' NO I DONT WANT TO BE CHANGED I DIDN'T POOP" WILL CONTINUE TO MONITOR.
[2021-06-16] MEDS: BLOOD SUGAR DIAGNOSTIC 1 EACH STRIP IN SCH ×4 (05:22→23:05)
[2021-06-16 06:57] LABS: CALCIUM, SERUM 8.9 mg/dL (8.5-10.1); CREATININE 3.9 mg/dL (0.6-1.3); MAGNESIUM 2.4 mg/dL (1.8-2.4); PHOSPHORUS 4.4 mg/dL (2.5-4.9); POTASSIUM 4.7 mmol/L (3.5-5.1)
--- NOTE | 2021-06-16 06:58 | NUR ---
RN CLOSING NOTES PATIENT IN BED AOX4 HOB ELEVATED @ 45 DEGREES..ON O2 @ 2 LPM VIA NC WITH SPO2 AT 97% ON TELE MONITOR SHOWING SINUS RHYTHM 70 HAS RIGHT FOREARM IV ACCESS #20G . HAS RIGHT CHEST HD CATHETER, DRESSING INTACT, AND RIGHT UPPER ARM AV FISTULA. SAFETY MEASURES IN PLACE. WILL CONTINUE PLAN OF CARE. HD REMOVED 1 LITER YESTERDAY. PT COMFORTABLE. WAS ABLE TO CHANGE PTS LINENS THIS MORNING. WILL ENDORSE CRAE TO DAY SHIFT NURSE.
[2021-06-16 07:22] LABS: BASOPHILS % (AUTO) 0.3 % (0.0-2.0); EOSINOPHILS % (AUTO) 2.2 % (0.0-6.0); HEMATOCRIT 32 % (33-45); HEMOGLOBIN 9.5 g/dL (11.5-14.8); LYMPHOCYTES # (AUTO) 0.8 K/uL (0.8-4.8); MEAN CORPUSCULAR HGB CONC 30 g/dl (31.0-36.0); MEAN CORPUSCULAR VOLUME 110 fL (82-100); MONOCYTES # (AUTO) 1.1 K/uL (0.1-1.30); NEUTROPHILS # (AUTO) 7.7 K/uL (1.8-8.9); NEUTROPHILS % (AUTO) 78.5 % (43.0-81.0); PLATELET COUNT (AUTO) 145 K/uL (150-450); RED BLOOD CELL COUNT(AUTO) 2.93 MIL/uL (4.0-5.2); WHITE BLOOD COUNT (AUTO) 9.8 K/uL (4.3-11.0)
--- NOTE | 2021-06-16 07:47 | NUR ---
RN OPENING NOTE PATIENT IN BED RESTING A/O X2, NO S/S OF PAIN NOTED AT THIS TIME. ON 2L OXYGEN VIA NC, NO DISTRESS OR SHORTNESS OF BREATH NOTED. IV ACCESS RFA #20G, NS @ 75ML/HR. INTACT, PATENT AND FLUSHING WELL. FALL AND SAFETY MEASURES IN PLACE, BED ALARM ON, BED IN LOW AND LOCK POSITION, CALL LIGHT AND TABLE WITHIN EASY REACH, SIDE RAILS UP X2. WILL CONTINUE TO MONITOR.
[2021-06-16] MEDS: ACETYLCYSTEINE 10% SOLN 400 MG/4 ML VIAL NEB SCH ×3 (08:01→23:37)
--- NOTE | 2021-06-16 08:04 | NUR ---
PT. FOUND ON 2 LPM O2 FLOW WITH 98% SPO2. NO INCREASED WORK OF BREATHING NOTED. Addendum: 06/16/21 at 0805 by TAMY MARK RT Amended: Links added.
[2021-06-16] MEDS: NEPRO VAN 237 ML CAN PO SCH ×3 (08:42→16:29)
[2021-06-16] MEDS: VIT B CMPLX 3/FA/VIT C/BIOTIN 1 TAB TABLET NG SCH (08:43)
[2021-06-16] MEDS: ASCORBIC ACID 500 MG TABLET NG SCH (08:43)
[2021-06-16] MEDS: ATORVASTATIN 10 MG TABLET NG SCH (08:43)
[2021-06-16] MEDS: CHOLECALCIFEROL 1,000 UNIT TABLET (VIT D3) NG SCH (08:43)
[2021-06-16] MEDS: ASPIRIN 81 MG TAB.CHEW NG SCH (08:43)
[2021-06-16] MEDS: GUAIFENESIN LA 600 MG TABLET.SA PO SCH ×2 (08:43→21:09)
[2021-06-16] MEDS: FERROUS SULFATE (325 MG) 325 MG/TAB TABLET NG SCH ×2 (08:43→16:28)
[2021-06-16] MEDS: DOCUSATE SODIUM LIQ 100 MG/10 ML UDC NG SCH (08:44)
[2021-06-16] MEDS: APIXABAN 2.5 MG TABLET NG SCH (08:46)
[2021-06-16] MEDS: DORZOLAMIDE OPTH 2% 10 ML BOTTLE EACHEYE SCH ×3 (08:48→16:28)
[2021-06-16] MEDS: LOSARTAN POTASSIUM 25 MG TABLET NG SCH (09:00)
[2021-06-16] MEDS: METOPROLOL TARTRATE 25 MG TABLET NG SCH ×2 (09:00→16:29)
--- NOTE | 2021-06-16 11:01 | NUR ---
RN NOTE PATIENT BLOOD PRESSURE IS LOW. BLOOD PRESSURE WAS TAKEN SEVERAL TIMES, 1ST: BP:100/39 P: 77, 2ND: BP: 94/39, P: 79, 3RD: 90/41, P: 78. HYPERTENSIVE MEDICATION WERE HELD. DOCTOR WAS INFORM AND CHARGE NURSE AWARE. WILL CONTINUE TO MONITOR.
[2021-06-16] MEDS: HYDROCODONE/APAP 5/325MG TABLET NG PRN (16:28)
--- NOTE | 2021-06-16 16:40 | NUR ---
RN NOTE PATIENT 1700 METOPROLOL WAS NOT ADMINISTERED, PATIENT BLOOD PRESSURE WAS 98/70, PULSE 78, DOCTOR WAS INFORMED THIS MORNING ABOUT PATIENT DECREASE BLOOD PRESSURE. PATIENT BP TENDS TO DROP BELOW 90/60. CHARGE NURSE AWARE. WILL CONTINUE TO MONITOR.
[2021-06-16] MEDS: LATANOPROST EYE DROP 0.005% 2.5 ML BOTTLE EACHEYE SCH (17:27)
[2021-06-16] MEDS: INSULIN REGULAR, HUMAN 100 UNIT/ML 3 ML VIAL SQ PRN (17:43)
--- NOTE | 2021-06-16 18:48 | NUR ---
RN CLOSING NOTE PATIENT IN BED RESTING A/O X2, NO S/S OF PAIN NOTED AT THIS TIME. ON 2L OXYGEN VIA NC, NO DISTRESS OR SHORTNESS OF BREATH NOTED. IV ACCESS RFA #20G, NS @ 75ML/HR. INTACT, PATENT AND FLUSHING WELL. PATIENT ON EXTERNAL MEDICAL EDUCATION COORDINATOR WITH CURRENT READING OF SR AND HR OF 80, NO CARDIAC DISTRESS NOTED. FALL AND SAFETY MEASURES IN PLACE, BED ALARM ON, BED IN LOW AND LOCK POSITION, CALL LIGHT AND TABLE WITHIN EASY REACH, SIDE RAILS UP X2. WILL ENDORSE TO HEALTH SUPPORT SPECIALIST.
[2021-06-16 20:00] VITALS: BP 100/46
[2021-06-17] VITALS: BP 118/51
[2021-06-17 04:00] VITALS: BP 110/54
--- NOTE | 2021-06-17 06:40 | NUR ---
TELE/RN OPENING NOTE RECEIVED PATIENT RESTING IN BED. ALERT AND ORIENTED X 2. DENIES PAIN AT THIS TIME. CONTINUES ON O2 2L VIA NC WITH NO S/SX OF RESPIRATORY DISTRESS NOTED. IV ACCESS TO RIGHT FEMORAL AND RIGHT FOREARM BOTH INTACT AND PATENT. RIGHT CW CATHETER IN PLACE. LEFT UPPER ARM AV FISTULA WITH POSITIVE BRUIT/THRILL. CONTINUES ON IV ABX. CALL LIGHT WITHIN REACH. ASPIRATION, FALL AND SAFETY PRECAUTIONS MAINTAINED. WILL CONTINUE TO MONITOR.
--- NOTE | 2021-06-17 06:45 | NUR ---
TELE/RN NOTE PATIENT NOTED TO HAVE RIGHT NOSTRIL NOSE BLEED. SMALL OPEN AREA NOTED IN NOSE. WOUND CONSULT ORDER IN PLACE. PATIENT SATING WELL ON ROOM AIR. NC TAKEN OFF TO HELP WITH DRYNESS IN NOSTRIL. ENDORSED TO AM RN.
[2021-06-17] MEDS: BLOOD SUGAR DIAGNOSTIC 1 EACH STRIP IN SCH ×3 (07:04→17:38)
--- NOTE | 2021-06-17 07:30 | NUR ---
MASS SPEC OPENING NOTES RECEIVED PATIENT RESTING IN BED. ALERT AND ORIENTED X 2. DENIES PAIN AT THIS TIME. CONTINUES ON O2 2L VIA NC WITH NO S/SX OF RESPIRATORY DISTRESS NOTED. IV ACCESS TO RIGHT FEMORAL AND RIGHT FOREARM BOTH INTACT AND PATENT. RIGHT CW CATHETER IN PLACE. LEFT UPPER ARM AV FISTULA WITH POSITIVE BRUIT/THRILL. ON TELE MONITOR CURRENTLY READING SINUS RHYTHM AT 77BPM. CALL LIGHT WITHIN REACH. ASPIRATION, FALL AND SAFETY PRECAUTIONS MAINTAINED. WILL CONTINUE TO MONITOR.
[2021-06-17 07:34] LABS: BASOPHILS % (AUTO) 0.3 % (0.0-2.0); EOSINOPHILS % (AUTO) 2.7 % (0.0-6.0); HEMATOCRIT 33 % (33-45); HEMOGLOBIN 9.6 g/dL (11.5-14.8); LYMPHOCYTES # (AUTO) 0.9 K/uL (0.8-4.8); LYMPHOCYTES % (AUTO) 7.9 % (20.0-44.0); MEAN CORPUSCULAR HGB CONC 29 g/dl (31.0-36.0); MONOCYTES % (AUTO) 9.1 % (2.0-12.0); NEUTROPHILS # (AUTO) 8.6 K/uL (1.8-8.9); PLATELET COUNT (AUTO) 154 K/uL (150-450); RED BLOOD CELL COUNT(AUTO) 2.96 MIL/uL (4.0-5.2); WHITE BLOOD COUNT (AUTO) 10.7 K/uL (4.3-11.0)
[2021-06-17] MEDS: ACETYLCYSTEINE 10% SOLN 400 MG/4 ML VIAL NEB SCH ×3 (08:08→23:51)
--- NOTE | 2021-06-17 08:26 | NUR ---
WOUND CARE CONSULT: RECEIVED CONSULT FOR RE-EVALUATION OF SACRAL WOUND, PRESENT ON ADMISSION. UPON FURTHER INVESTIGATION, IT WAS DETERMINED THAT SACRAL DEEP TISSUE INJURY IN EVOLUTION WAS PRESENT ON ADMISSION WITH SCARRING (BLEEDING NOTED ON ADMISSION WITH PURPLE DISCOLORATION). EDEMA NOTED TO SACRAL AREA. TREATMENT ORDERS UPDATED AND DISCUSSED WITH NURSING STAFF AND SURGICAL TEAM CURRENTLY ON CASE. PT IS ON ANSLEY ISOFLEX LOW AIRLOSS BED. MD IN AGREEMENT WITH PLAN OF CARE.
[2021-06-17] MEDS: FERROUS SULFATE (325 MG) 325 MG/TAB TABLET NG SCH ×2 (09:00→17:37)
[2021-06-17] MEDS: LOSARTAN POTASSIUM 25 MG TABLET NG SCH (09:00)
[2021-06-17] MEDS: METOPROLOL TARTRATE 25 MG TABLET NG SCH ×2 (09:00→17:37)
[2021-06-17] MEDS: NEPRO VAN 237 ML CAN PO SCH ×3 (09:07→17:36)
[2021-06-17] MEDS: LATANOPROST EYE DROP 0.005% 2.5 ML BOTTLE EACHEYE SCH ×2 (09:09→17:53)
[2021-06-17] MEDS: DORZOLAMIDE OPTH 2% 10 ML BOTTLE EACHEYE SCH ×3 (09:14→17:38)
[2021-06-17 09:44] LABS: CALCIUM, SERUM 9.2 mg/dL (8.5-10.1); CREATININE 4.9 mg/dL (0.6-1.3); MAGNESIUM 2.6 mg/dL (1.8-2.4); PHOSPHORUS 4.5 mg/dL (2.5-4.9); POTASSIUM 4.3 mmol/L (3.5-5.1)
[2021-06-17 10:13] LABS: MEAN CORPUSCULAR VOLUME 111 fL (82-100)
[2021-06-17] MEDS: ATORVASTATIN 10 MG TABLET NG SCH (12:49)
[2021-06-17] MEDS: DOCUSATE SODIUM LIQ 100 MG/10 ML UDC NG SCH (12:49)
[2021-06-17] MEDS: GABAPENTIN 100 MG CAPSULE NG SCH (12:49)
[2021-06-17] MEDS: POLYETHYLENE GLYCOL 3350 17 GM POWD.PACK NG SCH (12:49)
[2021-06-17] MEDS: ASPIRIN 81 MG TAB.CHEW NG SCH (12:50)
[2021-06-17] MEDS: CHOLECALCIFEROL 1,000 UNIT TABLET (VIT D3) NG SCH (12:50)
[2021-06-17] MEDS: ASCORBIC ACID 500 MG TABLET NG SCH (12:50)
[2021-06-17] MEDS: VIT B CMPLX 3/FA/VIT C/BIOTIN 1 TAB TABLET NG SCH (12:51)
[2021-06-17] MEDS: GUAIFENESIN LA 600 MG TABLET.SA PO SCH ×2 (12:52→21:16)
[2021-06-17 14:44] LABS: ABG OXYGEN SATURATION 91.5 % (92.0-98.5); ABG PCO2 54.8 mmHg (35.0-45.0); ABG PH 7.294 (7.350-7.450); ABG PO2 57.9 mmHg (75.0-100.0); AaDO2 77.1 mmHg; COHb 0.4 % (0.5-1.5); MetHb 0.3 % (0.0-1.5); O2Hb 90.9 % (94.0-97.0); SITE, ABG Right Radial
[2021-06-17] MEDS: INSULIN REGULAR, HUMAN 100 UNIT/ML 3 ML VIAL SQ PRN (17:39)
--- NOTE | 2021-06-17 18:30 | NUR ---
COMPLIANCE MONITOR CLOSING NOTES PATIENT RESTING IN BED. ALERT AND ORIENTED X 2-3. DENIES PAIN AT THIS TIME. CONTINUES ON O2 2L VIA NC WITH NO S/SX OF RESPIRATORY DISTRESS NOTED. IV ACCESS TO RIGHT FEMORAL PICC LINE AND RIGHT FOREARM G20 BOTH INTACT AND PATENT. WITH RIGHT CW CATHETER IN PLACE FOR HD WITH DRY AND INTACT DRESSING. LEFT UPPER ARM AV FISTULA WITH POSITIVE BRUIT/THRILL. ON TELE MONITOR CURRENTLY READING SINUS RHYTHM AT 75BPM. TO TRANSFER PATIENT TO [facility] FOR BIPAP AT NIGHT PER DR. TRINIDAD'S ORDER. GIVEN REPORT TO KAYLIN ESCOBEDO.
--- NOTE | 2021-06-17 19:00 | NUR ---
PATIENT WILL TRANSFER FROM 3W/ROOM 328 TO ROOM 114, REPORTED BY JORGE EWING.
--- NOTE | 2021-06-17 19:25 | NUR ---
RN NOTES: PT TRANSFERRED FROM 3 MED-SURG UNIT. RECEIVED PT IN BED AWAKE, A/O X2 AND VERBALLY RESPONSIVE. ON O2 AT 2L/MIN VIA N/C AND PT TOLERATED WELL. IV ACCESS RT FA#20G AND RT FEMORAL TRIPLE LUMEN CATH. RCW PERMA CATH AND BRANDON AV SHUNT INTACT AND PATENT. NO BLEEDING NOTED. NO C/O PAIN OR DISCOMFORT. NO ACUTE DISTRESS. PROVIDED GOOD SKIN CARE. ALL SAFETY MEASURES IN PLACE. BED IN LOWEST POSITION AND LOCKED. SIDE RAILS UP X3, PLACE CALL LIGHT WITH IN REACH. WILL CONTINUE TO MONITOR
[2021-06-17 20:00] VITALS: BP 93/49
[2021-06-18] VITALS (19 sets, daily range): BP systolic 96–145; BP diastolic 41–70
[2021-06-18] MEDS: BLOOD SUGAR DIAGNOSTIC 1 EACH STRIP IN SCH ×5 (00:01→23:27)
--- NOTE | 2021-06-18 00:02 | NUR ---
RN NOTES: PT'S BLOOD SUGAR 89. NO COVERAGE NEEDED. NO S/S OF HYPER/HYPOGLYCEMIA. WILL CONTINUE TO MONITOR
--- NOTE | 2021-06-18 06:40 | NUR ---
RN CLOSING NOTES: PT IN BED AWAKE, A/O X2 AND VERBALLY RESPONSIVE. ON O2 AT 2L/MIN VIA N/C, O2 SAT 94% AND PT TOLERATED WELL. IV ACCESS RT FA#20G AND RT FEMORAL TRIPLE LUMEN CATH. RCW PERMA CATH AND BRANDON AV SHUNT INTACT AND PATENT. NO BLEEDING NOTED. NO C/O PAIN OR DISCOMFORT. NO ACUTE DISTRESS. BLOOD SUGAR AT 6AM, 117, NO COVERAGE GIVEN. NO S/S OF HYPER/HYPOGLYCEMIA. ALL DUE MEDS GIVEN ORDERED. PROVIDED GOOD SKIN CARE. ALL SAFETY MEASURES IN PLACE. BED IN LOWEST POSITION AND LOCKED. SIDE RAILS UP X3, PLACE CALL LIGHT WITH IN REACH. WILL ENDORSE TO MORNING SHIFT NURSE.
--- NOTE | 2021-06-18 07:30 | NUR ---
merchandise distributor opening notes: PT IN BED AWAKE, A/O X2-3 AND VERBALLY RESPONSIVE. ON O2 AT 2L/MIN VIA N/C, O2 SAT 99% AND PT TOLERATED WELL. IV ACCESS RT FA#20G AND RT FEMORAL TRIPLE LUMEN CATH. RCW PERMA CATH AND BRANDON AV SHUNT INTACT AND PATENT. NO BLEEDING NOTED. NO C/O PAIN OR DISCOMFORT. NO ACUTE DISTRESS. ALL SAFETY MEASURES IN PLACE. BED IN LOWEST POSITION AND LOCKED. SIDE RAILS UP X3, PLACE CALL LIGHT WITH IN REACH.
[2021-06-18] MEDS: ACETYLCYSTEINE 10% SOLN 400 MG/4 ML VIAL NEB SCH (07:50)
[2021-06-18] MEDS: NEPRO VAN 237 ML CAN PO SCH ×3 (08:00→17:00)
[2021-06-18] MEDS: HYDROCODONE/APAP 5/325MG TABLET NG PRN (08:16)
--- NOTE | 2021-06-18 08:31 | NUR ---
hand flatwork finisher notes: patient NPO for pig tail tube insertion, c/o of severe back pain 09/20, norco given by mouth with sips of water, nepro was not given for NPO reason for procedure prepare
[2021-06-18 08:43] LABS: BASOPHILS % (AUTO) 0.5 % (0.0-2.0); EOSINOPHILS % (AUTO) 2.1 % (0.0-6.0); HEMATOCRIT 30 % (33-45); HEMOGLOBIN 9.1 g/dL (11.5-14.8); LYMPHOCYTES % (AUTO) 10.1 % (20.0-44.0); MEAN CORPUSCULAR HGB CONC 30 g/dl (31.0-36.0); MEAN CORPUSCULAR VOLUME 106 fL (82-100); MONOCYTES % (AUTO) 9.9 % (2.0-12.0); NEUTROPHILS # (AUTO) 7.6 K/uL (1.8-8.9); NEUTROPHILS % (AUTO) 77.4 % (43.0-81.0); PLATELET COUNT (AUTO) 178 K/uL (150-450); RED BLOOD CELL COUNT(AUTO) 2.82 MIL/uL (4.0-5.2); WHITE BLOOD COUNT (AUTO) 9.8 K/uL (4.3-11.0)
[2021-06-18 09:04] LABS: CALCIUM, SERUM 8.9 mg/dL (8.5-10.1); CREATININE 3.9 mg/dL (0.6-1.3); MAGNESIUM 2.3 mg/dL (1.8-2.4); PHOSPHORUS 2.6 mg/dL (2.5-4.9); POTASSIUM 3.6 mmol/L (3.5-5.1)
[2021-06-18] MEDS ORDERED: MIDAZOLAM HCL 2 MG/2ML VIAL IV PRN (09:30)
[2021-06-18] MEDS ORDERED: NALOXONE PREFILLED SYRINGE 2 MG/2 ML SYRINGE IV PRN (09:30)
[2021-06-18] MEDS ORDERED: FLUMAZENIL 0.5 MG VIAL IV PRN (09:30)
[2021-06-18] MEDS ORDERED: FENTANYL PF 250MCG/5ML AMPUL IV PRN (09:30)
[2021-06-18 09:33] LABS: ABG BASE EXCESS -1.6 mmol/L; ABG OXYGEN SATURATION 91.2 % (92.0-98.5); ABG PCO2 70.7 mmHg (35.0-45.0); ABG PH 7.204 (7.350-7.450); ABG PO2 64.2 mmHg (75.0-100.0); COHb 0.4 % (0.5-1.5); MetHb 0.3 % (0.0-1.5); O2Hb 90.6 % (94.0-97.0); SITE, ABG Right Radial; VENT MODE, BG 2lpm nc
--- NOTE | 2021-06-18 10:00 | NUR ---
telegraph installer note seen by DR Linares who want patient to be transferred to ICU to be on bipap due to abnormal blood gases, charge nurse soon aware
--- NOTE | 2021-06-18 10:31 | NUR ---
PT ARRIVED IN ICU FROM [facility] AT THIS TIME. PT ALERT OX3, FOLLOWS COMMANDS. PT ON NASAL CANNULA AT THIS TIME, TRANSFERRED TO ICU FOR BIPAP, AWAITING RT TO PUT PT ON BIPAP. PT ANURIC, NO HD TODAY OF THIS TIME. PT CHECKED ON HOURLY AND PRN BY NURSING STAFF.
--- NOTE | 2021-06-18 10:35 | NUR ---
telegraph operator notes; patient transferred to ICU bedside report given to Elda EWING
--- NOTE | 2021-06-18 11:10 | NUR ---
RT NOTE POST ABG RESULTS SHOWN TO DR. TRINIDAD. PATIENT PLACED ON BIPAP WITH SETTINGS PER MD ORDER. BIPAP SETTINGS 15/5, BUR 18, 30% O2. CHARGE NURSE SOON NOTIFIED AND AWARE. AMBU AT BEDSIDE. NO SOB NOTED AT THIS TIME. WILL CONTINUE TO MONITOR FOR ANY CHANGES. Addendum: 06/18/21 at 1547 by PRIMO GÓMEZ RT Amended: Links added.
[2021-06-18] MEDS: METOPROLOL TARTRATE 25 MG TABLET NG SCH (11:59)
[2021-06-18] MEDS: LOSARTAN POTASSIUM 25 MG TABLET NG SCH (11:59)
[2021-06-18] MEDS: DOCUSATE SODIUM LIQ 100 MG/10 ML UDC NG SCH (11:59)
[2021-06-18] MEDS: FERROUS SULFATE (325 MG) 325 MG/TAB TABLET NG SCH (11:59)
[2021-06-18] MEDS: ATORVASTATIN 10 MG TABLET NG SCH (11:59)
[2021-06-18] MEDS: VIT B CMPLX 3/FA/VIT C/BIOTIN 1 TAB TABLET NG SCH (12:00)
[2021-06-18] MEDS ORDERED: PHARMACY TO CHANGE GT/NG MEDS TO PO XX PRN (12:00)
[2021-06-18] MEDS: ASCORBIC ACID 500 MG TABLET NG SCH (12:00)
[2021-06-18] MEDS: DORZOLAMIDE OPTH 2% 10 ML BOTTLE EACHEYE SCH ×4 (12:09→18:53)
[2021-06-18] MEDS: GUAIFENESIN LA 600 MG TABLET.SA PO SCH ×2 (12:11→21:00)
[2021-06-18 13:15] LABS: ABG BASE EXCESS -2.7 mmol/L; ABG OXYGEN SATURATION 93.9 % (92.0-98.5); ABG PCO2 58.6 mmHg (35.0-45.0); ABG PH 7.248 (7.350-7.450); ABG PO2 68.7 mmHg (75.0-100.0); AaDO2 76.3 mmHg; COHb 0.6 % (0.5-1.5); MetHb 0.1 % (0.0-1.5); O2Hb 93.2 % (94.0-97.0); SITE, ABG Right Radial
--- NOTE | 2021-06-18 14:15 | NUR ---
CALLED FOR DRAINAGE IN CT, CHARGE NURSE STATED THAT PT COULD NOT COME DOWN DUE TO BYPAP
[2021-06-18] MEDS: FERROUS SULFATE (325 MG) 325 MG/TAB TABLET PO SCH (17:00)
[2021-06-18] MEDS: METOPROLOL TARTRATE 25 MG TABLET PO SCH (17:00)
[2021-06-18] MEDS: LATANOPROST EYE DROP 0.005% 2.5 ML BOTTLE EACHEYE SCH ×2 (18:00→18:53)
--- NOTE | 2021-06-18 19:30 | NUR ---
RN NOTE RECEIVED PT ON BIPAP 15/5 30% WITH O2 SAT 98%. NO SIGNS OF DISTRESS NOTED. PT SLEEPING AROUSES EASILY, RESPONDS WELL, DENIES ANY PAIN AT THIS TIME. SR ON TELE MONITOR. HD CATH AND IV LINES INTACT. WILL CONTINUE TO MONITOR.
--- NOTE | 2021-06-18 19:30 | NUR ---
END OF SHIFT NOTE: PT SLEPT OFF AND ON SINCE ARRIVING IN ICU. BIPAP REMAINED ON. ALL PO MEDS HELD TODAY TO KEEP BIPAP ON. PT WAKES UP EASILY TO VOICE AND ANSWERS QUESTIONS APPROPRIATELY. NO HD THIS SHIFT. PT CHECKED ON HOURLY AND PRN BY NURSING STAFF.
--- NOTE | 2021-06-18 20:00 | NUR ---
RECEIVED PT ON BIPAP, NO DISTRESS NOTED. PT TOLERATING SETTINGS. CONTINUE TO MONITOR. Addendum: 06/18/21 at 1999 by DWIGHT WEI RT Amended: Links added.
[2021-06-19] VITALS (42 sets, daily range): BP systolic 86–134; BP diastolic 42–70
[2021-06-19] MEDS: MORPHINE SULFATE INJ 2 MG/ML DISP.SYRIN IV PRN ×4 (03:02→21:47)
--- NOTE | 2021-06-19 03:15 | NUR ---
RN NOTE PT COMPLAINED OF 9/10 PAIN OF BACK, BUTTOCKS AND LEG. PT DOES NOT WANT TO BE REPOSITIONED BEFORE MEDICATION. MORPHINE GIVEN ORDERED. WILL CONTINUE TO MONITOR.
[2021-06-19 04:32] LABS: CREATININE 4.6 mg/dL (0.6-1.3); MAGNESIUM 2.3 mg/dL (1.8-2.4); PHOSPHORUS 3.2 mg/dL (2.5-4.9); POTASSIUM 3.9 mmol/L (3.5-5.1)
[2021-06-19 05:01] LABS: BASOPHILS % (AUTO) 0.7 % (0.0-2.0); EOSINOPHILS % (AUTO) 3.3 % (0.0-6.0); HEMATOCRIT 29 % (33-45); HEMOGLOBIN 9.1 g/dL (11.5-14.8); LYMPHOCYTES # (AUTO) 0.7 K/uL (0.8-4.8); LYMPHOCYTES % (AUTO) 11.1 % (20.0-44.0); MEAN CORPUSCULAR HGB CONC 31 g/dl (31.0-36.0); MEAN CORPUSCULAR VOLUME 104 fL (82-100); MONOCYTES # (AUTO) 0.6 K/uL (0.1-1.30); MONOCYTES % (AUTO) 9.1 % (2.0-12.0); NEUTROPHILS # (AUTO) 4.9 K/uL (1.8-8.9); NEUTROPHILS % (AUTO) 75.8 % (43.0-81.0); PLATELET COUNT (AUTO) 179 K/uL (150-450); RED BLOOD CELL COUNT(AUTO) 2.82 MIL/uL (4.0-5.2); WHITE BLOOD COUNT (AUTO) 6.5 K/uL (4.3-11.0)
[2021-06-19] MEDS: BLOOD SUGAR DIAGNOSTIC 1 EACH STRIP IN SCH ×4 (05:34→22:05)
--- NOTE | 2021-06-19 05:34 | NUR ---
RN NOTE PT FSBS 78. PT ALERT AND ORIENTED. NO CHANGES IN LOC NOTED.
--- NOTE | 2021-06-19 06:53 | NUR ---
RN NOTE PT SLEEPING, AROUSES EASILY. CONTINUE ON BIPAP, TOLERATING. NO DISTRESS NOTED. SATING 100%. DENIES ANY PAIN AT THIS TIME. REMAIN NPO, NO S/SX OF HYPOGLYCEMIA. PT ABLE TO MAKE NEEDS KNOWN. ON FREQUENT VISUAL CHECKS. NEEDS ATTENDED.. WILL ENDORSE TO NEXT SHIFT NURSE FOR TANMAY
--- NOTE | 2021-06-19 07:30 | NUR ---
OPENING NOTE: REPORT RECEIVED FROM CALI EWING. PER REPORT NO SIGNIFICANT CHANGES OVERNIGHT. PT KEPT BIPAP ON OVERNIGHT. ABG ORDERED FOR THIS AM. PT ALERT OX3, NO CHANGE IN MENTATION OVERNIGHT. PT CHECKED ON HOURLY AND PRN BY NURSING STAFF.
[2021-06-19] MEDS: NEPRO VAN 237 ML CAN PO SCH ×3 (08:00→17:00)
[2021-06-19] MEDS: ASCORBIC ACID 500 MG TABLET PO SCH (09:00)
[2021-06-19] MEDS: METOPROLOL TARTRATE 25 MG TABLET PO SCH ×2 (09:00→16:53)
[2021-06-19] MEDS: DORZOLAMIDE OPTH 2% 10 ML BOTTLE EACHEYE SCH ×3 (09:00→16:53)
[2021-06-19] MEDS: GUAIFENESIN LA 600 MG TABLET.SA PO SCH ×2 (09:00→20:11)
[2021-06-19] MEDS: LOSARTAN POTASSIUM 25 MG TABLET PO SCH (09:00)
[2021-06-19] MEDS: VIT B CMPLX 3/FA/VIT C/BIOTIN 1 TAB TABLET PO SCH (09:00)
[2021-06-19] MEDS: ATORVASTATIN 10 MG TABLET PO SCH (10:55)
[2021-06-19] MEDS: CHOLECALCIFEROL 1,000 UNIT TABLET (VIT D3) PO SCH (10:55)
[2021-06-19] MEDS: ASPIRIN 81 MG TAB.CHEW PO SCH (10:55)
[2021-06-19] MEDS: DOCUSATE SODIUM LIQ 100 MG/10 ML UDC PO SCH (10:56)
[2021-06-19] MEDS: FERROUS SULFATE (325 MG) 325 MG/TAB TABLET PO SCH ×2 (10:56→17:00)
[2021-06-19] MEDS ORDERED: LIDOCAINE HCL/MPF 1% 30 ML VIAL IJ ONE (11:52)
--- NOTE | 2021-06-19 12:15 | NUR ---
RIGHT UPPER POSTERIOR PIGTAIL CHEST TUBE INSERTED AT THIS TIME BY GAMAL BEARDEN DNP AND MINGO MONTAÑO ROUTE RETURNER WITHOUT DIFFICULTY. IMMEDIATE RETURN WAS 1090 ML OF SANQUENOUS, FLUID. FLUID SENT TO LAB PER MD ORDERS.
[2021-06-19] MEDS: POLYETHYLENE GLYCOL 3350 17 GM POWD.PACK PO SCH (12:56)
[2021-06-19] MEDS: GABAPENTIN 100 MG CAPSULE PO SCH (12:56)
[2021-06-19] MEDS ORDERED: DEXTROSE 50%-WATER 50 ML DISP.SYRIN IV PRN (13:00)
--- NOTE | 2021-06-19 13:49 | NUR ---
ULTRASOUND ASSISTED GAMAL BEARDEN NP WITH PIG TAIL INSERTION OF RIGHT CHEST [id number]
--- NOTE | 2021-06-19 16:00 | NUR ---
HEMODIALYSIS STARTED AT THIS TIME PER MD ORDERS.
[2021-06-19] MEDS: MIDODRINE HCL (5MG) 5 MG TABLET PO SCH ×2 (16:52→23:20)
[2021-06-19] MEDS: ALBUMIN 25% 25 GM in PREMIX 1 EA IV PRN (17:47)
[2021-06-19] MEDS: LATANOPROST EYE DROP 0.005% 2.5 ML BOTTLE EACHEYE SCH (18:00)
--- NOTE | 2021-06-19 18:33 | NUR ---
END OF SHIFT NOTE: PER PREVIOUSLY NOTED PT HAD A CHEST TUBE INSERTED TODAY, TOTAL OUT THIS SHIFT WAS 1370ML. HD IS ALMOST FINISHED FOR TODAY, 2L REMOVED PER HD RN. PT C/O PAIN IN RIGHT ARM FROM PREVIOUS BREAK, DR BEARDEN NOTIFIED THIS AM, X-RAY TAKEN PER MD ORDERS. PT TAKES PILLS WHOLE WITH WATER, PREFERS TO TAKE PILLS WITH NEPRO. PT REFUSED CERTAIN MEDS TODAY. PT IS ALERT OX3. PT CHECKED ON HOURLY AND PRN BY NURSING STAFF.
--- NOTE | 2021-06-19 19:00 | NUR ---
RN NOTE RECEIVED PATIENT IN BED, AO X 3-4, IN NO ACUTE DISTRESS AT THIS TIME. BREATHING UNLABORED, SATURATION AT 100% ON 4L VIA NC, SR ON THE MONITOR, HR IS 82. NOTED IV SITE AT RFA 20G, HUBS PATENT AND FLUSHING WELL, R FEMORAL TLC, RCW HD CATH AND BRANDON AV FISTULA IN PLACE. R POSTERIOR PIGTAIL CHEST TUBE CONNECTED TO LOW USCTION IN PLACE, DRAINING TO A CLOUDY RED OUTPUT. FERNANDEZ CATH CONNECTED TO URINE BAG, DRAINING TO GRAVITY. SAFETY MEASURES IMPLEMENTED. PATIENT BED ALARM IS ON. HEAD OF BED ELEVATED. BED IS LOCKED, IN LOWEST POSITION AND SIDE RAILS UP. CALL LIGHT WITHIN REACH OF THE PATIENT. WILL CONTINUE TO MONITOR AND REASSESS FOR ANY CHANGES.
[2021-06-19] MEDS: HYDROCODONE/APAP 5/325MG TABLET PO PRN ×2 (19:35→23:31)
--- NOTE | 2021-06-19 23:48 | NUR ---
RT NOTE PT PLACED ON BIPAP PER MD ORDERS. MEPILEX IN PLACE, NO REDNESSOR SCARRING NOTED. WILL CONTINUE TO MONITOR CLOSELY Addendum: 06/19/21 at 2350 by BARRETT DASILVA RT Amended: Links added.
[2021-06-20] VITALS (32 sets, daily range): BP systolic 88–130; BP diastolic 37–56
[2021-06-20] MEDS: MORPHINE SULFATE INJ 2 MG/ML DISP.SYRIN IV PRN (03:43)
[2021-06-20 04:58] LABS: BASOPHILS # (AUTO) 0.1 K/uL (0.0-0.2); BASOPHILS % (AUTO) 0.8 % (0.0-2.0); EOSINOPHILS % (AUTO) 2.8 % (0.0-6.0); HEMATOCRIT 28 % (33-45); HEMOGLOBIN 8.6 g/dL (11.5-14.8); LYMPHOCYTES # (AUTO) 0.6 K/uL (0.8-4.8); LYMPHOCYTES % (AUTO) 9.1 % (20.0-44.0); MEAN CORPUSCULAR HGB CONC 31 g/dl (31.0-36.0); MEAN CORPUSCULAR VOLUME 105 fL (82-100); MONOCYTES # (AUTO) 0.9 K/uL (0.1-1.30); MONOCYTES % (AUTO) 13.4 % (2.0-12.0); NEUTROPHILS # (AUTO) 5.2 K/uL (1.8-8.9); NEUTROPHILS % (AUTO) 73.9 % (43.0-81.0); PLATELET COUNT (AUTO) 177 K/uL (150-450); RED BLOOD CELL COUNT(AUTO) 2.67 MIL/uL (4.0-5.2)
[2021-06-20 05:28] LABS: CALCIUM, SERUM 8.6 mg/dL (8.5-10.1); CREATININE 3.3 mg/dL (0.6-1.3); MAGNESIUM 2.2 mg/dL (1.8-2.4); PHOSPHORUS 2.6 mg/dL (2.5-4.9); POTASSIUM 3.9 mmol/L (3.5-5.1)
--- NOTE | 2021-06-20 07:30 | NUR ---
OPENING NOTE: REPORT RECEIVED FROM LORENZO EWING. PER REPORT NO SIGNIFICANT CHANGES OVERNIGHT. PT HAD BIPAP ON OVERNIGHT, OFF THIS AM. PT IS ALERT OX3, STATES SHE FEELS BETTER THAN YESTERDAY SINCE CHEST TUBE WAS PLACED. PT CHECKED ON HOURLY AND PRN BY NURSING STAFF.
[2021-06-20] MEDS: LOSARTAN POTASSIUM 25 MG TABLET PO SCH (09:00)
[2021-06-20] MEDS: METOPROLOL TARTRATE 25 MG TABLET PO SCH ×2 (09:00→16:51)
[2021-06-20] MEDS: GUAIFENESIN LA 600 MG TABLET.SA PO SCH ×2 (09:00→21:36)
[2021-06-20] MEDS: DORZOLAMIDE OPTH 2% 10 ML BOTTLE EACHEYE SCH ×3 (09:00→16:51)
[2021-06-20] MEDS: VIT B CMPLX 3/FA/VIT C/BIOTIN 1 TAB TABLET PO SCH (09:00)
[2021-06-20] MEDS: ASCORBIC ACID 500 MG TABLET PO SCH (09:00)
[2021-06-20] MEDS: BLOOD SUGAR DIAGNOSTIC 1 EACH STRIP IN SCH ×4 (10:04→21:36)
[2021-06-20] MEDS: NEPRO VAN 237 ML CAN PO SCH ×3 (10:04→17:00)
[2021-06-20] MEDS: CHOLECALCIFEROL 1,000 UNIT TABLET (VIT D3) PO SCH (10:09)
[2021-06-20] MEDS: MIDODRINE HCL (5MG) 5 MG TABLET PO SCH ×2 (10:09→16:00)
[2021-06-20] MEDS: ATORVASTATIN 10 MG TABLET PO SCH (10:09)
[2021-06-20] MEDS: DOCUSATE SODIUM LIQ 100 MG/10 ML UDC PO SCH (10:09)
[2021-06-20] MEDS: ASPIRIN 81 MG TAB.CHEW PO SCH (10:10)
[2021-06-20] MEDS: FERROUS SULFATE (325 MG) 325 MG/TAB TABLET PO SCH ×2 (10:10→17:54)
[2021-06-20 10:37] LABS: ABG BASE EXCESS -1.1 mmol/L; ABG OXYGEN SATURATION 98.8 % (92.0-98.5); ABG PCO2 60.5 mmHg (35.0-45.0); ABG PH 7.261 (7.350-7.450); ABG PO2 131.7 mmHg (75.0-100.0); COHb 0.4 % (0.5-1.5); MetHb 0.2 % (0.0-1.5); O2Hb 98.2 % (94.0-97.0); VENT MODE, BG NASAL CANNULA
[2021-06-20] MEDS: POLYETHYLENE GLYCOL 3350 17 GM POWD.PACK PO SCH (12:02)
[2021-06-20] MEDS: LATANOPROST EYE DROP 0.005% 2.5 ML BOTTLE EACHEYE SCH (17:30)
--- NOTE | 2021-06-20 18:30 | NUR ---
END OF SHIFT NOTE: PT HAD A FAIRLY UNEVENTFUL SHIFT. NO HD TODAY. PT HAD 50ML OUT OF CHEST TUBE. PT SLEPT MORE OF THE DAY, AWAKEN EASILY WHEN HER NAME WAS CALLED. PT STATES SHE FEELS BETTER THAN YESTERDAY AND JUST WANTS SOME SLEEP. PT CHECKED ON HOURLY AND PRN BY NURSING STAFF.
--- NOTE | 2021-06-20 19:52 | NUR ---
RT NOTE PT CURRENTLY ON NASAL CANNULA @ 1LPM. PT ABLE TO RESPOND TO COMMANDS, NO RESPIRATORY DISTRESS NOTED AT THIS TIME. BIPAP @ BEDSIDE. WILL PLACE ON BIPAP AT A LATER TIME PER PT REQUEST.
--- NOTE | 2021-06-20 23:10 | NUR ---
RT NOTE PT PLACED ON NOC BIPAP AT THIS TIME. CURRENT SETTINGS 15/5, 18, 30%. PT TOLERATING WELL. MASK SECURED. LEAK AT MINIMAL. ALARMS ON AND AUDIBLE. NO RESPIRATORY DISTRESS NOTED. WILL CONTINUE TO MONITOR.
[2021-06-21] VITALS (39 sets, daily range): BP systolic 95–132; BP diastolic 44–57
[2021-06-21] MEDS: MORPHINE SULFATE INJ 2 MG/ML DISP.SYRIN IV PRN ×2 (02:04→17:36)
--- NOTE | 2021-06-21 02:15 | NUR ---
ICU/ENGINEERING TEST MECHANIC PT WAS GIVEN MORPHINE PRN FOR AM CARE, 15 MINUTES BEFORE. PT HAS BROKEN ARE TO THE RIGHT UPPER ARM. PT TOLERATED THE BATH WELL.
[2021-06-21 04:38] LABS: BASOPHILS # (AUTO) 0.1 K/uL (0.0-0.2); BASOPHILS % (AUTO) 0.7 % (0.0-2.0); EOSINOPHILS % (AUTO) 2.1 % (0.0-6.0); HEMATOCRIT 29 % (33-45); HEMOGLOBIN 8.8 g/dL (11.5-14.8); LYMPHOCYTES # (AUTO) 0.7 K/uL (0.8-4.8); LYMPHOCYTES % (AUTO) 10.1 % (20.0-44.0); MEAN CORPUSCULAR HGB CONC 30 g/dl (31.0-36.0); MEAN CORPUSCULAR VOLUME 105 fL (82-100); MONOCYTES # (AUTO) 0.8 K/uL (0.1-1.30); MONOCYTES % (AUTO) 10.6 % (2.0-12.0); NEUTROPHILS # (AUTO) 5.6 K/uL (1.8-8.9); NEUTROPHILS % (AUTO) 76.5 % (43.0-81.0); PLATELET COUNT (AUTO) 176 K/uL (150-450); RED BLOOD CELL COUNT(AUTO) 2.78 MIL/uL (4.0-5.2); WHITE BLOOD COUNT (AUTO) 7.4 K/uL (4.3-11.0)
[2021-06-21 05:24] LABS: CALCIUM, SERUM 9.3 mg/dL (8.5-10.1); CREATININE 4.7 mg/dL (0.6-1.3); MAGNESIUM 2.3 mg/dL (1.8-2.4); PHOSPHORUS 3.1 mg/dL (2.5-4.9)
[2021-06-21] MEDS: BLOOD SUGAR DIAGNOSTIC 1 EACH STRIP IN SCH ×4 (06:24→22:05)
--- NOTE | 2021-06-21 07:28 | NUR ---
RN OPENING NOTES RECEIVED PT. ASLEEP COMFORTABLY, NO SIGNIFICANT CHANGES NOTED AT THIS TIME. WILL CONTINUE TO MONITOR PATIENT. ALL SAFETY MEASURES IN-PLACE AND ACTIVATED/AUDIBLE.
[2021-06-21 08:52] LABS: ABG BASE EXCESS -3.5 mmol/L; ABG OXYGEN SATURATION 93.5 % (92.0-98.5); ABG PH 7.204 (7.350-7.450); ABG PO2 68.8 mmHg (75.0-100.0); COHb 0.6 % (0.5-1.5); MetHb 0.3 % (0.0-1.5); O2Hb 92.7 % (94.0-97.0); SITE, ABG Right Radial; VENT MODE, BG 0.5 L n/c
[2021-06-21] MEDS: DOCUSATE SODIUM 100 MG CAPSULE PO SCH (08:55)
[2021-06-21] MEDS: ATORVASTATIN 10 MG TABLET PO SCH (08:56)
[2021-06-21] MEDS: CHOLECALCIFEROL 1,000 UNIT TABLET (VIT D3) PO SCH (08:56)
[2021-06-21] MEDS: FERROUS SULFATE (325 MG) 325 MG/TAB TABLET PO SCH ×2 (08:56→17:34)
[2021-06-21] MEDS: ASPIRIN 81 MG TAB.CHEW PO SCH (08:56)
[2021-06-21] MEDS: NEPRO VAN 237 ML CAN PO SCH ×3 (08:57→17:36)
[2021-06-21] MEDS: LOSARTAN POTASSIUM 25 MG TABLET PO SCH (09:00)
[2021-06-21] MEDS: VIT B CMPLX 3/FA/VIT C/BIOTIN 1 TAB TABLET PO SCH (09:00)
[2021-06-21] MEDS: DORZOLAMIDE OPTH 2% 10 ML BOTTLE EACHEYE SCH ×3 (09:00→17:00)
[2021-06-21] MEDS: GUAIFENESIN LA 600 MG TABLET.SA PO SCH ×2 (09:00→21:23)
[2021-06-21] MEDS: ASCORBIC ACID 500 MG TABLET PO SCH (09:00)
[2021-06-21] MEDS: CITRIC ACID/SODIUM CITRATE (BICITRA)15 ML UDC PO SCH ×3 (13:28→21:23)
[2021-06-21] MEDS: LATANOPROST EYE DROP 0.005% 2.5 ML BOTTLE EACHEYE SCH (17:27)
--- NOTE | 2021-06-21 19:00 | NUR ---
RN CLOSING NOTES PT. ASLEEP COMFORTABLY ON BED, NO SSx OF ANY DISTRESS NOTED; CALL LIGHT WITHIN REACH; ENDORSED TO NIGHT RN FOR CONTINUITY OF CARE.
--- NOTE | 2021-06-21 19:49 | NUR ---
RN NOTE RECEIVED PT SLEEPING, AROUSES EASILY ALERT AND ORIENTED. DENIES ANY SOB OR PAIN AT THIS TIME. ON O2 VIA NC AT 1L. SATING 98%. PT WITH R PIGTAIL CONNECTED TO SUCTION, NOTED WITH SEROSANGUINEOUS DRAINAGE. HD CATH ON RCW INTACT. CALL LIGHT WITHIN REACH. WILL CONTINUE TO MONITOR.
[2021-06-21] MEDS ORDERED: INSULIN REGULAR, HUMAN 100 UNIT/ML 3 ML VIAL ONE (22:05)
[2021-06-21] MEDS: INSULIN REGULAR, HUMAN 100 UNIT/ML 3 ML VIAL SQ PRN (22:07)
--- NOTE | 2021-06-21 23:55 | NUR ---
RT NOTE PT REFUSING BIPAP X 3 AFTER EXPLAINING RISKS AND BENEFITS. PT STATES SHE IS COMFORTABLE ON NASAL CANNULA @ 2 LPM. KAYLIN LEIVA @ BEDSIDE. NO RESPIRATORY DISTRESS NOTED. WILL MONITOR.
[2021-06-22] VITALS (55 sets, daily range): BP systolic 83–121; BP diastolic 41–60
--- NOTE | 2021-06-22 00:15 | NUR ---
RN NOTE PT REFUSING BIPAP, EXPLAINED RISKS AND BENEFITS, WELL THE RT. PT STILL REFUSED. NO SIGNS OF DISTRESS NOTED. PT DENIES ANY SOB. WILL CONTINUE TO MONITOR.
[2021-06-22] MEDS: MORPHINE SULFATE INJ 2 MG/ML DISP.SYRIN IV PRN ×3 (01:00→22:19)
[2021-06-22 04:13] LABS: BASOPHILS % (AUTO) 0.4 % (0.0-2.0); EOSINOPHILS % (AUTO) 1.6 % (0.0-6.0); HEMATOCRIT 31 % (33-45); HEMOGLOBIN 9.5 g/dL (11.5-14.8); LYMPHOCYTES # (AUTO) 0.8 K/uL (0.8-4.8); MEAN CORPUSCULAR HGB CONC 31 g/dl (31.0-36.0); MEAN CORPUSCULAR VOLUME 105 fL (82-100); MONOCYTES # (AUTO) 0.9 K/uL (0.1-1.30); MONOCYTES % (AUTO) 10.1 % (2.0-12.0); NEUTROPHILS # (AUTO) 6.7 K/uL (1.8-8.9); NEUTROPHILS % (AUTO) 78.9 % (43.0-81.0); PLATELET COUNT (AUTO) 192 K/uL (150-450); RED BLOOD CELL COUNT(AUTO) 2.93 MIL/uL (4.0-5.2); WHITE BLOOD COUNT (AUTO) 8.5 K/uL (4.3-11.0)
[2021-06-22 04:15] LABS: CALCIUM, SERUM 9.4 mg/dL (8.5-10.1); MAGNESIUM 2.6 mg/dL (1.8-2.4); PHOSPHORUS 4.1 mg/dL (2.5-4.9); POTASSIUM 4.1 mmol/L (3.5-5.1)
--- NOTE | 2021-06-22 06:51 | NUR ---
RN NOTE PT REFUSES BIPAP ALL NIGHT. NO DISTRESS NOTED. DENIES ANY SOB. PT ON 1L O2. TOLERATING WELL. R CHEST TUBE REMAIN INTACT, 470 ML PINKISH DRAINAGE DURING SHIFT. NO CHANGE IN LOC NOTED, REMAIN AFEBRILE. PT ABLE TO MAKE NEEDS KNOWN. RFA IV AND RFEMORAL TLC INTACT AND PATENT, FLUSHES WELL. HD CATH ON RCW REMAIN INTACT. ON FREQUENT VISUAL CHECKS, TURNED AND REPOSITIONED. WOUND TX DONE ORDERED. CALL LIGHT WITHIN REACH AT ALL TIMES. WILL ENDORSE TO NEXT SHIFT NURSE FOR TANMAY.
--- NOTE | 2021-06-22 07:05 | NUR ---
RN NOTES RECEIVED PT ON BED, ALERT/ CONFUSED TO TIME AND PLACE, ON ON 1L O2 , SAT WNL, CHEST TUBE DRAINING TO PINKISH SEROSANGUOUNS DRAINAGE , IV SITES CLEAN ,DRY AND INTACT , SR UP x3, CALL LIGHT WITHIN EASY REACH, BED LOCKED AND IN LOWEST POSITION, CONTINUE TO MONITOR.
[2021-06-22] MEDS: BLOOD SUGAR DIAGNOSTIC 1 EACH STRIP IN SCH ×4 (07:48→22:14)
[2021-06-22] MEDS: ATORVASTATIN 10 MG TABLET PO SCH (08:11)
[2021-06-22] MEDS: GUAIFENESIN LA 600 MG TABLET.SA PO SCH ×2 (08:11→21:08)
[2021-06-22] MEDS: CITRIC ACID/SODIUM CITRATE (BICITRA)15 ML UDC PO SCH ×4 (08:11→21:08)
[2021-06-22] MEDS: DOCUSATE SODIUM 100 MG CAPSULE PO SCH (08:11)
[2021-06-22] MEDS: CHOLECALCIFEROL 1,000 UNIT TABLET (VIT D3) PO SCH (08:11)
[2021-06-22] MEDS: ASCORBIC ACID 500 MG TABLET PO SCH (08:11)
[2021-06-22] MEDS: NEPRO VAN 237 ML CAN PO SCH ×3 (08:12→16:49)
[2021-06-22] MEDS: VIT B CMPLX 3/FA/VIT C/BIOTIN 1 TAB TABLET PO SCH (08:12)
[2021-06-22] MEDS: FERROUS SULFATE (325 MG) 325 MG/TAB TABLET PO SCH ×2 (08:12→16:52)
[2021-06-22] MEDS: ASPIRIN 81 MG TAB.CHEW PO SCH (08:12)
[2021-06-22] MEDS: DORZOLAMIDE OPTH 2% 10 ML BOTTLE EACHEYE SCH ×3 (08:13→16:52)
[2021-06-22 08:28] LABS: ABG BASE EXCESS 0.1 mmol/L; ABG OXYGEN SATURATION 86.5 % (92.0-98.5); ABG PCO2 73.1 mmHg (35.0-45.0); ABG PH 7.218 (7.350-7.450); ABG PO2 52.6 mmHg (75.0-100.0); AaDO2 9.6 mmHg; COHb 0.6 % (0.5-1.5); MetHb 0.4 % (0.0-1.5); O2Hb 85.6 % (94.0-97.0); SITE, ABG Right Radial; VENT MODE, BG ROOM AIR
[2021-06-22] MEDS: LOSARTAN POTASSIUM 25 MG TABLET PO SCH (09:00)
[2021-06-22] MEDS: POLYETHYLENE GLYCOL 3350 17 GM POWD.PACK PO SCH ×2 (11:45→22:48)
[2021-06-22] MEDS: GABAPENTIN 100 MG CAPSULE PO SCH (12:32)
--- NOTE | 2021-06-22 14:00 | NUR ---
RN NOTES PT RECEIVING HD , CONTINUE TO MONITOR.
[2021-06-22] MEDS: ALBUMIN 25% 25 GM in PREMIX 1 EA IV PRN (14:15)
--- NOTE | 2021-06-22 15:15 | NUR ---
RN NOTES REPORT GIVEN TO ROSY EWING FOR CONTINUITY OF CARE .
--- NOTE | 2021-06-22 15:17 | NUR ---
RN/ICU-PT. RECEIVED SLEEPING W/ONGOING HD.
[2021-06-22] MEDS: LATANOPROST EYE DROP 0.005% 2.5 ML BOTTLE EACHEYE SCH (17:05)
--- NOTE | 2021-06-22 18:21 | NUR ---
RN/ICU-REFUSED DINNER, ABLE TO DRINK I CAN OF NEPHRO.ZAFAR. WELL
--- NOTE | 2021-06-22 22:25 | NUR ---
ICU/SCREW MACHINE OPERATOR SINGLE SPINDLE PT COMPLAINED ABOUT PAIN TO HER RIGHT ARM AND BUTTOCKS. NOTIFED CHARGE NURSE WHO THEN GAVE MORPHINE 1MG IVP. PAIN IS RATED 10/10. WILL CONTINUE TO MONITOR THIS PT'S PAIN LEVEL.
--- NOTE | 2021-06-22 23:02 | NUR ---
ICU/BUILD MASTER TRIED TO TURN AND REPOSITION PT OFF HER RIGHT SIDE, HOWEVER PT REFUSED. PT WISH NOTHING TO BE TOUCHING HER BUTT SHE HAS A WOUND AND IT'S PAINFUL FOR THE PT.
--- NOTE | 2021-06-22 23:08 | NUR ---
ICU/ENTERPRISE ACCOUNT EXECUTIVE RT PLACED PT ON BIPAP FOR NOW. WILL MONITOR THIS PT.
[2021-06-23] VITALS (31 sets, daily range): BP systolic 85–114; BP diastolic 39–62
--- NOTE | 2021-06-23 02:30 | NUR ---
ICU/PHARMACIST ASSISTANT TRIED TO GIVE AM CARE, HOWEVER PT REFUSED SAID IT WAS TOO COLD. WAS ABLE TO TURN AND REPOSITION PT OFF BUTT. WILL MONITOR THIS PT.
--- NOTE | 2021-06-23 04:45 | NUR ---
ICU/COPYMAN TRIED AGAIN TO GIVE AM CARE, HOWEVER PT IS ASLEEP. WILL TRY AGAIN LATER. PT REMAINS ON BIPAP CURRENTLY
[2021-06-23 04:53] LABS: BASOPHILS % (AUTO) 0.5 % (0.0-2.0); EOSINOPHILS % (AUTO) 1.9 % (0.0-6.0); HEMATOCRIT 28 % (33-45); HEMOGLOBIN 8.7 g/dL (11.5-14.8); LYMPHOCYTES # (AUTO) 0.6 K/uL (0.8-4.8); LYMPHOCYTES % (AUTO) 7.1 % (20.0-44.0); MEAN CORPUSCULAR HGB CONC 31 g/dl (31.0-36.0); MEAN CORPUSCULAR VOLUME 104 fL (82-100); MONOCYTES # (AUTO) 0.6 K/uL (0.1-1.30); NEUTROPHILS # (AUTO) 7.4 K/uL (1.8-8.9); NEUTROPHILS % (AUTO) 83.5 % (43.0-81.0); PLATELET COUNT (AUTO) 171 K/uL (150-450); RED BLOOD CELL COUNT(AUTO) 2.68 MIL/uL (4.0-5.2); WHITE BLOOD COUNT (AUTO) 8.9 K/uL (4.3-11.0)
[2021-06-23 05:14] LABS: CALCIUM, SERUM 8.9 mg/dL (8.5-10.1); MAGNESIUM 2.3 mg/dL (1.8-2.4); PHOSPHORUS 2.2 mg/dL (2.5-4.9); POTASSIUM 3.9 mmol/L (3.5-5.1)
[2021-06-23] MEDS: BLOOD SUGAR DIAGNOSTIC 1 EACH STRIP IN SCH ×4 (06:21→21:42)
[2021-06-23] MEDS: MORPHINE SULFATE INJ 2 MG/ML DISP.SYRIN IV PRN ×2 (06:36→14:33)
--- NOTE | 2021-06-23 06:43 | NUR ---
ICU/HYDROELECTRIC MECHANIC PT COMPLAINED ABOUT PAIN TO HER LEFT BACK, PAIN RATED A 10/10. NOTIFED CHARGE NURSE WHO THEN GAVE MORPHINE PRN. WILL CONTINUE TO MONITOR THIS PT. ALSO AT THIS TIME TOOK PT OFF THE BIPAP AND PLACED THE N/C ON THE PT.
--- NOTE | 2021-06-23 07:30 | NUR ---
OPENING NOTE: REPORT RECEIVED FROM CONNOR ORTIZ. PT ALERT OX3. BIPAP WAS ON ALL NIGHT, TURNED OFF AT 0630 PER REPORT. PT C/O OF MID BACK PAIN AT THIS TIME. RIGHT UPPER BACK CHEST TUBE IN PLACE, PATENT, TO CHEST TUBE BOX AT 20CM OF SUCTION PER MD ORDERS. PT CHECKED ON HOURLY AND PRN BY NURSING STAFF.
[2021-06-23] MEDS: NEPRO VAN 237 ML CAN PO SCH ×3 (08:49→17:05)
[2021-06-23] MEDS: DOCUSATE SODIUM 100 MG CAPSULE PO SCH (08:50)
[2021-06-23] MEDS: CITRIC ACID/SODIUM CITRATE (BICITRA)15 ML UDC PO SCH ×4 (08:50→20:27)
[2021-06-23] MEDS: CHOLECALCIFEROL 1,000 UNIT TABLET (VIT D3) PO SCH (08:50)
[2021-06-23] MEDS: ATORVASTATIN 10 MG TABLET PO SCH (08:50)
[2021-06-23] MEDS: ASPIRIN 81 MG TAB.CHEW PO SCH (08:50)
[2021-06-23] MEDS: FERROUS SULFATE (325 MG) 325 MG/TAB TABLET PO SCH ×2 (08:50→17:05)
[2021-06-23] MEDS: ASCORBIC ACID 500 MG TABLET PO SCH (08:51)
[2021-06-23] MEDS: VIT B CMPLX 3/FA/VIT C/BIOTIN 1 TAB TABLET PO SCH (08:51)
[2021-06-23] MEDS: LOSARTAN POTASSIUM 25 MG TABLET PO SCH (08:51)
[2021-06-23] MEDS: HYDROCODONE/APAP 5/325MG TABLET PO PRN ×2 (08:51→22:28)
[2021-06-23] MEDS: DORZOLAMIDE OPTH 2% 10 ML BOTTLE EACHEYE SCH ×3 (08:51→17:00)
[2021-06-23] MEDS: GUAIFENESIN LA 600 MG TABLET.SA PO SCH ×2 (08:51→20:27)
[2021-06-23] MEDS: LATANOPROST EYE DROP 0.005% 2.5 ML BOTTLE EACHEYE SCH (17:05)
--- NOTE | 2021-06-23 18:55 | NUR ---
END OF SHIFT NOTE: PT HAD A FAIRLY UNEVENTFUL SHIFT. NO HD TODAY. PT ASKED RN TO CALL HER CONTINUOUS VULCANIZING MACHINE OPERATOR DAWOOD JIMENEZ TO GET THE PHONE NUMBER OF PT'S NEPHEW SUZI. SUZI' PHONE NUMBER IS [phone]. PT WANTS SUZI TO GO TO WHERE SHE LIVES AND GET HER CELL PHONE AND SMALL ELECTRIC ENGINE TECHNICIAN. RN SPOKE TO SUZI, HE HAS A TO GO TO TOMORROW BUT WILL GO GET IT ON TUESDAY OR TUESDAY. SUZI WILL CONTACT DAWOOD JIMENEZ TO GET INFORMATION AND PERMISSION TO ENGRAVER BLOCK PHONE AND SMALL ELECTRIC ENGINE TECHNICIAN. RN INFORMED PATIENT. RN ALSO INFORMED PT THAT DAWOOD STATED SHE LEAVES TONIGHT FOR VACATION IN CASE WE NEED TO GET A HOLD OF HER, SHE MAY NOT BE AVAILABLE WHILE ON VACATION. 40ML OUT OF CT THIS SHIFT. PT CHECKED ON HOURLY AND PRN BY NURSING STAFF.
--- NOTE | 2021-06-23 19:15 | NUR ---
RECEIVED PATIENT SLEEPING EASY TO WAKE UP A/O X3 ON ROOM AIR RESPIRATORY EVEN AND UNLABORED,NO S/S OF DISTRESS NOTED. TELE MONITOR READS SINUS RHYTHM 90'S, PATIENT HAVE RFEM 3L CATH , DRESSING INTACT IN PLACED,PATENT AND FLUSHED WITH R SUBCLAVIAN HD CATH DRESSING DRY AND INTACT WITH R UPPER BACK PIGTAIL CONNECTED TO PLEUROVACC @ 20 mmHg LIS WITH WHITISH OUTPUT, ALL SAFETY PRECAUTION PROVIDED, BED IN LOWEST POSITION, LOCKED. CONTINUE TO MONITOR.
[2021-06-23] MEDS: INSULIN REGULAR, HUMAN 100 UNIT/ML 3 ML VIAL SQ PRN (21:43)
[2021-06-24] VITALS (22 sets, daily range): BP systolic 94–118; BP diastolic 42–59
[2021-06-24] MEDS: MORPHINE SULFATE INJ 2 MG/ML DISP.SYRIN IV PRN ×2 (03:03→13:03)
--- NOTE | 2021-06-24 04:57 | NUR ---
PT CALLED ME AND SHE WANTS HER BIPAP TO BE REMOVED, SHE SAID ITS ENOUGH FOR THE NIGHT SHE WANTS TO REST WITHOUT BIPAP, BIPAP WAS REMOVED PT ON ROOM AIR WITH SPO2 98% NO SOB NOTED RT MADE AWARE OF BIPAP REMOVAL
--- NOTE | 2021-06-24 05:00 | NUR ---
BED BATH OFFERED TO PT BUT SHE REFUSED SHE SAID ITS TOO COLD TO HAVE A BED BATH AT THIS TIME AND SHE IS NOT DIRTY AND SHE WANTS TO DO IT AT DAYTIME, INSTEAD OFFER HER TO BE TURNED AND SHE AGREED TO IT, ALSO CHANGE THE BLANKET
--- NOTE | 2021-06-24 07:25 | NUR ---
RN OPENING NOTES RECEIVED PT. ASLEEP COMFORTABLY, NO SIGNIFICANT CHANGES NOTED AT THIS TIME. WILL CONTINUE TO MONITOR PATIENT. ALL SAFETY MEASURES IN-PLACE AND ACTIVATED/AUDIBLE.
[2021-06-24] MEDS: BLOOD SUGAR DIAGNOSTIC 1 EACH STRIP IN SCH ×4 (07:50→22:10)
[2021-06-24] MEDS: NEPRO VAN 237 ML CAN PO SCH ×3 (08:00→17:00)
--- NOTE | 2021-06-24 08:50 | NUR ---
RN NOTES: CONTRACTS OFFICER HAS STARTED THE DIALYSIS SESSION AT THIS TIME. PT. NO SSx OF ANY DISTRESS NOTED AT THIS TIME.
[2021-06-24] MEDS: CITRIC ACID/SODIUM CITRATE (BICITRA)15 ML UDC PO SCH ×4 (09:00→20:54)
[2021-06-24] MEDS: DORZOLAMIDE OPTH 2% 10 ML BOTTLE EACHEYE SCH ×3 (09:00→16:12)
[2021-06-24] MEDS: VIT B CMPLX 3/FA/VIT C/BIOTIN 1 TAB TABLET PO SCH (09:00)
[2021-06-24] MEDS: GUAIFENESIN LA 600 MG TABLET.SA PO SCH ×2 (09:00→20:54)
[2021-06-24] MEDS: LOSARTAN POTASSIUM 25 MG TABLET PO SCH (09:00)
[2021-06-24] MEDS: CHOLECALCIFEROL 1,000 UNIT TABLET (VIT D3) PO SCH (12:30)
[2021-06-24] MEDS: ATORVASTATIN 10 MG TABLET PO SCH (12:30)
[2021-06-24] MEDS: FERROUS SULFATE (325 MG) 325 MG/TAB TABLET PO SCH ×2 (12:30→16:06)
[2021-06-24] MEDS: ASPIRIN 81 MG TAB.CHEW PO SCH (12:31)
[2021-06-24] MEDS: DOCUSATE SODIUM 100 MG CAPSULE PO SCH (12:31)
[2021-06-24] MEDS: ASCORBIC ACID 500 MG TABLET PO SCH (12:31)
[2021-06-24] MEDS: GABAPENTIN 100 MG CAPSULE PO SCH (12:32)
[2021-06-24] MEDS: POLYETHYLENE GLYCOL 3350 17 GM POWD.PACK PO SCH (12:32)
[2021-06-24] MEDS: HYDROCODONE/APAP 5/325MG TABLET PO PRN ×2 (16:08→23:47)
[2021-06-24] MEDS: LATANOPROST EYE DROP 0.005% 2.5 ML BOTTLE EACHEYE SCH (18:00)
[2021-06-24] MEDS: INSULIN REGULAR, HUMAN 100 UNIT/ML 3 ML VIAL SQ PRN (18:32)
--- NOTE | 2021-06-24 19:03 | NUR ---
REPORT GIVEN TO MAURIZIO-TELEMETRY/[facility] RN FOR PATIENT'S TRANSFER. PT. NO SSx OF ANY DISTRESS NOTED AT THIS TIME. CALL LIGHT IN REACH. MASTER TECHNICIANMUCK HAULER WILL TRANSFER PATIENT TO THE ROOM 119-[facility]/TELE UNIT.
--- NOTE | 2021-06-24 19:20 | NUR ---
RN [facility] NOTE RECEIVED PATIENT TRANSFERRED FROM ICU TO [facility] UNIT AT ROOM 119 ALERT ORIENTED 2-3 VERBALLY RESPONSIVE ON 3L OXYGEN VIA NASAL CANNULA O2:98%, PATIENT IS ON PIGTAIL CONNECTED TO CHEST TUBE, AND CONNECTED TO SUCTION.IV SITE IS ON RIGHT FOREARM AND RIGHT FEMORAL 3 LUMEN,RIGHT SUBCLAVIAN HD AND LEFT UPPER ARM AV SHUNT,SAFETY MEASURE IMPLEMENT,HEAD OF THE BED ELEVATED CALL LIGHT WITHIN REACH,BED IN LOW POSITION AND LOCKED CONTINUE TO MONITOR.
--- NOTE | 2021-06-24 23:00 | NUR ---
RN NOTE PATIENT IS ON BIPAP NOW CONTINUE TO MONITOR.
--- NOTE | 2021-06-24 23:47 | NUR ---
RN NOTE NORCO 5-325MG PRN GIVEN FOR PAIN 10/21 CONTINUE TO MONITOR.
[2021-06-25] VITALS: BP 109/49
[2021-06-25 04:00] VITALS: BP 95/43
--- NOTE | 2021-06-25 05:07 | NUR ---
PT OFF NOC BIPAP AND PLACED ON 3L NC. RN NOTIFIED.
--- NOTE | 2021-06-25 05:50 | NUR ---
RN NOTE OFFERED BED BATH PATIENT REFUSED CONTINUE TO MONITOR
--- NOTE | 2021-06-25 06:44 | NUR ---
RN NOTE PATIENT REMAINS ALERT ORIENTED X2-3 VERBALLY RESPONSIVE ON 3L OXYGEN VIA NASAL CANNULA,CHEST TUBE CONNECTED TO SUCTION, ABOUT 150 CC OUTPUT COLLECTED,PATIENT TURNED AND REPOSITIONED EVERY 2HOURS,PATIENT REFUSED TO BE CLEANED,ALL DUE MEDS GIVEN MD ORDERED,KEPT CALL LIGHT WITHIN REACH,HEAD OF THE BED ELEVATED,ALL NEEDS MET ENDORSE NEXT COMING FOR CONTINUATION OF CARE.
--- NOTE | 2021-06-25 07:30 | NUR ---
RN OPENING NOTE PT OBSERVED IN BED WITH HOB 30 DEGREES. PT IS ON 3L NC TOLERATING WELL WITH NO SIGNS OF LABORED BREATHING OR DISTRESS. PT IS A/OX3 AND SR 57BPM. PT IS ANURIC AND NO HD SCHEDULED FOR TODAY. PT IS ON CCHO DIET. IV ACCESS R FA 20G, R FEMORAL, AND R SUBCLAVIAN. BED IS LOCKED IN LOWEST POSITION, CALL FRAGOSO IS WITHIN REACH AND ALL HOSPITAL SAFETY PROTOCOLS ARE IN PLACE. WILL CONTINUE TO MONITOR THIS SHIFT.
[2021-06-25] MEDS: BLOOD SUGAR DIAGNOSTIC 1 EACH STRIP IN SCH ×4 (07:57→22:02)
[2021-06-25 08:00] VITALS: BP 144/73
[2021-06-25] MEDS: DORZOLAMIDE OPTH 2% 10 ML BOTTLE EACHEYE SCH ×3 (08:07→16:50)
[2021-06-25] MEDS: INSULIN REGULAR, HUMAN 100 UNIT/ML 3 ML VIAL SQ PRN ×3 (08:07→17:49)
[2021-06-25] MEDS: NEPRO VAN 237 ML CAN PO SCH ×3 (08:07→16:51)
[2021-06-25] MEDS: CITRIC ACID/SODIUM CITRATE (BICITRA)15 ML UDC PO SCH ×4 (08:12→20:28)
[2021-06-25] MEDS: ASCORBIC ACID 500 MG TABLET PO SCH (08:13)
[2021-06-25] MEDS: ATORVASTATIN 10 MG TABLET PO SCH (08:13)
[2021-06-25] MEDS: FERROUS SULFATE (325 MG) 325 MG/TAB TABLET PO SCH ×2 (08:13→16:50)
[2021-06-25] MEDS: VIT B CMPLX 3/FA/VIT C/BIOTIN 1 TAB TABLET PO SCH (08:13)
[2021-06-25] MEDS: DOCUSATE SODIUM 100 MG CAPSULE PO SCH (08:13)
[2021-06-25] MEDS: CHOLECALCIFEROL 1,000 UNIT TABLET (VIT D3) PO SCH (08:13)
[2021-06-25] MEDS: GUAIFENESIN LA 600 MG TABLET.SA PO SCH ×2 (08:13→20:28)
[2021-06-25] MEDS: ASPIRIN 81 MG TAB.CHEW PO SCH (08:13)
[2021-06-25] MEDS: LOSARTAN POTASSIUM 25 MG TABLET PO SCH (09:00)
[2021-06-25] MEDS ORDERED: IV NS 0.9% 250 ML IV ONE ×2 (11:30→12:30)
[2021-06-25 12:00] VITALS: BP 154/51
[2021-06-25] MEDS ORDERED: TRAMADOL HCL 50 MG TABLET PO SCH (12:30)
[2021-06-25] MEDS: TRAMADOL HCL 50 MG TABLET PO PRN (12:58)
--- NOTE | 2021-06-25 14:55 | NUR ---
RN NOTE: CODE STROKE CODE STROKE INITIATED PER RECOMMENDATION BY DR. IQBAL AFTER CALLING AND CONSULTING ABOUT PT AMS. CODE STROKE INITIATED AT 1455 AND NURSING SEWING MACHINE OPERATOR SEMIAUTOMATIC ARRIVED AT 1456 ALONG WITH COMMUNITY SERVICE REPRESENTATIVE. PT TAKEN TO CT AT 1502 AND ALSO HAD XRAY DONE AT THIS TIME AND RETURNED TO UNIT AT 1532. NIHSS COMPLETED AT 1530 AND SCORE OF 7. SWALLOW EVAL ORDERED. TELE-NEUOROLOGY ACTIVATED AT 1532. CT ORDERS INITIATED AT 1456 AND RESULTS RECEIVED AT 1529; LABS ORDERED AT 1456 AND RESULTS RECEIVED AT 1613. Addendum: 06/25/21 at 1848 by JAREN STONE RN RN NOTE ERROR NOTE DONE ON WRONG PT
[2021-06-25 16:00] VITALS: BP 114/38
--- NOTE | 2021-06-25 16:20 | NUR ---
[facility] NOTE: CT RESULTS CT RESULTS: NEGATIVE FOR STROKE Addendum: 06/25/21 at 1849 by JAREN STONE RN RN NOTE ERROR NOTE DONE ON WRONG PT
[2021-06-25] MEDS: LATANOPROST EYE DROP 0.005% 2.5 ML BOTTLE EACHEYE SCH (17:50)
--- NOTE | 2021-06-25 17:53 | NUR ---
RN NOTE PT BS 101. PER SLIDING SCALE, NO COVERAGE NEEDED AT THIS TIME. Addendum: 06/25/21 at 1849 by JAREN STONE RN RN NOTE ERROR NOTE DONE ON WRONG PT
--- NOTE | 2021-06-25 19:10 | NUR ---
RN NOTE RECEIVED PATIENT IN BED RESTING ALERT ORIENTED X3 VERBALLY RESPONSIVE ON 3L OXYGEN VIA NASAL CANNULA O2:94% IV SITE IS ON RIGHT FA 20G, RIGHT FEMORAL, AND RIGHT SUBCLAVIAN,CHEST TUBE IN PLACE,SAFETY MEASURE IMPLEMENT,BED IN LOW POSITION AND LOCKED,HEAD OF THE BED ELEVATED,CALL LIGHT WITHIN REACH,CONTINUE TO MONITOR
--- NOTE | 2021-06-25 19:48 | NUR ---
RN CLOSING NOTE PT IS SLEEPING IN BED WITH HOB 30 DEGREES. PT IS ON 3L NC TOLERATING WELL WITH NO SIGNS OF LABORED BREATHING OR DISTRESS. PT IS A/OX3. PT IS ANURIC AND NO HD SCHEDULED FOR TODAY. PT IS ON CCHO DIET. IV ACCESS R FA 20G, R FEMORAL, AND R SUBCLAVIAN. BED IS LOCKED IN LOWEST POSITION, CALL FRAGOSO IS WITHIN REACH AND ALL HOSPITAL SAFETY PROTOCOLS ARE IN PLACE. WILL ENDORSE TO POWDER NIPPER NURSE FOR TANMAY.
[2021-06-25 20:00] VITALS: BP 112/52
--- NOTE | 2021-06-25 22:00 | NUR ---
RN NOTE OFFERED PATIENT TO REPOSITIONING SHE REFUSED SHE SAID "I AM COMFORTABLE DON'T NEED TO REPOSITION NOW".EDUCATED PATIENT IMPORTUNATENESS OF REPOSITIONING,CONTINUE TO MONITOR WILL OFFER AGAIN.
[2021-06-26] VITALS (7 sets, daily range): BP systolic 79–125; BP diastolic 35–59
--- NOTE | 2021-06-26 02:00 | NUR ---
RN NOTE OFFERED PATIENT TO TURN AND REPOSITION SHE REFUSED,EDUCATED HER,SHE SAID NOT NOW LATER,WILL OFFER AGAIN.
--- NOTE | 2021-06-26 04:30 | NUR ---
RN NOTE PATIENT BLOOD PRESSURE IS 79/35 HR 83 O2:100 CALLED REINIER CHAVEZ AND RECEIVED ORDER FOR 500CC NS IV BOLUS NOTED AND CARRIED OUT.
[2021-06-26] MEDS ORDERED: IV NS 0.9% 500 ML IV ONE (05:30)
--- NOTE | 2021-06-26 06:35 | NUR ---
RN NOTE BP IS 93/46 HR 78 CONTINUE TO MONITOR.
--- NOTE | 2021-06-26 07:22 | NUR ---
RN NOTE PATIENT REMAINS ON ALERT ORIENTED X3 VERBALLY RESPONSIVE ON 3L OXYGEN VIA NASAL CANNULA O2:100% BP IS STALE NOW 93/46 KEPT CLEAN AND DRY ALL THE TIME,TREATMENT FOR SACRUM WOUND DONE,TURNED AND REPOSITIONED 2 TIMES IN 7P-7AM SHIFT,ENDORSE NEXT COMING SHIFT FOR CONTINUATION OF CARE.
--- NOTE | 2021-06-26 07:42 | NUR ---
RN OPENING NOTE PATIENT RECEIVED IN BED, RESTING. PATIENT ON 3L O2 NC WITH NO SIGNS OF LABORED BREATHING AT THIS TIME. RIGHT FEMORAL TLC, RIGHT FA 20G AND RIGHT SUBCLAVIAN HD CATH IN PLACE. NO SIGNS OF ACUTE DISTRESS NOTED AT THIS TIME. BED LOCKED AND IN LOWEST POSITION, CALL LIGHT WITHIN REACH, 3 SIDE RAILS UP. WILL CONTINUE TO MONITOR.
[2021-06-26] MEDS: BLOOD SUGAR DIAGNOSTIC 1 EACH STRIP IN SCH ×4 (07:58→22:09)
[2021-06-26] MEDS: NEPRO VAN 237 ML CAN PO SCH ×3 (07:58→16:12)
[2021-06-26] MEDS: LOSARTAN POTASSIUM 25 MG TABLET PO SCH (09:00)
[2021-06-26] MEDS: ATORVASTATIN 10 MG TABLET PO SCH ×2 (09:00→09:23)
[2021-06-26] MEDS: DOCUSATE SODIUM 100 MG CAPSULE PO SCH ×2 (09:00→09:22)
[2021-06-26] MEDS: CITRIC ACID/SODIUM CITRATE (BICITRA)15 ML UDC PO SCH ×5 (09:00→21:57)
[2021-06-26] MEDS: ASCORBIC ACID 500 MG TABLET PO SCH ×2 (09:00→09:22)
[2021-06-26] MEDS: CHOLECALCIFEROL 1,000 UNIT TABLET (VIT D3) PO SCH ×2 (09:00→09:22)
[2021-06-26] MEDS: ASPIRIN 81 MG TAB.CHEW PO SCH ×2 (09:00→09:22)
[2021-06-26] MEDS: DORZOLAMIDE OPTH 2% 10 ML BOTTLE EACHEYE SCH ×4 (09:00→16:12)
[2021-06-26] MEDS: VIT B CMPLX 3/FA/VIT C/BIOTIN 1 TAB TABLET PO SCH ×2 (09:00→09:22)
[2021-06-26] MEDS: FERROUS SULFATE (325 MG) 325 MG/TAB TABLET PO SCH ×3 (09:00→16:12)
[2021-06-26] MEDS: GUAIFENESIN LA 600 MG TABLET.SA PO SCH ×3 (09:00→21:57)
[2021-06-26 09:08] LABS: ABG OXYGEN SATURATION 99.1 % (92.0-98.5); ABG PCO2 61.9 mmHg (35.0-45.0); ABG PH 7.257 (7.350-7.450); ABG PO2 162.7 mmHg (75.0-100.0); COHb 0.5 % (0.5-1.5); MetHb 0.3 % (0.0-1.5); O2Hb 98.3 % (94.0-97.0); SITE, ABG Right Radial; VENT MODE, BG 3L NC
[2021-06-26] MEDS: POLYETHYLENE GLYCOL 3350 17 GM POWD.PACK PO SCH (11:49)
[2021-06-26] MEDS: GABAPENTIN 100 MG CAPSULE PO SCH (11:49)
[2021-06-26] MEDS: ALBUMIN 25% 25 GM in PREMIX 1 EA IV PRN (15:26)
[2021-06-26] MEDS: MIDODRINE HCL (5MG) 5 MG TABLET PO PRN (16:12)
[2021-06-26] MEDS: LATANOPROST EYE DROP 0.005% 2.5 ML BOTTLE EACHEYE SCH (17:06)
[2021-06-26] MEDS: TRAMADOL HCL 50 MG TABLET PO PRN (18:07)
--- NOTE | 2021-06-26 18:57 | NUR ---
RN CLOSING NOTE PATIENT REMAINS IN BED, AWAKE. PATIENT ON ROOM AIR WITH NO SIGNS OF LABORED BREATHING AT THIS TIME, PER DR. VIVI ZHANG TO STAY ON ROOM AIR TO MAINTAIN SATURATION ABOVE 88%. RIGHT FEMORAL TLC, RIGHT FA 20G AND RIGHT SUBCLAVIAN HD CATH IN PLACE. HD COMPLETED TODAY, 1500CC REMOVED, PATIENT TOLERATED WELL. NO SIGNS OF ACUTE DISTRESS NOTED AT THIS TIME. BED LOCKED AND IN LOWEST POSITION, CALL LIGHT WITHIN REACH, 3 SIDE RAILS UP. WILL ENDORSE TO METALIZER FIELD OPERATION NURSE.
--- NOTE | 2021-06-26 19:10 | NUR ---
RN NOTES RECEIVED REPORT FROM MORNING RN PATIENT IN BED A/O X2-3 ABLE TO MAKE NEEDS KNOWN WITH IV ACCESS AT R FA #20, R FEMORAL PICC LINE 3 LUMENS PATENT FLUSHES WELL, WITH R CW PERMACATH INTACT NO BLEEDING NOTED. WITH R PIGTAIL CHEST TUBE INTACT DRAINING WHITISH COLOR. VITAL SIGNS TAKEN AND RECORDED AFEBRILE. ALL SAFETY MEASURES IN PLACE AT ALL TIMES. HOB ELEVATED. CALL LIGHT WITHIN REACH. BED ON LOWEST POSITION AND LOCKED. WILL MONITOR THE PATIENT CLOSELY.
[2021-06-26] MEDS: MORPHINE SULFATE INJ 2 MG/ML DISP.SYRIN IV PRN (21:57)
[2021-06-26] MEDS: INSULIN REGULAR, HUMAN 100 UNIT/ML 3 ML VIAL SQ PRN (22:11)
[2021-06-27] VITALS: BP 101/42
[2021-06-27 04:00] VITALS: BP 106/40
--- NOTE | 2021-06-27 06:55 | NUR ---
RN NOTES PATIENT REMAINS IN BED, ASLEEP. PATIENT ON BIPAP WITH NO SIGNS OF LABORED BREATHING AT THIS TIME, RIGHT FEMORAL TLC, RIGHT FA 20G AND RIGHT SUBCLAVIAN HD CATH IN PLACE. BED LOCKED AND IN LOWEST POSITION, CALL LIGHT WITHIN REACH, 3 SIDE RAILS UP. WILL ENDORSE TO MORNING SHIFT NURSE FOR TANMAY.
--- NOTE | 2021-06-27 07:30 | NUR ---
RN OPENING NOTE PATIENT RESTING IN BED, AWAKE. PATIENT ON ROOM AIR WITH NO SIGNS OF LABORED BREATHING AT THIS TIME, PER DR. VIVI ZHANG TO STAY ON ROOM AIR TO MAINTAIN SATURATION ABOVE 88%. RIGHT FEMORAL TLC, RIGHT FA 20G AND RIGHT SUBCLAVIAN HD CATH IN PLACE. PT HAS R CHESTTUBE W/ PIGTAIL IN PLACE DRAINING WHIT/YELLOW FLUID BY GRAVITY. NO SIGNS OF ACUTE DISTRESS NOTED AT THIS TIME. BED LOCKED AND IN LOWEST POSITION, CALL LIGHT WITHIN REACH, 3 SIDE RAILS UP. WILL CONTINUE TO MONITOR.
[2021-06-27 08:00] VITALS: BP 93/38
[2021-06-27] MEDS: BLOOD SUGAR DIAGNOSTIC 1 EACH STRIP IN SCH ×4 (08:02→22:22)
[2021-06-27] MEDS: NEPRO VAN 237 ML CAN PO SCH ×3 (08:02→16:54)
[2021-06-27] MEDS: FERROUS SULFATE (325 MG) 325 MG/TAB TABLET PO SCH ×2 (08:29→16:54)
[2021-06-27] MEDS: ATORVASTATIN 10 MG TABLET PO SCH (08:29)
[2021-06-27] MEDS: CHOLECALCIFEROL 1,000 UNIT TABLET (VIT D3) PO SCH (08:29)
[2021-06-27] MEDS: ASCORBIC ACID 500 MG TABLET PO SCH (08:29)
[2021-06-27] MEDS: CITRIC ACID/SODIUM CITRATE (BICITRA)15 ML UDC PO SCH ×4 (08:29→21:23)
[2021-06-27] MEDS: VIT B CMPLX 3/FA/VIT C/BIOTIN 1 TAB TABLET PO SCH (08:29)
[2021-06-27] MEDS: GUAIFENESIN LA 600 MG TABLET.SA PO SCH ×2 (08:29→21:23)
[2021-06-27] MEDS: DORZOLAMIDE OPTH 2% 10 ML BOTTLE EACHEYE SCH ×3 (08:29→16:54)
[2021-06-27] MEDS: ASPIRIN 81 MG TAB.CHEW PO SCH (08:30)
[2021-06-27] MEDS: DOCUSATE SODIUM 100 MG CAPSULE PO SCH (08:30)
[2021-06-27] MEDS: LOSARTAN POTASSIUM 25 MG TABLET PO SCH (08:30)
[2021-06-27] MEDS: ACETAMINOPHEN 325 MG TABLET PO PRN (08:37)
[2021-06-27 12:00] VITALS: BP 89/32
[2021-06-27] MEDS: POLYETHYLENE GLYCOL 3350 17 GM POWD.PACK PO SCH (12:02)
[2021-06-27] MEDS: MIDODRINE HCL (5MG) 5 MG TABLET PO SCH ×2 (12:53→21:23)
[2021-06-27 16:00] VITALS: BP 106/46
[2021-06-27] MEDS: LATANOPROST EYE DROP 0.005% 2.5 ML BOTTLE EACHEYE SCH (18:04)
--- NOTE | 2021-06-27 18:40 | NUR ---
RN CLOSING NOTE PT REMAINED STABLE THROUGHOUT SHIFT. PATIENT RESTING IN BED. PT IS A/0X2. PATIENT ON ROOM AIR WITH NO SIGNS OF LABORED BREATHING AT THIS TIME, PER DR. VIVI ZHANG TO STAY ON ROOM AIR TO MAINTAIN SATURATION ABOVE 88%. RIGHT FEMORAL TLC, RIGHT FA 20G AND RIGHT SUBCLAVIAN HD CATH IN PLACE. PT HAS R CHESTTUBE W/ PIGTAIL IN PLACE DRAINING WHIT/YELLOW FLUID BY GRAVITY. DRAINED 210ML ON SHIFT. NO SIGNS OF ACUTE DISTRESS NOTED AT THIS TIME. BED LOCKED AND IN LOWEST POSITION, CALL LIGHT WITHIN REACH, 3 SIDE RAILS UP. WILL ENDORSE TO AIRPLANE WOODWORKER RN.
--- NOTE | 2021-06-27 19:10 | NUR ---
RN NOTES RECEIVED REPORT FROM MORNING RN PATIENT IN BED A/O X2-3 ABLE TO MAKE NEEDS KNOWN. WITH IV ACCESS AT RFA # 20, R CW PERMACATH, R FEMORAL TRIPLE LUMEN PICC LINE PATENT FLUSHES WELL. WITH R PIGTAIL INTACT CONNECTED TO CONTINUOUS SUCTION. VITAL SIGNS TAKEN AND RECORDED. AFEBRILE. ALL SAFETY MEASURES IN PLACE. HOB ELEVATED, CALL LIGHT WITHIN REACH BED ON LOWEST POSITION AND LOCKED. WILL CLOSELY MONTOR THE PATIENT.
[2021-06-27 20:00] VITALS: BP 90/40
--- NOTE | 2021-06-27 22:22 | NUR ---
RN NOTES BS 96 MG/DL NO COVERAGE GIVEN
[2021-06-28] VITALS: BP 100/54
[2021-06-28] MEDS: MORPHINE SULFATE INJ 2 MG/ML DISP.SYRIN IV PRN ×2 (00:32→11:19)
--- NOTE | 2021-06-28 01:05 | NUR ---
RT NOTE PT FOUND OFF BIPAP STATES SHE KEPT IT ON FOR ONE HOUR AND CANNOT WEAR IT ANY LONGER. RN AWARE. NO RESP DISTRESS NOTED @ THIS TIME. Addendum: 06/28/21 at 0415 by MADDY BLOCK RT Amended: Links added.
[2021-06-28 04:00] VITALS: BP 93/54
[2021-06-28] MEDS: MIDODRINE HCL (5MG) 5 MG TABLET PO SCH ×3 (05:40→20:37)
--- NOTE | 2021-06-28 06:35 | NUR ---
RN NOTES PATIENT REMAINS STABLE THIS SHIFT NO SIGNIFICANT CHANGES. ALL DUE MEDS GIVEN. PATIENT REFUSED BIPAPP R/B EXPLAINED TO PATIENT STILL REFUSED. IV ACCESS PATENT. PIGTAIL INTACT WITH 45CC OUTPUT DURING THIS SHIFT. WILL ENDORSED TO MORNING SHIFT FOR TANMAY
--- NOTE | 2021-06-28 07:30 | NUR ---
INTERNATIONAL MANAGER NOTES RECEIVED PATIENT IN BED A/O X2-3 ABLE TO MAKE NEEDS KNOWN. WITH IV ACCESS AT RFA # 20, R CW PERMACATH, R FEMORAL TRIPLE LUMEN PICC LINE PATENT FLUSHES WELL. WITH R PIGTAIL INTACT CONNECTED TO CONTINUOUS SUCTION. AFEBRILE. ALL SAFETY MEASURES IN PLACE. HOB ELEVATED, CALL LIGHT WITHIN REACH BED ON LOWEST POSITION AND LOCKED. WILL CLOSELY MONTOR THE PATIENT.
[2021-06-28] MEDS: BLOOD SUGAR DIAGNOSTIC 1 EACH STRIP IN SCH ×4 (08:06→22:00)
[2021-06-28] MEDS: NEPRO VAN 237 ML CAN PO SCH ×3 (08:07→18:21)
[2021-06-28 08:29] LABS: BASOPHILS % (AUTO) 0.3 % (0.0-2.0); EOSINOPHILS % (AUTO) 2.9 % (0.0-6.0); HEMATOCRIT 31 % (33-45); HEMOGLOBIN 9.5 g/dL (11.5-14.8); LYMPHOCYTES # (AUTO) 0.9 K/uL (0.8-4.8); LYMPHOCYTES % (AUTO) 9.8 % (20.0-44.0); MEAN CORPUSCULAR HGB CONC 31 g/dl (31.0-36.0); MEAN CORPUSCULAR VOLUME 103 fL (82-100); MONOCYTES # (AUTO) 0.8 K/uL (0.1-1.30); MONOCYTES % (AUTO) 8.7 % (2.0-12.0); NEUTROPHILS # (AUTO) 7.4 K/uL (1.8-8.9); NEUTROPHILS % (AUTO) 78.3 % (43.0-81.0); PLATELET COUNT (AUTO) 166 K/uL (150-450); RED BLOOD CELL COUNT(AUTO) 2.98 MIL/uL (4.0-5.2); WHITE BLOOD COUNT (AUTO) 9.4 K/uL (4.3-11.0)
[2021-06-28] MEDS: CITRIC ACID/SODIUM CITRATE (BICITRA)15 ML UDC PO SCH ×5 (08:36→21:00)
[2021-06-28] MEDS: ASCORBIC ACID 500 MG TABLET PO SCH (08:36)
[2021-06-28] MEDS: DORZOLAMIDE OPTH 2% 10 ML BOTTLE EACHEYE SCH ×3 (08:36→18:24)
[2021-06-28] MEDS: ASPIRIN 81 MG TAB.CHEW PO SCH (08:36)
[2021-06-28] MEDS: FERROUS SULFATE (325 MG) 325 MG/TAB TABLET PO SCH ×2 (08:37→18:23)
[2021-06-28] MEDS: CHOLECALCIFEROL 1,000 UNIT TABLET (VIT D3) PO SCH (08:37)
[2021-06-28] MEDS: DOCUSATE SODIUM 100 MG CAPSULE PO SCH (08:37)
[2021-06-28] MEDS: GUAIFENESIN LA 600 MG TABLET.SA PO SCH ×2 (08:37→20:37)
[2021-06-28] MEDS: VIT B CMPLX 3/FA/VIT C/BIOTIN 1 TAB TABLET PO SCH (08:37)
[2021-06-28] MEDS: ATORVASTATIN 10 MG TABLET PO SCH (08:37)
[2021-06-28 08:52] LABS: CALCIUM, SERUM 9.5 mg/dL (8.5-10.1); CREATININE 5.2 mg/dL (0.6-1.3)
[2021-06-28] MEDS: LOSARTAN POTASSIUM 25 MG TABLET PO SCH (09:00)
[2021-06-28 09:03] LABS: POTASSIUM 3.6 mmol/L (3.5-5.1)
[2021-06-28 10:20] VITALS: BP 103/45
[2021-06-28 12:00] VITALS: BP 92/36
[2021-06-28] MEDS: INSULIN REGULAR, HUMAN 100 UNIT/ML 3 ML VIAL SQ PRN ×2 (12:15→23:57)
[2021-06-28 16:47] VITALS: BP 110/52
[2021-06-28] MEDS: LATANOPROST EYE DROP 0.005% 2.5 ML BOTTLE EACHEYE SCH (18:23)
[2021-06-28] MEDS: HYDROCODONE/APAP 5/325MG TABLET PO PRN (18:29)
--- NOTE | 2021-06-28 19:30 | NUR ---
ASTRONAUT MISSION SPECIALIST CLOSING NOTES PATIENT IN BED A/O X2-3 .ABLE TO MAKE NEEDS KNOWN. ON TELE MONITOR. WITH IV ACCESS AT RFA # 20, R CW PERMACATH, R FEMORAL TRIPLE LUMEN PICC LINE PATENT FLUSHES WELL. WITH R PIGTAIL INTACT CONNECTED TO GRAVITY DRAINING. DR TRINIDAD VISITED THE PATIENT AND ORDERED TO DC THE DRAINING FROM CONTINUOUS SUCTION AND PUT THE DRAINING ON THE GRAVITY METHOD.ALL DUE MEDS AND TREATMENTS GIVEN ORDERED.. AFEBRILE. ALL SAFETY MEASURES IN PLACE. HOB ELEVATED, CALL LIGHT WITHIN REACH BED IN THE LOWEST POSITION AND LOCKED. WILL ENDORSE FOR TANMAY.
--- NOTE | 2021-06-28 19:30 | NUR ---
MANAGER HOUSEKEEPING OPENING NOTES RECEIVED PATIENT IN BED, A/O X2-3. ABLE TO MAKE NEEDS KNOWN. ON TELE MONITOR SINUS RHYTHM. NO SOB. NO ACUTE DISTRESS NOTED AT THIS TIME. IV ACCESS NOTED AT RFA # 20, R CW PERMACATH, R FEMORAL TRIPLE LUMEN PICC LINE PATENT AND INTACT, FLUSHES WELL. WITH R PIGTAIL INTACT CONNECTED TO GRAVITY DRAINING. ALL SAFETY MEASURES IN PLACE. HOB ELEVATED, CALL LIGHT WITHIN REACH, BED IN THE LOWEST POSITION AND LOCKED. WILL CONTINUE TO MONITOR.
[2021-06-28 20:00] VITALS: BP 111/55
--- NOTE | 2021-06-28 20:40 | NUR ---
RN NOTE PT REFUSED TO TAKE MEDS - HARMONYA SOLN. TOLD HER THE RISKS AND BENEFITS. PT STILL DECLINED.
[2021-06-29] VITALS: BP 108/33
[2021-06-29 04:00] VITALS: BP 100/36
[2021-06-29] MEDS: MIDODRINE HCL (5MG) 5 MG TABLET PO SCH ×3 (04:18→20:49)
--- NOTE | 2021-06-29 05:35 | NUR ---
RN NOTE PT REFUSED TO BE CLEANED AND CHANGED. CHECKED PT, STILL DRY AND CLEAN.
--- NOTE | 2021-06-29 07:07 | NUR ---
MIRROR MACHINE FEEDER CLOSING NOTES PATIENT IN BED, A/O X 2-3. ON O2 VIA NC AT 2L. TOLERATING WELL. ON TELE MONITOR REGISTERING SINUS RHYTHM. NO SOB. NO ACUTE DISTRESS NOTED. IV ACCESS NOTED AT RFA # 20, R CW PERMACATH, R FEMORAL TRIPLE LUMEN PICC LINE PATENT AND INTACT, FLUSHES WELL. WITH R PIGTAIL INTACT CONNECTED TO GRAVITY DRAINING. ALL DUE MEDS GIVEN. ALL NEEDS ATTENDED TO. TURNED AND REPOSITIONED. KEPT PT CLEAN AND DRY. ALL SAFETY MEASURES MAINTAINED. HOB ELEVATED, CALL LIGHT WITHIN REACH, BED IN THE LOWEST POSITION AND LOCKED. BED ALARM ON. WILL ENDORSE TO AM SHIFT NURSE FOR TANMAY.
--- NOTE | 2021-06-29 07:15 | NUR ---
RN NOTES RECEIVED PATIENT IN BED, A/O X2-3. ABLE TO MAKE NEEDS KNOWN. ON TELE MONITOR SINUS RHYTHM. NO SOB. NO ACUTE DISTRESS NOTED AT THIS TIME. IV ACCESS NOTED AT RFA # 20, R CW PERMA CATH, R FEMORAL TRIPLE LUMEN PICC LINE PATENT AND INTACT, FLUSHES WELL. WITH R PIGTAIL INTACT CONNECTED TO GRAVITY DRAINING. ALL SAFETY MEASURES IN PLACE. HOB ELEVATED, CALL LIGHT WITHIN REACH, BED IN THE LOWEST POSITION AND LOCKED. WILL CONTINUE TO MONITOR.
[2021-06-29 08:00] VITALS: BP 107/43
[2021-06-29] MEDS: NEPRO VAN 237 ML CAN PO SCH ×3 (08:00→17:53)
[2021-06-29] MEDS: DORZOLAMIDE OPTH 2% 10 ML BOTTLE EACHEYE SCH ×3 (08:32→17:52)
[2021-06-29] MEDS: BLOOD SUGAR DIAGNOSTIC 1 EACH STRIP IN SCH ×4 (08:32→22:15)
[2021-06-29] MEDS: ATORVASTATIN 10 MG TABLET PO SCH (08:33)
[2021-06-29] MEDS: FERROUS SULFATE (325 MG) 325 MG/TAB TABLET PO SCH ×2 (08:33→17:52)
[2021-06-29] MEDS: ASPIRIN 81 MG TAB.CHEW PO SCH (08:33)
[2021-06-29] MEDS: VIT B CMPLX 3/FA/VIT C/BIOTIN 1 TAB TABLET PO SCH (08:33)
[2021-06-29] MEDS: GUAIFENESIN LA 600 MG TABLET.SA PO SCH ×2 (08:33→20:48)
[2021-06-29] MEDS: DOCUSATE SODIUM 100 MG CAPSULE PO SCH (08:33)
[2021-06-29] MEDS: CITRIC ACID/SODIUM CITRATE (BICITRA)15 ML UDC PO SCH ×4 (08:33→21:00)
[2021-06-29] MEDS: ASCORBIC ACID 500 MG TABLET PO SCH (08:33)
[2021-06-29] MEDS: LOSARTAN POTASSIUM 25 MG TABLET PO SCH (08:34)
[2021-06-29] MEDS: CHOLECALCIFEROL 1,000 UNIT TABLET (VIT D3) PO SCH (08:34)
--- NOTE | 2021-06-29 09:00 | NUR ---
RN NOTES RIGHT CHEST TUBE , PIGTAIL ATTACHED TO BAG DRAINING TO GRAVITY PER DR TRINIDAD ORDER . MILKY COLOR DRAINING NOTED. CONTINUE TO MONITOR.
[2021-06-29] MEDS: POLYETHYLENE GLYCOL 3350 17 GM POWD.PACK PO SCH (11:49)
[2021-06-29 12:00] VITALS: BP 105/49
[2021-06-29] MEDS: GABAPENTIN 100 MG CAPSULE PO SCH (12:48)
[2021-06-29] MEDS: HYDROCODONE/APAP 5/325MG TABLET PO PRN ×2 (13:02→19:51)
[2021-06-29] MEDS ORDERED: FENTANYL PF 250MCG/5ML AMPUL IV PRN (14:00)
[2021-06-29] MEDS ORDERED: MIDAZOLAM HCL 2 MG/2ML VIAL IV PRN (14:00)
[2021-06-29] MEDS ORDERED: FLUMAZENIL 0.5 MG VIAL IV PRN (14:00)
[2021-06-29] MEDS ORDERED: NALOXONE PREFILLED SYRINGE 2 MG/2 ML SYRINGE IV PRN (14:00)
[2021-06-29] MEDS: ALBUMIN 25% 25 GM in PREMIX 1 EA IV PRN (14:00)
[2021-06-29 16:00] VITALS: BP 103/44
[2021-06-29] MEDS ORDERED: ONDANSETRON HCL/PF 4 MG/2 ML VIAL ONE (16:43)
[2021-06-29] MEDS: LATANOPROST EYE DROP 0.005% 2.5 ML BOTTLE EACHEYE SCH (17:53)
--- NOTE | 2021-06-29 18:00 | NUR ---
RN NOTES PT RECEIVED HD ON THIS SHIFT, TOLERAING WELL, NO SIGNFICANT CHANGES NOTED , RIGHT CHEST TUBE , PIGTAIL DRAINING TO GRAVITY WITH MILKY COLOR DRAINING ,250CC DRAINAGE NOTED ON THIS SHIFT, SR UP x3, CALL LIGHT WITHIN EASY REACH, WILL ENDORSE TO SURGERY SCHEDULING COORDINATOR NURSE FOR CONTINUITY OF CARE.
--- NOTE | 2021-06-29 19:30 | NUR ---
RN OPENING NOTES RECEIVED PATIENT IN BED, A/O X 2-3. ABLE TO MAKE NEEDS KNOWN. PT ON O2 VIA NC 2LPM, TOLERATING WELL. NO SOB. NO ACUTE DISTRESS NOTED AT THIS TIME. ON TELE MONITOR SINUS RHYTHM. IV ACCESS NOTED AT RFA # 20, R CW PERMA CATH, R FEMORAL TRIPLE LUMEN PICC LINE PATENT AND INTACT, FLUSHES WELL. WITH R PIGTAIL INTACT CONNECTED TO GRAVITY DRAINING. ALL SAFETY MEASURES IN PLACE. HOB ELEVATED, CALL LIGHT WITHIN REACH, BED IN THE LOWEST POSITION AND LOCKED. WILL CONTINUE TO MONITOR FOR ANY CHANGES.
[2021-06-29 20:00] VITALS: BP 120/61
--- NOTE | 2021-06-29 21:00 | NUR ---
RN NOTE PT REFUSED MEDS BICITRA SOLUTION. SHE SAID IT DOES NOT HELP HER AT ALL. EDUCATED THE PT ABOUT THE RISKS AND BENEFITS. PT STILL REFUSED.
[2021-06-29] MEDS: INSULIN REGULAR, HUMAN 100 UNIT/ML 3 ML VIAL SQ PRN (22:20)
[2021-06-30] VITALS: BP 106/56
[2021-06-30 04:00] VITALS: BP 106/56
[2021-06-30] MEDS: MIDODRINE HCL (5MG) 5 MG TABLET PO SCH ×3 (04:20→20:38)
[2021-06-30] MEDS: HYDROCODONE/APAP 5/325MG TABLET PO PRN ×2 (06:03→12:05)
[2021-06-30 08:00] VITALS: BP 96/45
[2021-06-30] MEDS: LOSARTAN POTASSIUM 25 MG TABLET PO SCH (09:00)
[2021-06-30] MEDS: BLOOD SUGAR DIAGNOSTIC 1 EACH STRIP IN SCH ×4 (09:36→21:19)
[2021-06-30] MEDS: VIT B CMPLX 3/FA/VIT C/BIOTIN 1 TAB TABLET PO SCH (09:36)
[2021-06-30] MEDS: ASCORBIC ACID 500 MG TABLET PO SCH (09:37)
[2021-06-30] MEDS: DORZOLAMIDE OPTH 2% 10 ML BOTTLE EACHEYE SCH ×3 (09:37→17:01)
[2021-06-30] MEDS: CHOLECALCIFEROL 1,000 UNIT TABLET (VIT D3) PO SCH (09:37)
[2021-06-30] MEDS: DOCUSATE SODIUM 100 MG CAPSULE PO SCH (09:37)
[2021-06-30] MEDS: FERROUS SULFATE (325 MG) 325 MG/TAB TABLET PO SCH ×2 (09:37→17:01)
[2021-06-30] MEDS: GUAIFENESIN LA 600 MG TABLET.SA PO SCH ×2 (09:37→20:37)
[2021-06-30] MEDS: ATORVASTATIN 10 MG TABLET PO SCH (09:37)
[2021-06-30] MEDS: CITRIC ACID/SODIUM CITRATE (BICITRA)15 ML UDC PO SCH ×4 (09:38→20:37)
[2021-06-30] MEDS: ASPIRIN 81 MG TAB.CHEW PO SCH (09:38)
[2021-06-30] MEDS: NEPRO VAN 237 ML CAN PO SCH ×3 (09:43→17:01)
[2021-06-30 12:00] VITALS: BP 106/50
[2021-06-30 16:00] VITALS: BP 91/49
[2021-06-30] MEDS: LATANOPROST EYE DROP 0.005% 2.5 ML BOTTLE EACHEYE SCH (17:49)
--- NOTE | 2021-06-30 18:40 | NUR ---
RN CLOSING NOTE PT REMAINED STABLE THROUGHOUT SHIFT. PATIENT IN BED ASLEEP, A/O X 2-3. ABLE TO MAKE NEEDS KNOWN. PT ON O2 VIA NC 2LPM, TOLERATING WELL. NO SOB. NO ACUTE DISTRESS NOTED AT THIS TIME. ON TELE MONITOR SINUS RHYTHM. IV ACCESS NOTED AT RFA # 20, R CW PERMA CATH, R FEMORAL TRIPLE LUMEN PICC LINE PATENT AND INTACT, FLUSHES WELL. WITH R PIGTAIL INTACT CONNECTED TO GRAVITY DRAINING. DRAINED 210ML ON SHIFT. ALL SAFETY MEASURES IN PLACE. HOB ELEVATED, CALL LIGHT WITHIN REACH, BED IN THE LOWEST POSITION AND LOCKED. WILL ENDORSE TO MEDICATION CARE MANAGER RN.
--- NOTE | 2021-06-30 19:20 | NUR ---
RN NOTE RECEIVED PATIENT IN BED RESTING ALERT ORIENTED X2-3 VERBALLY RESPONSIVE ON 2L OXYGEN VIA NASAL CANNULA O2:98% IV SITE IS ON RIGHT FOREARM AND RIGHT FEMORAL TLC/RIGHT CHEST WALL PERM-CATH INTACT PATENT SAFETY MEASURE IMPLEMENT BED IN LOW POSITION AND LOCKED,CALL LIGHT WITHIN REACH,HEAD OF THE BED ELEVATED CONTINUE TO MONITOR
[2021-06-30 20:00] VITALS: BP 104/56
--- NOTE | 2021-06-30 21:50 | NUR ---
RT NOTE PT REFUSING BIPAP X 3 AFTER EXPLAINING RISKS AND BENEFITS. RN MAURIZIO @ BEDSIDE. NO RESPIRATORY DISTRESS NOTED. PT TOLERATING NASAL CANNULA WELL. WILL MONITOR.
--- NOTE | 2021-06-30 21:52 | NUR ---
RN NOTE PATIENT REFUSES BIPAP EDUCATE THE PATIENT STILL REFUSE NO SOB NOT ACUTE DISTRESS NOTED,CONTINUE TO MONITOR
[2021-07-01] VITALS: BP 101/57
[2021-07-01 04:00] VITALS: BP 104/55
[2021-07-01] MEDS: MIDODRINE HCL (5MG) 5 MG TABLET PO SCH ×3 (05:08→21:22)
--- NOTE | 2021-07-01 06:26 | NUR ---
RN NOTE PATIENT REMAINS ALERT ORIENTED X2-3 VERBALLY RESPONSIVE NO SOB NOT ACUTE DISTRESS NOTED ALL DUE MEDS GIVEN MD ORDERED KEPT CLEAN AND DRY ALL THE TIME,130CC OUTPUT FROM CHEST DRAINAGE,SACRUM WOUND TREATMENT DONE,TURNED AND REPOSITIONED EVERY 2 HOURS,ALL NEEDS MET ENDORSE NEXT COMING SHIFT FOR CONTINUATION OF CARE.
[2021-07-01 07:20] LABS: BASOPHILS # (AUTO) 0.1 K/uL (0.0-0.2); BASOPHILS % (AUTO) 0.5 % (0.0-2.0); EOSINOPHILS % (AUTO) 3.9 % (0.0-6.0); HEMATOCRIT 36 % (33-45); HEMOGLOBIN 10.8 g/dL (11.5-14.8); LYMPHOCYTES # (AUTO) 1.2 K/uL (0.8-4.8); LYMPHOCYTES % (AUTO) 12.5 % (20.0-44.0); MEAN CORPUSCULAR HGB CONC 30 g/dl (31.0-36.0); MEAN CORPUSCULAR VOLUME 105 fL (82-100); MONOCYTES % (AUTO) 10.2 % (2.0-12.0); NEUTROPHILS # (AUTO) 6.8 K/uL (1.8-8.9); NEUTROPHILS % (AUTO) 72.9 % (43.0-81.0); PLATELET COUNT (AUTO) 137 K/uL (150-450); WHITE BLOOD COUNT (AUTO) 9.4 K/uL (4.3-11.0)
[2021-07-01 07:39] LABS: CALCIUM, SERUM 9.6 mg/dL (8.5-10.1); CREATININE 5.6 mg/dL (0.6-1.3); MAGNESIUM 2.8 mg/dL (1.8-2.4); PHOSPHORUS 3.3 mg/dL (2.5-4.9); POTASSIUM 4.2 mmol/L (3.5-5.1)
--- NOTE | 2021-07-01 07:46 | NUR ---
CAN CUTTER OPENING NOTES: RECEIVED PATIENT IN BED, A/O X 3. ABLE TO MAKE NEEDS KNOWN. PT ON O2 VIA NC 2LPM, TOLERATING WELL. NO SOB. NO ACUTE DISTRESS NOTED AT THIS TIME. ON TELE MONITOR SINUS RHYTHM. IV ACCESS NOTED AT RFA # 20, R CW PERMA CATH, R FEMORAL TRIPLE LUMEN PICC LINE PATENT AND INTACT, FLUSHES WELL. WITH R PIGTAIL INTACT CONNECTED TO GRAVITY DRAINING. ALL SAFETY MEASURES IN PLACE. HOB ELEVATED, CALL LIGHT WITHIN REACH, BED IN THE LOWEST POSITION AND LOCKED. WILL CONTINUE TO MONITOR FOR ANY CHANGES.
[2021-07-01 08:00] VITALS: BP 114/55
[2021-07-01] MEDS: CITRIC ACID/SODIUM CITRATE (BICITRA)15 ML UDC PO SCH ×5 (08:08→21:21)
[2021-07-01] MEDS: ATORVASTATIN 10 MG TABLET PO SCH (08:08)
[2021-07-01] MEDS: GUAIFENESIN LA 600 MG TABLET.SA PO SCH ×2 (08:08→21:21)
[2021-07-01] MEDS: DOCUSATE SODIUM 100 MG CAPSULE PO SCH (08:08)
[2021-07-01] MEDS: ASPIRIN 81 MG TAB.CHEW PO SCH (08:09)
[2021-07-01] MEDS: CHOLECALCIFEROL 1,000 UNIT TABLET (VIT D3) PO SCH (08:09)
[2021-07-01] MEDS: ASCORBIC ACID 500 MG TABLET PO SCH (08:09)
[2021-07-01] MEDS: VIT B CMPLX 3/FA/VIT C/BIOTIN 1 TAB TABLET PO SCH (08:09)
[2021-07-01] MEDS: FERROUS SULFATE (325 MG) 325 MG/TAB TABLET PO SCH ×2 (08:09→17:09)
[2021-07-01] MEDS: LOSARTAN POTASSIUM 25 MG TABLET PO SCH ×2 (08:10→08:21)
[2021-07-01] MEDS: NEPRO VAN 237 ML CAN PO SCH ×3 (08:10→17:11)
[2021-07-01] MEDS: BLOOD SUGAR DIAGNOSTIC 1 EACH STRIP IN SCH ×4 (08:15→21:32)
[2021-07-01] MEDS: DORZOLAMIDE OPTH 2% 10 ML BOTTLE EACHEYE SCH ×3 (08:19→17:09)
--- NOTE | 2021-07-01 09:30 | NUR ---
RN NOTES: SEEN BY DR TRINIDAD WHO WANTS PIGTAIL TO BE ATTACHED TO CONTIONOUS SUCTYION, PIGTAIL ATTACHED, DRAINING WELL
[2021-07-01 12:00] VITALS: BP 110/57
[2021-07-01] MEDS: POLYETHYLENE GLYCOL 3350 17 GM POWD.PACK PO SCH (12:02)
[2021-07-01] MEDS: GABAPENTIN 100 MG CAPSULE PO SCH (12:58)
[2021-07-01] MEDS: ALBUMIN 25% 25 GM in PREMIX 1 EA IV PRN ×2 (13:21→13:28)
[2021-07-01] MEDS: OCTREOTIDE 50 MCG/ML AMPUL SQ SCH ×2 (13:39→17:11)
[2021-07-01 16:00] VITALS: BP 97/54
[2021-07-01] MEDS: MIDODRINE HCL (5MG) 5 MG TABLET PO PRN (16:10)
[2021-07-01] MEDS: LATANOPROST EYE DROP 0.005% 2.5 ML BOTTLE EACHEYE SCH (17:09)
[2021-07-01] MEDS: HYDROCODONE/APAP 5/325MG TABLET PO PRN (17:09)
--- NOTE | 2021-07-01 19:30 | NUR ---
RN NOTES, PATIENT IN BED, ASLEEP AROUSES TO VERBAL STIMULI, A/O X 2-3, NO SOB/ACUTE DISTRESS NOTED, ON O2 VIA NC AT 2L, SINUS RHYTHM IN TELE MONITOR, RIGHT PIGTAIL INTACT CONNECTED TO CONTINUOS SUCTION, WILL CONTINUE TO MONITOR CLOSELY, ALL SAFETY MEASURES MAINTAINED, CALL LIGHT WITHIN REACH, BED LOCKED AND IN LOWEST POSITION, BED ALARM ON, WILL CONTINUE TO MONITOR CLOSELY.
--- NOTE | 2021-07-01 19:51 | NUR ---
RN Closing notes: PATIENT IN BED, A/O X 2-3. ON O2 VIA NC AT 2L. TOLERATING WELL. ON TELE MONITOR SINUS RHYTHM. NO SOB. NO ACUTE DISTRESS NOTED. IV ACCESS NOTED AT RFA # 20, R CW PERMACATH, R FEMORAL TRIPLE LUMEN PICC LINE PATENT AND INTACT, FLUSHES WELL. WITH R PIGTAIL INTACT CONNECTED TO CONTINUOS SUCTION. ALL DUE MEDS GIVEN. ALL NEEDS ATTENDED TO. TURNED AND REPOSITIONED. KEPT PT CLEAN AND DRY. ALL SAFETY MEASURES MAINTAINED. HOB ELEVATED, CALL LIGHT WITHIN REACH, BED IN THE LOWEST POSITION AND LOCKED. BED ALARM ON. WILL ENDORSE TO SURFACE PLATE FINISHER
[2021-07-01 20:00] VITALS: BP 110/54
--- NOTE | 2021-07-01 21:30 | NUR ---
RN NOTE PATIENT REFUSES BIPAP EDUCATED THE PATIENT, EXPLAINED RISKS AND BENEFITS, STILL REFUSED NO SOB NOT ACUTE DISTRESS NOTED, RT OFFERED TOO, SHE REFUSED, WILL CONTINUE TO MONITOR CLOSELY.
[2021-07-01] MEDS: INSULIN REGULAR, HUMAN 100 UNIT/ML 3 ML VIAL SQ PRN (21:34)
[2021-07-02] VITALS: BP 110/52
[2021-07-02 04:00] VITALS: BP 114/47
[2021-07-02] MEDS: MIDODRINE HCL (5MG) 5 MG TABLET PO SCH ×3 (05:07→22:30)
--- NOTE | 2021-07-02 06:38 | NUR ---
RN CLOSING NOTES, PATIENT IN BED A/O X3, ON O2 VIA NC AT 2L, NO SOB/ACUTE DISTRESS NOTED THROUGHOUT THE NIGHT, NSR-SB DURING THE NIGHT, LOWEST IN LOW 55 BPM, CONTINUE WITH PIG TAIL IN PLACED CONNECTED TO SUCTION, 180ML PINK MILKY DRAINAGE DURING THE NIGHT, ALL NEEDS PROVIDED, KEPT PT CLEAN AND DRY, ALL SAFETY MEASURES MAINTAINED, CALL LIGHT WITHIN REACH, BLOOD PRESSURE MAINTAINED MIDODRINE ADMINISTERED X2 DURING THE SHIFT, NO SIGNIFICANT CHANGE IN CONDITION DURING THE NIGHT, BED LOCKED AND LOWEST POSITION, BED ALARM ON, WILL ENDORSE CONTINUITY OF CARE TO ONCOMING NURSE.
--- NOTE | 2021-07-02 07:20 | NUR ---
ORACLE DATABASE CONSULTANT OPENING NOTES" RECEIVED PATIENT IN BED AWAKE,ALERT AND ORIENTED X 3, RESPIRATION IS EVEN AND UNLABORED,ON OXYGEN VIA NASAL CANNULA AT 2L/MIN,NO ACUTE DISTRESS NOTED AT THIS TIME. ON TELE MONITOR SINUS RHYTHM. IV ACCESS NOTED AT RFA # 20, R CW PERMA CATH, R FEMORAL TRIPLE LUMEN PICC LINE PATENT AND INTACT, FLUSHES WELL. WITH R PIGTAIL INTACT CONNECTED TO CONTINUOS SUCTION. ALL SAFETY MEASURES IN PLACE. HOB ELEVATED, CALL LIGHT WITHIN REACH, BED IN THE LOWEST POSITION AND LOCKED. WILL CONTINUE TO MONITOR FOR ANY CHANGES. C/O OF SEVERE GENERAL BODY PAIN, REQUESTING MORPHINE,BP 118/55,O2 SAT 98%,MORPHINE GIVEN WELL TOLERATED, WILL MONITOR THE PATIENT
[2021-07-02 07:23] LABS: BASOPHILS % (AUTO) 0.6 % (0.0-2.0); EOSINOPHILS % (AUTO) 4.6 % (0.0-6.0); HEMATOCRIT 32 % (33-45); HEMOGLOBIN 9.8 g/dL (11.5-14.8); LYMPHOCYTES % (AUTO) 12.1 % (20.0-44.0); MEAN CORPUSCULAR HGB CONC 31 g/dl (31.0-36.0); MEAN CORPUSCULAR VOLUME 103 fL (82-100); MONOCYTES # (AUTO) 0.8 K/uL (0.1-1.30); MONOCYTES % (AUTO) 9.5 % (2.0-12.0); NEUTROPHILS % (AUTO) 73.2 % (43.0-81.0); PLATELET COUNT (AUTO) 120 K/uL (150-450); RED BLOOD CELL COUNT(AUTO) 3.06 MIL/uL (4.0-5.2); WHITE BLOOD COUNT (AUTO) 8.2 K/uL (4.3-11.0)
[2021-07-02] MEDS: MORPHINE SULFATE INJ 2 MG/ML DISP.SYRIN IV PRN ×3 (07:27→21:17)
[2021-07-02] MEDS: BLOOD SUGAR DIAGNOSTIC 1 EACH STRIP IN SCH ×4 (07:39→22:00)
[2021-07-02 08:00] VITALS: BP 118/55
[2021-07-02] MEDS: NEPRO VAN 237 ML CAN PO SCH ×3 (08:00→17:09)
[2021-07-02 08:04] LABS: POTASSIUM 4.9 mmol/L (3.5-5.1)
[2021-07-02 08:05] LABS: CALCIUM, SERUM 9.7 mg/dL (8.5-10.1); CREATININE 4.3 mg/dL (0.6-1.3); MAGNESIUM 2.6 mg/dL (1.8-2.4); PHOSPHORUS 2.9 mg/dL (2.5-4.9)
[2021-07-02] MEDS: LOSARTAN POTASSIUM 25 MG TABLET PO SCH (09:00)
[2021-07-02] MEDS: CITRIC ACID/SODIUM CITRATE (BICITRA)15 ML UDC PO SCH ×4 (09:00→21:08)
[2021-07-02] MEDS: DORZOLAMIDE OPTH 2% 10 ML BOTTLE EACHEYE SCH ×3 (09:25→17:22)
[2021-07-02] MEDS: ATORVASTATIN 10 MG TABLET PO SCH (09:26)
[2021-07-02] MEDS: VIT B CMPLX 3/FA/VIT C/BIOTIN 1 TAB TABLET PO SCH (09:26)
[2021-07-02] MEDS: CHOLECALCIFEROL 1,000 UNIT TABLET (VIT D3) PO SCH (09:27)
[2021-07-02] MEDS: FERROUS SULFATE (325 MG) 325 MG/TAB TABLET PO SCH ×2 (09:27→17:00)
[2021-07-02] MEDS: DOCUSATE SODIUM 100 MG CAPSULE PO SCH (09:27)
[2021-07-02] MEDS: ASPIRIN 81 MG TAB.CHEW PO SCH (09:27)
[2021-07-02] MEDS: ASCORBIC ACID 500 MG TABLET PO SCH (09:27)
[2021-07-02] MEDS: GUAIFENESIN LA 600 MG TABLET.SA PO SCH ×2 (09:27→21:08)
[2021-07-02] MEDS: OCTREOTIDE 50 MCG/ML AMPUL SQ SCH ×3 (09:34→17:26)
[2021-07-02 12:00] VITALS: BP 117/45
--- NOTE | 2021-07-02 15:30 | NUR ---
RN notes: seen by DR Lipscomb thoracic surgeon, he disconnect suction to chest tube saying he wants it to water seal, drainage is pink color which show improvement to him,, continue with sandostatin to help lower secretion drained to chest tube, doctor spend time with patient answering her questions
[2021-07-02 16:00] VITALS: BP 124/45
[2021-07-02] MEDS ORDERED: IV NS 0.9% 250 ML IV ONE (16:23)
[2021-07-02] MEDS ORDERED: IOHEXOL-300 100 ML VIAL IV ONE (16:23)
--- NOTE | 2021-07-02 16:25 | NUR ---
RN notes: radiology dept called they are coming to take patient to have CT done , patient request morphine injection before BP 124/49,HR 66,O2 sat 98%, morphine IV given well tolerated
--- NOTE | 2021-07-02 17:15 | NUR ---
RN notes: accompany patient to CT scan and came back in stable condition, denied any pain or discomfort, requested reposition assisted her ,chest tube remained in place draining well,pink/ red color secretions,continue on oxygen via nasal cannula, bed in low and locked position,call light within reach
[2021-07-02] MEDS: LATANOPROST EYE DROP 0.005% 2.5 ML BOTTLE EACHEYE SCH (17:23)
--- NOTE | 2021-07-02 19:33 | NUR ---
RN CLOSING NOTES:: PATIENT IN BED, A/O X 2-3. ON O2 VIA NC AT 2L. TOLERATING WELL. ON TELE MONITOR SINUS RHYTHM. NO SOB. NO ACUTE DISTRESS NOTED. IV ACCESS NOTED AT RFA # 20, R CW PERMACATH, R FEMORAL TRIPLE LUMEN PICC LINE PATENT AND INTACT, FLUSHES WELL. WITH R PIGTAIL INTACT TO WATER SEAL. ALL DUE MEDS GIVEN. ALL NEEDS ATTENDED TO. TURNED AND REPOSITIONED. KEPT PT CLEAN AND DRY. ALL SAFETY MEASURES MAINTAINED. HOB ELEVATED, CALL LIGHT WITHIN REACH, BED IN THE LOWEST POSITION AND LOCKED. BED ALARM ON. WILL ENDORSE TO TEST PREPARER
[2021-07-02 20:00] VITALS: BP 139/68
--- NOTE | 2021-07-02 20:15 | NUR ---
GEOSCIENCES PROFESSOR OPENING NOTES: RECEIVED PATIENT SLEEP IN BED COMFORTABLY, AROUSABLE TO VERBAL STIMULI, BED IN LOW POSITION, CALL LIGHTS WITHIN REACH, NO COMPLAIN OF PAIN AND DISCOMFORT AT THIS TIME, ON TELE MONITORING SR-64, WITH RCW HD CATH- NO BLEEDING WAS OBSERVED, WITH R FEMORAL PICC LINE, SL, PATIENT A/OX3 ABLE TO MAKE NEEDS KNOWN, ON O2 INHALATION AT 2LPM SATURATING WELL, PATIENT KEPT CLEAN AND DRY ALL NEEDS MET WILL CONTINUE TO MONITOR.
[2021-07-02] MEDS: SIMETHICONE 80 MG TAB.CHEW PO PRN (22:57)
[2021-07-02] MEDS: INSULIN REGULAR, HUMAN 100 UNIT/ML 3 ML VIAL SQ PRN (23:02)
[2021-07-03] VITALS: BP 115/42
[2021-07-03 04:00] VITALS: BP 106/44
[2021-07-03] MEDS: MORPHINE SULFATE INJ 2 MG/ML DISP.SYRIN IV PRN ×3 (04:06→21:48)
[2021-07-03] MEDS: MIDODRINE HCL (5MG) 5 MG TABLET PO SCH ×3 (05:11→21:24)
--- NOTE | 2021-07-03 06:21 | NUR ---
RN CLOSING NOTES; PATIENT SLEEP IN BED COMFORTABLY, BED IN LOW POSITION, CALL LIGHTS WITHIN REACH, NO COMPLAIN OF PAIN AND DISCOMFORT AT THIS TIME, ON TELE MONITORING, SB-59, PATIENT IS A/OX4 ABLE TO MAKE NEEDS KNOWN, WITH RIGHT ARM #20 AND RT FEMORAL PICK LINE, RCW HD PORT, ON 02 INHALATION AT 2,LPM SATURATING WELL, PATIENT NOCTURNAL BPAP, KEPT CLEAN AND DRY ALL NEEDS MET ENDORSE TO INCOMING SHIFT.
[2021-07-03] MEDS: BLOOD SUGAR DIAGNOSTIC 1 EACH STRIP IN SCH ×4 (07:41→21:44)
[2021-07-03] MEDS: INSULIN REGULAR, HUMAN 100 UNIT/ML 3 ML VIAL SQ PRN ×4 (07:42→21:45)
[2021-07-03 08:00] VITALS: BP 105/52
[2021-07-03] MEDS: NEPRO VAN 237 ML CAN PO SCH ×3 (08:00→17:34)
--- NOTE | 2021-07-03 08:22 | NUR ---
RN OPENING NOTE RECEIVED PATIENT IN BED, AO X 3, IN NO S/SX OF ACUTE DISTRESS AT THIS TIME. ON 2 LITTERS NC NO SHORTNESS OF BREATH NOTED. PATIENT HAS PICTAIL LINE TO H20 SEAL. AND 40CC OUTPUT. PATIENT HAS RIGHT FEMORAL PICC LINE AND FLUSHING WELL, NO S/S OF INFECTION OR INFILTRATION. SAFETY MEASURES IMPLEMENTED. PATIENT BED ALARM IS ON. HEAD OF BED ELEVATED. BED IS LOCKED, IN LOWEST POSITION AND SIDE RAILS UP. CALL LIGHT WITHIN REACH OF THE PATIENT. WILL CONTINUE TO MONITOR AND REASSESS FOR ANY CHANGES.
[2021-07-03] MEDS: CITRIC ACID/SODIUM CITRATE (BICITRA)15 ML UDC PO SCH ×4 (08:51→21:00)
[2021-07-03] MEDS: VIT B CMPLX 3/FA/VIT C/BIOTIN 1 TAB TABLET PO SCH (08:51)
[2021-07-03] MEDS: ATORVASTATIN 10 MG TABLET PO SCH (08:52)
[2021-07-03] MEDS: CHOLECALCIFEROL 1,000 UNIT TABLET (VIT D3) PO SCH (08:52)
[2021-07-03] MEDS: DOCUSATE SODIUM 100 MG CAPSULE PO SCH (08:52)
[2021-07-03] MEDS: ASPIRIN 81 MG TAB.CHEW PO SCH (08:52)
[2021-07-03] MEDS: ASCORBIC ACID 500 MG TABLET PO SCH (08:53)
[2021-07-03] MEDS: FERROUS SULFATE (325 MG) 325 MG/TAB TABLET PO SCH ×2 (08:53→17:32)
[2021-07-03] MEDS: GUAIFENESIN LA 600 MG TABLET.SA PO SCH ×2 (08:53→21:18)
[2021-07-03] MEDS: DORZOLAMIDE OPTH 2% 10 ML BOTTLE EACHEYE SCH ×3 (08:54→17:34)
[2021-07-03] MEDS: LOSARTAN POTASSIUM 25 MG TABLET PO SCH (09:00)
[2021-07-03] MEDS: SIMETHICONE 80 MG TAB.CHEW PO PRN (09:03)
[2021-07-03 11:32] LABS: BASOPHILS % (AUTO) 0.4 % (0.0-2.0); EOSINOPHILS % (AUTO) 3.3 % (0.0-6.0); HEMATOCRIT 33 % (33-45); LYMPHOCYTES # (AUTO) 0.8 K/uL (0.8-4.8); LYMPHOCYTES % (AUTO) 9.4 % (20.0-44.0); MEAN CORPUSCULAR HGB CONC 31 g/dl (31.0-36.0); MEAN CORPUSCULAR VOLUME 104 fL (82-100); MONOCYTES # (AUTO) 0.8 K/uL (0.1-1.30); MONOCYTES % (AUTO) 9.4 % (2.0-12.0); NEUTROPHILS # (AUTO) 6.6 K/uL (1.8-8.9); NEUTROPHILS % (AUTO) 77.5 % (43.0-81.0); PLATELET COUNT (AUTO) 133 K/uL (150-450); RED BLOOD CELL COUNT(AUTO) 3.11 MIL/uL (4.0-5.2); WHITE BLOOD COUNT (AUTO) 8.5 K/uL (4.3-11.0)
[2021-07-03 12:00] VITALS: BP 98/49
[2021-07-03 12:11] LABS: CREATININE 5.6 mg/dL (0.6-1.3); MAGNESIUM 2.5 mg/dL (1.8-2.4); PHOSPHORUS 4.2 mg/dL (2.5-4.9); POTASSIUM 5.1 mmol/L (3.5-5.1)
[2021-07-03 12:23] LABS: CALCIUM, SERUM 9.1 mg/dL (8.5-10.1)
[2021-07-03] MEDS: OCTREOTIDE 50 MCG/ML AMPUL SQ SCH ×3 (13:13→17:36)
[2021-07-03] MEDS: POLYETHYLENE GLYCOL 3350 17 GM POWD.PACK PO SCH (14:01)
[2021-07-03] MEDS: GABAPENTIN 100 MG CAPSULE PO SCH (14:02)
[2021-07-03 16:00] VITALS: BP 87/50
[2021-07-03] MEDS: LATANOPROST EYE DROP 0.005% 2.5 ML BOTTLE EACHEYE SCH (17:32)
[2021-07-03] MEDS: APIXABAN 2.5 MG TABLET PO SCH (17:33)
[2021-07-03 20:00] VITALS: BP 127/58
--- NOTE | 2021-07-03 20:00 | NUR ---
RECEIVED PATIENT IN BED, ALERT/ORIENTED X4, 2LPM VIA NC, PLEURAL EFFUSION, RIGHT CHEST PIGTAIL CONNECTED TO CHEST TUBE, SEROSANGUINEOUS DRAINAGE, ESRD ON HD, LEFT UPPER ARM AV SHUNT, NO BP TO LEFT AND RIGHT ARM. SACRAL DECUB, PER REPORT, LAST HD 07/03/22, OUTPUT 500 ML.
--- NOTE | 2021-07-03 20:27 | NUR ---
RN CLOSING NOTES:: PATIENT IN BED, A/O X 3. ON O2 VIA NC AT 2L. TOLERATING WELL. ON TELE MONITOR SINUS RHYTHM. NO SOB. NO ACUTE DISTRESS NOTED. IV ACCESS NOTED AT RFA # 20, R CW PERMACATH, R FEMORAL TRIPLE LUMEN PICC LINE PATENT AND INTACT, FLUSHES WELL. WITH R PIGTAIL DRAINAGE 120CC IN THIS SHIFT. 500CC OUTPUT FOR DIALYSIS. ALL DUE MEDS GIVEN. ALL NEEDS ATTENDED TO. TURNED AND REPOSITIONED. KEPT PT CLEAN AND DRY. ALL SAFETY MEASURES MAINTAINED. HOB ELEVATED, CALL LIGHT WITHIN REACH, BED IN THE LOWEST POSITION AND LOCKED. BED ALARM ON. WILL ENDORSE TO ELECTRONIC ENGRAVER
[2021-07-04 00:43] VITALS: BP 119/60
[2021-07-04] MEDS: MORPHINE SULFATE INJ 2 MG/ML DISP.SYRIN IV PRN ×2 (02:33→21:16)
[2021-07-04 04:00] VITALS: BP 113/60
[2021-07-04] MEDS: MIDODRINE HCL (5MG) 5 MG TABLET PO SCH ×3 (04:49→21:07)
--- NOTE | 2021-07-04 06:45 | NUR ---
ALERT/ORIENTED X4, 2LPM VIA NC, PLEURAL EFFUSION, RIGHT CHEST PIGTAIL CONNECTED TO CHEST TUBE, SEROSANGUINEOUS DRAINAGE, TELE READING SR, BP LOW, ON MIDORINE 10 MG Q8HRS, NO BP TO RIGHT AND LEFT ARMS, MORPHINE 1 MG IV Q4HRS WITH ADEQUATE RELIEF, POOR PO INTAKE, REMOVED CCHO RESTRICTIONS, ON RENAL HIGH PROTEIN DIET, CONTINUE PLEURAL EFFUSION DRAIN.
[2021-07-04] MEDS: INSULIN REGULAR, HUMAN 100 UNIT/ML 3 ML VIAL SQ PRN ×3 (06:49→18:05)
[2021-07-04] MEDS: BLOOD SUGAR DIAGNOSTIC 1 EACH STRIP IN SCH ×4 (06:52→21:24)
[2021-07-04 07:26] LABS: BASOPHILS % (AUTO) 0.6 % (0.0-2.0); EOSINOPHILS % (AUTO) 4.2 % (0.0-6.0); HEMATOCRIT 31 % (33-45); HEMOGLOBIN 9.7 g/dL (11.5-14.8); LYMPHOCYTES # (AUTO) 0.9 K/uL (0.8-4.8); LYMPHOCYTES % (AUTO) 11.5 % (20.0-44.0); MEAN CORPUSCULAR HGB CONC 31 g/dl (31.0-36.0); MEAN CORPUSCULAR VOLUME 103 fL (82-100); MONOCYTES # (AUTO) 0.8 K/uL (0.1-1.30); MONOCYTES % (AUTO) 10.5 % (2.0-12.0); NEUTROPHILS # (AUTO) 5.7 K/uL (1.8-8.9); NEUTROPHILS % (AUTO) 73.2 % (43.0-81.0); PLATELET COUNT (AUTO) 123 K/uL (150-450); RED BLOOD CELL COUNT(AUTO) 3.02 MIL/uL (4.0-5.2); WHITE BLOOD COUNT (AUTO) 7.8 K/uL (4.3-11.0)
[2021-07-04 07:38] LABS: CALCIUM, SERUM 8.7 mg/dL (8.5-10.1); CREATININE 3.7 mg/dL (0.6-1.3); MAGNESIUM 2.2 mg/dL (1.8-2.4); PHOSPHORUS 3.5 mg/dL (2.5-4.9); POTASSIUM 4.3 mmol/L (3.5-5.1)
--- NOTE | 2021-07-04 07:43 | NUR ---
RN OPENING NOTE RECEIVED PATIENT IN BED, AO X 3, IN NO S/SX OF ACUTE DISTRESS AT THIS TIME. ON 2 LITTERS NC NO SHORTNESS OF BREATH NOTED. PATIENT HAS PICTAIL LINE DRAIN BY GRAVITY. AND 90CC OUTPUT. PATIENT HAS RIGHT FEMORAL PICC LINE AND FLUSHING WELL, NO S/S OF INFECTION OR INFILTRATION. SAFETY MEASURES IMPLEMENTED. PATIENT BED ALARM IS ON. HEAD OF BED ELEVATED. BED IS LOCKED, IN LOWEST POSITION AND SIDE RAILS UP. CALL LIGHT WITHIN REACH OF THE PATIENT. WILL CONTINUE TO MONITOR AND REASSESS FOR ANY CHANGES.
[2021-07-04 08:00] VITALS: BP 105/54
[2021-07-04] MEDS: NEPRO VAN 237 ML CAN PO SCH ×3 (08:06→16:29)
[2021-07-04] MEDS: APIXABAN 2.5 MG TABLET PO SCH ×2 (08:46→16:28)
[2021-07-04] MEDS: CITRIC ACID/SODIUM CITRATE (BICITRA)15 ML UDC PO SCH ×4 (08:47→21:00)
[2021-07-04] MEDS: VIT B CMPLX 3/FA/VIT C/BIOTIN 1 TAB TABLET PO SCH (08:48)
[2021-07-04] MEDS: ASCORBIC ACID 500 MG TABLET PO SCH (08:48)
[2021-07-04] MEDS: DOCUSATE SODIUM 100 MG CAPSULE PO SCH (08:48)
[2021-07-04] MEDS: OCTREOTIDE 50 MCG/ML AMPUL SQ SCH ×3 (08:48→16:28)
[2021-07-04] MEDS: GUAIFENESIN LA 600 MG TABLET.SA PO SCH ×2 (08:48→21:06)
[2021-07-04] MEDS: FERROUS SULFATE (325 MG) 325 MG/TAB TABLET PO SCH ×2 (08:48→16:25)
[2021-07-04] MEDS: DORZOLAMIDE OPTH 2% 10 ML BOTTLE EACHEYE SCH ×3 (08:48→16:25)
[2021-07-04] MEDS: CHOLECALCIFEROL 1,000 UNIT TABLET (VIT D3) PO SCH (08:48)
[2021-07-04] MEDS: LOSARTAN POTASSIUM 25 MG TABLET PO SCH ×2 (08:49→09:00)
[2021-07-04] MEDS: ATORVASTATIN 10 MG TABLET PO SCH (08:49)
[2021-07-04] MEDS: ASPIRIN 81 MG TAB.CHEW PO SCH (08:51)
[2021-07-04 12:00] VITALS: BP 102/55
[2021-07-04] MEDS: POLYETHYLENE GLYCOL 3350 17 GM POWD.PACK PO SCH (12:55)
[2021-07-04 16:00] VITALS: BP 100/48
[2021-07-04] MEDS: LATANOPROST EYE DROP 0.005% 2.5 ML BOTTLE EACHEYE SCH (18:06)
--- NOTE | 2021-07-04 19:04 | NUR ---
PATIENT CHEST TUBE [facility] CHANGED BY CHARGE NURSE SOON PATIENT HAD 450 CC OUTPUT.
--- NOTE | 2021-07-04 19:07 | NUR ---
RN CLOSING NOTES:: PATIENT IN BED, A/O X 3. ON O2 VIA NC AT 2L. TOLERATING WELL. ON TELE MONITOR SINUS RHYTHM. NO SOB. NO ACUTE DISTRESS NOTED. IV ACCESS NOTED AT RFA # 20, R CW PERMACATH, R FEMORAL TRIPLE LUMEN PICC LINE PATENT AND INTACT, FLUSHES WELL. WITH R PIGTAIL DRAINAGE 120CC IN THIS SHIFT. 460CC DRAINAGE FROM PIGTAIL TUBE FROM CHEST. ALL DUE MEDS GIVEN. ALL NEEDS ATTENDED TO. TURNED AND REPOSITIONED. KEPT PT CLEAN AND DRY. ALL SAFETY MEASURES MAINTAINED. HOB ELEVATED, CALL LIGHT WITHIN REACH, BED IN THE LOWEST POSITION AND LOCKED. BED ALARM ON. WILL ENDORSE TO DENTIST ATTENDANT
--- NOTE | 2021-07-04 19:25 | NUR ---
RN NOTE RECEIVED PT AWAKE IN BED, A/OX3. SHE DENIES PAIN AT THIS TIME. RESPIRATIONS EVEN/UNLABORED. WITH PIGTAIL DRAIN TO PLEUR-EVAC IN PLACE AND FUNCTIONING WELL. WITH R-UPPER CHEST HD CATH INTACT, DRESSING C/D/I. R-FEMORAL PICC LINE INTACT, DRESSING C/D/I. IV ACCESS TO RFA #20G INTACT/PATENT/FLUSHES WELL. ON TELE MONITOR, READING SR, HR 64. PT IN NO ACUTE DISTRESS. SAFETY MEASURES IN PLACE. WILL CONT TO MONITOR.
[2021-07-04 20:00] VITALS: BP 108/53
[2021-07-04] MEDS: SIMETHICONE 80 MG TAB.CHEW PO PRN (21:13)
--- NOTE | 2021-07-04 23:00 | NUR ---
RT PT REFUSING BIPAP, RISKS AND BENEFITS EXPLAINED. NO RESP DISTRESS NOTED AT THIS TIME.
[2021-07-05] VITALS: BP 90/50
[2021-07-05 04:00] VITALS: BP 112/59
[2021-07-05] MEDS: MIDODRINE HCL (5MG) 5 MG TABLET PO SCH ×3 (05:06→21:37)
[2021-07-05] MEDS: MORPHINE SULFATE INJ 2 MG/ML DISP.SYRIN IV PRN ×2 (06:40→16:57)
[2021-07-05] MEDS: BLOOD SUGAR DIAGNOSTIC 1 EACH STRIP IN SCH ×4 (07:01→22:15)
[2021-07-05 07:09] LABS: BASOPHILS % (AUTO) 0.6 % (0.0-2.0); EOSINOPHILS % (AUTO) 4.6 % (0.0-6.0); HEMATOCRIT 33 % (33-45); LYMPHOCYTES # (AUTO) 1.2 K/uL (0.8-4.8); LYMPHOCYTES % (AUTO) 15.2 % (20.0-44.0); MEAN CORPUSCULAR HGB CONC 31 g/dl (31.0-36.0); MEAN CORPUSCULAR VOLUME 104 fL (82-100); MONOCYTES # (AUTO) 0.8 K/uL (0.1-1.30); MONOCYTES % (AUTO) 10.6 % (2.0-12.0); NEUTROPHILS # (AUTO) 5.3 K/uL (1.8-8.9); PLATELET COUNT (AUTO) 144 K/uL (150-450); RED BLOOD CELL COUNT(AUTO) 3.13 MIL/uL (4.0-5.2); WHITE BLOOD COUNT (AUTO) 7.6 K/uL (4.3-11.0)
[2021-07-05 07:11] LABS: CALCIUM, SERUM 8.9 mg/dL (8.5-10.1); CREATININE 4.7 mg/dL (0.6-1.3); MAGNESIUM 2.3 mg/dL (1.8-2.4); POTASSIUM 4.6 mmol/L (3.5-5.1)
--- NOTE | 2021-07-05 07:35 | NUR ---
RN OPENING NOTE RECEIVED PATIENT AWAKE IN BED, ALERT/ORIENTEDX3, ABLE TO MAKE NEEDS KNOWN. RESPIRATIONS EVEN AND UNLABORED. NO ACUTE DISTRESS NOTED AT THE TIME. WITH PIGTAIL DRAIN TO PLEUR-EVAC IN PLACE AND FUNCTIONING WELL. WITH R-UPPER CHEST HD CATH INTACT. R-FEMORAL PICC LINE INTACT. IV ACCESS TO RFA #20G INTACT, PATENT AND FLUSHES WELL. ALL SAFETY MEASURES IN PLACE. HOB ELEVATED, BED LOCKED AND IN LOWEST POSITION WITH SIDE RAILS UP. WILL CONT TO MONITOR PATIENT ACCORDINGLY.
[2021-07-05 08:00] VITALS: BP 136/60
[2021-07-05] MEDS: VIT B CMPLX 3/FA/VIT C/BIOTIN 1 TAB TABLET PO SCH (09:02)
[2021-07-05] MEDS: ASPIRIN 81 MG TAB.CHEW PO SCH (09:02)
[2021-07-05] MEDS: NEPRO VAN 237 ML CAN PO SCH ×3 (09:02→16:31)
[2021-07-05] MEDS: FERROUS SULFATE (325 MG) 325 MG/TAB TABLET PO SCH ×2 (09:02→16:36)
[2021-07-05] MEDS: CITRIC ACID/SODIUM CITRATE (BICITRA)15 ML UDC PO SCH ×4 (09:02→21:36)
[2021-07-05] MEDS: DOCUSATE SODIUM 100 MG CAPSULE PO SCH (09:03)
[2021-07-05] MEDS: LOSARTAN POTASSIUM 25 MG TABLET PO SCH (09:03)
[2021-07-05] MEDS: GUAIFENESIN LA 600 MG TABLET.SA PO SCH ×2 (09:03→21:37)
[2021-07-05] MEDS: CHOLECALCIFEROL 1,000 UNIT TABLET (VIT D3) PO SCH (09:03)
[2021-07-05] MEDS: ASCORBIC ACID 500 MG TABLET PO SCH (09:03)
[2021-07-05] MEDS: ATORVASTATIN 10 MG TABLET PO SCH (09:03)
[2021-07-05] MEDS: APIXABAN 2.5 MG TABLET PO SCH ×2 (09:04→16:38)
[2021-07-05] MEDS: DORZOLAMIDE OPTH 2% 10 ML BOTTLE EACHEYE SCH ×3 (09:06→16:36)
[2021-07-05] MEDS: OCTREOTIDE 50 MCG/ML AMPUL SQ SCH ×3 (09:08→16:36)
[2021-07-05] MEDS: SIMETHICONE 80 MG TAB.CHEW PO PRN (09:50)
[2021-07-05 12:00] VITALS: BP 109/56
[2021-07-05] MEDS: INSULIN REGULAR, HUMAN 100 UNIT/ML 3 ML VIAL SQ PRN (12:07)
[2021-07-05 16:00] VITALS: BP 128/61
[2021-07-05] MEDS: LATANOPROST EYE DROP 0.005% 2.5 ML BOTTLE EACHEYE SCH (17:49)
--- NOTE | 2021-07-05 19:32 | NUR ---
RN CLOSING NOTE NO SIGNIFICANT CHANGES THROUGHOUT SHIFT. PATIENT AWAKE IN BED, ALERT/ORIENTEDX3, ABLE TO MAKE NEEDS KNOWN. RESPIRATIONS EVEN AND UNLABORED. NO ACUTE DISTRESS NOTED AT THE TIME. WITH PIGTAIL DRAIN TO PLEUR-EVAC IN PLACE AND FUNCTIONING WELL. ALL DUE MEDS GIVEN ORDERED. ALL NEEDS ANTICIPATED. KEPT PATIENT CLEAN DRY AND COMFORTABLE. WOUND CARE RENDERED, TOLERATED WELL. ALL SAFETY MEASURES IN PLACE. HOB ELEVATED, BED LOCKED AND IN LOWEST POSITION WITH SIDE RAILS UP. ENDORSED TO MEAT SPECIALIST NURSE FOR CONTINUITY OF CARE.
[2021-07-05 20:00] VITALS: BP 102/46
--- NOTE | 2021-07-05 23:00 | NUR ---
RT NOTE PATIENT REFUSING TO USE NOC BIPAP AT THIS TIME. EXPLAINED PURPOSE AND BENEFITS OF BIPAP BUT PATIENT STILL REFUSING. NO SIGNS OF RESPIRATORY DISTRESS AT THIS TIME. PATIENT IS COMFORTABLE ON NASAL CANNULA. PRIMARY NURSE NOTIFIED AND AWARE.
[2021-07-06] VITALS (7 sets, daily range): BP systolic 104–131; BP diastolic 44–74
[2021-07-06] MEDS: ACETAMINOPHEN 325 MG TABLET PO PRN (01:10)
[2021-07-06] MEDS: HYDROCODONE/APAP 5/325MG TABLET PO PRN ×4 (01:46→22:31)
--- NOTE | 2021-07-06 01:46 | NUR ---
OPERATOR COATING FURNACE NOTE PT C/O RT ARM PAIN 08/21, NORCO 1 TAB PO GIVEN. CONTINUE TO MONITOR HER.
--- NOTE | 2021-07-06 02:46 | NUR ---
CEMENT FINISHER NOTE PAIN SUBSIDED /10, PT FALLING ASLEEP, AROUSABLE. NO DISTRESS NOTED.
[2021-07-06] MEDS: MIDODRINE HCL (5MG) 5 MG TABLET PO SCH ×3 (05:23→21:58)
[2021-07-06] MEDS: SIMETHICONE 80 MG TAB.CHEW PO PRN (06:30)
--- NOTE | 2021-07-06 07:40 | NUR ---
RN OPENING NOTE RECEIVED PATIENT IN BED EYES CLOSE, RESPIRATIONS EVEN AND UNLABORED ON O2 WITH 2LMP VIA NC. NO ACUTE DISTRESS NOTED AT THE TIME. WITH PIGTAIL DRAIN TO PLEUR-EVAC IN PLACE AND FUNCTIONING WELL. WITH R-UPPER CHEST HD CATH INTACT. R-FEMORAL PICC LINE INTACT. IV ACCESS TO RFA #20G INTACT, PATENT AND FLUSHES WELL. ALL SAFETY MEASURES IN PLACE. HOB ELEVATED, BED LOCKED AND IN LOWEST POSITION WITH SIDE RAILS UP. WILL CONT TO MONITOR PATIENT ACCORDINGLY.
[2021-07-06] MEDS: BLOOD SUGAR DIAGNOSTIC 1 EACH STRIP IN SCH ×4 (08:34→22:12)
[2021-07-06] MEDS: NEPRO VAN 237 ML CAN PO SCH ×3 (08:35→16:52)
[2021-07-06] MEDS: DORZOLAMIDE OPTH 2% 10 ML BOTTLE EACHEYE SCH ×3 (08:35→16:48)
[2021-07-06] MEDS: FERROUS SULFATE (325 MG) 325 MG/TAB TABLET PO SCH ×2 (08:36→16:48)
[2021-07-06] MEDS: VIT B CMPLX 3/FA/VIT C/BIOTIN 1 TAB TABLET PO SCH (08:36)
[2021-07-06] MEDS: GUAIFENESIN LA 600 MG TABLET.SA PO SCH ×2 (08:36→21:57)
[2021-07-06] MEDS: DOCUSATE SODIUM 100 MG CAPSULE PO SCH (08:37)
[2021-07-06] MEDS: CHOLECALCIFEROL 1,000 UNIT TABLET (VIT D3) PO SCH (08:37)
[2021-07-06] MEDS: ATORVASTATIN 10 MG TABLET PO SCH (08:37)
[2021-07-06] MEDS: ASPIRIN 81 MG TAB.CHEW PO SCH (08:37)
[2021-07-06] MEDS: ASCORBIC ACID 500 MG TABLET PO SCH (08:37)
[2021-07-06] MEDS: APIXABAN 2.5 MG TABLET PO SCH ×2 (08:38→16:49)
[2021-07-06] MEDS: LOSARTAN POTASSIUM 25 MG TABLET PO SCH (08:46)
[2021-07-06] MEDS: OCTREOTIDE 50 MCG/ML AMPUL SQ SCH ×3 (08:47→16:48)
[2021-07-06] MEDS: CITRIC ACID/SODIUM CITRATE (BICITRA)15 ML UDC PO SCH ×5 (08:51→21:57)
[2021-07-06] MEDS: ALBUMIN 25% 25 GM in PREMIX 1 EA IV PRN (09:10)
[2021-07-06] MEDS: POLYETHYLENE GLYCOL 3350 17 GM POWD.PACK PO SCH (12:12)
[2021-07-06] MEDS: GABAPENTIN 100 MG CAPSULE PO SCH (12:12)
[2021-07-06] MEDS: INSULIN REGULAR, HUMAN 100 UNIT/ML 3 ML VIAL SQ PRN (16:50)
[2021-07-06] MEDS: LATANOPROST EYE DROP 0.005% 2.5 ML BOTTLE EACHEYE SCH (17:05)
--- NOTE | 2021-07-06 19:30 | NUR ---
pt firmly refused seb at this time Addendum: 07/06/21 at 2342 by BRIANDA THOMAS Amended: Links added.
--- NOTE | 2021-07-06 19:40 | NUR ---
RN CLOSING NOTE NO SIGNIFICANT CHANGES THROUGHOUT SHIFT. PATIENT SLEEPING IN BED, RESPIRATIONS EVEN AND UNLABORED. NO ACUTE DISTRESS NOTED AT THE TIME. WITH PIGTAIL DRAIN TO PLEUR-EVAC IN PLACE AND FUNCTIONING WELL. ALL DUE MEDS GIVEN ORDERED. ALL NEEDS ANTICIPATED. KEPT PATIENT CLEAN DRY AND COMFORTABLE. WOUND CARE RENDERED, TOLERATED WELL. ALL SAFETY MEASURES IN PLACE. HOB ELEVATED, BED LOCKED AND IN LOWEST POSITION WITH SIDE RAILS UP. ENDORSED TO CHECKER LOADER NURSE FOR CONTINUITY OF CARE.
--- NOTE | 2021-07-06 22:12 | NUR ---
RN NOTES: PT'S BLOOD SUGAR 92. NO COVERAGE NEEDED. NO S/S OF HYPER/HYPOGLYCEMIA WILL CONTINUE TO MONITOR
--- NOTE | 2021-07-06 22:20 | NUR ---
RN NOTES: PT STRONGLY REFUSED BICITRA FLORENTIN, OFFERED 3X AND EXPLAINED THE RISK AND BENEFITS BUT STILL REFUSED. WILL CONTINUE TO MONITOR
--- NOTE | 2021-07-06 22:33 | NUR ---
RN NOTES: PT C/O GENERALIZED BODY PAIN, 7/10 PAIN SCALE. NORCO 5/325 MG TAB GIVEN. WILL CONTINUE TO MONITOR
[2021-07-07] VITALS: BP 114/79
[2021-07-07 04:00] VITALS: BP 106/87
[2021-07-07] MEDS: MIDODRINE HCL (5MG) 5 MG TABLET PO SCH ×3 (06:10→21:57)
--- NOTE | 2021-07-07 06:30 | NUR ---
RN CLOSING NOTES: PATIENT IN BED SLEEPING, BUT EASILY AROUSABLE, A/OX4 AND VERBALLY RESPONSIVE. BREATHING EVEN AND UNLABORED. ON O2 AT VIA N/C O2 SAT 95%. WITH PIGTAIL DRAIN TO PLEUR-EVAC IN PLACE AND FUNCTIONING WELL. DRAINAGE NOTED 50CC. R-UPPER CHEST HD CATH INTACT. R-FEMORAL PICC LINE INTACT AND PATENT. IV ACCESS TO RFA #20G INTACT AND PATENT. NO S/S OF INFILTRATIONS. NO C/O PAIN OR DISCOMFORT. NO ACUTE DISTRESS. ALL SAFETY MEASURES IN PLACE. HOB ELEVATED, BED IN LOWEST POSITION AND LOCKED. SIDE RAILS UP X3, PLACE CALL LIGHT WITH IN REACH. WILL ENDORSE TO MORNING SHIFT NURSE.
--- NOTE | 2021-07-07 07:30 | NUR ---
RN OPENING NOTES RECEIVED PATIENT IN AWAKE IN BED. VERBALLY RESPONSIVE. NOT IN DISTRESS NO COMPLAINTS OF PAIN NOTED. 02 @ 2LPM VIA NC SATING 98%. RIGHT UPPER BACK PIGTAIL IN PLACE TO CHEST TUBE. RIGHT CHEST PERMACATH IN PLACE NO BLEEDING NOTED. BRANDON AV SHUNT NO BLEEDINGH NO\RIGHT FEMORAL PICC LINE PATENT AND INTACT. Addendum: 07/07/21 at 0757 by CHASTITY CAICEDO RN BRANDON AV SHUNT NO BLEEDING NOTED. RIGHT FEMORAL PICC LINE PATENT AND INTACT. KEPT HOB ELEVATED. BED TO LOWEST POSITION AND LOCKED. CALL LIGHT WITHIN REACH.
[2021-07-07 07:40] LABS: BASOPHILS % (AUTO) 0.5 % (0.0-2.0); EOSINOPHILS % (AUTO) 4.8 % (0.0-6.0); HEMATOCRIT 30 % (33-45); HEMOGLOBIN 9.5 g/dL (11.5-14.8); LYMPHOCYTES # (AUTO) 1.1 K/uL (0.8-4.8); LYMPHOCYTES % (AUTO) 14.1 % (20.0-44.0); MEAN CORPUSCULAR HGB CONC 32 g/dl (31.0-36.0); MEAN CORPUSCULAR VOLUME 104 fL (82-100); MONOCYTES # (AUTO) 0.9 K/uL (0.1-1.30); MONOCYTES % (AUTO) 11.8 % (2.0-12.0); NEUTROPHILS # (AUTO) 5.2 K/uL (1.8-8.9); NEUTROPHILS % (AUTO) 68.8 % (43.0-81.0); PLATELET COUNT (AUTO) 131 K/uL (150-450); RED BLOOD CELL COUNT(AUTO) 2.89 MIL/uL (4.0-5.2); WHITE BLOOD COUNT (AUTO) 7.6 K/uL (4.3-11.0)
[2021-07-07 07:50] LABS: CALCIUM, SERUM 8.8 mg/dL (8.5-10.1); CREATININE 4.2 mg/dL (0.6-1.3); POTASSIUM 4.1 mmol/L (3.5-5.1)
[2021-07-07 08:00] VITALS: BP 112/47
[2021-07-07] MEDS: NEPRO VAN 237 ML CAN PO SCH ×3 (08:00→16:56)
[2021-07-07] MEDS: CITRIC ACID/SODIUM CITRATE (BICITRA)15 ML UDC PO SCH ×6 (09:00→21:56)
[2021-07-07] MEDS: BLOOD SUGAR DIAGNOSTIC 1 EACH STRIP IN SCH ×4 (09:21→21:57)
[2021-07-07] MEDS: DORZOLAMIDE OPTH 2% 10 ML BOTTLE EACHEYE SCH ×3 (09:21→16:55)
[2021-07-07] MEDS: OCTREOTIDE 50 MCG/ML AMPUL SQ SCH ×3 (09:22→16:56)
[2021-07-07] MEDS: CHOLECALCIFEROL 1,000 UNIT TABLET (VIT D3) PO SCH (09:23)
[2021-07-07] MEDS: VIT B CMPLX 3/FA/VIT C/BIOTIN 1 TAB TABLET PO SCH (09:23)
[2021-07-07] MEDS: ASCORBIC ACID 500 MG TABLET PO SCH (09:23)
[2021-07-07] MEDS: ASPIRIN 81 MG TAB.CHEW PO SCH (09:23)
[2021-07-07] MEDS: DOCUSATE SODIUM 100 MG CAPSULE PO SCH (09:23)
[2021-07-07] MEDS: GUAIFENESIN LA 600 MG TABLET.SA PO SCH ×2 (09:23→21:56)
[2021-07-07] MEDS: APIXABAN 2.5 MG TABLET PO SCH ×2 (09:25→16:57)
[2021-07-07] MEDS: ATORVASTATIN 10 MG TABLET PO SCH (09:27)
[2021-07-07] MEDS: LOSARTAN POTASSIUM 25 MG TABLET PO SCH (09:27)
[2021-07-07] MEDS: FERROUS SULFATE (325 MG) 325 MG/TAB TABLET PO SCH ×2 (09:34→16:56)
[2021-07-07] MEDS: SIMETHICONE 80 MG TAB.CHEW PO PRN (09:57)
[2021-07-07] MEDS: HYDROCODONE/APAP 5/325MG TABLET PO PRN ×2 (09:57→22:31)
[2021-07-07 12:00] VITALS: BP 111/41
[2021-07-07] MEDS: INSULIN REGULAR, HUMAN 100 UNIT/ML 3 ML VIAL SQ PRN ×2 (13:15→17:19)
[2021-07-07 16:00] VITALS: BP 94/48
[2021-07-07] MEDS: LATANOPROST EYE DROP 0.005% 2.5 ML BOTTLE EACHEYE SCH (17:49)
--- NOTE | 2021-07-07 18:39 | NUR ---
RN CLOSING NOTES PATIENT ASLEEP IN BED, RESPOSIVE TO VERBAL STIMULI. NOT IN DISTRESS, PRN PAIN MEDS GIVEN. O2 @ 2LPM VIA NC SATING 99%. RIGHT UPPER BACK PIGTAIL INTACT TO CHEST TUBE NO DRAINAGE NOTED. KEPT HOB ELEVATED. BED TO LOWEST POSITION AND LOCKED. CALL LIGHT WITHIN REACH. WILL ENDORSE TO NIGHT NURSE ON DUTY
--- NOTE | 2021-07-07 19:35 | NUR ---
RN NOTE RECEIVED PATIENT IN BED, SLEEPING, AROUSABLE TO NAME AND TOUCH. BREATHING EVEN AND UNLABORED. ON 2L/MIN NASAL CANNULA. TOLERATING WELL. NO S/S OF RESPIRATORY DISTRESS. ON TELE MONITORING. SINUS DANI AT 57 BPM. NO COMPLAINTS OF CHEST PAIN. SKIN WARM AND DRY. NOTED WITH RIGHT UPPER CHEST WALL PERMACATH. NO BLEEDING. NOTED LEFT UPPER ARM AV FISTULA, BRUIT/THRILL PRESENT. NO BLEEDING. RIGHT FOREARM 20G, AND RIGHT PICC LINE 3 LUMEN. NO IV FLUIDS RUNNING. NOTED WITH CHEST TUBE WITH PIGTAIL ON RIGHT UPPER BACK DRAINING BY GRAVITY. NO DRAINAGE AT THIS TIME. PATIENT REFUSED BODY CHECK ON BACK. NO SHORTNESS OF BREATH. BED LOW, IN LOCKED POSITION. CALL LIGHT WITHIN REACH.
[2021-07-07 20:00] VITALS: BP 111/54
--- NOTE | 2021-07-07 23:30 | NUR ---
RN NOTE PATIENT WAS COMPLAINING OF GENERALIZED BODY PAIN, RATING OF PAIN IS 7/10. ASSISTED WITH TURNING AND REPOSITIONING. OFFERED HEAT PACKS. NO RELIEF. ADMINISTERED NORCO 5-325 PRN PER MD ORDER. PATIENT FELT MORE COMFORTABLE AFTER REASSESSMENT. SLEEPING. WILL CONTINUE TO MONITOR.
[2021-07-08] VITALS: BP 108/67
[2021-07-08 04:00] VITALS: BP 125/59
[2021-07-08] MEDS: MIDODRINE HCL (5MG) 5 MG TABLET PO SCH ×3 (04:32→20:03)
[2021-07-08] MEDS: HYDROCODONE/APAP 5/325MG TABLET PO PRN ×2 (06:10→12:37)
[2021-07-08 06:12] LABS: CALCIUM, SERUM 8.8 mg/dL (8.5-10.1); CREATININE 5.3 mg/dL (0.6-1.3); MAGNESIUM 1.9 mg/dL (1.8-2.4); PHOSPHORUS 5.6 mg/dL (2.5-4.9); POTASSIUM 3.9 mmol/L (3.5-5.1)
[2021-07-08 06:35] LABS: BASOPHILS % (AUTO) 0.6 % (0.0-2.0); EOSINOPHILS % (AUTO) 4.5 % (0.0-6.0); HEMATOCRIT 30 % (33-45); HEMOGLOBIN 9.4 g/dL (11.5-14.8); LYMPHOCYTES % (AUTO) 13.2 % (20.0-44.0); MEAN CORPUSCULAR HGB CONC 32 g/dl (31.0-36.0); MEAN CORPUSCULAR VOLUME 101 fL (82-100); MONOCYTES # (AUTO) 0.6 K/uL (0.1-1.30); NEUTROPHILS # (AUTO) 5.4 K/uL (1.8-8.9); NEUTROPHILS % (AUTO) 73.7 % (43.0-81.0); PLATELET COUNT (AUTO) 161 K/uL (150-450); RED BLOOD CELL COUNT(AUTO) 2.94 MIL/uL (4.0-5.2); WHITE BLOOD COUNT (AUTO) 7.4 K/uL (4.3-11.0)
--- NOTE | 2021-07-08 06:37 | NUR ---
RN CLOSING NOTES NO SIGNIFICANT CHANGES DURING SHIFT, PATIENT AROUSABLE TO TOUCH, O2 SATURATION 100% AT 2L PMN, LEFT AV FISTULA INTACT, NO BLEEDING, WOUND DRESSING CHANGED, PT WA TURNED AND REPOSITIONED EVERY 2 HRS, DUE MEDS GIVEN PER MD ORDER, PAIN MEDICATION GIVEN NEEDED AFTER NON PHARMACOLOGICAL INTERVENTIONS WERE DONE AND W/OUT RELIEF. ALL NEEDS ATTENDED, BED LOW AND CALL LIGHT WITHIN REACH, WILL ENDORSE TO THE NEXT SHIFT.
--- NOTE | 2021-07-08 07:30 | NUR ---
RN OPENING NOTE RECEIVED PATIENT IN AWAKE IN BED. VERBALLY RESPONSIVE. A/0X4. NOT IN DISTRESS NO COMPLAINTS OF PAIN NOTED. 02 @ 2LPM VIA NC SATING 98%. BREATHING IS EVEN AND UNLABORED. RIGHT UPPER BACK PIGTAIL IN PLACE TO CHEST TUBE. RIGHT CHEST PERMACATH IN PLACE NO BLEEDING NOTED. BRANDON AV SHUNT NO BLEEDINGH NO\RIGHT FEMORAL PICC LINE PATENT AND INTACT. ALL SAFETY MEASURES NOTED. BED IN LOWEST POSITION AND WHEELS LOCKED IN PLACE. CALL LIGHT WITHIN REACH. WILL CONTINUE TO MONITOR.
[2021-07-08 08:00] VITALS: BP 122/60
[2021-07-08] MEDS: NEPRO VAN 237 ML CAN PO SCH ×3 (08:00→17:09)
[2021-07-08] MEDS: LOSARTAN POTASSIUM 25 MG TABLET PO SCH (09:00)
[2021-07-08] MEDS: BLOOD SUGAR DIAGNOSTIC 1 EACH STRIP IN SCH ×4 (09:06→22:33)
[2021-07-08] MEDS: DORZOLAMIDE OPTH 2% 10 ML BOTTLE EACHEYE SCH ×3 (09:07→17:09)
[2021-07-08] MEDS: CHOLECALCIFEROL 1,000 UNIT TABLET (VIT D3) PO SCH (09:11)
[2021-07-08] MEDS: GUAIFENESIN LA 600 MG TABLET.SA PO SCH ×2 (09:11→20:03)
[2021-07-08] MEDS: FERROUS SULFATE (325 MG) 325 MG/TAB TABLET PO SCH ×2 (09:11→17:09)
[2021-07-08] MEDS: VIT B CMPLX 3/FA/VIT C/BIOTIN 1 TAB TABLET PO SCH (09:11)
[2021-07-08] MEDS: ASPIRIN 81 MG TAB.CHEW PO SCH (09:11)
[2021-07-08] MEDS: ATORVASTATIN 10 MG TABLET PO SCH (09:12)
[2021-07-08] MEDS: ASCORBIC ACID 500 MG TABLET PO SCH (09:12)
[2021-07-08] MEDS: APIXABAN 2.5 MG TABLET PO SCH ×2 (09:13→17:12)
[2021-07-08] MEDS: DOCUSATE SODIUM 100 MG CAPSULE PO SCH (09:13)
[2021-07-08] MEDS: CITRIC ACID/SODIUM CITRATE (BICITRA)15 ML UDC PO SCH ×4 (09:13→20:03)
[2021-07-08] MEDS: OCTREOTIDE 50 MCG/ML AMPUL SQ SCH ×3 (09:15→17:09)
--- NOTE | 2021-07-08 09:30 | NUR ---
RN NOTE BP MEDS HELD IN AM DUE TO PT RECEIVING HEMODIALYSIS. WILL CONTINUE TO MONITOR.
[2021-07-08] MEDS: POLYETHYLENE GLYCOL 3350 17 GM POWD.PACK PO SCH (11:40)
[2021-07-08] MEDS: GABAPENTIN 100 MG CAPSULE PO SCH (11:40)
--- NOTE | 2021-07-08 11:41 | NUR ---
RN NOTE PT AFTERNOON MEDS HELD (GABAPENTIN, MIRALAX) DUE TO PATIENT RECEIVING HEMODIALYSIS. WILL CONTINUE TO MONITOR.
[2021-07-08 12:00] VITALS: BP 94/51
[2021-07-08 16:00] VITALS: BP 99/48
[2021-07-08] MEDS: LATANOPROST EYE DROP 0.005% 2.5 ML BOTTLE EACHEYE SCH (17:10)
[2021-07-08] MEDS: INSULIN REGULAR, HUMAN 100 UNIT/ML 3 ML VIAL SQ PRN ×2 (17:57→22:45)
--- NOTE | 2021-07-08 18:50 | NUR ---
RN CLOSING NOTE PT REMAINED STABLE THROUGHOUT SHIFT. PATIENT IN AWAKE IN BED. VERBALLY RESPONSIVE. A/0X4. NOT IN DISTRESS NO COMPLAINTS OF PAIN NOTED. 02 @ 2LPM VIA NC SATING 98%. BREATHING IS EVEN AND UNLABORED. RIGHT UPPER BACK PIGTAIL IN PLACE TO CHEST TUBE. DRAINED 450 ML. RIGHT CHEST PERMACATH IN PLACE NO BLEEDING NOTED. BRANDON AV SHUNT NO BLEEDING NO\RIGHT FEMORAL PICC LINE PATENT AND INTACT. ALL SAFETY MEASURES NOTED. BED IN LOWEST POSITION AND WHEELS LOCKED IN PLACE. CALL LIGHT WITHIN REACH. WILL ENDORSE TO ROOF BOLTING COAL MINER RN.
--- NOTE | 2021-07-08 19:50 | NUR ---
RN NOTE RECEIVED PATIENT IN BED, SLEEPING, AROUSABLE TO NAME AND TOUCH. AOX4 AND ABLE TO MAKE NEEDS KNOWN. BREATHING EVEN AND UNLABORED. NO SOB NOTED. ON 2L/MIN VIA NASAL CANNULA. NO S/S OF RESPIRATORY DISTRESS. HOB ELEVATED 35 DEGREES. ON TELE MONITORING SR AT 65 BPM. DENIES CHEST PAIN. SKIN WARM AND DRY. NOTED WITH RIGHT UPPER CHEST WALL PERMCATH, NO BLEEDING, DRESSING INTACT. LEFT UPPER ARM AV FISTULA. BRUIT/THRILL PRESENT, NO BLEEDING NOTED. RIGHT FOREARM 20G, PATENT. CHEST TUBE PRESENT ON RIGHT UPPER BACK. DRESSING INTACT. NO BLEEDING FROM SITE. DRAINING BY GRAVITY. NO KINKS. DRAINING WHITE/PINKISH DRAINAGE. ASSISTED WITH TURNING AND REPOSITIONING. BED LOW, IN LOCKED POSITION, CALL LIGHT WITHIN REACH.
[2021-07-08 20:00] VITALS: BP 105/49
--- NOTE | 2021-07-08 23:55 | NUR ---
RN NOTE PATIENT WAS COMPLAINING OF GENERALIZED BODY PAIN. RATES PAIN 7/10. ASSISTED WITH REPOSITIONING WITH NO RELIEF. PULLED OUT NORCO 5-325. WHEN RETURNED TO PATIENT ROOM, OFFERED THE MEDICATION BUT REFUSED AND STATED SHE DID NOT NEED IT AT THIS TIME. WILL CONTINUE TO MONITOR. CALL LIGHT WITHIN REACH.
[2021-07-09] VITALS (7 sets, daily range): BP systolic 105–133; BP diastolic 53–63
--- NOTE | 2021-07-09 02:07 | NUR ---
RT NOTE Pt refused bipap and shows no signs of resp distress or sob. RN aware. will continue to monitor. Addendum: 07/09/21 at 0208 by BARRETT DASILVA RT Amended: Links added.
[2021-07-09] MEDS: HYDROCODONE/APAP 5/325MG TABLET PO PRN (03:58)
--- NOTE | 2021-07-09 04:12 | NUR ---
RN NOTE PATIENT AWAKE, REQUESTED TO BE TURNED AND REPOSITIONED. ALSO COMPLAINING OF GENERALIZED BODY PAIN, RATES PAIN 7/10. REQUESTING FOR PAIN MEDICATION. ADMINISTERED NORCO 5-325 PRN PER MD ORDER. WILL CONTINUE TO MONITOR.
[2021-07-09] MEDS: MIDODRINE HCL (5MG) 5 MG TABLET PO SCH ×3 (04:21→13:40)
--- NOTE | 2021-07-09 05:45 | NUR ---
patient received TPN from pharmacy and NPO is on place after infusing TPN.
[2021-07-09 06:44] LABS: BASOPHILS # (AUTO) 0.1 K/uL (0.0-0.2); BASOPHILS % (AUTO) 0.9 % (0.0-2.0); EOSINOPHILS % (AUTO) 3.9 % (0.0-6.0); HEMATOCRIT 29 % (33-45); HEMOGLOBIN 9.4 g/dL (11.5-14.8); LYMPHOCYTES # (AUTO) 0.9 K/uL (0.8-4.8); LYMPHOCYTES % (AUTO) 13.1 % (20.0-44.0); MEAN CORPUSCULAR HGB CONC 32 g/dl (31.0-36.0); MEAN CORPUSCULAR VOLUME 102 fL (82-100); MONOCYTES # (AUTO) 0.6 K/uL (0.1-1.30); NEUTROPHILS # (AUTO) 5.3 K/uL (1.8-8.9); NEUTROPHILS % (AUTO) 73.1 % (43.0-81.0); PLATELET COUNT (AUTO) 156 K/uL (150-450); RED BLOOD CELL COUNT(AUTO) 2.89 MIL/uL (4.0-5.2); WHITE BLOOD COUNT (AUTO) 7.2 K/uL (4.3-11.0)
[2021-07-09 07:06] LABS: CALCIUM, SERUM 8.4 mg/dL (8.5-10.1); CREATININE 3.8 mg/dL (0.6-1.3); POTASSIUM 3.4 mmol/L (3.5-5.1)
[2021-07-09] MEDS: BLOOD SUGAR DIAGNOSTIC 1 EACH STRIP IN SCH ×4 (08:33→21:23)
[2021-07-09] MEDS: INSULIN REGULAR, HUMAN 100 UNIT/ML 3 ML VIAL SQ PRN ×2 (08:34→18:11)
[2021-07-09] MEDS: NEPRO VAN 237 ML CAN PO SCH ×3 (09:00→17:00)
[2021-07-09] MEDS ORDERED: TPN/PPN PER PHARMACY IV PRN (10:00)
[2021-07-09] MEDS: MORPHINE SULFATE INJ 2 MG/ML DISP.SYRIN IV PRN ×2 (10:06→16:43)
[2021-07-09] MEDS: LOSARTAN POTASSIUM 25 MG TABLET PO SCH (10:06)
[2021-07-09] MEDS: FERROUS SULFATE (325 MG) 325 MG/TAB TABLET PO SCH ×2 (10:07→16:35)
[2021-07-09] MEDS: GUAIFENESIN LA 600 MG TABLET.SA PO SCH ×2 (10:07→21:18)
[2021-07-09] MEDS: VIT B CMPLX 3/FA/VIT C/BIOTIN 1 TAB TABLET PO SCH (10:08)
[2021-07-09] MEDS: CHOLECALCIFEROL 1,000 UNIT TABLET (VIT D3) PO SCH (10:08)
[2021-07-09] MEDS: ATORVASTATIN 10 MG TABLET PO SCH (10:08)
[2021-07-09] MEDS: DOCUSATE SODIUM 100 MG CAPSULE PO SCH (10:11)
[2021-07-09] MEDS: APIXABAN 2.5 MG TABLET PO SCH ×2 (10:12→16:36)
[2021-07-09] MEDS: ASCORBIC ACID 500 MG TABLET PO SCH (10:12)
[2021-07-09] MEDS: ASPIRIN 81 MG TAB.CHEW PO SCH (10:13)
--- NOTE | 2021-07-09 10:15 | NUR ---
ordered NPO after patient received TPN. asked to order PICC line but patient already had righ patent femoral PICC line.
[2021-07-09] MEDS: OCTREOTIDE 50 MCG/ML AMPUL SQ SCH ×3 (10:49→16:34)
[2021-07-09] MEDS: CITRIC ACID/SODIUM CITRATE (BICITRA)15 ML UDC PO SCH ×4 (10:50→21:18)
[2021-07-09] MEDS: DORZOLAMIDE OPTH 2% 10 ML BOTTLE EACHEYE SCH ×3 (10:50→16:34)
[2021-07-09] MEDS: SIMETHICONE 80 MG TAB.CHEW PO PRN (12:44)
[2021-07-09] MEDS ORDERED: [UNRECOGNIZED DRUG - NUTRITION] IV SCH ×4 (16:00)
--- NOTE | 2021-07-09 19:30 | NUR ---
PT REFUSED NOC BIPAP. [facility] L[address] NOTIFIED. NO RESPIRATORY DISTRESS NOTED AT THIS TIME. SPO2 100%. WILL CONTINUE TO MONITOR T/O SHIFT
--- NOTE | 2021-07-09 19:50 | NUR ---
RN NOTE RECEIVED PATIENT IN BED SLEEPING. AROUSABLE TO NAME AND TOUCH. NO CHANGES IN MENTATION SINCE LEFT TAKEN CARE OF. BREATHING EVEN AND UNLABORED. ON 2L/MIN VIA NASAL CANNULA. TOLERATING WELL. DENIES FEELING SHORTNESS OF BREATHING. SKIN WARM AND DRY. NOTED WITH RIGHT UPPER CHEST WALL PERMCATH, LEFT UPPER ARM FISTULA. RIGHT FOREARM IV ACCESS 20G, AND RIGHT FEMORAL PICC LINE. CURRENTLY INFUSING TPN AT 40 CC/HR. NO S/S OF HYPO/HYPERGLYCEMIA. RIGHT UPPER BACK CHEST TUBE, DRAINING BY GRAVITY. DRESSING INTACT. PER AM SHIFT, NO DRAINAGE. WILL CONTINUE TO MONITOR. ASSISTED WITH TURNING AND REPOSITIONING. BED LOW IN LOCKED POSITION, CALL LIGHT WITHIN REACH.
--- NOTE | 2021-07-09 20:20 | NUR ---
RN CLOSING NOTE NO SIGNIFICANT CHANGES THROUGHOUT SHIFT. PATIENT AWAKE IN BED, ALERT/ORIENTEDX4, ABLE TO MAKE NEEDS KNOWN. RESPIRATIONS EVEN AND UNLABORED. NO ACUTE DISTRESS NOTED AT THE TIME. WITH PIGTAIL DRAIN TO PLEUR-EVAC IN PLACE AND FUNCTIONING WELL. ALL DUE MEDS GIVEN ORDERED. ALL NEEDS ANTICIPATED. KEPT PATIENT CLEAN DRY AND COMFORTABLE. WOUND CARE RENDERED, TOLERATED WELL. ALL SAFETY MEASURES IN PLACE. HOB ELEVATED, BED LOCKED AND IN LOWEST POSITION WITH SIDE RAILS UP. ENDORSED TO CUFF STITCHER NURSE FOR CONTINUITY OF CARE.
[2021-07-09] MEDS: LATANOPROST EYE DROP 0.005% 2.5 ML BOTTLE EACHEYE SCH (21:18)
[2021-07-10] VITALS: BP 105/68
[2021-07-10] MEDS: HYDROCODONE/APAP 5/325MG TABLET PO PRN ×2 (01:33→12:24)
--- NOTE | 2021-07-10 02:00 | NUR ---
RN NOTE PATIENT COMPLAINED OF GENERALIZED BODY PAIN. ASSISTED WITH TURNING AND REPOSITIONING. ASKED FOR NORCO, REFUSED MORPHINE. ADMINISTERED NORCO [phone] PER MD ORDER PRN. PATIENT GIVEN A BED BATH TO HELP WITH DISCOMFORT DURING BED BATH. TOLERATED WELL. WILL CONTINUE TO MONITOR. CALL LIGHT WITHIN REACH.
[2021-07-10 04:00] VITALS: BP 109/62
[2021-07-10] MEDS: MIDODRINE HCL (5MG) 5 MG TABLET PO SCH ×2 (05:29→14:06)
--- NOTE | 2021-07-10 07:00 | NUR ---
RN OPENING NOTES PATIENT AWAKE IN BED, ALERT/ORIENTEDX4, ABLE TO MAKE NEEDS KNOWN. RESPIRATIONS EVEN AND UNLABORED. NO S/S RESPIRATORY DISTRESS OR SOB AT THIS TIME. TELE MONITOR IN PLACE READING NSR. CHEST TUBE IN PLACE IN POSTERIOR R UPPER CHEST DRAINING CLEAR FLUID TO GRAVITY. L FA # 20 G CLEAN, INTACT, AND FLUSHING WELL. R FEMORAL PICC CLEAN, INTACT, AND FLUSHING WELL WITH TPN @ 40 ML/HR. SAFETY MEASURES IN PLACE: BED IN LOWEST LOCKED POSITION, SIDE RAILS UP X 2, CALL LIGHT WITHIN REACH. WILL CONTINUE TO MONITOR.
[2021-07-10 07:29] LABS: BASOPHILS # (AUTO) 0.1 K/uL (0.0-0.2); BASOPHILS % (AUTO) 0.7 % (0.0-2.0); EOSINOPHILS % (AUTO) 2.6 % (0.0-6.0); HEMATOCRIT 29 % (33-45); HEMOGLOBIN 9.2 g/dL (11.5-14.8); LYMPHOCYTES # (AUTO) 1.1 K/uL (0.8-4.8); LYMPHOCYTES % (AUTO) 13.5 % (20.0-44.0); MEAN CORPUSCULAR HGB CONC 32 g/dl (31.0-36.0); MEAN CORPUSCULAR VOLUME 102 fL (82-100); MONOCYTES # (AUTO) 0.6 K/uL (0.1-1.30); MONOCYTES % (AUTO) 8.1 % (2.0-12.0); NEUTROPHILS % (AUTO) 75.1 % (43.0-81.0); PLATELET COUNT (AUTO) 174 K/uL (150-450); RED BLOOD CELL COUNT(AUTO) 2.87 MIL/uL (4.0-5.2)
[2021-07-10] MEDS: BLOOD SUGAR DIAGNOSTIC 1 EACH STRIP IN SCH ×4 (07:30→17:12)
[2021-07-10 07:46] LABS: CALCIUM, SERUM 8.8 mg/dL (8.5-10.1); CREATININE 5.1 mg/dL (0.6-1.3); PHOSPHORUS 4.2 mg/dL (2.5-4.9); POTASSIUM 3.3 mmol/L (3.5-5.1)
[2021-07-10 08:00] VITALS: BP 108/57
[2021-07-10] MEDS: NEPRO VAN 237 ML CAN PO SCH (08:16)
[2021-07-10] MEDS: LOSARTAN POTASSIUM 25 MG TABLET PO SCH (09:00)
[2021-07-10] MEDS: CITRIC ACID/SODIUM CITRATE (BICITRA)15 ML UDC PO SCH ×5 (09:00→17:00)
[2021-07-10] MEDS: OCTREOTIDE 50 MCG/ML AMPUL SQ SCH ×5 (09:00→17:12)
[2021-07-10] MEDS: INSULIN REGULAR, HUMAN 100 UNIT/ML 3 ML VIAL SQ PRN ×3 (09:07→14:25)
[2021-07-10] MEDS: FERROUS SULFATE (325 MG) 325 MG/TAB TABLET PO SCH ×2 (09:09→17:08)
[2021-07-10] MEDS: GUAIFENESIN LA 600 MG TABLET.SA PO SCH (09:09)
[2021-07-10] MEDS: ASCORBIC ACID 500 MG TABLET PO SCH (09:09)
[2021-07-10] MEDS: DOCUSATE SODIUM 100 MG CAPSULE PO SCH (09:10)
[2021-07-10] MEDS: ATORVASTATIN 10 MG TABLET PO SCH (09:10)
[2021-07-10] MEDS: ASPIRIN 81 MG TAB.CHEW PO SCH (09:10)
[2021-07-10] MEDS: APIXABAN 2.5 MG TABLET PO SCH ×2 (09:11→17:11)
[2021-07-10] MEDS: CHOLECALCIFEROL 1,000 UNIT TABLET (VIT D3) PO SCH (09:12)
[2021-07-10] MEDS: DORZOLAMIDE OPTH 2% 10 ML BOTTLE EACHEYE SCH ×3 (09:12→17:08)
[2021-07-10] MEDS: ALBUMIN 25% 25 GM in PREMIX 1 EA IV PRN (09:16)
[2021-07-10] MEDS: VIT B CMPLX 3/FA/VIT C/BIOTIN 1 TAB TABLET PO SCH (09:21)
[2021-07-10] MEDS: POLYETHYLENE GLYCOL 3350 17 GM POWD.PACK PO SCH (11:47)
[2021-07-10] MEDS: GABAPENTIN 100 MG CAPSULE PO SCH (11:48)
[2021-07-10 12:00] VITALS: BP 104/53
--- NOTE | 2021-07-10 12:25 | NUR ---
RN NOTE PATIENT COMPLAINT OF 7/10 GENERALIZED PAIN AND REQUESTING MEDICATION. PRN NORCO [phone] MG PO ADMINISTERED ORDERED. WILL CONTINUE TO MONITOR FOR S/S OF PAIN.
--- NOTE | 2021-07-10 12:50 | NUR ---
SHUTTLELESS LOOM WEAVER NOTE CALLED TO [facility] SPOKE WITH AYAZ EWING REPORT GIVEN , ALSO CALLED BROTHER KAREN ROQUE AWARE THAT PATENT WILL BE TRANSFER TO [facility]
[2021-07-10 14:06] VITALS: BP 107/56
[2021-07-10] MEDS: SIMETHICONE 80 MG TAB.CHEW PO PRN (14:29)
[2021-07-10] MEDS ORDERED: [UNRECOGNIZED DRUG - NUTRITION] IV SCH ×4 (16:00)
[2021-07-10] MEDS: LATANOPROST EYE DROP 0.005% 2.5 ML BOTTLE EACHEYE SCH (17:08)
--- NOTE | 2021-07-10 19:30 | NUR ---
REVIEW RN NOTE PATIENT AWAKE IN BED, ALERT/ORIENTEDX4, ABLE TO MAKE NEEDS KNOWN. RESPIRATIONS EVEN AND UNLABORED. NO S/S RESPIRATORY DISTRESS OR SOB AT THIS TIME. TELE MONITOR IN PLACE READING NSR. CHEST TUBE IN PLACE IN POSTERIOR R UPPER CHEST DRAINING CLEAR FLUID TO GRAVITY. L FA # 20 G CLEAN, INTACT, AND FLUSHING WELL. R FEMORAL PICC CLEAN, INTACT, AND FLUSHING WELL WITH TPN @ 40 ML/HR. SAFETY MEASURES IN PLACE: BED IN LOWEST LOCKED POSITION, SIDE RAILS UP X 2, CALL LIGHT WITHIN REACH. PATIENT MADE AWARE OF MD DISCHARGE ORDERS AND VERBALIZED UNDERSTANDING OF MD DISCHARGE INSTRUCTIONS, PAPERWORK SIGNED IN PRESENCE OF PATIENT WITH SECOND RN WITNESS. PATIENT VERBALIZED POSSESSION OF ALL BELONGINGS AND BELONGINGS LIST SIGNED IN PRESENCE OF PATIENT WITH SECOND RN WITNESS. ALL DISCHARGE PAPERWORK PROVIDED TO TRANSPORT TEAM (2 CHEMICAL COMPOUNDER HELPER AND RN) AND PATIENT TRANSPORTED OFF OF UNIT VIA GURNEY. REPORT CALLED TO [place] BY PVC LOADER YELENA, REPORT GIVEN TO KAYLIN JACOME. PATIENT STABLE AT TIME OF DISCHARGE. ALL CARE TRANSFERRED.
== END 2021-07-10 19:44 | DRG 871 ==
LOC: ER 09:30 → MED 13:29 → TELE 06-05 02:23 → ICU 06-07 16:35 → TELE 06-12 18:52 → TELE1 06-17 19:33 → ICU 06-18 10:02 → TELE1 06-24 19:21 → TELE-TD 06-24 19:32 → TELE1 06-27 06:48
PROVIDERS: ADMIT Internal Medicine; ATTEND Student in an Organized Health Care Education/Training Program
PROC: 0W993ZZ Drainage of Right Pleural Cavity, Percutaneous Approach (ICD-10-PCS; principal; 2021-06-04)
PROC: 5A1D70Z Performance of Urinary Filtration, Intermittent, Less than 6 Hours Per Day (ICD-10-PCS; 2021-06-04)
PROC: 02HV33Z Insertion of Infusion Device into Superior Vena Cava, Percutaneous Approach (ICD-10-PCS; 2021-06-07)
PROC: B548ZZA Ultrasonography of Superior Vena Cava, Guidance (ICD-10-PCS; 2021-06-07)
PROC: 04HL33Z Insertion of Infusion Device into Left Femoral Artery, Percutaneous Approach (ICD-10-PCS; 2021-06-08)
PROC: 5A1945Z Respiratory Ventilation, 24-96 Consecutive Hours (ICD-10-PCS; 2021-06-10)
PROC: 0BH18EZ Insertion of Endotracheal Airway into Trachea, Via Natural or Artificial Opening Endoscopic (ICD-10-PCS; 2021-06-10)
PROC: 0W9930Z Drainage of Right Pleural Cavity with Drainage Device, Percutaneous Approach (ICD-10-PCS; 2021-06-19)
DX: A41.9 Sepsis, unspecified organism (principal); N18.6 End stage renal disease; R65.21 Severe sepsis with septic shock; J86.9 Pyothorax without fistula; J69.0 Pneumonitis due to inhalation of food and vomit; J96.01 Acute respiratory failure with hypoxia; I13.2 Hypertensive heart and chronic kidney disease with heart failure and with stage 5 chronic kidney disease, or end stage renal disease; J90 Pleural effusion, not elsewhere classified; I50.32 Chronic diastolic (congestive) heart failure; E87.2 Acidosis; J98.11 Atelectasis; M46.20 Osteomyelitis of vertebra, site unspecified; I82.210 Acute embolism and thrombosis of superior vena cava; S42.401A Unspecified fracture of lower end of right humerus, initial encounter for closed fracture; E11.42 Type 2 diabetes mellitus with diabetic polyneuropathy; E11.22 Type 2 diabetes mellitus with diabetic chronic kidney disease; E87.5 Hyperkalemia; Z20.822 Contact with and (suspected) exposure to COVID-19; E66.9 Obesity, unspecified; G89.4 Chronic pain syndrome; Z79.4 Long term (current) use of insulin; Z79.84 Long term (current) use of oral hypoglycemic drugs; Z79.01 Long term (current) use of anticoagulants; Z87.891 Personal history of nicotine dependence; Z83.3 Family history of diabetes mellitus; Z99.2 Dependence on renal dialysis; N61.0 Mastitis without abscess; E11.69 Type 2 diabetes mellitus with other specified complication; R53.1 Weakness; Z99.81 Dependence on supplemental oxygen; L73.2 Hidradenitis suppurativa; D64.9 Anemia, unspecified; T17.990A Other foreign object in respiratory tract, part unspecified in causing asphyxiation, initial encounter; X58.XXXA Exposure to other specified factors, initial encounter; Y93.9 Activity, unspecified; Y92.89 Other specified places as the place of occurrence of the external cause; L89.159 Pressure ulcer of sacral region, unspecified stage
CPT/HCPCS: 31720; 36415; 36569; 36600; 71045-TC; 71250-TC; 71270-TC; 73060-TC; 73070-TC; 74018; 74150-TC; 74178; 80048-TC; 80053-TC; 80061-TC; 80076-TC; 80202-TC; 82533; 82803-TC; 82962-TC; 83615-TC; 83690-TC; 83735-TC; 84100-TC; 84484-TC; 85025-TC; 85610-TC; 85730-TC; 87040-TC; 87070-TC; 87075-TC; 87081-TC; 87102-TC; 88108-TC; 88305-TC; 89051-TC; 90935-TC; 92526; 92611-TC; 94002-TC; 94003-TC; 94640-TC; 94660; 94760-TC; 94761-TC; 94799-TC; 99082-TC; A4216; A4217; A4349; A6253; A6403; C9803; G0378; J1720; J1815; J2185; J2270; J2354; J2370; J2405; J2997; J3370; J3490; J7030; J7040; J7050; J7060; J7070; P9047; Q9967